=== PATIENT | male | born 1950 | race Caucasian/White ===

== ENCOUNTER → 2016-06-09 | Outpatient (CLI) | payer OTHER ==
--- NOTE | 2016-06-09 12:59 | XR ---
EXAMINATION TYPE: XR knee limited RT DATE OF EXAM: 06/09/2016 12:55 PM CLINICAL HISTORY: pain TECHNIQUE: Two views of the right knee are obtained. COMPARISON: None. FINDINGS: There is no acute fracture/dislocation. The tri-compartment joint spaces appear moderatel y narrowed. The overlying soft tissue appears unremarkable. IMPRESSION: There is no acute fracture or dislocation.ICD 10 NO FRACTURE, INITIAL EVALUATION
== END | disposition home or self-care (01) ==
LOC: RADXRMAIN 12:39
PROVIDERS: ATTEND Family Medicine
DX: M25.561 Pain in right knee (principal)

== ENCOUNTER → 2016-09-15 | Outpatient (CLI) | payer OTHER ==
--- NOTE | 2016-09-15 11:34 | XR ---
EXAMINATION TYPE: XR lumbosacral spine min 4V DATE OF EXAM: 09/15/2016 11:27 AM CLINICAL HISTORY: pain COMPARISON: NONE TECHNIQUE: Frontal, lateral, and oblique images of the lumbar spine are obtained. FINDINGS: There are 5 lumbar type vertebral bodies identified. The lumbar spine shows satisfactory alignment without evidence of acute fracture or dislocation. Vertebral body heights are within normal limits. Moderate degenerative disc space narrowing and mild spondylosis. Moderate facet joint arthro emery seen. The overlying soft tissue appears unremarkable. IMPRESSION: No acute fracture or dislocation is seen in the lumbar spine.ICD 10 NO FRACTURE, INITIAL EVALUATION
== END | disposition home or self-care (01) ==
LOC: RADXRMAIN 11:05
PROVIDERS: ATTEND Family Medicine
DX: M54.5 Low back pain (principal)
CPT/HCPCS: 72110

== ENCOUNTER 2016-10-21 14:27 | Inpatient (IN) | payer OTHER ==
[~2016-10-21 14:27] MED LIST: AMIODARONE 50 MG/ML 3 ML VIAL IV ONE; DEXTROSE 5% IN WATER 100 ML BAG IV ONE; EPINEPHrine 1 MG/ML (MDV) 30 ML VIAL ONE
[2016-10-21] MEDS ORDERED: SUCCINYLCHOLINE CHLORIDE VIAL 200 MG/10 ML VIAL IV STA (14:40)
[2016-10-21] MEDS ORDERED: ASPIRIN 300 MG SUPP RECTAL STA (14:45)
[2016-10-21] MEDS ORDERED: LORazepam 2 MG/ML SYRINGE IV STA ×2 (14:47→14:51)
[2016-10-21] MEDS ORDERED: MIDAZOLAM (PF) 1 MG/ML 5 ML VIAL IV STA (14:47)
[2016-10-21] MEDS ORDERED: LIDOCAINE 2% INJ 20 MG/ML (20 ML MDV) ONE (14:50)
[2016-10-21] MEDS ORDERED: HEPARIN SODIUM,PORCINE 5,000 UNIT/ML 1 ML VIAL IV ONE (14:50)
[2016-10-21] MEDS ORDERED: HEPARIN SODIUM,PORCINE 5,000 UNIT/ML 1 ML VIAL SQ STA (14:51)
[2016-10-21 14:56] LABS: Basophils # (A) 0.1 k/uL (0-0.2); Basophils % (A) 1 %; CH 31.5; CHCM 34.8; Eosinophils # (A) 0.2 k/uL (0-0.7); Eosinophils % (A) 3 %; HCT 39.4 % (39.0-53.0); HDW 3.52; HGB 13.4 gm/dL (13.0-17.5); Luc # (Auto) 0.21; Luc % (Auto) 4; Lymphocytes # (A) 1.3 k/uL (1.0-4.8); Lymphocytes % (A) 22 %; MCHC 34.1 g/dL (31.0-37.0); Mean Platelet Volume 7.7; Monocytes # (A) 0.3 k/uL (0-1.0); Monocytes % (A) 6 %; Neutrophils # (A) 3.9 k/uL (1.3-7.7); Neutrophils % (A) 65 %; Poikilocytosis Slight; RBC 4.33 m/uL (4.30-5.90); RDW 14.2 % (11.5-15.5); WBC (Perox) 5.55
[2016-10-21] MEDS ORDERED: DEXTROSE 5% IN WATER 100 ML with AMIODARONE 150 MG IV ONE (15:00)
--- NOTE | 2016-10-21 15:02 | ED ---
General Adult HPI - General Stated complaint: Chest Pain Time Seen by Provider: 10/21/16 14:27 Source: RN notes reviewed - History of Present Illness Initial comments: This is a 65-year-old male who presents to the emergency department unresponsive and without pulses. Patient was working on a deck with his daughter when he became diaphoretic and said he didn't feel well he also complete of chest pain and some mild shortness of breath. The daughter medially brought him to the emergency department at which point in time he became unresponsive in triage and we brought him back to room 20 immediately. Patient had no pulse patient had no spontaneous breathing at that time. We put the patient to monitor the patient was in a ventricular fibrillation. No other history is available this time. - Related Data Home Medications Medication Instructions Recorded Confirmed Cyanocobalamin [Vitamin B-12 1,000 mcg SQ QMONTH 10/21/16 10/21/16 Injection] Docusate [Colace] 100 mg PO Q7D 10/21/16 10/21/16 Ergocalciferol [Vitamin D2 50,000 unit PO Q7D 10/21/16 10/21/16 (DRISDOL)] Famotidine [Pepcid] 40 mg PO HS 10/21/16 10/21/16 HYDROcodone/APAP 5-325MG [Randolph 1 tab PO Q8H PRN 10/21/16 10/21/16 5-325] Tamsulosin [Flomax] 0.4 mg PO BID 10/21/16 10/21/16 Previous Rx's Medication Instructions Recorded Aspirin 81 mg PO DAILY #90 10/24/16 Atorvastatin [Lipitor] 80 mg PO HS #90 tab 10/24/16 Losartan [Cozaar] 12.5 mg PO DAILY #45 tab 10/24/16 Metoprolol Tartrate [Lopressor] 25 mg PO BID #180 tab 10/24/16 Nitroglycerin Sl Tabs [Nitrostat] 0.4 mg SUBLINGUAL Q5M PRN #25 tab 10/24/16 Prasugrel [Effient] 10 mg PO DAILY #90 tab 10/24/16 Allergies Allergy/AdvReac Type Severity Reaction Status Date / Time No Known Allergies Allergy Verified 10/21/16 15:11 Review of Systems ROS Statement: Those systems with pertinent positive or pertinent negative responses have been documented in the HPI. ROS Other: All systems not noted in ROS Statement are negative. Past Medical History - Past Family History Father Family Medical History: Dementia Additional Family Medical History / Comment(s): PARKINSONS Mother Additional Family Medical History / Comment(s): MOM WHEN PT WAS 4 YERAS OLD NO HX KNOWN General Exam - General Exam Comments Initial Comments: GENERAL: Patient is well-developed and well-nourished. PULMONARY: Patient has occasional agonal breathing. CARDIOVASCULAR: Patient is without pulses and no heart sounds are noted SKIN: Skin is clear with no lesions or rashes and otherwise unremarkable. NEUROLOGIC: Patient is unresponsive Course Vital Signs 10/21/16 10/21/16 14:36 14:55 Temperature 99.9 F H Pulse Rate 164 H 95 Respiratory 14 16 Rate Blood Pressure 144/110 112/55 O2 Sat by Pulse 98 98 Oximetry Procedures - Intubation Time Out Performed: Yes Sedative: Versed Paralytic: Succinylcholine Laryngoscope: San Size: 3 ET Tube Size: 8 ET Tube Uncuffed: No Tube Secured Location: teeth Tube Placement Confirmation: visualized tube passing through cords Patient Tolerated Procedure: well Intubation Complications: none Medical Decision Making - Medical Decision Making Initial rhythm was ventricular fibrillation and was shocked the patient times one and the patient had CPR continued for a couple more minutes and recheck pulses patient had good pulses his rhythm showed the atrial fibrillation with the ST segment elevation. Patient was somewhat combative at that time and trying to breathe on his own at this point time we intubated the patient. Amiodarone was given to the patient as well. EKG shows atrial fibrillation with rapid ventricular response at 159 bpm QRS is 84 QT interval 310 QTC is 504. Patient's EKG shows significant ST segment elevation and aVL as well as V2 V3 and V4. Patient also has ST segment depression in II, III, and F aVF. Chest x-ray shows no acute abnormality. ET tube was down a little too far so I had them pull her back a centimeter We gave the patient 4000 bolus of heparin rectal aspirin. Patient did have some neurosurgery a couple years ago but when I spoke with Dr. Carroll he agreed that the patient needed to heparin so we gave the patient [address] Carroll came down and see the patient after I spoke with him and he immediately took the patient to the cath. I spoke with Dr. Brown he agreed to accept the admission. - Lab Data Result diagrams: 10/25/16 05:52 10/25/16 05:52 Lab Results 10/21/16 10/21/16 10/21/16 Range/Units 14:39 14:39 14:39 WBC 6.0 (3.8-10.6) k/uL RBC 4.33 (4.30-5.90) m/uL Hgb 13.4 (13.0-17.5) gm/dL Hct 39.4 (39.0-53.0) % MCV 91.0 (80.0-100.0) fL MCH 31.0 (25.0-35.0) pg MCHC 34.1 (31.0-37.0) g/dL RDW 14.2 (11.5-15.5) % Plt Count 220 (150-450) k/uL Neutrophils % 65 % Lymphocytes % 22 % Monocytes % 6 % Eosinophils % 3 % Basophils % 1 % Neutrophils # 3.9 (1.3-7.7) k/uL Lymphocytes # 1.3 (1.0-4.8) k/uL Monocytes # 0.3 (0-1.0) k/uL Eosinophils # 0.2 (0-0.7) k/uL Basophils # 0.1 (0-0.2) k/uL Poikilocytosis Slight PT (9.0-12.0) sec INR (<1.1) APTT (22.0-30.0) sec Sodium 145 (137-145) mmol/L Potassium 3.5 (3.5-5.1) mmol/L Chloride 110 H (98-107) mmol/L Carbon Dioxide 23 (22-30) mmol/L Anion Gap 12 mmol/L BUN 20 (9-20) mg/dL Creatinine 1.30 H (0.66-1.25) mg/dL Est GFR (MDRD) Af Amer >60 (>60 ml/min/1.73 sqM) Est GFR (MDRD) Non-Af 56 (>60 ml/min/1.73 sqM) Glucose 131 H (74-99) mg/dL Calcium 9.8 (8.4-10.2) mg/dL Magnesium 2.2 (1.6-2.3) mg/dL Total Bilirubin 0.9 (0.2-1.3) mg/dL AST 26 (17-59) U/L ALT 25 (21-72) U/L Alkaline Phosphatase 64 (38-126) U/L Total Creatine Kinase 201 H (55-170) U/L CK-MB (CK-2) 3.0 H* (0.0-2.4) ng/mL CK-MB (CK-2) Rel Index 1.5 Troponin I 0.476 H* (0.000-0.034) ng/mL Total Protein 7.6 (6.3-8.2) g/dL Albumin 4.5 (3.5-5.0) g/dL 10/21/16 Range/Units 14:39 WBC (3.8-10.6) k/uL RBC (4.30-5.90) m/uL Hgb (13.0-17.5) gm/dL Hct (39.0-53.0) % MCV (80.0-100.0) fL MCH (25.0-35.0) pg MCHC (31.0-37.0) g/dL RDW (11.5-15.5) % Plt Count (150-450) k/uL Neutrophils % % Lymphocytes % % Monocytes % % Eosinophils % % Basophils % % Neutrophils # (1.3-7.7) k/uL Lymphocytes # (1.0-4.8) k/uL Monocytes # (0-1.0) k/uL Eosinophils # (0-0.7) k/uL Basophils # (0-0.2) k/uL Poikilocytosis PT 10.9 (9.0-12.0) sec INR 1.1 (<1.1) APTT 21.6 L (22.0-30.0) sec Sodium (137-145) mmol/L Potassium (3.5-5.1) mmol/L Chloride (98-107) mmol/L Carbon Dioxide (22-30) mmol/L Anion Gap mmol/L BUN (9-20) mg/dL Creatinine (0.66-1.25) mg/dL Est GFR (MDRD) Af Amer (>60 ml/min/1.73 sqM) Est GFR (MDRD) Non-Af (>60 ml/min/1.73 sqM) Glucose (74-99) mg/dL Calcium (8.4-10.2) mg/dL Magnesium (1.6-2.3) mg/dL Total Bilirubin (0.2-1.3) mg/dL AST (17-59) U/L ALT (21-72) U/L Alkaline Phosphatase (38-126) U/L Total Creatine Kinase (55-170) U/L CK-MB (CK-2) (0.0-2.4) ng/mL CK-MB (CK-2) Rel Index Troponin I (0.000-0.034) ng/mL Total Protein (6.3-8.2) g/dL Albumin (3.5-5.0) g/dL Critical Care Time Critical Care Time: Yes Total Critical Care Time: 35 Disposition Clinical Impression: Cardiac arrest, Ventricular fibrillation, STEMI (ST elevation myocardial infarction) Disposition: ADMITTED IP TO THIS HOSP Condition: Good Time of Disposition: 15:04
[2016-10-21] MEDS ORDERED: SODIUM CHLORIDE 0.9% 1,000 ML IV ONE ×2 (15:04→15:10)
--- NOTE | 2016-10-21 15:07 | XR ---
EXAMINATION TYPE: XR chest 1V portable DATE OF EXAM: 10/21/2016 COMPARISON: NONE HISTORY: Cardiac arrest TECHNIQUE: Single AP portable frontal supine view of the chest is obtained. FINDINGS: Endotracheal tube is low in position extending into right mainstem bronchus below sandra, recommend pulling back 4 to 5 cm. Orogastric tube is projecting below left hemidiaphragm. Somewhat low lung volumes are present. There is no focal air space opacity, pleural effusion, or pne umothorax seen. The cardiac silhouette size is within normal limits. The osseous structures are in tact. IMPRESSION: 1. Low-lying endotracheal tube should be pulled back 4 to 5 cm. 2. Low lung volumes without suspicious acute pulmonary process. Results of low lying endotracheal tube called to emergency care room at time of dictation.
[2016-10-21 15:12] LABS: INR 1.1 (<1.1); Partial Thromboplastin Time 21.6 sec (22.0-30.0); Prothrombin Time 10.9 sec (9.0-12.0)
[2016-10-21 15:14] LABS: ALT 25 U/L (21-72); AST 26 U/L (17-59); Alkaline Phosphatase 64 U/L (38-126); Anion Gap 12 mmol/L; Blood Urea Nitrogen 20 mg/dL (9-20); Calcium 9.8 mg/dL (8.4-10.2); Carbon Dioxide 23 mmol/L (22-30); Chloride 110 mmol/L (98-107); Glucose 131 mg/dL (74-99); Magnesium 2.2 mg/dL (1.6-2.3); Non-African American GFR(MDRD) 56 (>60 ml/min/1.73 sqM); Potassium 3.5 mmol/L (3.5-5.1); Sodium 145 mmol/L (137-145); Total Bilirubin 0.9 mg/dL (0.2-1.3); Total Protein 7.6 g/dL (6.3-8.2)
[2016-10-21] MEDS ORDERED: AMIODARONE 450 MG in DEXTROSE 5% IN WATER 250 ML IV ONE ×4 (15:15→15:26)
--- NOTE | 2016-10-21 15:15 | CONS ---
DATE OF CONSULTATION: CHIEF COMPLAINT: Acute myocardial infarction. This is a 65-year-old gentleman with history of brain surgery about 2 years ago and hypertension, who was brought to the emergency room with chest pain. While he was in the waiting area, he had a cardiac arrest, was brought in. An EKG shows acute ST-segment elevation CT in the anterior wall. Patient had to be shocked, currently intubated on vent, remains in sinus rhythm, hemodynamically unstable. He is just in the process of being started on heparin, IV amiodarone. We do not really have any information on the brain surgery that he had. There is a risk of intracranial bleed, but this is a risk we have to take with the information we have in our hands at the moment. Past medical history is significant for hypertension. I do not have his med list with him. ALLERGIES: We do not know. FAMILY HISTORY, SOCIAL HISTORY, REVIEW OF SYSTEMS: I am unable to obtain from the patient who is intubated on vent and critically ill. On exam, patient is intubated on vent, sedated. Heart rate is in the 80s. Blood pressure is 110/70, respiratory rate is 24. Chest exam reveals diminished air entry bilaterally. Heart exam reveals first and second heart sounds. No gallop. Exam of the extremities did not reveal trace edema. Peripheral pulses are diminished. Labs are pending. ASSESSMENT: 1. Acute anterior wall myocardial infarction. 2. Status post cardiac arrest secondary to ventricular fibrillation. 3. Atrial fibrillation. PLAN: Will start the patient on amiodarone, start him on heparin, resuscitate him as necessary with pressors and fluids. Will undergo emergent cardiac catheterization with ( ) performing angioplasty.
[2016-10-21] MEDS ORDERED: PROPOFOL 500 MG in EMPTY BAG 1 BAG IV ONE (15:17)
[2016-10-21] MEDS ORDERED: LIDOCAINE 2% INJ 20 MG/ML SQ ONE (15:18)
[2016-10-21] MEDS ORDERED: BIVALIRUDIN 250 MG in SODIUM CHLORIDE 0.9% 50 ML IV ONE (15:34)
[2016-10-21] MEDS ORDERED: BIVALIRUDIN BOLUS 250 MG/50 ML IV ONE (15:35)
[2016-10-21] MEDS ORDERED: LIDOCAINE 2% SYG (PF) 100 MG/5 ML IV ONE (15:40)
[2016-10-21] MEDS ORDERED: niCARdipine Syringe (1,000 mcg/10 mL) INTRACORON ONE (15:45)
[2016-10-21] MEDS ORDERED: PRASUGREL 10 MG TAB ONE (15:51)
[2016-10-21] MEDS ORDERED: PRASUGREL 10 MG TAB NG-TUBE ONE (16:00)
[2016-10-21] MEDS ORDERED: NITROGLYCERIN SL TABS 0.4 MG TAB SUBLINGUAL PRN (16:03)
[2016-10-21] MEDS ORDERED: MAG HYDROX/AL HYDROX/SIMETH 30 ML CUP PO PRN (16:03)
[2016-10-21] MEDS ORDERED: ATROPINE SULFATE 0.1 MG/ML 10ML SYRINGE IV PRN (16:03)
[2016-10-21] MEDS ORDERED: ZOLPIDEM 5 MG TAB PO PRN (16:03)
[2016-10-21] MEDS ORDERED: IOHEXOL 350 MG/ML 125ML BOTTLE INJ ONE (16:03)
[2016-10-21] MEDS ORDERED: RX INFO: IV CONTRAST WAS GIVEN 1 EACH MISC MISCELLANE PRN (16:03)
[2016-10-21 16:11] LABS: Troponin I 0.476 ng/mL (0.000-0.034)
[2016-10-21] MEDS ORDERED: PROPOFOL 50 ML IV ONE (16:22)
[2016-10-21 16:29] LABS: Glucose,Whole Blood 174 mg/dL (75-99)
[2016-10-21 16:56] LABS: ABG PCO2 35 mmHg (35-45)
[2016-10-21 16:57] LABS: ABG Base Excess -2.8 mmol/L; ABG HCO3 21 mmol/L (21-25); ABG Oxygen Saturation 98.8 % (94-97); ABG PO2 123 mmHg (83-108); ABG TCO2 22 mmol/L (19-24)
[2016-10-21] MEDS ORDERED: NALOXONE 0.4 MG/ML 1 ML VIAL IV PRN (17:01)
[2016-10-21] MEDS: POTASSIUM CHLORIDE ORAL LIQUID 40 MEQ/30 ML CUP PO SCH ×2 (17:34→18:25)
[2016-10-21] MEDS: SODIUM CHLORIDE 0.9% 1,000 ML IV SCH (17:34)
[2016-10-21] MEDS: PROPOFOL 500 MG in EMPTY BAG 1 BAG IV SCH ×2 (18:26→20:39)
[2016-10-21] MEDS: IPRATROPIUM-ALBUTEROL 3 ML NEB INHALATION SCH ×2 (19:36→23:16)
[2016-10-21 21:22] LABS: Anion Gap 8 mmol/L; Blood Urea Nitrogen 19 mg/dL (9-20); Carbon Dioxide 22 mmol/L (22-30); Chloride 112 mmol/L (98-107); Glucose 110 mg/dL (74-99); Magnesium 2.2 mg/dL (1.6-2.3); Non-African American GFR(MDRD) >60 (>60 ml/min/1.73 sqM); Potassium 4.3 mmol/L (3.5-5.1); Sodium 142 mmol/L (137-145)
[2016-10-21] MEDS: ATORVASTATIN 80 MG TAB PO SCH (22:08)
[2016-10-21] MEDS: CHLORHEXIDINE GLUCONATE 15 ML CUP MUCOUS MEM SCH (22:08)
[2016-10-21] MEDS: METOPROLOL TARTRATE 12.5 MG TAB PO SCH (22:08)
--- NOTE | 2016-10-21 23:17 | P.HPIM ---
History of Present Illness H&P Date: 10/21/16 Chief Complaint: STEMI/Afib with RVR/V-Fib This is a 65 year-old male one of my patient with previous medical history significant for hypertension and hypertensive cardiovascular disease, hyperlipidemia, vascular dementia, left ear Cholesteatoma S/P surgical excision 06/[address]Bojrab Mccall, colonic polyps and prostate cancer post seeds and radiation currently in remission, patient was helping his daughter doing some work on the deck when he suddenly developed increased left sided chest pain and patient felt diaphoretic , she ended up driving him to the ER at [facility] and while he was in the waiting room he collapsed and became unresponsive and patient was foung in V.Fib , he was shocked and then he went into AFib with RVR and was found to Have anterior ST segment elevation with reciprocal changes in the inferior leads and was seen in consultation by and he was given a bolus of Amiodarone and ws taken to the cath labs where he was found to have totally occluded LAD, he underwent stenting and was admitted to the ICU after patient was intubated in the ER, and subsequently was admitted to the ICU. Review of Systems ROS unobtainable: due to endotracheal tube, due to mental status Past Medical History Past Medical History: Atrial Fibrillation, Cancer, Hearing Disorder / Deafness, Hypertension, Musculoskeletal Disorder, Osteoarthritis (OA), Prostate Disorder Additional Past Medical History / Comment(s): 10-21-16 CARDIAC [id number]. ENLARGED PROSTATE AND PROSTATE CANCER(RADIATION AND CHEMO) HAS SEED IMPLANTS, "BEGINNINGS OF DEMENTIA, SPINAL STENOSIS, B12 DEFICIENCY, ANEMIA, Left Cholesteatoma of the left ear S/P excision 06/2014. History of Any Multi-Drug Resistant Organisms: Unobtainable Additional Past Surgical History / Comment(s): 10-21-16 -HEART CATH W/STENT TO LAD PROSTATE BX, LT ACOUSTIC NEUROMA REMOVED JULY 2016 Past Anesthesia/Blood Transfusion Reactions: No Reported Reaction Past Psychological History: No Psychological Hx Reported Additional Psychological History / Comment(s): PT IS NORMALLY INDEPENDANT,NO OUTSIDE SERVICES, NO MEDICAL EQUIPMENT. LIVES WITH DAUGHTER, 1 PET DOG IN A SINGLE STORY HOME THAT HAS 2 STEPS. 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 Smoking Status: Former smoker Past Alcohol Use History: Occasional Additional Past Alcohol Use History / Comment(s): DAUGHTER UNSURE HOW OLD PT WAS WHEN HE STARTED SMOKING BUT STATED HE QUIT 1996 AND SMOKED 1PPD. Past Drug Use History: Unable to Obtain - Past Family History Father Family Medical History: Dementia Additional Family Medical History / Comment(s): PARKINSONS Mother Additional Family Medical History / Comment(s): MOM WHEN PT WAS 4 YERAS OLD NO HX KNOWN Medications and Allergies Home Medications Medication Instructions Recorded Confirmed Type Cyanocobalamin [Vitamin B-12 1,000 mcg SQ QMONTH 10/21/16 10/21/16 History Injection] Docusate [Colace] 100 mg PO Q7D 10/21/16 10/21/16 History Ergocalciferol [Vitamin D2] 50,000 unit PO Q7D 10/21/16 10/21/16 History Famotidine [Pepcid] 40 mg PO HS 10/21/16 10/21/16 History HYDROcodone/APAP 5-325MG [Caruthers 1 tab PO Q8H PRN 10/21/16 10/21/16 History 5-325] Meloxicam [Meloxicam] 15 mg PO DAILY 10/21/16 10/21/16 History Metoprolol Tartrate [Lopressor] 50 mg PO BID 10/21/16 10/21/16 History Tamsulosin [Flomax] 0.4 mg PO BID 10/21/16 10/21/16 History Allergies Allergy/AdvReac Type Severity Reaction Status Date / Time No Known Allergies Allergy Verified 10/21/16 15:11 Physical Exam Vitals: Vital Signs Temp Pulse Resp BP Pulse Ox 10/21/16 18:00 62 14 108/59 100 10/21/16 17:45 61 14 111/64 100 10/21/16 17:30 65 14 111/64 100 10/21/16 17:15 72 14 107/60 100 10/21/16 17:00 69 15 107/60 100 10/21/16 16:45 72 11 L 118/67 100 10/21/16 16:40 71 14 118/67 100 10/21/16 16:30 96.4 F L 82 26 H 118/67 98 10/21/16 16:22 78 100 10/21/16 15:24 100 10/21/16 14:55 95 16 112/55 98 10/21/16 14:36 99.9 F H 164 H 14 144/110 98 Intake and Output 10/21/16 10/21/16 10/21/16 06:59 14:59 22:59 Intake Total 429 Output Total 175 Balance 254 Intake: IV 429 Sodium Chloride 0.9% 1, 150 000 ml @ 75 mls/hr IV . [id number] BENJAMIN Rx#:[id number] Output: Urine 175 Other: Weight 95.254 kg 95.254 kg Patient Weight 10/22/16 06:59 Weight 95.254 kg - Constitutional General appearance: average body habitus, no acute distress - EENT Eyes: PERRLA ENT: hard of hearing Ears: bilateral: normal - Neck Neck: no lymphadenopathy, normal ROM, no rigidity, no stridor, no thyromegaly Carotids: bilateral: upstroke normal Thyroid: bilateral: normal size - Respiratory Respiratory: bilateral: diminished, negative: dullness, rales, rhonchi, wheezing , prolonged expiration, prolonged inspiration - Cardiovascular Rhythm: regular Heart sounds: normal: S1, S2 Abnormal Heart Sounds: systolic murmur, no rub, S3 Gallop, no click - Gastrointestinal General gastrointestinal: normal bowel sounds, soft, no splenomegaly, no tenderness, no umbilical hernia - Integumentary Integumentary: normal, normal turgor - Neurologic Neurologic: CNII-XII intact - Musculoskeletal Musculoskeletal: generalized weakness - Psychiatric Psychiatric: A&O x's 3, appropriate affect Results CBC & Chem 7: 10/21/16 14:39 10/21/16 20:51 Labs: Abnormal Lab Results - Last 24 Hours (Table) 10/21/16 10/21/16 10/21/16 Range/Units 14:39 14:39 14:39 APTT 21.6 L (22.0-30.0) sec ABG pO2 (83-108) mmHg ABG O2 Saturation (94-97) % Chloride 110 H (98-107) mmol/L Creatinine 1.30 H (0.66-1.25) mg/dL Glucose 131 H (74-99) mg/dL POC Glucose (mg/dL) (75-99) mg/dL Total Creatine Kinase 201 H (55-170) U/L CK-MB (CK-2) 3.0 H* (0.0-2.4) ng/mL Troponin I 0.476 H* (0.000-0.034) ng/mL 10/21/16 10/21/16 Range/Units 16:27 16:45 APTT (22.0-30.0) sec ABG pO2 123 H (83-108) mmHg ABG O2 Saturation 98.8 H (94-97) % Chloride (98-107) mmol/L Creatinine (0.66-1.25) mg/dL Glucose (74-99) mg/dL POC Glucose (mg/dL) 174 H (75-99) mg/dL Total Creatine Kinase (55-170) U/L CK-MB (CK-2) (0.0-2.4) ng/mL Troponin I (0.000-0.034) ng/mL Thrombosis Risk Factor Assmnt - DVT/VTE Prophylaxis DVT/VTE Prophylaxis: Pharmacologic Prophylaxis ordered, Mechanical Prophylaxis ordered Assessment and Plan Plan: Assessment and plan: 1. Anterior wall STEMI post LHC with PCI of the LAD.continue with ASA 325 mg OGT daily,Effient 10 mg OGT daily,Lipitor 80 mg OGT daily,Metoprolol 12.5 mg OGT daily. Echocardiogram will be done in AM. 2. Atrial fibrillatio with RVR S/P Amiodarone bolus was aborted in the wharf labourer after deployment of the stent. 3. V.Fib S/P DC cardioversion. currently in sinus rythm. 4. Vent-Dependent respiratory failure due STEMI with cardiac arrest. currently on CMV with Fio2 40% ,VT 500, PEEP +5. will try to extubate in am. 5. Left sided Cholesteatoma. post surgical resection by . 6. B12 deficiency. will continue with vit B12 supplement. 7. Vit D deficiency. will hold off Drisdol. 8. H/O Prostate cancer post Seeds and radiation. currently in remission. 9. Spondylosis of the lumbar spine. will continue with current pain management. 10. Vascular dementia. stable. 11. DVT prophylaxis. on Heparin 5000 units sc q 12 h .SCDs. 12. GI prophylaxis . will continue with protonix 40 mg IVP daily. 13. Full code.
[2016-10-22] MEDS: IPRATROPIUM-ALBUTEROL 3 ML NEB INHALATION SCH ×2 (03:30→07:14)
[2016-10-22 05:34] LABS: ABG HCO3 22 mmol/L (21-25); ABG PCO2 34 mmHg (35-45); ABG PH 7.42 (7.35-7.45); ABG PO2 125 mmHg (83-108); ABG TCO2 23 mmol/L (19-24)
[2016-10-22 05:59] LABS: Basophils % (A) 0 %; CH 31.2; CHCM 34.3; Eosinophils % (A) 0 %; HCT 36.3 % (39.0-53.0); HDW 3.53; HGB 12.4 gm/dL (13.0-17.5); Luc # (Auto) 0.07; Luc % (Auto) 1; Lymphocytes # (A) 0.5 k/uL (1.0-4.8); Lymphocytes % (A) 7 %; MCH 31.3 pg (25.0-35.0); MCHC 34.1 g/dL (31.0-37.0); MCV 91.7 fL (80.0-100.0); Mean Platelet Volume 7.5; Monocytes # (A) 0.3 k/uL (0-1.0); Monocytes % (A) 5 %; Neutrophils # (A) 5.7 k/uL (1.3-7.7); Neutrophils % (A) 86 %; Poikilocytosis Slight; RBC 3.96 m/uL (4.30-5.90); RDW 14.5 % (11.5-15.5); WBC 6.7 k/uL (3.8-10.6); WBC (Perox) 7.08
[2016-10-22 06:16] LABS: ALT 64 U/L (21-72); AST 138 U/L (17-59); Alkaline Phosphatase 49 U/L (38-126); Anion Gap 9 mmol/L; Blood Urea Nitrogen 18 mg/dL (9-20); Calcium 8.8 mg/dL (8.4-10.2); Carbon Dioxide 21 mmol/L (22-30); Chloride 114 mmol/L (98-107); Glucose 102 mg/dL (74-99); Magnesium 2.2 mg/dL (1.6-2.3); Non-African American GFR(MDRD) >60 (>60 ml/min/1.73 sqM); Phosphorous 3.5 mg/dL (2.5-4.5); Potassium 4.1 mmol/L (3.5-5.1); Sodium 144 mmol/L (137-145); Total Bilirubin 0.7 mg/dL (0.2-1.3); Total Protein 6.6 g/dL (6.3-8.2)
[2016-10-22] MEDS: SODIUM CHLORIDE 0.9% 1,000 ML IV SCH (06:59)
[2016-10-22] MEDS: PROPOFOL 500 MG in EMPTY BAG 1 BAG IV SCH ×2 (06:59→07:01)
--- NOTE | 2016-10-22 07:15 | XR ---
EXAMINATION TYPE: XR chest 1V portable DATE OF EXAM: 10/22/2016 COMPARISON: 10/21/2016 HISTORY: SOB, Follow Up FINDINGS: Endotracheal tube is 2 cm from the sandra. NG tube is seen coursing into the stomach. Diminished lung volumes without focal infiltrate. Stable appearance of the cardio-mediastinal structures at this time. IMPRESSION: 1. Stable portable chest. Clinical correlation and follow up until resolution is recommended.
--- NOTE | 2016-10-22 08:08 | PTCA ---
DATE OF SERVICE: 10/21/2016 PROCEDURE: PTCA and stenting of a totally occluded proximal left anterior descending coronary artery performed in the setting of an acute myocardial infarction as a primary intervention. PERFORMED BY: Dr. Leydi Godoy. CLINICAL INFORMATION: Mr. Cal Simmons is a 65-year-old gentleman who presented to the emergency room with chest pain and went on to have ventricular fibrillation requiring CPR and intubation. Dr. Carroll evaluated the patient and performed coronary angiography, which revealed total occlusion of the LAD in the proximal portion before the origin of any major branches and then there was mild disease involving the circumflex and also RCA. RCA was dominant. He was advised intervention that was performed expeditiously. The patient was on an amiodarone drip and a propofol drip on a ventilator with a decent oxygenation. He had anterior ST elevation. PROCEDURE NOTE: The existing 6 American introducer in the right femoral artery was used to perform the procedure. I used a standard left Yosef-type guide catheter to cannulate the left coronary artery. This was a 6 American guide catheter. A BMW wire was used to cross the lesion and wire was kept distally. I noted that there was an ectatic segment involving the proximal LAD and the total occlusion occurred right after the ectatic segment and there was a small diagonal branch also at the site of total occlusion. I advanced and positioned a 2.75 caliber, 12 mm long Xience stent and deployed this at 12 atmospheres. Patient had more prominent ST elevation. Excellent angiographic result was achieved with remarkably good angiographic appearance and flow with near normalization of ST segments. The patient received Angiomax bolus and infusion and also received 60 mg of Effient through the NG tube. The sheath was then taken out and Angio-Seal device used to secure hemostasis and he was sent to the room in stable condition. Excellent angiographic result was achieved without complication. This patient received moderate conscious sedation for 45 minutes with a combination of propofol, and also Benadryl and 0.5 mg of Versed. Oxygenation was monitored very closely, was about 95% to 98%.
--- NOTE | 2016-10-22 08:15 | ECHOF ---
Referral Reason:Ant STEMI MEASUREMENTS -------- HEIGHT: 172.7 cm WEIGHT: 86.2 kg BP: 109/65 RVIDd: 2.4 cm (< 3.3) IVSd: 1.3 cm (0.6 - 1.1) LVIDd: 4.0 cm (3.9 - 5.3) LVPWd: 1.1 cm (0.6 - 1.1) IVSs: 1.4 cm LVIDs: 3.0 cm LVPWs: 1.7 cm LA Diam: 2.7 cm (2.7 - 3.8) LAESV Index (A-L): 19.09 ml/m Ao Diam: 3.5 cm (2.0 - 3.7) AV Cusp: 2.1 cm (1.5 - 2.6) MV EXCURSION: 14.664 mm (> 18.000) MV EF SLOPE: 71 mm/s (70 - 150) EPSS: 0.4 cm MV E Mariano: 0.59 m/s MV DecT: 229 ms MV A Mariano: 0.75 m/s MV E/A Ratio: 0.79 RAP: 5.00 mmHg RVSP: 27.16 mmHg FINDINGS -------- Sinus rhythm. This was a technically adequate study. The left ventricular size is normal. There is mild concentric left ventricular hypertrophy. Overall left ventricular systolic function is moderately impaired with, an EF between 35 - 40 %. Mid anterior LV wall motion is hypokinetic. Mid inferoseptal LV wall motion is hypokinetic. Apical anterior LV wall motion is hypokinetic. Apical lateral LV wall motion is hypokinetic. Apical inferior LV wall motion is hypokinetic. Apical septum LV wall motion is hypokinetic. The right ventricle is normal in size and function. Normal LA size by volume 22+/-6 ml/m2. The right atrium is normal in size. 1.5mg of Definity was utilized for enhancement of images Aortic valve is trileaflet and is mildly thickened. Mild mitral annular calcification present. Mild tricuspid regurgitation present. Right ventricular systolic pressure is normal at < 35 mmHg. Trace/mild (physiologic) pulmonic regurgitation. The aortic root size is normal. The pericardium is normal. CONCLUSIONS -------- 1. Sinus rhythm. 2. Apical septum LV wall motion is hypokinetic. 3. The right ventricle is normal in size and function. 4. Normal LA size by volume 22+/-6 ml/m2. 5. The right atrium is normal in size. 6. 1.5mg of Definity was utilized for enhancement of images 7. Aortic valve is trileaflet and is mildly thickened. 8. Mild mitral annular calcification present. 9. Mild tricuspid regurgitation present. 10. Right ventricular systolic pressure is normal at < 35 mmHg. 11. Trace/mild (physiologic) pulmonic regurgitation. 12. This was a technically adequate study. 13. The aortic root size is normal. 14. The pericardium is normal. 15. The left ventricular size is normal. 16. There is mild concentric left ventricular hypertrophy. 17. Mid anterior LV wall motion is hypokinetic. 18. Mid inferoseptal LV wall motion is hypokinetic. 19. Apical anterior LV wall motion is hypokinetic. 20. Apical lateral LV wall motion is hypokinetic. 21. Apical inferior LV wall motion is hypokinetic. ACCESS DEVELOPER: Melisa Hartmann RDCS
--- NOTE | 2016-10-22 13:06 | CONS ---
DATE OF CONSULTATION: This is a patient who is 65. He apparently presented to the emergency department unresponsive and without pulses. He apparently was working on his deck at home with his daughter. He became diaphoretic and said he did not feel well and his daughter drove him into the emergency room. When he got to the emergency department, he became unresponsive. He was intubated. He was resuscitated. The patient went to the catheterization laboratory and he had a percutaneous coronary intervention with a stent to his LAD. The patient also developed flash pulmonary edema. He came to the ICU intubated. Currently we just extubated him. His weaning parameters were excellent. His tidal volumes were excellent. His RSBI was only less than 30. Had a good cuff leak. Sol, the respiratory therapist, just pulled the tube. He is doing very well, very stable. He is on IV 0.9 at 75. He getting Diprivan, which has obviously been turned off. His vent setting for the assist control mode rate of 14, tidal volume 500, FiO2 of 40%, PEEP of 5. Blood gases prior to extubation showed a pO2 of 125 and pCO2 of 34, pH 7.42. This is consistent with a mixed acid-base disturbance, including a respiratory alkalosis and metabolic acidosis with a normal pH. His current home medications included meloxicam, Flomax, metoprolol, Pepcid, [place], vitamin D2, Colace and vitamin B12 injections. ALLERGIES: Denied. His medical history included arthritis, BPH, hypertension, GERD and chronic pain. Surgical history is not known. Family and occupational history is not known. Review of systems cannot be obtained as the patient is currently on the ventilator. Current vital signs are reviewed. Temperature 98, heart rate 58, respiratory rate 15, blood pressure 109/65, mean 79, saturations are 100%. Appears in no acute distress, looks well. HEENT examination is grossly unremarkable. There is an orally placed endotracheal tube and NG tube. NECK: Supple. Cardiovascular examination reveals regular rhythm and rate. S1, S2 normal. No S3, S4 or murmur. Lungs are clear. Breath sounds equal. ABDOMEN: Soft. Bowel sounds are heard. Extremities are intact. No cyanosis, clubbing, or edema. Skin without rash. Neurologic examination cannot be performed as the patient is intubated. Chest x-ray from October 22 shows small lung volumes without infiltrates. Microbiology is negative. Laboratory data is reviewed. White count 6.7, hemoglobin 12.4, hematocrit 36.3, platelet count 138,000. Sodium, potassium normal. Chloride is 114, CO2 of 21, BUN and creatinine were 18 and 0.95. Troponins were 14.2 and 13.6 respectively. The rest of the labs look okay. Medications are reviewed. ASSESSMENT: 1. Status post acute hypoxemic respiratory failure secondary to flash pulmonary edema with cardiopulmonary arrest. 2. Status post percutaneous coronary intervention with stent placement in the left anterior descending artery. 3. History of hypertension. 4. History of benign prostatic hypertrophy. 5. History of degenerative joint disease. 6. History of chronic pain. 7. History of gastroesophageal reflux disease. PLAN: The patient is doing well. Will DC unnecessary medications. Does not need the updrafts. Will DC the chlorhexidine and the propofol. The patient will be n.p.o. for 6 hours. Will DC the Ativan. Additional recommendations and suggestions are forthcoming. Could probably go out later today if he is stable. Additional recommendations and suggestions are forthcoming. Prognosis is guarded. Will continue to watch very closely. He is yet to be seen by the primary service. No additional recommendations are made.
--- NOTE | 2016-10-22 13:57 | PN ---
Cal is a 65-year-old gentleman who is admitted to hospital with acute anterior wall myocardial infarction and cardiac arrest in the ER. This morning he is doing well and currently we are trying to extubate him. The peak troponin with him was 14.2. Subsequent troponin was 13.6. He is intubated on vent. On exam, heart rate is 80 beats per minute, blood pressure is 144/75, respiratory rate is 18. Chest exam reveals diminished air entry at the bases. Heart exam reveals first and second heart sounds. No gallop. Abdomen is soft. Exam of the extremities did not reveal edema. Peripheral pulses are felt. Labs show that hemoglobin is 12.4. Creatinine is 0.9. Troponin is 14.2. ASSESSMENT: 1. Acute anterior wall myocardial infarction. 2. Cardiac arrest. PLAN: Patient is doing well. Will continue with the current medical therapy.
--- NOTE | 2016-10-22 14:23 | P.PN ---
Subjective This is a 65 year-old male one of my patient with previous medical history significant for hypertension and hypertensive cardiovascular disease, hyperlipidemia, vascular dementia, left ear Cholesteatoma S/P surgical excision 06/[address]Bojrab Mccall, colonic polyps and prostate cancer post seeds and radiation currently in remission, patient was helping his daughter doing some work on the deck when he suddenly developed increased left sided chest pain and patient felt diaphoretic , she ended up driving him to the ER at [facility] and while he was in the waiting room he collapsed and became unresponsive and patient was foung in V.Fib , he was shocked and then he went into AFib with RVR and was found to Have anterior ST segment elevation with reciprocal changes in the inferior leads and was seen in consultation by and he was given a bolus of Amiodarone and ws taken to the cath labs where he was found to have totally occluded LAD, he underwent stenting and was admitted to the ICU after patient was intubated in the ER, and subsequently was admitted to the ICU. 10/22: Echocardiogram reveals mild tricuspid regurgitation, mild concentric left ventricular hypertrophy,hypokinetic left ventricula. Patient was successfully extubated this morning. He is followed by Dr. Paris. He is noted to have occasional PVCs. Groin is without problems. Patient may be transferred out of the intensive care unit later today. Patient's daughter is here and updated. Objective - Vital Signs Vital signs: Vital Signs Temp 98.2 F 10/22/16 08:00 Pulse 80 10/22/16 11:00 Resp 23 10/22/16 11:00 BP 144/75 10/22/16 11:00 Pulse Ox 100 10/22/16 11:00 Intake & Output 10/21/16 10/22/16 10/22/16 18:59 06:59 18:59 Intake Total 429 1060 337.309 Output Total 175 1130 165 Balance 254 -70 172.309 Weight 95.254 kg 86.5 kg Intake: IV 429 900 300 Sodium Chloride 0.9% 1, 150 900 300 000 ml @ 75 mls/hr IV . [id number] [facility] Rx#:[id number] Intake, IV Titration 100 37.309 Amount Propofol 500 mg In Empty 100 37.309 Bag 1 bag @ Titrate IV . Q0M [facility] Rx#:[id number] Oral 60 Output: Gastric Drainage 500 Urine 175 630 165 Other: Voiding Method Indwelling Catheter Indwelling Catheter - Exam General appearance: average body habitus, no acute distress - EENT Eyes: PERRLA ENT: hard of hearing Ears: bilateral: normal - Neck Neck: no lymphadenopathy, normal ROM, no rigidity, no stridor, no thyromegaly Carotids: bilateral: upstroke normal Thyroid: bilateral: normal size - Respiratory Respiratory: bilateral: diminished, negative: dullness, rales, rhonchi, wheezing , prolonged expiration, prolonged inspiration - Cardiovascular Rhythm: regular Heart sounds: normal: S1, S2 Abnormal Heart Sounds: systolic murmur, no rub, S3 Gallop, no click - Gastrointestinal General gastrointestinal: normal bowel sounds, soft, no splenomegaly, no tenderness, no umbilical hernia - Integumentary Integumentary: normal, normal turgor - Neurologic Neurologic: CNII-XII intact - Musculoskeletal Musculoskeletal: generalized weakness - Psychiatric Psychiatric: A&O x's 3, appropriate affect - Labs CBC & Chem 7: 10/22/16 05:36 10/22/16 05:36 Labs: Abnormal Lab Results - Last 24 Hours (Table) 10/21/16 10/21/16 10/21/16 Range/Units 14:39 14:39 14:39 RBC (4.30-5.90) m/uL Hgb (13.0-17.5) gm/dL Hct (39.0-53.0) % Plt Count (150-450) k/uL Lymphocytes # (1.0-4.8) k/uL APTT 21.6 L (22.0-30.0) sec ABG pCO2 (35-45) mmHg ABG pO2 (83-108) mmHg ABG O2 Saturation (94-97) % Chloride 110 H (98-107) mmol/L Carbon Dioxide (22-30) mmol/L Creatinine 1.30 H (0.66-1.25) mg/dL Glucose 131 H (74-99) mg/dL POC Glucose (mg/dL) (75-99) mg/dL AST (17-59) U/L Total Creatine Kinase 201 H (55-170) U/L CK-MB (CK-2) 3.0 H* (0.0-2.4) ng/mL Troponin I 0.476 H* (0.000-0.034) ng/mL 10/21/16 10/21/16 10/21/16 Range/Units 16:27 16:45 20:51 RBC (4.30-5.90) m/uL Hgb (13.0-17.5) gm/dL Hct (39.0-53.0) % Plt Count (150-450) k/uL Lymphocytes # (1.0-4.8) k/uL APTT (22.0-30.0) sec ABG pCO2 (35-45) mmHg ABG pO2 123 H (83-108) mmHg ABG O2 Saturation 98.8 H (94-97) % Chloride 112 H (98-107) mmol/L Carbon Dioxide (22-30) mmol/L Creatinine (0.66-1.25) mg/dL Glucose 110 H (74-99) mg/dL POC Glucose (mg/dL) 174 H (75-99) mg/dL AST (17-59) U/L Total Creatine Kinase (55-170) U/L CK-MB (CK-2) (0.0-2.4) ng/mL Troponin I (0.000-0.034) ng/mL 10/21/16 10/22/16 10/22/16 Range/Units 20:51 05:18 05:36 RBC 3.96 L (4.30-5.90) m/uL Hgb 12.4 L (13.0-17.5) gm/dL Hct 36.3 L (39.0-53.0) % Plt Count 138 L (150-450) k/uL Lymphocytes # 0.5 L (1.0-4.8) k/uL APTT (22.0-30.0) sec ABG pCO2 34 L (35-45) mmHg ABG pO2 125 H (83-108) mmHg ABG O2 Saturation 99.0 H (94-97) % Chloride (98-107) mmol/L Carbon Dioxide (22-30) mmol/L Creatinine (0.66-1.25) mg/dL Glucose (74-99) mg/dL POC Glucose (mg/dL) (75-99) mg/dL AST (17-59) U/L Total Creatine Kinase (55-170) U/L CK-MB (CK-2) (0.0-2.4) ng/mL Troponin I 14.200 H* (0.000-0.034) ng/mL 10/22/16 10/22/16 Range/Units 05:36 05:36 RBC (4.30-5.90) m/uL Hgb (13.0-17.5) gm/dL Hct (39.0-53.0) % Plt Count (150-450) k/uL Lymphocytes # (1.0-4.8) k/uL APTT (22.0-30.0) sec ABG pCO2 (35-45) mmHg ABG pO2 (83-108) mmHg ABG O2 Saturation (94-97) % Chloride 114 H (98-107) mmol/L Carbon Dioxide 21 L (22-30) mmol/L Creatinine (0.66-1.25) mg/dL Glucose 102 H (74-99) mg/dL POC Glucose (mg/dL) (75-99) mg/dL AST 138 H (17-59) U/L Total Creatine Kinase (55-170) U/L CK-MB (CK-2) (0.0-2.4) ng/mL Troponin I 13.600 H* (0.000-0.034) ng/mL Assessment and Plan Plan: 1. Anterior wall STEMI post LHC with PCI of the LAD.continue with ASA 325 mg OGT daily,Effient 10 mg OGT daily,Lipitor 80 mg OGT daily,Metoprolol 12.5 mg OGT daily. Echocardiogram as above. 2. Atrial fibrillatio with RVR S/P Amiodarone bolus was aborted in the laboratory apparatus glass blower after deployment of the stent. 3. V.Fib S/P DC cardioversion. currently in sinus rythm. 4. Vent-Dependent respiratory failure due STEMI with cardiac arrest. Successfully extubated. Patient is followed by Dr. Paris.. 5. Left sided Cholesteatoma. post surgical resection by . 6. B12 deficiency. will continue with vit B12 supplement. 7. Vit D deficiency. will hold off Drisdol. 8. H/O Prostate cancer post Seeds and radiation. currently in remission. 9. Spondylosis of the lumbar spine. will continue with current pain management. 10. Vascular dementia. stable. 11. DVT prophylaxis. on Heparin 5000 units sc q 12 h .SCDs. 12. GI prophylaxis . will continue with protonix 40 mg IVP daily. 13. Full code. Discharge plan: Most likely return home Impression and plan of care have been directed as dictated by the signing physician. Ioana Tam nurse practitioner acting as scribe for signing physician.
[2016-10-22] MEDS: PANTOPRAZOLE 40 MG/10 ML VIAL IV SCH (15:52)
[2016-10-22] MEDS: PRASUGREL 10 MG TAB PO SCH (15:52)
[2016-10-22] MEDS: ASPIRIN 81 MG CHEW PO SCH (15:52)
[2016-10-22] MEDS: METOPROLOL TARTRATE 12.5 MG TAB PO SCH ×2 (15:52→20:12)
[2016-10-22] MEDS: ATORVASTATIN 80 MG TAB PO SCH (20:12)
[2016-10-22] MEDS: TAMSULOSIN 0.4 MG CAP.ER.24H PO SCH (20:12)
[2016-10-22] MEDS: CHLORHEXIDINE GLUCONATE 15 ML CUP MUCOUS MEM SCH (20:16)
[2016-10-23 06:43] LABS: Phosphorous 2.4 mg/dL (2.5-4.5)
[2016-10-23] MEDS: METOPROLOL TARTRATE 12.5 MG TAB PO SCH (08:51)
[2016-10-23] MEDS: TAMSULOSIN 0.4 MG CAP.ER.24H PO SCH ×2 (08:51→21:04)
[2016-10-23] MEDS: PRASUGREL 10 MG TAB PO SCH (08:51)
[2016-10-23] MEDS: ASPIRIN 81 MG CHEW PO SCH (08:51)
[2016-10-23] MEDS: PANTOPRAZOLE 40 MG/10 ML VIAL IV SCH (08:51)
[2016-10-23 09:11] VITALS: RESP 18
--- NOTE | 2016-10-23 13:17 | P.PN ---
Subjective Principal diagnosis: This is a very pleasant 65-year-old gentleman who presented here on 10/21/2016 after becoming diaphoretic and not feeling well. In the emergency room he became unresponsive was intubated and resuscitated. From there he went to the cardiac catheterization lab and had a stent to the LAD. Unfortunately he had developed flash pulmonary edema and was seen yesterday by Dr. Paris in the intensive care unit still on the mechanical ventilator. He has since been successfully extubated yesterday. He is seen today in follow-up in the selective care unit. He is awake and alert in no acute distress. He denies any shortness of breath, cough or congestion. No chest pain, palpitations lightheadedness or dizziness. Objective - Vital Signs Vital signs: Vital Signs Temp 97.1 F L 10/23/16 11:14 Pulse 88 10/23/16 11:14 Resp 18 10/23/16 11:14 BP 116/66 10/23/16 11:14 Pulse Ox 95 10/23/16 11:14 Intake & Output 10/22/16 10/23/16 10/23/16 18:59 06:59 18:59 Intake Total 937.309 360 210 Output Total 280 Balance 657.309 360 210 Weight 86.3 kg Intake: IV 900 150 Sodium Chloride 0.9% 1, 900 150 000 ml @ 75 mls/hr IV . [id number] [facility] Rx#:[id number] Intake, IV Titration 37.309 Amount Propofol 500 mg In Empty 37.309 Bag 1 bag @ Titrate IV . Q0M [facility] Rx#:[id number] Oral 360 60 Output: Urine 280 Other: Voiding Method Toilet Toilet Urinal Urinal # Voids 1 2 # Bowel Movements 1 - Exam GENERAL EXAM: Alert, active, comfortable in no apparent distress. HEAD: Normocephalic. EYES: Normal reaction of pupils, equal size. NOSE: Clear with pink turbinates. THROAT: No erythema or exudates. NECK: No masses, no JVD. CHEST: No chest wall deformity. LUNGS: Equal air entry with no crackles, wheeze, rhonchi or dullness. CVS: S1 and S2 normal with no audible mumurs, regular rhythm. ABDOMEN: No hepatosplenomegaly, normal bowel sounds, no guarding or rigidity. SPINE: No scoliosis or deformity SKIN: No rashes CENTRAL NERVOUS SYSTEM: No focal deficits, tone is normal in all 4 extremities. Extremities: There is no peripheral edema. No clubbing, no cyanosis. Peripheral pulses are intact. - Labs CBC & Chem 7: 10/22/16 05:36 10/22/16 05:36 Labs: Abnormal Lab Results - Last 24 Hours (Table) 10/23/16 Range/Units 05:59 Phosphorus 2.4 L (2.5-4.5) mg/dL Assessment and Plan Plan: Impression: #1 Acute anterior wall myocardial infarction with cardiac arrest, status post stenting to the LAD. #2 Flash pulmonary edema with acute hypoxic respiratory failure requiring continued intubation mechanical ventilatory support. Successfully extubated yesterday. #3 Atrial fibrillation with rapid ventricular response, currently in normal sinus rhythm. #4 Vascular dementia. Plan: The patient was seen and evaluated by Dr. Paris. He is currently stable from the pulmonary and critical care standpoint. He has not had any further chest discomfort or arrhythmias. He's been up ambulating. The plan is for possible discharge in the a.m. We'll continue to follow.
[2016-10-23] MEDS ORDERED: METOPROLOL TARTRATE 12.5 MG TAB PO STA (14:20)
[2016-10-23] MEDS ORDERED: LISINOPRIL 5 MG TAB PO SCH (14:30)
--- NOTE | 2016-10-23 14:54 | P.PN ---
Subjective This is a 65 year-old male one of my patient with previous medical history significant for hypertension and hypertensive cardiovascular disease, hyperlipidemia, vascular dementia, left ear Cholesteatoma S/P surgical excision 06/[address]Bojrab Mccall, colonic polyps and prostate cancer post seeds and radiation currently in remission, patient was helping his daughter doing some work on the deck when he suddenly developed increased left sided chest pain and patient felt diaphoretic , she ended up driving him to the ER at [facility] and while he was in the waiting room he collapsed and became unresponsive and patient was foung in V.Fib , he was shocked and then he went into AFib with RVR and was found to Have anterior ST segment elevation with reciprocal changes in the inferior leads and was seen in consultation by and he was given a bolus of Amiodarone and ws taken to the cath labs where he was found to have totally occluded LAD, he underwent stenting and was admitted to the ICU after patient was intubated in the ER, and subsequently was admitted to the ICU. 10/22: Echocardiogram reveals mild tricuspid regurgitation, mild concentric left ventricular hypertrophy,hypokinetic left ventricula. Patient was successfully extubated this morning. He is followed by Dr. Paris. He is noted to have occasional PVCs. Groin is without problems. Patient may be transferred out of the intensive care unit later today. Patient's daughter is here and updated. 10/23: Patient states that he has been ambulating in the hallway. He denies any chest pain or shortness of breath. He states he is feeling better today. He states his appetite is improved. He is complaining of back discomfort from the bed. Plan for discharge tomorrow. Case management is providing coupon for Effient coverage for one month at no cost. Objective - Vital Signs Vital signs: Vital Signs Temp 97.1 F L 10/23/16 11:14 Pulse 88 10/23/16 11:14 Resp 18 10/23/16 11:14 BP 116/66 10/23/16 11:14 Pulse Ox 95 10/23/16 11:14 Intake & Output 10/22/16 10/23/16 10/23/16 18:59 06:59 18:59 Intake Total 937.309 360 450 Output Total 280 Balance 657.309 360 450 Weight 86.3 kg Intake: IV 900 150 Sodium Chloride 0.9% 1, 900 150 000 ml @ 75 mls/hr IV . [id number] [facility] Rx#:[id number] Intake, IV Titration 37.309 Amount Propofol 500 mg In Empty 37.309 Bag 1 bag @ Titrate IV . Q0M [facility] Rx#:[id number] Oral 360 300 Output: Urine 280 Other: Voiding Method Toilet Toilet Urinal Urinal # Voids 1 2 # Bowel Movements 1 - Exam General appearance: average body habitus, no acute distress - EENT Eyes: PERRLA ENT: hard of hearing Ears: bilateral: normal - Neck Neck: no lymphadenopathy, normal ROM, no rigidity, no stridor, no thyromegaly Carotids: bilateral: upstroke normal Thyroid: bilateral: normal size - Respiratory Respiratory: bilateral: diminished, negative: dullness, rales, rhonchi, wheezing , prolonged expiration, prolonged inspiration - Cardiovascular Rhythm: regular Heart sounds: normal: S1, S2 Abnormal Heart Sounds: systolic murmur, no rub, S3 Gallop, no click - Gastrointestinal General gastrointestinal: normal bowel sounds, soft, no splenomegaly, no tenderness, no umbilical hernia - Integumentary Integumentary: normal, normal turgor - Neurologic Neurologic: CNII-XII intact - Musculoskeletal Musculoskeletal: generalized weakness - Psychiatric Psychiatric: A&O x's 3, appropriate affect - Labs CBC & Chem 7: 10/22/16 05:36 10/22/16 05:36 Labs: Abnormal Lab Results - Last 24 Hours (Table) 10/23/16 Range/Units 05:59 Phosphorus 2.4 L (2.5-4.5) mg/dL Assessment and Plan Plan: 1. Anterior wall STEMI post LHC with PCI of the LAD.continue with ASA 325 mg OGT daily,Effient 10 mg OGT daily,Lipitor 80 mg daily,Metoprolol 12.5 mg OGT daily. Echocardiogram as above. 2. Atrial fibrillatio with RVR S/P Amiodarone bolus was aborted in the laborer car barn after deployment of the stent. 3. V.Fib S/P DC cardioversion. currently in sinus rythm. 4. Vent-Dependent respiratory failure due STEMI with cardiac arrest. Successfully extubated. Patient is followed by Dr. Paris.. 5. Left sided Cholesteatoma. post surgical resection by . 6. B12 deficiency. will continue with vit B12 supplement. 7. Vit D deficiency. will hold off Drisdol. 8. H/O Prostate cancer post Seeds and radiation. currently in remission. 9. Spondylosis of the lumbar spine. will continue with current pain management. 10. Vascular dementia. stable. 11. DVT prophylaxis. on Heparin 5000 units sc q 12 h .SCDs. 12. GI prophylaxis . will continue with protonix 40 mg IVP daily. 13. Full code. Discharge plan: home tomorrow Impression and plan of care have been directed as dictated by the signing physician. Ioana Tam nurse practitioner acting as scribe for signing physician.
--- NOTE | 2016-10-23 15:26 | P.PN ---
Subjective Principal diagnosis: STEMI, cardiac arrest Social pleasant 65-year-old gentleman who was admitted to the hospital with acute anterior wall [place] and cardiac arrest in the ER. Underwent stenting of the LAD and found to have mild nonobstructive disease in the RCA and circumflex. Echocardiogram showed an ejection fraction of 35-40%. He has been initiated on beta blockers. On examination, patient is feeling fairly well. He denies any complaints of chest discomfort, shortness of breath, palpitations or dizziness. Objective - Vital Signs Vital signs: Vital Signs Temp 97.1 F L 10/23/16 15:03 Pulse 93 10/23/16 15:03 Resp 18 10/23/16 15:03 BP 126/74 10/23/16 15:03 Pulse Ox 95 10/23/16 11:14 Intake & Output 10/22/16 10/23/16 10/23/16 18:59 06:59 18:59 Intake Total 937.309 360 450 Output Total 280 Balance 657.309 360 450 Weight 86.3 kg Intake: IV 900 150 Sodium Chloride 0.9% 1, 900 150 000 ml @ 75 mls/hr IV . [id number] [facility] Rx#:[id number] Intake, IV Titration 37.309 Amount Propofol 500 mg In Empty 37.309 Bag 1 bag @ Titrate IV . Q0M [facility] Rx#:[id number] Oral 360 300 Output: Urine 280 Other: Voiding Method Toilet Toilet Urinal Urinal # Voids 1 2 # Bowel Movements 1 - Exam PHYSICAL EXAMINATION: HEENT: Head is atraumatic, normocephalic. Pupils equal, round. Neck is supple. There is no elevated jugular venous pressure. HEART EXAMINATION: Heart sounds regular, S1 and S2 normal. No murmur or gallop heard. CHEST EXAMINATION: Lungs reveal diminished air entry bilateral bases. No chest wall tenderness is noted on palpation or with deep breathing. ABDOMEN: Soft, nontender. Bowel sounds are heard. No organomegaly noted. EXTREMITIES: 2+ peripheral pulses with no evidence of peripheral edema and no calf tenderness noted. Right groin puncture site is soft with minimal ecchymosis, no hematoma or bruit. NEUROLOGIC patient is awake, alert and oriented x3. . - Labs CBC & Chem 7: 10/22/16 05:36 10/23/16 14:55 Labs: Abnormal Lab Results - Last 24 Hours (Table) 10/23/16 Range/Units 05:59 Phosphorus 2.4 L (2.5-4.5) mg/dL Assessment and Plan Plan: Assessment and plan #[address] elevated myocardial infarction #2 cardiac arrest #3 status post stent placement to the LAD From cardiology's perspective, we will add lisinopril 5 mg by mouth daily. We' ll continue to follow the patient and provide further recommendations accordingly. We anticipate the patient will be discharged home in the next 24- 48 hours. The above dictated assessment and findings were discussed with signing physician. The impression and plan of care have been directed as dictated. Stfeany Lovelace, Nurse Practitioner, acting as scribe for signing physician.
[2016-10-23] MEDS: ATORVASTATIN 80 MG TAB PO SCH (21:03)
[2016-10-23] MEDS: METOPROLOL TARTRATE 25 MG TAB PO SCH (21:04)
[2016-10-24] MEDS: PANTOPRAZOLE 40 MG TABLET PO SCH (06:29)
[2016-10-24 07:18] LABS: Phosphorous 2.4 mg/dL (2.5-4.5)
[2016-10-24 07:57] LABS: Basophils % (A) 0 %; CH 31.4; CHCM 34.8; Eosinophils # (A) 0.3 k/uL (0-0.7); Eosinophils % (A) 4 %; HCT 35.4 % (39.0-53.0); HDW 3.49; HGB 12.3 gm/dL (13.0-17.5); Luc # (Auto) 0.09; Luc % (Auto) 2; Lymphocytes # (A) 0.6 k/uL (1.0-4.8); Lymphocytes % (A) 10 %; MCH 31.4 pg (25.0-35.0); MCHC 34.7 g/dL (31.0-37.0); MCV 90.6 fL (80.0-100.0); Mean Platelet Volume 7.7; Monocytes # (A) 0.3 k/uL (0-1.0); Monocytes % (A) 6 %; Neutrophils # (A) 4.4 k/uL (1.3-7.7); Neutrophils % (A) 78 %; Poikilocytosis Slight; RDW 14.2 % (11.5-15.5); WBC 5.7 k/uL (3.8-10.6); WBC (Perox) 5.66
[2016-10-24 08:05] LABS: Anion Gap 7 mmol/L; Blood Urea Nitrogen 15 mg/dL (9-20); Calcium 8.7 mg/dL (8.4-10.2); Carbon Dioxide 24 mmol/L (22-30); Chloride 109 mmol/L (98-107); Glucose 88 mg/dL (74-99); Non-African American GFR(MDRD) >60 (>60 ml/min/1.73 sqM); Potassium 3.5 mmol/L (3.5-5.1); Sodium 140 mmol/L (137-145)
[2016-10-24] MEDS: ASPIRIN 81 MG CHEW PO SCH (09:03)
[2016-10-24] MEDS: TAMSULOSIN 0.4 MG CAP.ER.24H PO SCH ×2 (09:03→21:17)
[2016-10-24] MEDS: PRASUGREL 10 MG TAB PO SCH (09:03)
[2016-10-24] MEDS: LOSARTAN 25 MG TAB PO SCH (09:03)
[2016-10-24] MEDS: METOPROLOL TARTRATE 25 MG TAB PO SCH ×2 (09:03→20:06)
--- NOTE | 2016-10-24 09:48 | P.PN ---
Subjective This is a 65 year-old male one of my patient with previous medical history significant for hypertension and hypertensive cardiovascular disease, hyperlipidemia, vascular dementia, left ear Cholesteatoma S/P surgical excision 06/[address]Bojrab Mccall, colonic polyps and prostate cancer post seeds and radiation currently in remission, patient was helping his daughter doing some work on the deck when he suddenly developed increased left sided chest pain and patient felt diaphoretic , she ended up driving him to the ER at [facility] and while he was in the waiting room he collapsed and became unresponsive and patient was foung in V.Fib , he was shocked and then he went into AFib with RVR and was found to Have anterior ST segment elevation with reciprocal changes in the inferior leads and was seen in consultation by and he was given a bolus of Amiodarone and ws taken to the cath labs where he was found to have totally occluded LAD, he underwent stenting and was admitted to the ICU after patient was intubated in the ER, and subsequently was admitted to the ICU. 10/22: Echocardiogram reveals mild tricuspid regurgitation, mild concentric left ventricular hypertrophy,hypokinetic left ventricula. Patient was successfully extubated this morning. He is followed by Dr. Paris. He is noted to have occasional PVCs. Groin is without problems. Patient may be transferred out of the intensive care unit later today. Patient's daughter is here and updated. 2: Patient states that he has been ambulating in the hallway. He denies any chest pain or shortness of breath. He states he is feeling better today. He states his appetite is improved. He is complaining of back discomfort from the bed. Plan for discharge tomorrow. Case management is providing coupon for Effient coverage for one month at no cost. 3: Patient has been having brief runs of V. tach for which he is asymptomatic.. Plan to hold discharge today. Patient states he has been ambulating without chest pain or shortness of breath. He denies any lightheadedness or dizziness. No nausea or edema. He does complain of a dry cough for which lisinopril has been changed to losartan. Objective - Vital Signs Vital signs: Vital Signs Temp 97.3 F L 10/24/16 04:00 Pulse 96 10/24/16 04:00 Resp 18 10/24/16 04:00 BP 105/63 10/24/16 04:00 Pulse Ox 95 10/24/16 04:00 Intake & Output 10/23/16 10/24/16 10/24/16 18:59 06:59 18:59 Intake Total 790 300 Balance 790 300 Weight 82 kg Intake: IV 150 Sodium Chloride 0.9% 1, 150 000 ml @ 75 mls/hr IV . [id number] BENJAMIN Rx#:[id number] Oral 640 300 Other: Voiding Method Toilet Toilet Urinal Urinal # Voids 1 - Exam General appearance: average body habitus, no acute distress - EENT Eyes: PERRLA ENT: hard of hearing Ears: bilateral: normal - Neck Neck: no lymphadenopathy, normal ROM, no rigidity, no stridor, no thyromegaly Carotids: bilateral: upstroke normal Thyroid: bilateral: normal size - Respiratory Respiratory: bilateral: diminished, negative: dullness, rales, rhonchi, wheezing , prolonged expiration, prolonged inspiration - Cardiovascular Rhythm: regular Heart sounds: normal: S1, S2 Abnormal Heart Sounds: systolic murmur, no rub, S3 Gallop, no click - Gastrointestinal General gastrointestinal: normal bowel sounds, soft, no splenomegaly, no tenderness, no umbilical hernia - Integumentary Integumentary: normal, normal turgor - Neurologic Neurologic: CNII-XII intact - Musculoskeletal Musculoskeletal: generalized weakness - Psychiatric Psychiatric: A&O x's 3, appropriate affect - Labs CBC & Chem 7: 10/24/16 06:03 10/24/16 06:03 Labs: Abnormal Lab Results - Last 24 Hours (Table) 10/24/16 Range/Units 06:09 Phosphorus 2.4 L (2.5-4.5) mg/dL Assessment and Plan Plan: 1. Anterior wall STEMI post LHC with PCI of the LAD.continue with ASA 81mg, Effient 10 mg daily,Lipitor 80 mg daily,Metoprolol 25 mg twice daily, losartan 12.5 mg daily. Echocardiogram as above. 2. Atrial fibrillatio with RVR S/P Amiodarone bolus was aborted in the director of labor relations after deployment of the stent. 3. V.Fib S/P DC cardioversion. 4. Vent-Dependent respiratory failure due STEMI with cardiac arrest. Successfully extubated. Patient is followed by Dr. Paris.. 5. Left sided Cholesteatoma. post surgical resection by . 6. B12 deficiency. will continue with vit B12 supplement. 7. Vit D deficiency. will hold off Drisdol. 8. H/O Prostate cancer post Seeds and radiation. currently in remission. 9. Spondylosis of the lumbar spine. will continue with current pain management. 10. Vascular dementia. stable. 11. DVT prophylaxis. Ambulating. 12. GI prophylaxis . will continue with protonix 40 mg daily. 13. Full code. Discharge plan: home tomorrow Impression and plan of care have been directed as dictated by the signing physician. Ioana Tam nurse practitioner acting as scribe for signing physician.
[2016-10-24] MEDS ORDERED: POTASSIUM CHLORIDE ER 20 MEQ TAB.ER PO STA (10:35)
--- NOTE | 2016-10-24 12:51 | P.PN ---
Subjective Principal diagnosis: STEMI, cardiac arrest Social pleasant 65-year-old gentleman who was admitted to the hospital with acute anterior wall ND and cardiac arrest in the ER. Underwent stenting of the LAD and found to have mild nonobstructive disease in the RCA and circumflex. Echocardiogram showed an ejection fraction of 35-40%. He has been initiated on beta blockers. On examination, patient is feeling fairly well. He denies any complaints of chest discomfort, shortness of breath, palpitations or dizziness. This was noted to have short runs of nonsustained ventricular tachycardia yesterday and 2 the night last night, potassium yesterday was 3.8 it is 3.5 this morning. Beta saad was increased yesterday. Objective - Vital Signs Vital signs: Vital Signs Temp 97.8 F 10/24/16 11:47 Pulse 92 10/24/16 11:47 Resp 18 10/24/16 11:47 BP 104/76 10/24/16 11:47 Pulse Ox 95 10/24/16 09:03 Intake & Output 10/23/16 10/24/16 10/24/16 18:59 06:59 18:59 Intake Total 790 300 340 Balance 790 300 340 Weight 82 kg Intake: IV 150 Sodium Chloride 0.9% 1, 150 000 ml @ 75 mls/hr IV . [id number] BENJAMIN Rx#:[id number] Oral 640 300 340 Other: Voiding Method Toilet Toilet Toilet Urinal Urinal Urinal # Voids 1 - Exam PHYSICAL EXAMINATION: HEENT: Head is atraumatic, normocephalic. Pupils equal, round. Neck is supple. There is no elevated jugular venous pressure. HEART EXAMINATION: Heart sounds regular, S1 and S2 normal. No murmur or gallop heard. CHEST EXAMINATION: Lungs reveal diminished air entry bilateral bases. No chest wall tenderness is noted on palpation or with deep breathing. ABDOMEN: Soft, nontender. Bowel sounds are heard. No organomegaly noted. EXTREMITIES: 2+ peripheral pulses with no evidence of peripheral edema and no calf tenderness noted. Right groin puncture site is soft with minimal ecchymosis, no hematoma or bruit. NEUROLOGIC patient is awake, alert and oriented x3. . - Labs CBC & Chem 7: 10/24/16 06:03 10/24/16 06:03 Labs: Abnormal Lab Results - Last 24 Hours (Table) 10/24/16 10/24/16 10/24/16 Range/Units 06:03 06:03 06:09 RBC 3.90 L (4.30-5.90) m/uL Hgb 12.3 L (13.0-17.5) gm/dL Hct 35.4 L (39.0-53.0) % Plt Count 143 L (150-450) k/uL Lymphocytes # 0.6 L (1.0-4.8) k/uL Chloride 109 H (98-107) mmol/L Phosphorus 2.4 L (2.5-4.5) mg/dL Assessment and Plan Plan: Assessment and plan #[address] elevated myocardial infarction #2 cardiac arrest #3 status post stent placement to the LAD #4 nonsustained ventricular tachycardia From cardiology's perspective, continue metoprolol 25 mg by mouth twice a day. Supplement potassium. Patient to have repeat electrolytes in the morning.. We' ll continue to follow the patient and provide further recommendations accordingly. We anticipate the patient will be discharged home in the next 24 hours. The above dictated assessment and findings were discussed with signing physician. The impression and plan of care have been directed as dictated. Stefany Lovelace, Nurse Practitioner, acting as scribe for signing physician.
--- NOTE | 2016-10-24 16:47 | PN ---
This is a 65-year-old gentleman with a history of acute anterior wall myocardial infarction with cardiopulmonary arrest. He is status post stenting of the LAD. He developed flash pulmonary edema requiring intubation and mechanical ventilation. He was successfully extubated 2 days ago. He also has a history of chronic atrial fibrillation with rapid ventricular response as well as vascular dementia. The patient is resting comfortably. No new complaints. No cough. No wheezing. No chest pain. No shortness of breath. No fever, no chills. No major issues today. He is hoping to be discharged soon. Currently, his vital signs are stable. Temperature 97.8, heart rate 92, respiratory rate 18, blood pressure 104/76, mean 85 and a room air saturation 95%. Appears in no acute distress. HEENT examination reveals it to be normal. Mucous membranes are moist. No oral lesions. Neck is supple. Full range of motion. No adenopathy or thyromegaly. Cardiovascular examination reveals regular rhythm and rate. S1, S2 normal. Lungs reveal relatively clear breath sounds. No wheezes or rhonchi. No crackles. ABDOMEN: Soft. Bowel sounds are heard. EXTREMITIES: Intact. No cyanosis, clubbing, or edema. Skin is without rash. Labs are reviewed. White count 5.7, hemoglobin 12.3, hematocrit 35.4, platelet count 143,000. Sodium, potassium normal. Chloride is 109, CO2 of 24, BUN and creatinine were normal. Microbiology is all negative. No recent chest x-rays to report. Medications are reviewed. ASSESSMENT: 1. Acute anterior wall myocardial infarction with cardiopulmonary arrest and subsequent cardiopulmonary resuscitation, status post stenting of the LAD. 2. Flash pulmonary edema with acute hypoxemic respiratory failure requiring intubation and mechanical ventilation. 3. Atrial fibrillation with rapid ventricular response. 4. Vascular dementia. PLAN: The patient is doing relatively well. His medications are reviewed. He is on appropriate medications. We will continue to follow. Hopeful discharge soon. The patient's respiratory status is stable. No additional recommendations are made. Will continue to follow.
[2016-10-24] MEDS: ATORVASTATIN 80 MG TAB PO SCH (20:06)
[2016-10-24] MEDS ORDERED: guaiFENesin SYRUP 100MG/5ML 200 MG/10 ML CUP PO PRN (20:19)
[2016-10-25 06:06] VITALS: BP 106/56; PULSE 67; TEMP 97.7
[2016-10-25 06:14] LABS: Basophils % (A) 1 %; CH 31.7; Eosinophils # (A) 0.2 k/uL (0-0.7); Eosinophils % (A) 4 %; HCT 35.4 % (39.0-53.0); HDW 3.48; HGB 11.9 gm/dL (13.0-17.5); Luc # (Auto) 0.09; Luc % (Auto) 2; Lymphocytes # (A) 0.6 k/uL (1.0-4.8); Lymphocytes % (A) 12 %; MCH 30.6 pg (25.0-35.0); MCHC 33.5 g/dL (31.0-37.0); MCV 91.2 fL (80.0-100.0); Mean Platelet Volume 8.7; Monocytes # (A) 0.3 k/uL (0-1.0); Monocytes % (A) 7 %; Neutrophils # (A) 3.8 k/uL (1.3-7.7); Neutrophils % (A) 75 %; Poikilocytosis Slight; RBC 3.88 m/uL (4.30-5.90); RDW 14.2 % (11.5-15.5); WBC 5.1 k/uL (3.8-10.6); WBC (Perox) 5.32
[2016-10-25 06:27] LABS: Anion Gap 7 mmol/L; Blood Urea Nitrogen 16 mg/dL (9-20); Calcium 8.7 mg/dL (8.4-10.2); Carbon Dioxide 24 mmol/L (22-30); Chloride 109 mmol/L (98-107); Glucose 93 mg/dL (74-99); Magnesium 1.9 mg/dL (1.6-2.3); Non-African American GFR(MDRD) >60 (>60 ml/min/1.73 sqM); Phosphorous 3.1 mg/dL (2.5-4.5); Potassium 3.8 mmol/L (3.5-5.1); Sodium 140 mmol/L (137-145)
[2016-10-25] MEDS: PANTOPRAZOLE 40 MG TABLET PO SCH (06:30)
--- NOTE | 2016-10-25 09:07 | P.DS ---
Providers Date of admission: 10/21/16 15:05 Expected date of discharge: 10/25/16 Attending physician: Chuy Brown Consults: 10/21/16 16:00 Consult Physician Stat Consulting Provider: Darrel Carroll Consult Reason/Comments: STEMI Do you want consulting provider notified?: Already Contacted 10/21/16 16:03 Consult Physician Routine Consulting Provider: [facility] Consult Reason/Comments: Post Interventional patient Do you want consulting provider notified?: Already Contacted 10/21/16 16:10 Consult Physician Stat Consulting Provider: Talon Paris Consult Reason/Comments: Vent Mgmt Do you want consulting provider notified?: Yes [facility]: This is a 65 year-old male one of my patient with previous medical history significant for hypertension and hypertensive cardiovascular disease, hyperlipidemia, vascular dementia, left ear Cholesteatoma S/P surgical excision 06/[address]Bojrab Mccall, colonic polyps and prostate cancer post seeds and radiation currently in remission, patient was helping his daughter doing some work on the deck when he suddenly developed increased left sided chest pain and patient felt diaphoretic , she ended up driving him to the ER at [facility] and while he was in the waiting room he collapsed and became unresponsive and patient was foung in V.Fib , he was shocked and then he went into AFib with RVR and was found to Have anterior ST segment elevation with reciprocal changes in the inferior leads and was seen in consultation by and he was given a bolus of Amiodarone and ws taken to the cath labs where he was found to have totally occluded LAD, he underwent stenting and was admitted to the ICU after patient was intubated in the ER, and subsequently was admitted to the ICU. 10/22: Echocardiogram reveals mild tricuspid regurgitation, mild concentric left ventricular hypertrophy,hypokinetic left ventricula. Patient was successfully extubated this morning. He is followed by Dr. Paris. He is noted to have occasional PVCs. Groin is without problems. Patient may be transferred out of the intensive care unit later today. Patient's daughter is here and updated. 10/23: Patient states that he has been ambulating in the hallway. He denies any chest pain or shortness of breath. He states he is feeling better today. He states his appetite is improved. He is complaining of back discomfort from the bed. Plan for discharge tomorrow. Case management is providing coupon for Effient coverage for one month at no cost. 10/24: Patient has been having brief runs of V. tach for which he is asymptomatic.. Plan to hold discharge today. Patient states he has been ambulating without chest pain or shortness of breath. He denies any lightheadedness or dizziness. No nausea or edema. He does complain of a dry cough for which lisinopril has been changed to losartan. 10/25: Patient has been cleared by cardiology for discharge home. Patient denies any chest pain, shortness of breath, lightheadedness or dizziness. He has been ambulating in the hallway. Patient will be discharged home today in stable condition. Discharge diagnoses: 1. Anterior wall STEMI post LHC with PCI of the LAD. 2. Atrial fibrillatio with RVR S/P Amiodarone bolus was aborted in the catheterization laboratory technician after deployment of the stent. 3. V.Fib S/P DC cardioversion. 4. Vent-Dependent respiratory failure due STEMI with cardiac arrest. 5. Left sided Cholesteatoma. post surgical resection by . 6. B12 deficiency. 7. Vit D deficiency. 8. H/O Prostate cancer post Seeds and radiation. 9. Spondylosis of the lumbar spine. 10. Vascular dementia. stable. Discharge plan: home Impression and plan of care have been directed as dictated by the signing physician. Ioana Tam nurse practitioner acting as scribe for signing physician. Patient Condition at Discharge: Good Plan - Discharge Summary New Discharge Prescriptions: New Aspirin 81 mg PO DAILY #90 Atorvastatin [Lipitor] 80 mg PO HS #90 tab Losartan [Cozaar] 12.5 mg PO DAILY #45 tab Metoprolol Tartrate [Lopressor] 25 mg PO BID #180 tab Nitroglycerin Sl Tabs [Nitrostat] 0.4 mg SUBLINGUAL Q5M PRN #25 tab PRN Reason: Chest Pain Prasugrel [Effient] 10 mg PO DAILY #90 tab Continue Tamsulosin [Flomax] 0.4 mg PO BID Famotidine [Pepcid] 40 mg PO HS HYDROcodone/APAP 5-325MG [[place]ka 5-325] 1 tab PO Q8H PRN PRN Reason: Pain Ergocalciferol [Vitamin D2 (LUPILLOOL)] 50,000 unit PO Q7D Docusate [Colace] 100 mg PO Q7D Cyanocobalamin [Vitamin B-12 Injection] 1,000 mcg SQ QMONTH Discontinued Metoprolol Tartrate [Lopressor] 50 mg PO BID Meloxicam [Meloxicam] 15 mg PO DAILY Discharge Medication List Cyanocobalamin [Vitamin B-12 Injection] 1,000 mcg SQ QMONTH 10/21/16 [History] Docusate [Colace] 100 mg PO Q7D 10/21/16 [History] Ergocalciferol [Vitamin D2 (DRISDOL)] 50,000 unit PO Q7D 10/21/16 [History] Famotidine [Pepcid] 40 mg PO HS 10/21/16 [History] HYDROcodone/APAP 5-325MG [[place]ka 5-325] 1 tab PO Q8H PRN 10/21/16 [History] Tamsulosin [Flomax] 0.4 mg PO BID 10/21/16 [History] Aspirin 81 mg PO DAILY #90 10/24/16 [Rx] Atorvastatin [Lipitor] 80 mg PO HS #90 tab 10/24/16 [Rx] Losartan [Cozaar] 12.5 mg PO DAILY #45 tab 10/24/16 [Rx] Metoprolol Tartrate [Lopressor] 25 mg PO BID #180 tab 10/24/16 [Rx] Nitroglycerin Sl Tabs [Nitrostat] 0.4 mg SUBLINGUAL Q5M PRN #25 tab 10/24/16 [Rx ] Prasugrel [Effient] 10 mg PO DAILY #90 tab 10/24/16 [Rx] Follow up Appointment(s)/Referral(s): Kassandra Gillette MD [Primary Care Provider] - 1 Week Darrel Carroll MD [STAFF PHYSICIAN] - 11/02/16 Activity/Diet/Wound Care/Special Instructions: Free 30 day supply of Effient filled in OP pharmacy Discharge Disposition: HOME SELF-CARE
[2016-10-25] MEDS: ASPIRIN 81 MG CHEW PO SCH (09:52)
[2016-10-25] MEDS: METOPROLOL TARTRATE 25 MG TAB PO SCH (09:53)
[2016-10-25] MEDS: LOSARTAN 25 MG TAB PO SCH (09:53)
[2016-10-25] MEDS: PRASUGREL 10 MG TAB PO SCH (09:54)
[2016-10-25] MEDS: TAMSULOSIN 0.4 MG CAP.ER.24H PO SCH (09:54)
--- NOTE | 2016-10-25 10:38 | PN ---
65-year-old gentleman who was admitted to hospital with extensive anterior wall myocardial infarction. Cardiac arrest. Underwent cardiac catheterization and angioplasty of LAD. He is doing well and is free of symptoms, ambulating and has had some episodes of nonsustained VT, but that have resolved now. He has moderate LV dysfunction with an ejection fraction of 35 to 40%. On exam today, comfortable at rest. Vital signs are stable. There is no jugular venous distention. Carotid upstroke is normal. There is no bruit. Chest exam reveals good air entry bilaterally. Heart exam reveals first and second heart sounds. No gallop. ABDOMEN: Soft. Exam of the extremities did not reveal any edema. Peripheral pulses are felt. Labs show a hemoglobin of 11.9, platelet count is 144, potassium is 3.8. Creatinine is 1.1. ASSESSMENT: Acute anterior wall myocardial infarction. PLAN: The patient is doing well. We will continue ( ). Stable to be discharged home. Will go home on: 1. Lopressor 25 b.i.d. 2. Cozaar 12.5 daily. 3. Lipitor. 4. Aspirin. 5. Sublingual nitroglycerin p.r.n. basis. 6. Effient 10 mg daily. Follow up as outpatient.
--- NOTE | 2016-11-11 08:06 | CC ---
DATE OF SERVICE: INDICATION: Acute anterior wall myocardial infarction. PROCEDURE NOTE: After obtaining informed consent, left heart catheterization and coronary angiogram are performed via the right femoral artery using standard Yosef catheters. Patient tolerated the procedure well without any obvious immediate complications. Total conscious sedation time was 15 minutes. FINDINGS: 1. HEMODYNAMICS: Left ventricular end-diastolic pressure is 20 mm. There is no significant gradient across the aortic valve. 2. LEFT VENTRICULOGRAM: Left ventriculogram is not performed. 3. ANGIOGRAPHIC DATA: Left main coronary artery: Left main coronary artery is a normal size vessel and is free of stenosis. Divides into left anterior descending coronary artery and circumflex coronary artery. LAD is totally occluded in its proximal part. Right coronary artery has mild obstructive disease. Circumflex coronary artery has mild disease. CONCLUSIONS: 1. A 100% occlusion of the proximal left anterior descending artery. 2. Elevated left ventricular end-diastolic pressure. PLAN: Patient will undergo angioplasty of the LAD in this critically ill patient.
== END 2016-10-25 10:13 | disposition home or self-care (01) | DRG 246 ==
LOC: EC 14:27 → 6ICU 15:05 → 6SEL 10-22 17:31
PROVIDERS: ADMIT Internal Medicine Geriatric Medicine; ATTEND Internal Medicine Geriatric Medicine
PROC: 4A023N7 Measurement of Cardiac Sampling and Pressure, Left Heart, Percutaneous Approach (ICD-10-PCS; 2016-10-21)
PROC: B2111ZZ Fluoroscopy of Multiple Coronary Arteries using Low Osmolar Contrast (ICD-10-PCS; 2016-10-21)
PROC: 0BH18EZ Insertion of Endotracheal Airway into Trachea, Via Natural or Artificial Opening Endoscopic (ICD-10-PCS; principal; 2016-10-21 15:05)
PROC: 5A1945Z Respiratory Ventilation, 24-96 Consecutive Hours (ICD-10-PCS; principal; 2016-10-21 15:05)
PROC: 027034Z Dilation of Coronary Artery, One Artery with Drug-eluting Intraluminal Device, Percutaneous Approach (ICD-10-PCS; 2016-10-21 15:05)
DX: I21.02 ST elevation (STEMI) myocardial infarction involving left anterior descending coronary artery (principal); J96.01 Acute respiratory failure with hypoxia; I49.01 Ventricular fibrillation; J81.0 Acute pulmonary edema; I47.2 Ventricular tachycardia; E87.4 Mixed disorder of acid-base balance; I11.9 Hypertensive heart disease without heart failure; I07.1 Rheumatic tricuspid insufficiency; I25.82 Chronic total occlusion of coronary artery; F01.50 Vascular dementia, unspecified severity, without behavioral disturbance, psychotic disturbance, mood disturbance, and anxiety; E53.8 Deficiency of other specified B group vitamins; E55.9 Vitamin D deficiency, unspecified; E78.5 Hyperlipidemia, unspecified; H91.90 Unspecified hearing loss, unspecified ear; I25.10 Atherosclerotic heart disease of native coronary artery without angina pectoris; I48.2 Chronic atrial fibrillation; I49.3 Ventricular premature depolarization; K21.9 Gastro-esophageal reflux disease without esophagitis; M47.816 Spondylosis without myelopathy or radiculopathy, lumbar region; N40.0 Benign prostatic hyperplasia without lower urinary tract symptoms; Z79.82 Long term (current) use of aspirin; Z79.899 Other long term (current) drug therapy; Z85.46 Personal history of malignant neoplasm of prostate; Z87.891 Personal history of nicotine dependence
CPT/HCPCS: 31500; 36415; 36600; 43753; 71010; 80048; 80053; 82550; 82553; 82805; 83735; 84100; 84132; 84484; 85025; 85610; 85730; 93005; 93306; 93458; 94002; 94003; 94640; 96374; 96375; 99291

== ENCOUNTER → 2018-05-13 | Day surgery (SDC) | payer MEDICARE, OTHER ==
[2018-05-11 10:42] VITALS: BMI 31.6
[~2018-05-13] MED LIST changes: -AMIODARONE 50 MG/ML 3 ML VIAL IV ONE; -DEXTROSE 5% IN WATER 100 ML BAG IV ONE; -EPINEPHrine 1 MG/ML (MDV) 30 ML VIAL ONE; +LACTATED RINGERS 1,000 ML IV SCH; +PROPOFOL 10 MG/ML 20 ML VIAL IV ONE
[2018-05-13 10:17] VITALS: RESP 18
--- NOTE | 2018-05-13 11:06 | P.PCN ---
Date of Procedure: 05/13/18 Procedure(s) Performed: BRIEF HISTORY: Patient is a 67-year-old pleasant white male, scheduled for an elective colonoscopy as a part of evaluation of prior history of colon polyps. PROCEDURE PERFORMED: Colonoscopy. PREOPERATIVE DIAGNOSIS: History of colon polyps. IV sedation per Anesthesia. PROCEDURE: After informed consent was obtained, the patient, was brought into the endoscopy unit. IV sedation was administered by Anesthesia under continuous monitoring. Digital rectal examination was normal. Initially the Olympus CF- 160 flexible video colonoscope was then inserted in the rectum, gradually advanced into the cecum without any difficulty. Careful examination was performed as the scope was gradually being withdrawn. Ileocecal valve and the appendiceal orifice were visualized and appeared normal. Prep was excellent. Mucosa of the cecum, ascending colon, transverse colon, descending colon, sigmoid colon, and rectum appeared normal. Scattered left-sided diverticulosis seen. Retroflexion was performed in the rectum and no lesions were seen. The patient tolerated the procedure well. IMPRESSION: Normal-appearing colon from rectum to cecum with no evidence of colorectal neoplasia Scattered left sided diverticulosis . RECOMMENDATIONS: Findings of this examination were discussed with the patient as well as his family. He was advised to have a repeat surveillance colonoscopy in 5 years from now because of prior history of colon polyps.
[2018-05-13 11:49] VITALS: BP 121/71; PULSE 91
== END ==
LOC: ORWHC2ENDO 09:59
PROVIDERS: ATTEND Internal Medicine Gastroenterology
DX: Z12.11 Encounter for screening for malignant neoplasm of colon (principal); K57.30 Diverticulosis of large intestine without perforation or abscess without bleeding; Z86.010 Personal history of colon polyps; I48.91 Unspecified atrial fibrillation; I10 Essential (primary) hypertension; N40.0 Benign prostatic hyperplasia without lower urinary tract symptoms; F03.90 Unspecified dementia, unspecified severity, without behavioral disturbance, psychotic disturbance, mood disturbance, and anxiety; I25.2 Old myocardial infarction; Z95.5 Presence of coronary angioplasty implant and graft; Z79.82 Long term (current) use of aspirin; Z79.899 Other long term (current) drug therapy; Z79.891 Long term (current) use of opiate analgesic; Z87.891 Personal history of nicotine dependence
CPT/HCPCS: J2704; G0105; 45378

== ENCOUNTER → 2018-11-10 | Outpatient (CLI) | payer MEDICARE, OTHER ==
--- NOTE | 2018-11-10 15:26 | US ---
EXAMINATION TYPE: US carotid duplex BILAT DATE OF EXAM: 11/10/2018 COMPARISON: NONE CLINICAL HISTORY: I65.23 Occlusion and stenosis of bilateral carotid. EXAM MEASUREMENTS: RIGHT: Peak Systolic Velocity (PSV) cm/sec ----- Right CCA: 62.2 ----- Right ICA: 96.8 ----- Right ECA: 102.6 ICA/CCA ratio: 1.6 RIGHT: End Diastole cm/sec ----- Right CCA: 14.9 ----- Right ICA: 34.3 ----- Right ECA: 14.0 LEFT: Peak Systolic Velocity (PSV) cm/sec ----- Left CCA: 79.8 ----- Left ICA: 133.8 ----- Left ECA: 92.3 ICA/CCA ratio: 1.7 LEFT: End Diastole cm/sec ----- Left CCA: 18.2 ----- Left ICA: 131.6 ----- Left ECA: 13.1 VERTEBRALS (direction of flow): Right Vertebral: Antegrade Left Vertebral: Antegrade Rhythm: Normal moderate atherosclerotic changes. no stenosis Grayscale, color Doppler, spectral Doppler imaging performed of the carotid arteries. Waveform analys is does not show significant stenosis of the internal carotid arteries. IMPRESSION: No hemodynamic significant stenosis of the proximal internal carotid arteries bilaterall y by Doppler criteria, an indirect measurement of carotid stenosis
== END | disposition home or self-care (01) ==
LOC: RADUSWWP 12:16
PROVIDERS: ATTEND Internal Medicine
DX: I65.23 Occlusion and stenosis of bilateral carotid arteries (principal)
CPT/HCPCS: 93880

== ENCOUNTER → 2018-12-02 | Outpatient (CLI) | payer MEDICARE, OTHER ==
--- NOTE | 2018-12-05 09:53 | ECHOF ---
Referral Reason:I25.10 Atherosclerotic heart disease of kashia cor MEASUREMENTS -------- HEIGHT: 167.6 cm WEIGHT: 74.8 kg BP: RVIDd: 2.6 cm (< 3.3) IVSd: 1.1 cm (0.6 - 1.1) LVIDd: 4.4 cm (3.9 - 5.3) LVPWd: 1.2 cm (0.6 - 1.1) IVSs: 1.7 cm LVIDs: 2.0 cm LVPWs: 2.1 cm LAESV Index (A-L): 29.34 ml/m Ao Diam: 2.8 cm (2.0 - 3.7) AV Cusp: 1.9 cm (1.5 - 2.6) LA Diam: 4.4 cm (2.7 - 3.8) MV EXCURSION: 20.824 mm (> 18.000) MV EF SLOPE: 82 mm/s (70 - 150) EPSS: 0.5 cm MV E Mariano: 0.84 m/s MV DecT: 222 ms MV A Mariano: 0.75 m/s MV E/A Ratio: 1.13 RAP: 5.00 mmHg RVSP: 25.74 mmHg FINDINGS -------- Sinus rhythm. This was a technically adequate study. The left ventricular size is normal. There is borderline concentric left ventricular hypertrophy. Overall left ventricular systolic function is normal with, an EF between 55 - 60 %. The diastolic filling pattern is normal for the age of the patient 8.86. The right ventricle is normal in size. Normal LA size by volume 22+/-6 ml/m2. The right atrial size is normal. Interatrial and interventricular septum intact. Aortic valve is trileaflet and is mildly thickened. There is no evidence of aortic regurgitation. There is no evidence of aortic stenosis. No mitral regurgitation. Mild tricuspid regurgitation present. There is no evidence of pulmonary hypertension. The right v entricular systolic pressure, as measured by Doppler, is 25.74mmHg. Trace/mild (physiologic) pulmonic regurgitation. The aortic root size is normal. IVC Not well visulized. There is no pericardial effusion. CONCLUSIONS -------- 1. Sinus rhythm. 2. This was a technically adequate study. 3. The left ventricular size is normal. 4. There is borderline concentric left ventricular hypertrophy. 5. Overall left ventricular systolic function is normal with, an EF between 55 - 60 %. 6. The diastolic filling pattern is normal for the age of the patient 8.86 7. The right ventricle is normal in size. 8. Normal LA size by volume 22+/-6 ml/m2. 9. The right atrial size is normal. 10. Interatrial and interventricular septum intact. 11. Aortic valve is trileaflet and is mildly thickened. 12. There is no evidence of aortic regurgitation. 13. There is no evidence of aortic stenosis. 14. No mitral regurgitation. 15. Mild tricuspid regurgitation present. 16. There is no evidence of pulmonary hypertension. 17. The right ventricular systolic pressure, as measured by Doppler, is 25.74mmHg. 18. Trace/mild (physiologic) pulmonic regurgitation. 19. The aortic root size is normal. 20. IVC Not well visulized. 21. There is no pericardial effusion. REHAB SERVICES AIDE: Ashtyn Delatorre RDCS
== END | disposition home or self-care (01) ==
LOC: RADECHMAIN 14:55
PROVIDERS: ATTEND Internal Medicine
DX: I07.1 Rheumatic tricuspid insufficiency (principal); I37.1 Nonrheumatic pulmonary valve insufficiency; I25.10 Atherosclerotic heart disease of native coronary artery without angina pectoris
CPT/HCPCS: 93306

== ENCOUNTER → 2019-04-25 | Outpatient (CLI) | payer MEDICARE, OTHER ==
[2019-04-25 10:42] LABS: Basophils % (A) 0 %; Eosinophils # (A) 0.3 k/uL (0-0.7); Eosinophils % (A) 5 %; HCT 38.4 % (39.0-53.0); HGB 13.4 gm/dL (13.0-17.5); Lymphocytes # (A) 0.7 k/uL (1.0-4.8); Lymphocytes % (A) 12 %; MCH 31.4 pg (25.0-35.0); MCHC 34.9 g/dL (31.0-37.0); Mean Platelet Volume 6.5; Monocytes # (A) 0.4 k/uL (0-1.0); Monocytes % (A) 7 %; Neutrophils # (A) 4.3 k/uL (1.3-7.7); Neutrophils % (A) 75 %; Platelet Count 155 k/uL (150-450); RBC 4.26 m/uL (4.30-5.90); RDW 13.2 % (11.5-15.5); WBC 5.8 k/uL (3.8-10.6)
[2019-04-25 21:19] LABS: African American GFR (CKD) 65.4 (60.0-200.0); Albumin 4.2 g/dL (3.80-4.90); Anion Gap 8.8 mmol/L (4.00-12.00); BUN/Creat Ratio 16.92 Ratio (12.00-20.00); Calcium 9.1 mg/dL (8.7-10.3); Carbon Dioxide 27.2 mmol/L (21.6-31.8); Chol/HDL Ratio 2.73; Globulin 2.1 g/dL (1.6-3.3); LDL Cholesterol,Calculated 49.4 mg/dL (0.0-131.0); Magnesium 1.8 mg/dL (1.5-2.4); Non-African American GFR(CKD) 56.5 (60.0-200.0); Potassium 3.8 mmol/L (3.5-5.5); Total Bilirubin 0.8 mg/dL (0.3-1.2); Total Protein 6.3 g/dL (6.2-8.2); Uric Acid 4.3 mg/dL (3.7-8.7); VLDL Calculation 14.6 mg/dL (5.00-40.00)
[2019-04-25 21:28] LABS: T4, Free (Free Thyroxine) 1.1 ng/dL (0.80-1.80)
== END | disposition home or self-care (01) ==
LOC: LABWHC1 09:16
PROVIDERS: ATTEND Internal Medicine
DX: I10 Essential (primary) hypertension (principal); E78.2 Mixed hyperlipidemia; C61 Malignant neoplasm of prostate; R79.9 Abnormal finding of blood chemistry, unspecified
CPT/HCPCS: 36415; 80053; 80061; 82550; 83735; 84153; 84439; 84443; 84550; 85025

== ENCOUNTER 2019-09-11 14:08 | Emergency (ER) | payer MEDICARE, OTHER ==
[2019-09-11 14:15] VITALS: TEMP 98.1
--- NOTE | 2019-09-11 15:39 | ED ---
Upper Extremity HPI - General Source: patient Mode of arrival: ambulatory Limitations: no limitations <Hattie Jiang - Last Filed: 09/11/19 19:18> <Talon Amezcua - Last Filed: 09/12/19 00:01> - General Chief Complaint: Extremity Injury, Upper Stated Complaint: right shoulder pain Time Seen by Provider: 09/11/19 14:38 - History of Present Illness Initial Comments: Patient is a 68-year-old male presenting to the emergency Department with complaints of right shoulder pain. Patient states he thinks he fell over this past weekend. He denies hitting his head or any other injuries from the fall. He states he slipped on some ice landing on the side of his right shoulder. He states he has been unable to lift his shoulder since the fall. He denies any previous surgeries or injuries to his right shoulder. Patient denies being on blood thinners. He has no other complaints from his fall. Patient is already prescribed Mobic and [place] at home. Upon arrival to the ER, his vitals are stable. (Hattie Jiang) - Related Data Home Medications Medication Instructions Recorded Confirmed Cyanocobalamin [Vitamin B-12 1,000 mcg SQ QMONTH 10/21/16 05/11/18 Injection] Famotidine [Pepcid] 40 mg PO HS 10/21/16 05/11/18 HYDROcodone/APAP 5-325MG [[place] 1 tab PO Q8H PRN 10/21/16 05/11/18 5-325] Tamsulosin [Flomax] 0.4 mg PO BID 10/21/16 05/11/18 traZODone HCL 100 mg PO HS 05/11/18 05/11/18 Previous Rx's Medication Instructions Recorded Aspirin 81 mg PO DAILY #90 10/24/16 Atorvastatin [Lipitor] 80 mg PO HS #90 tab 10/24/16 Losartan [Cozaar] 12.5 mg PO DAILY #45 tab 10/24/16 Metoprolol Tartrate [Lopressor] 25 mg PO BID #180 tab 10/24/16 Nitroglycerin Sl Tabs [Nitrostat] 0.4 mg SUBLINGUAL Q5M PRN #25 tab 10/24/16 Allergies Allergy/AdvReac Type Severity Reaction Status Date / Time No Known Allergies Allergy Verified 09/11/19 14:15 Review of Systems ROS Other: All systems not noted in ROS Statement are negative. <Hattie Jiang - Last Filed: 09/11/19 19:18> ROS Other: All systems not noted in ROS Statement are negative. <Talon Amezcua - Last Filed: 09/12/19 00:01> ROS Statement: Those systems with pertinent positive or pertinent negative responses have been documented in the HPI. Past Medical History Past Medical History: Atrial Fibrillation, Cancer, Hearing Disorder / Deafness, Hypertension, Memory Impairment, Myocardial Infarction (AR), Musculoskeletal Disorder, Osteoarthritis (OA), Prostate Disorder Additional Past Medical History / Comment(s): 10-21-16 CARDIAC [id number]. 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 Last Myocardial Infarction Date:: OCTOBER 2016 History of Any Multi-Drug Resistant Organisms: None Reported Past Surgical History: Unable to Obtain Additional Past Surgical History / Comment(s): 10-21-16 -HEART CATH W/STENT TO LAD ., PROSTATE BX, LT ACOUSTIC NEUROMA REMOVED JULY 2016 Past Anesthesia/Blood Transfusion Reactions: No Reported Reaction Past Psychological History: No Psychological Hx Reported Smoking Status: Former smoker Past Alcohol Use History: None Reported Past Drug Use History: None Reported - Past Family History Father Family Medical History: Dementia Additional Family Medical History / Comment(s): PARKINSONS Mother Additional Family Medical History / Comment(s): MOM WHEN PT WAS 4 YERAS OLD NO HX KNOWN Sister(s) Family Medical History: Cancer Additional Family Medical History / Comment(s): SISTER #1 BREAST CANCER. SISTER #2 LUNG CANCER <Hattie Jiang - Last Filed: 09/11/19 19:18> General Exam Limitations: no limitations <Hattie Jiang - Last Filed: 09/11/19 19:18> - General Exam Comments Initial Comments: GENERAL: Well-appearing, well-nourished and in no acute distress. HEAD: Atraumatic, normocephalic. EYES: Pupils equal round and reactive to light, extraocular movements intact, sclera anicteric, conjunctiva are normal. ENT: TMs normal, nares patent, oropharynx clear without exudates. Moist mucous membranes. NECK: Normal range of motion, supple without lymphadenopathy or JVD. LUNGS: Breath sounds clear to auscultation bilaterally and equal. No wheezes rales or rhonchi. HEART: Regular rate and rhythm without murmurs, rubs or gallops. ABDOMEN: Soft, nontender, normoactive bowel sounds. No guarding, no rebound. No masses appreciated. : Deferred EXTREMITIES: Pain with palpation of the anterior right shoulder. Patient has very limited range of motion secondary to pain. Neurovascular intact. No pain with palpation of the right elbow or forearm. No masses are intact. No pitting or edema. No clubbing or cyanosis. NEUROLOGICAL: Normal speech, normal gait. PSYCH: Normal mood, normal affect. SKIN: Warm, Dry, normal turgor, no rashes or lesions noted. (Hattie Jiang) Course <Talon Amezcua - Last Filed: 09/12/19 00:01> Vital Signs 09/11/19 09/11/19 14:10 16:19 Temperature 98.1 F Pulse Rate 68 71 Respiratory 18 16 Rate Blood Pressure 146/71 130/79 O2 Sat by Pulse 98 99 Oximetry - Reevaluation(s) Reevaluation #1: 09/12/19 00:01 PA supervision: I did personally evaluate this case patient did present with complaints of shoulder pain after a fall imaging was performed no evidence of acute fracture subluxation the patient will be discharged home with appropriate conservative care and do agree with the assessment and plan (Talon Amezcua) Medical Decision Making <Hattie Jiang - Last Filed: 09/11/19 19:18> - Medical Decision Making Patient is a 68-year-old male presenting with right shoulder pain after a fall. X-rays reveal no acute fractures/dislocations. Patient has minimal range of motion secondary to pain. Patient will be placed in a sling and will follow up with orthopedics. He will continue with his already prescribed medications for pain relief. He may try ice. He is in agreement with this plan of care. Return parameters were discussed with the patient and he verbalized understanding. Case discussed with Dr. Amezcua. (Hattie Jiang) Disposition Is patient prescribed a controlled substance at d/c from ED?: No <Hattie Jiang - Last Filed: 09/11/19 19:18> <Talon Amezcua - Last Filed: 09/12/19 00:01> Clinical Impression: Right shoulder pain, Right shoulder strain Disposition: HOME SELF-CARE Condition: Stable Instructions (If sedation given, give patient instructions): Shoulder Sprain (ED) Additional Instructions: Please return to the Emergency Department if symptoms worsen or any other concerns. Keep arm in sling for comfort. May apply ice to the area. Follow up with orthopedics as discussed. Referrals: Kassandra Gillette MD [Primary Care Provider] - 1-2 days Murray Mooney DO [Doctor of Osteopathic Medicine] - 1-2 days
--- NOTE | 2019-09-11 15:59 | XR ---
EXAMINATION TYPE: XR shoulder complete RT DATE OF EXAM: 09/11/2019 COMPARISON: NONE HISTORY: Pain, fall TECHNIQUE: Right Shoulder examined in 3 projections FINDINGS: The humeral head articulates with the glenoid. The acromio-clavicular junction is normal. No acute fractures or dislocations are evident. A follow up study can be performed 7-10 days from acute trauma for continued pain. IMPRESSION: 1. Normal three-view right Shoulder
[2019-09-11 16:21] VITALS: BP 130/79; PULSE 71; RESP 16
== END 2019-09-11 16:38 | disposition home or self-care (01) ==
LOC: EC 14:08
DX: S46.911A Strain of unspecified muscle, fascia and tendon at shoulder and upper arm level, right arm, initial encounter (principal); M19.90 Unspecified osteoarthritis, unspecified site; I48.91 Unspecified atrial fibrillation; I10 Essential (primary) hypertension; I25.2 Old myocardial infarction; N40.0 Benign prostatic hyperplasia without lower urinary tract symptoms; F03.90 Unspecified dementia, unspecified severity, without behavioral disturbance, psychotic disturbance, mood disturbance, and anxiety; Z79.899 Other long term (current) drug therapy; Z85.46 Personal history of malignant neoplasm of prostate; Z86.74 Personal history of sudden cardiac arrest; Z92.21 Personal history of antineoplastic chemotherapy; Z92.3 Personal history of irradiation; Z96.0 Presence of urogenital implants; Z87.891 Personal history of nicotine dependence; Z95.5 Presence of coronary angioplasty implant and graft; W00.0XXA Fall on same level due to ice and snow, initial encounter
CPT/HCPCS: 99283

== ENCOUNTER → 2019-11-06 | Outpatient (CLI) | payer MEDICARE, OTHER ==
[2019-11-06 14:16] LABS: Basophils % (A) 1 %; Eosinophils # (A) 0.3 k/uL (0-0.7); Eosinophils % (A) 5 %; HGB 14.1 gm/dL (13.0-17.5); Lymphocytes # (A) 0.7 k/uL (1.0-4.8); Lymphocytes % (A) 15 %; MCH 31.4 pg (25.0-35.0); MCHC 34.4 g/dL (31.0-37.0); MCV 91.4 fL (80.0-100.0); Monocytes # (A) 0.3 k/uL (0-1.0); Monocytes % (A) 5 %; Neutrophils # (A) 3.6 k/uL (1.3-7.7); Neutrophils % (A) 73 %; Platelet Count 154 k/uL (150-450); RBC 4.49 m/uL (4.30-5.90); RDW 13.3 % (11.5-15.5); WBC 4.9 k/uL (3.8-10.6)
[2019-11-06 20:24] LABS: African American GFR (CKD) 59.8 (60.0-200.0); Albumin 4.4 g/dL (3.80-4.90); Albumin/Globulin Ratio 1.91 (1.60-3.17); Calcium 9.8 mg/dL (8.7-10.3); Chol/HDL Ratio 3.02; Globulin 2.3 g/dL (1.6-3.3); LDL Cholesterol,Calculated 70.6 mg/dL (0.0-131.0); Non-African American GFR(CKD) 51.6 (60.0-200.0); Potassium 4.3 mmol/L (3.5-5.5); Total Protein 6.7 g/dL (6.2-8.2); VLDL Calculation 12.4 mg/dL (5.00-40.00)
== END | disposition home or self-care (01) ==
LOC: LABWHC1 12:00
PROVIDERS: ATTEND Internal Medicine
DX: I10 Essential (primary) hypertension (principal); E78.2 Mixed hyperlipidemia
CPT/HCPCS: 36415; 80053; 80061; 84443; 85025

== ENCOUNTER 2019-11-10 06:01 | Day surgery (SDC) | payer MEDICARE, OTHER ==
[2019-11-08 15:06] VITALS: BMI 29.5
--- NOTE | 2019-11-09 19:45 | HP ---
HISTORY AND PHYSICAL CHIEF COMPLAINT: Right shoulder pain. HISTORY OF PRESENT ILLNESS: The patient is a 68-year-old retired [id number] gentleman who presents after falling on 09/04/2019, injuring his right shoulder. He notes progressive weakness and pain ever since. He is having pain at night and with attempted overhead motion. He has been wearing a sling. He denies significant previous problems. PAST MEDICAL HISTORY: Past medical history is significant for coronary artery disease, hypercholesterolemia, hypertension, prostate cancer and dementia. PAST SURGICAL HISTORY: Past surgical history is significant for prostate surgery and cardiac stent placement. CURRENT MEDICATIONS: Aspirin, Cozaar, Flomax, Lipitor, Lopressor, Mobic and nitroglycerin along with [place] and trazodone. ALLERGIES: HE DENIES DRUG ALLERGIES. FAMILY HISTORY: Significant for cancer. SOCIAL HISTORY: Negative for current tobacco or alcohol use. REVIEW OF SYSTEMS: Sixteen-point review of systems otherwise reviewed and is noncontributory. PHYSICAL EXAMINATION: On examination, the patient is approximately 5 feet 7 inches, 190 pounds of endomorphic habitus. HEENT exam is nonfocal. Neck is supple. On examination of his right shoulder, he is tender about the anterior subacromial space. Active range of motion, right shoulder: forward elevation 50 degrees, external rotation with arm at side 100 degrees, internal rotation to L4. Passively, I am able to forward-elevate him to 100 degrees. Impingement test, Neer test, and Speed test are positive. His distal neurovascular appears otherwise intact in the right upper extremity. RADIOGRAPHS: MRI report of the right shoulder 10/13/2019 shows evidence of a large retracted rotator cuff tear with some muscular atrophy. IMPRESSION: Acute on chronic right rotator cuff tear. RECOMMENDATIONS: I talked to the patient at length regarding his condition along with treatment options. At this point he is quite symptomatic and opts to proceed with surgery. We will plan to proceed with arthroscopic evaluation with possible subacromial decompression, rotator cuff debridement versus repair, possible biceps tenotomy, possible distal clavicular resection. We will likely perform that as an outpatient procedure. Risks and benefits were discussed at length in layman's terms. MMODL / IJN: [id number] /
[~2019-11-10 06:01] MED LIST changes: +DEXAMETHASONE SOD PHOSPHATE 10 MG/ML 1 ML VIAL IV ONE; +HYDROmorphone 0.5 MG/0.5 ML SYRINGE IVP PRN; +MIDAZOLAM 2 MG/2 ML VIAL IV PRN; +ONDANSETRON 4 MG/2 ML VIAL IVP ONE; -PROPOFOL 10 MG/ML 20 ML VIAL IV ONE; +SCOPOLAMINE 1.5MG/72HR PATCH TRANSDERM ONE
[2019-11-10] MEDS ORDERED: LIDOCAINE 1% (10MG/ML) FOR IV START INTRADERMA ONE (07:13)
[2019-11-10] MEDS ORDERED: MIDAZOLAM 2 MG/2 ML VIAL IV ONE (07:15)
[2019-11-10] MEDS ORDERED: fentaNYL (PF) 50 MCG/ML 2 ML AMP ONE (07:47)
[2019-11-10] MEDS ORDERED: PROPOFOL 10 MG/ML 20 ML VIAL IV ONE (07:47)
[2019-11-10] MEDS ORDERED: LIDOCAINE 1% INJ 10MG/ML (20 ML MDV) ONE (07:47)
[2019-11-10] MEDS ORDERED: SUCCINYLCHOLINE CHLORIDE 100 MG/5 ML SYR IV ONE (07:47)
[2019-11-10] MEDS ORDERED: PHENYLEPHRINE-0.9% NACL SYG 1 MG/10 ML SYRINGE ONE (07:47)
[2019-11-10] MEDS ORDERED: ROPIVACAINE 5 MG/ML 30 ML VIAL ONE (07:47)
[2019-11-10] MEDS ORDERED: DEXAMETHASONE SOD PHOSPHATE 4 MG/ML 1 ML VIAL ONE (07:47)
--- NOTE | 2019-11-10 08:53 | P.ANPRN ---
Procedure Note - Anesthesia - Nerve Block Performed Right Interscalene Date of Procedure: 11/10/19 Procedure Start Time: 07:15 Procedure Stop Time: 07:28 Location of Patient: PreOp Indication: Acute Post-Operative Pain, Requested by Surgeon (Dr Guidry) Sedation Type: Sedate with meaningful contact maintained Preparation: Sterile Prep Position: Supine Catheter: None Needle Types: Pajunk Needle Gauge: 21 Ultrasound used to visualize needle placement: Yes Ultrasound used to observe medication spread: Yes Injectate: 0.5% Ropivacaine (see comment for volume) (20cc Ropivacaine + Decadron 4mg) Blood Aspirated: No Pain Paresthesia on Injection Noted: No Resistance on Injection: Normal Image Stored and Saved: Yes Events: Uneventful and Well Tolerated
[2019-11-10] MEDS ORDERED: LACTATED RINGERS 1,000 ML IV ONE (09:20)
--- NOTE | 2019-11-10 09:51 | P.OP ---
Date of Procedure: 11/10/19 Preoperative Diagnosis: Acute on chronic right rotator cuff tear Postoperative Diagnosis: Large retracted right rotator cuff tear, high-grade partial-thickness tear intra-articular portion of the long head of biceps, acromioclavicular joint arthritis Procedure(s) Performed: Right shoulder arthroscopic subacromial decompression/distal clavicular resection/biceps tenotomy/rotator cuff repair Implants: Arthrex 4.75 mm swivel lock anchor 2, 5.5 mm swivel lock anchor times one, 6.5 mm swivel lock anchor 1 Anesthesia: JELANI, amari Surgeon: Wilian Guidry Editor House Organ #1: Armando Morin Estimated Blood Loss (ml): 10 Pathology: none sent Condition: stable Disposition: PACU Indications for Procedure: The patient's a 68-year-old gentleman who presents after a recent fall with significant pain and weakness in his right shoulder. Evaluation he was noted have an acute on chronic rotator cuff tear. A discussion of the risks and benefits of attempted conservative measures versus operative intervention was made with patient. He opted to proceed with surgery. Operative risks to include infection, neurovascular injury, possible tendon rerupture, possible need for subsequent procedures was discussed. Informed consent was obtained. Operative Findings: As below Description of Procedure: The patient was brought to the operating room, and after induction of general anesthesia was placed in a beachchair position. A preoperative interscalene block was placed for postoperative analgesia. I examined the right shoulder. There was no gross block to passive motion or gross glenohumeral instability. The right upper extremity was prepped and draped in normal fashion. The bony outlines the acromion, distal clavicle, and coracoid process were outlined with a skin marker. The glenohumeral joint was inflated with 50 mL of saline utilizing a spinal needle from posterior approach. A posterior portal was made through a 5 mm skin incision 1 cm medial and inferior to the posterior lateral border time. A blunt trocar was used to easily into the joint. Diagnostic arthroscopy was performed. An anterior portal was made just lateral to the coracoid process entering the joint above the subscapularis tendon. The subscapularis tendon appeared to be intact. Anterior labrum was intact. The inferior recess was inspected. The posterior labrum was intact. There was a high-grade partial-thickness tear of the long head of the biceps involving interarticular portion. It was elected to proceed with release at this point. This was released from the superior labrum with electrocautery and was allowed to retract to the bicipital groove. On inspection the rotator cuff, a large retracted tear involving the supraspinatus/infraspinatus/and part of the teres minor was noted. A lateral portal was made 2 centimeters inferior to the anterior lateral border of the acromion. The rotator cuff was then mobilized with a traction suture. This was then brought back to the greater tuberosity. The soft tissue on the undersurface of the acromion was debrided with a motorized shaver and electrocautery clearly defining the anterior medial and lateral borders as well as the distal clavicle. An anterior inferior acromioplasty was performed with a motorized romana starting anterolateral, then extending this posteriorly, then extending this medially. I converted to a flat acromion and this was verified in the posterior and lateral viewing portals. The distal 4 mm the clavicle was resected with a motorized bur. The greater tuberosity was lightly decorticating with a shaver down to a bleeding bony surface. An accessory superior lateral portals made just off the lateral edge of the acromion for anchor placement. 2 anchors were then placed just off the articular surface with the appropriate starting awl. 4.75 mm anchors preloaded with #2 fiber tape were placed. Good purchase was obtained. These fiber tapes were then passed the rotator cuff with a scorpion suture passer. A lateral row was created crisscrossing these tapes. I attempted to place a 5.5 mm swivel lock anchor laterally, however this did not obtain good purchase and was replaced with a 6.5 mm swivel lock anchor. A second 5.5 mm swivel lock anchor was inserted with good purchase. Final arthroscopic view showed repair of the infraspinatus and a portion of the supraspinatus with good compression at the footprint. The anterior aspect of the supraspinatus tissue was not substantial enough to hold suture. The arthroscope was then removed. The portals were closed with simple 3-0 nylon sutures. A sterile dressing was applied in addition to an abductor brace. The patient was then awoken from general anesthesia and transferred to recovery room in good condition. Blood loss was estimated at 10 mL. No complications were incurred. Sponge and needle counts were correct in the case. Dl LIVINGSTON assisted and the major components of the case to include arm positioning, anchor placement, and rotator cuff repair.
[2019-11-10 09:53] VITALS: TEMP 97
[2019-11-10 11:23] VITALS: BP 152/88; PULSE 77; RESP 20
== END 2019-11-10 11:23 | disposition home or self-care (01) ==
LOC: OR 06:01
PROVIDERS: ATTEND Orthopaedic Surgery
DX: S46.011A Strain of muscle(s) and tendon(s) of the rotator cuff of right shoulder, initial encounter (principal); S46.111A Strain of muscle, fascia and tendon of long head of biceps, right arm, initial encounter; M19.011 Primary osteoarthritis, right shoulder; I10 Essential (primary) hypertension; I25.2 Old myocardial infarction; I25.5 Ischemic cardiomyopathy; I25.10 Atherosclerotic heart disease of native coronary artery without angina pectoris; E78.2 Mixed hyperlipidemia; I48.91 Unspecified atrial fibrillation; N40.0 Benign prostatic hyperplasia without lower urinary tract symptoms; F03.90 Unspecified dementia, unspecified severity, without behavioral disturbance, psychotic disturbance, mood disturbance, and anxiety; H91.8X2 Other specified hearing loss, left ear; Z79.899 Other long term (current) drug therapy; Z95.5 Presence of coronary angioplasty implant and graft; Z87.891 Personal history of nicotine dependence; E78.00 Pure hypercholesterolemia, unspecified; Z85.46 Personal history of malignant neoplasm of prostate; Z79.82 Long term (current) use of aspirin; Z80.9 Family history of malignant neoplasm, unspecified; W19.XXXA Unspecified fall, initial encounter
CPT/HCPCS: 64415; 76942; 29824; 29826; 29827; C1713 ×5; C1894; J2250; J1100 ×2; J0690; J2405; J2001; J3010; J2795; J2370; J0330; J2704

== ENCOUNTER 2020-05-07 08:57 | Inpatient (IN) | payer MEDICARE, OTHER ==
[2020-05-02 14:18] VITALS: BMI 30.9
--- NOTE | 2020-05-06 11:05 | HP ---
HISTORY AND PHYSICAL CHIEF COMPLAINT: Right shoulder pain. HISTORY OF PRESENT ILLNESS: Patient is a 69-year-old, right-hand dominant, retired gentleman who presents with persistent/progressive right shoulder pain and weakness. He had previously undergone rotator cuff repair in October of 2019. He notes persistent weakness and limitation. He has a difficult time with any attempted use. He did home exercises, in addition has tried medications with only partial temporary relief. He notes night symptoms. PAST MEDICAL HISTORY: Significant for coronary artery disease, hypercholesterolemia, hypertension, prostate cancer and dementia. PAST SURGICAL HISTORY: Significant for prostate surgery, cardiac stent placement, right shoulder arthroscopy. CURRENT MEDICATIONS: Aspirin, Flomax, Lipitor, Lopressor, Mobic, Nitrostat, [place], Prilosec, and trazodone. He denies drug allergies. FAMILY HISTORY: Significant for cancer. SOCIAL HISTORY: Negative for current tobacco or alcohol use. 16 POINT REVIEW OF SYSTEMS: Otherwise reviewed and is noncontributory. PHYSICAL EXAMINATION: On examination, the patient is approximately 5 foot 7, 168 pounds of mesomorphic habitus. HEENT: Exam is nonfocal. NECK: Supple. Examination of his right shoulder is tender about the anterior glenohumeral and glenohumeral joint and subacromial space. Active range of motion, forward elevation 60 degrees, external rotation with arm at side he is 15 degrees, internal rotation to L4. Passively, I am able to forward elevate him 100 degrees. Motor strength 4-/5 for abduction and external rotation. Impingement test is positive. His distal neurovascular appears intact in the right upper extremity. X-rays of the right shoulder obtained in the office show diminished humeral head to acromial distance with degenerative changes of the glenohumeral joint. IMPRESSION: 1. Right rotator cuff arthropathy. 2. History of right shoulder arthroscopic rotator cuff repair with re-rupture. 3. Coronary artery disease. RECOMMENDATIONS: I talked to the patient and his family at length regarding his condition and treatment options. At this point, he remains quite symptomatic and limited because of pain and weakness. After a thorough discussion, he opts to proceed with surgery. We will plan to proceed with right reverse total shoulder arthroplasty. MMODL / IJN: [id number] /
[~2020-05-07 08:57] MED LIST changes: +ACETAMINOPHEN TAB 500 MG TAB PO PRN; -DEXAMETHASONE SOD PHOSPHATE 10 MG/ML 1 ML VIAL IV ONE; +DEXAMETHASONE SOD PHOSPHATE 4 MG/ML 1 ML VIAL IV ONE; -HYDROmorphone 0.5 MG/0.5 ML SYRINGE IVP PRN; -LACTATED RINGERS 1,000 ML IV SCH; +LIDOCAINE 1% (10MG/ML) FOR IV START INTRADERMA PRN; +MELOXICAM 7.5 MG TAB PO PRN; -SCOPOLAMINE 1.5MG/72HR PATCH TRANSDERM ONE; +TRANEXAMIC ACID 1,000 MG in SODIUM CHLORIDE 0.9% 100 ML IVPB PRN
[2020-05-07] MEDS: LACTATED RINGERS 1,000 ML IV SCH (09:25)
[2020-05-07] MEDS ORDERED: ACETAMINOPHEN TAB 500 MG TAB ONE (09:31)
[2020-05-07] MEDS ORDERED: SUCCINYLCHOLINE CHLORIDE 100 MG/5 ML SYR IV ONE (11:20)
[2020-05-07] MEDS ORDERED: ROCURONIUM 10 MG/ML (10 ML VIAL) IV ONE (11:20)
[2020-05-07] MEDS ORDERED: ePHEDrine SULFATE/0.9% NACL/PF 50 MG/5 ML SYRINGE IV ONE (11:20)
[2020-05-07] MEDS ORDERED: LIDOCAINE 1% INJ 10MG/ML (20 ML MDV) ONE (11:20)
[2020-05-07] MEDS ORDERED: PROPOFOL 10 MG/ML 20 ML VIAL IV ONE (11:20)
[2020-05-07] MEDS ORDERED: MIDAZOLAM 2 MG/2 ML VIAL ONE (11:20)
[2020-05-07] MEDS ORDERED: SODIUM CHLORIDE 0.9% 250 ML BAG ONE (11:20)
[2020-05-07] MEDS ORDERED: WATER FOR INJECTION, STERILE 10 ML VIAL IV ONE (11:20)
[2020-05-07] MEDS ORDERED: fentaNYL (PF) 50 MCG/ML 2 ML AMP ONE (11:20)
[2020-05-07] MEDS ORDERED: TRANEXAMIC ACID 1,000 MG/10 ML VIAL ONE (11:20)
[2020-05-07] MEDS ORDERED: HYDROmorphone 0.5 MG/0.5 ML SYRINGE IVP PRN (13:22)
[2020-05-07] MEDS ORDERED: ONDANSETRON 4 MG/2 ML VIAL IVP PRN (13:22)
[2020-05-07] MEDS ORDERED: HYDROcodone/APAP 5-325MG 1 EACH TAB PO PRN ×2 (13:22)
--- NOTE | 2020-05-07 13:41 | P.OP ---
Date of Procedure: 05/07/20 Preoperative Diagnosis: Right rotator cuff arthropathy/large retracted rotator cuff tear Postoperative Diagnosis: Same Procedure(s) Performed: Right reverse total shoulder arthroplasty Implants: [employer] Xtend size 12 humeral stem with size 2 epiphysis, 38+9 metaglene, 38 mm standard glenosphere with standard baseplate Anesthesia: JELANI Surgeon: Wilian Guidry Drafting Supervisor #1: Armando Morin Estimated Blood Loss (ml): 200 Pathology: other (Humeral head) Condition: stable Disposition: PACU Indications for Procedure: The patient's a 69-year-old male who underwent attempted right shoulder rotator cuff repair 6 months ago with persistent pain, weakness, and limited motion. A discussion of the risks and benefits of reverse total shoulder arthroplasty was made with patient and his family. He opted to proceed. Operative risks to include infection, neurovascular injury, development of blood clots, possible fracture, possible instability and need for subsequent procedures was discussed. Informed consent was obtained. Operative Findings: As below Description of Procedure: The patient was brought to the operating room, and after induction of general anesthesia was placed in a beachchair position. The bony prominences were appropriately padded. I examined the right shoulder. There was moderate lack of passive forward elevation and external rotation. The right upper extremity was prepped and draped in normal fashion. The bony outlines the coracoid process, distal clavicle, and acromion were outlined with a skin marker. A pulse centimeter deltopectoral incision was made lateral to the coracoid process. Skin was incised sharply. Subcutaneous tissues were divided bluntly. Electrocautery was used for hemostasis. The cephalic vein was identified and gently retracted laterally with the deltoid. The deltopectoral was bluntly developed. Subdeltoid adhesions were then released. The self-retaining retractor was placed. The conjoined tendon was retracted medially and the deltoid laterally. The biceps was identified. Its sheath was opened. A biceps tenotomy was performed along the remaining tendon did retract distally. Pseudocapsule was excised. The head was then exposed. The shoulder was dislocated. A starting hole was made in line with the humeral shaft. The canal was reamed by hand up to size 12. There was good distal chatter. The cutting guide was then placed. I planned on of retroversion. The humeral head cut was then made. The bone was removed in one fragment. Residual inferomedial osteophytes were removed flush with the [place] cortical bone. Attention was then paid towards preparing the glenoid. An anterior and posterior retractors placed. The labrum was released from the 12-6 o'clock position. Remaining biceps was removed as well. A guidepin was placed in the inferior aspect of the glenoid with the guide slightly tilting inferior. The reamer was used down to a bleeding bony surface. The central peg hole was drilled. The standard baseplate was inserted with good purchase. Inferior, superior, and posterior locking screws the appropriate length were placed. Good purchase was obtained. The 38 mm glenosphere was inserted over a guidewire. This was fully seated. Care was taken to avoid any soft tissue interposition. Attention was then paid towards preparing the proximal humerus. The appropriate broach was placed and 20 of retroversion and was fully seated. An eccentric size 2 epiphyseal reamer was utilized. A size 12 stem with a size 2 epiphysis was placed and 20 of retroversion. Trial reduction was obtained with a 38 mm +9 articular surface. The shoulder was taken through range of motion. He was felt to be stable in flexion and extension with internal and external rotation. I felt there was adequate adventism of soft tissue tension judging off the conjoined tendon. The shoulder was gently dislocated. The trial components were then removed. The final size 12 press-fit stem along with a size 2 epiphysis was fully seated. There was good rotational stability. The 38 mm + 9 articular surface was impacted. The shoulder again was gently reduced and taken through range of motion. Again it was felt to be stable in all planes. Pulsatile lavage was utilized. The subscapularis was a attached to the lesser tuberosity with #2 Ethibond suture. The deltopectoral interval was closed with interrupted 2-0 Vicryl sutures. The skin was reapproximated with 3-0 subcuticular Prolene suture. Steri-Strips were applied. A sterile dressing was applied. A sling was placed. The patient was awoken from general anesthesia and transferred to recovery room in good condition. Blood loss was estimated at 200 mL. No complications were incurred. Sponge and needle counts were correct at the end the case. Dl LIVINGSTON assisted during the major components of the case to include exposure, glenoid and humeral preparation, implantation, and closure.
[2020-05-07] MEDS: HYDROmorphone 0.5 MG/0.5 ML SYRINGE IVP PRN ×3 (14:15→15:02)
--- NOTE | 2020-05-07 14:24 | XR ---
EXAMINATION TYPE: XR shoulder limited RT DATE OF EXAM: 05/07/2020 COMPARISON: 09/11/2019 HISTORY: Right shoulder replacement TECHNIQUE: AP right shoulder FINDINGS: Humeral prosthesis is been placed. A glenoid component has been placed. No acute fractures are evident. Postsurgical soft tissue changes are evident. IMPRESSION: 1. No acute fractures post Right shoulder replacement
[2020-05-07] MEDS ORDERED: LACTATED RINGERS 1,000 ML IV ONE ×2 (14:27)
--- NOTE | 2020-05-07 16:05 | P.ANPRN ---
Procedure Note - Anesthesia - Nerve Block Performed Right Interscalene Time Out Performed: Yes (14:36) Date of Procedure: 05/07/20 Procedure Start Time: 14:36 Procedure Stop Time: 14:54 Location of Patient: Phase I Indication: Acute Post-Operative Pain, Requested by Surgeon (DR Guidry) Sedation Type: Sedate with meaningful contact maintained Preparation: Sterile Prep Position: Supine Catheter: None Needle Types: Pajunk Needle Gauge: Other (see comment) (22g) Ultrasound used to visualize needle placement: Yes Ultrasound used to observe medication spread: Yes Injectate: 0.5% Ropivacaine (see comment for volume) (20cc) Blood Aspirated: No Pain Paresthesia on Injection Noted: No Resistance on Injection: Normal Image Stored and Saved: Yes Events: Uneventful and Well Tolerated
[2020-05-07] MEDS ORDERED: hydrALAZINE HCL 20 MG/ML 1 ML VIAL IVP PRN (16:30)
[2020-05-07] MEDS ORDERED: LOSARTAN 25 MG TAB PO STA (16:31)
[2020-05-07] MEDS ORDERED: NITROGLYCERIN SL TABS 0.4 MG TAB SUBLINGUAL PRN (16:32)
[2020-05-07] MEDS ORDERED: traZODone HCL 100 MG TAB PO PRN (16:32)
[2020-05-07] MEDS: METOPROLOL TARTRATE 25 MG TAB PO SCH (20:19)
[2020-05-07] MEDS ORDERED: ATORVASTATIN 80 MG TAB PO SCH (21:00)
[2020-05-07] MEDS ORDERED: FAMOTIDINE 20 MG TAB PO SCH (21:00)
--- NOTE | 2020-05-08 03:39 | P.CONS ---
History of Present Illness - Reason for Consult Consult date: 05/07/20 Medical management Requesting physician: Wilian Guidry - Chief Complaint Right reveerse total shoulder arthroplasty. - History of Present Illness This is a 69 year-old male one of my patient with previous medical history significant for hypertension and hypertensive cardiovascular disease, hyperlipidemia, vascular dementia, left ear Cholesteatoma S/P surgical excision 06/[address]Bojrab Mccall, colonic polyps and prostate cancer post seeds and radiation currently in remission, CAD post anterior wall STEMI post LHC with PCI of the LAD in 2016 with Ventricular fibrillation and one episode of atrial fibrillation with RVR, patient underwent right shoulder arthroscopic acromion decompression with distal clavicular head resection on 10/2019 however he ended up with severe limited range of motion due to retracted rotator cuff tear and full thickness ter, so he underwent right reverse total shoulder arthroplasty that was done today by and we were asked to see him for medical management. Patient is lying down in bed complaining of increased pain in the right shoulder, and his BP was elevated in the recovery area, I spoke with nursing staff about giving him Hydralazine 20 mg IVP Q 4 h as needed for SBP greater than 160, and we will increase Losartan to 25 mg orally daily and to give him one dose now. Pateint denies any chest pain or shortness of breath, he denies any headaches, blurred vision or double vision, he denies any dizziness or light headedness, he denies any abdominal pain , nausea, vomiting or diarrhea. Review of Systems Constitutional: Reports chronic pain, Denies anorexia, Denies lethargy, Denies weakness Eyes: denies blurred vision, denies bulging eye, denies decreased vision Ears: left: decreased hearing Ears, nose, mouth and throat: Denies dysphagia, Denies neck lump, Denies sore throat Cardiovascular: Denies chest pain, Denies decreased exercise tolerance, Denies dyspnea on exertion, Denies lightheadedness, Denies rapid heart beat, Denies shortness of breath, Denies syncope Respiratory: Denies congestion, Denies cough with sputum, Denies home oxygen, Denies sleep apnea, Denies snoring, Denies wheezing Gastrointestinal: Denies abdominal pain, Denies bloating, Denies BRBPR, Denies excessive gas, Denies heartburn, Denies melena, Denies nausea, Denies vomiting Genitourinary: Denies discharge, Denies dysuria, Denies kidney stones Musculoskeletal: Denies myalgias Musculoskeletal: right: shoulder pain, shoulder stiffness, shoulder swelling, ab sent: ankle pain, ankle stiffness, ankle swelling, elbow pain, elbow stiffness, elbow swelling, foot pain, foot stiffness, foot swelling, hand pain, hand stiffness, hand swelling, hip pain, hip stiffness, hip swelling, knee pain, knee stiffness, knee swelling, wrist pain, wrist stiffness, wrist swelling Integumentary: Denies pruritus, Denies rash Neurological: Denies numbness, Denies weakness Psychiatric: Reports anxiety, Reports memory loss, Denies sadness/tearfulness, Denies sleep disturbances, Denies suicidal ideation Endocrine: Reports fatigue Past Medical History Past Medical History: Atrial Fibrillation, Cancer, Hearing Disorder / Deafness, Hypertension, Memory Impairment, Myocardial Infarction (CA), Musculoskeletal Disorder, Osteoarthritis (OA), Prostate Disorder Additional Past Medical History / Comment(s): 10-21-16 CARDIAC [id number]. 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 Last Myocardial Infarction Date:: OCTOBER 2016 History of Any Multi-Drug Resistant Organisms: None Reported Past Surgical History: Heart Catheterization With Stent, Orthopedic Surgery, Prostate Surgery Additional Past Surgical History / Comment(s): 10-21-16 -HEART CATH W/STENT TO LAD ., PROSTATE BX, LT ACOUSTIC NEUROMA REMOVED JULY 2016, rt rotator cuff 11/10 Past Anesthesia/Blood Transfusion Reactions: No Reported Reaction, Postoperative Nausea & Vomiting (PONV) Additional Past Anesthesia/Blood Transfusion Reaction / Comm: has used scopolamine patch in past Date of Last Stent Placement:: 10/21/16 Past Psychological History: No Psychological Hx Reported Additional Psychological History / Comment(s): . Smoking Status: Former smoker Past Alcohol Use History: None Reported Additional Past Alcohol Use History / Comment(s): QUIT 1996 AND SMOKED 1PPD., SMOKED 25 YEARS. Past Drug Use History: None Reported - Past Family History Father Family Medical History: Dementia Additional Family Medical History / Comment(s): PARKINSONS Mother Additional Family Medical History / Comment(s): MOM ,NO HX KNOWN Sister(s) Family Medical History: Cancer Additional Family Medical History / Comment(s): SISTER #1 BREAST CANCER. SISTER #2 LUNG CANCER Daughter(s) Family Medical History: Blood Disorder Additional Family Medical History / Comment(s): ITP Medications and Allergies Home Medications Medication Instructions Recorded Confirmed Type Cyanocobalamin [Vitamin B-12 1,000 mcg SQ QMONTH 10/21/16 05/02/20 History Injection] Famotidine [Pepcid] 40 mg PO HS 10/21/16 05/02/20 History HYDROcodone/APAP 5-325MG [[place] 1 tab PO Q8H PRN 10/21/16 05/02/20 History 5-325] Tamsulosin [Flomax] 0.4 mg PO QAM 10/21/16 05/02/20 History Aspirin 81 mg PO DAILY #90 10/24/16 05/02/20 Rx Atorvastatin [Lipitor] 80 mg PO HS #90 tab 10/24/16 05/07/20 Rx Metoprolol Tartrate [Lopressor] 25 mg PO BID #180 tab 10/24/16 05/07/20 Rx Nitroglycerin Sl Tabs [Nitrostat] 0.4 mg SUBLINGUAL Q5M PRN #25 tab 10/24/16 05/02/20 Rx traZODone HCL 100 mg PO HS PRN 05/11/18 05/02/20 History Losartan [Cozaar] 12.5 mg PO QAM 11/08/19 05/02/20 History Meloxicam [Mobic] 15 mg PO DAILY 05/02/20 05/02/20 History Allergies Allergy/AdvReac Type Severity Reaction Status Date / Time No Known Allergies Allergy Verified 05/07/20 09:07 Physical Exam Vitals: Vital Signs Temp Pulse Pulse Resp BP BP Pulse Ox 05/07/20 16:26 97.2 F L 68 18 188/91 96 05/07/20 15:56 59 L 16 168/90 98 05/07/20 15:23 56 L 16 175/91 99 05/07/20 15:08 56 L 16 174/86 98 05/07/20 14:53 58 L 16 175/85 100 05/07/20 14:38 57 L 16 178/85 100 05/07/20 14:23 54 L 16 162/65 100 05/07/20 14:08 54 L 16 167/74 100 05/07/20 13:53 58 L 16 178/79 100 05/07/20 13:38 97.1 F L 57 L 14 153/74 100 05/07/20 09:38 65 17 161/76 98 05/07/20 09:10 97.3 F L 70 17 177/98 91 L Intake and Output 05/07/20 05/07/20 05/07/20 06:59 14:59 22:59 Intake Total 1050 100 Output Total 200 Balance 850 100 Intake: IV 1050 100 Output: Estimated Blood Loss 200 Other: Weight 75.3 kg 75.3 kg Physical examination: HEENT: head is atraumatic normocephalic pupils were equal round reactive to light and accommodations extra ocular muscle movements were intact, mucous membranes of the mouth are somewhat dry. Neck: supple no JVP. Chest: decreased breath sounds at the bases with few ronchi, no expiratory wheezes, no chest wall tenderness or intercostal retractions. Heart: firs heart sound is depressed, second heart sound is normal there is AMY 2/6 located at the left sternal border. Abdomen: soft non tender non distended positive bowel sounds. Extremities: there is no edema no calf tenderness DP + 1 bilaterally.right arm in a sling. Neurologic examinations: patient is awke alert and oriented X 3 CN II-XII are grossly intact, muscle power 4/5 in left upper extremity and bilateral lower extremities. deep tendon reflexes were depressed. Assessment and Plan Assessment: Assessment and Plan: 1. POD # 0 S/P Right reverse total shoulder arthroplasty. we will continue with current pain management as outlined by orthopedics we will continue with the use of Incentive spirometer to reduce the incidence of atelectasis and hospital acquired pneumonia, we will continue with monitoring and increased acitivity. 2. CAD post PCI of the LAD. we will continue with Metoprolol 25 mg orally bid, ASA 81 mg orally daily and [id number] mg orally daily. 3. Hypertension and hypertensive cardiovascular disease. we will increase Losartan to 25 mg orally daily and continue with Metoprolol 25 mg orally bid, and we will add Hydralazine 20 mg IVP Q4 H as needed for SBP greater than or equal to 160 mmhg. 4. Hyperlipidemia. we will continue with Lipitor 80 mg orally daily. 5. H/O Left ear Cholesteatoma S/P surgery . currently in remission with left ear deaf. 6. Vascular dementia. stable. 7. Chronic pain syndrome. we will continue with current pain management. 8. Enlarged prostate. we will continue with Flomax 0.4 mg orally daily and monitor for urinary retention. 9. Insomnia. we will continue with Trazodone 100 mg orally at bedtime. 10. Thank you for the consult we will follow the patient with you.
[2020-05-08] MEDS: LACTATED RINGERS 1,000 ML IV SCH (06:00)
[2020-05-08 06:57] LABS: Basophils % (A) 0 %; Eosinophils % (A) 0 %; HCT 35.4 % (39.0-53.0); HGB 12.1 gm/dL (13.0-17.5); Lymphocytes # (A) 0.6 k/uL (1.0-4.8); Lymphocytes % (A) 6 %; MCH 31.2 pg (25.0-35.0); MCHC 34.1 g/dL (31.0-37.0); MCV 91.4 fL (80.0-100.0); Mean Platelet Volume 8.5; Monocytes # (A) 0.6 k/uL (0-1.0); Monocytes % (A) 5 %; Neutrophils # (A) 9.3 k/uL (1.3-7.7); Neutrophils % (A) 88 %; Platelet Count 175 k/uL (150-450); RBC 3.87 m/uL (4.30-5.90); RDW 13.8 % (11.5-15.5); WBC 10.5 k/uL (3.8-10.6)
[2020-05-08 07:35] VITALS: BP 153/78; PULSE 69; RESP 17; TEMP 98
[2020-05-08] MEDS: ASPIRIN 325 MG TAB PO SCH ×2 (07:59→08:00)
[2020-05-08] MEDS: METOPROLOL TARTRATE 25 MG TAB PO SCH (08:00)
[2020-05-08] MEDS ORDERED: TAMSULOSIN 0.4 MG CAP.ER.24H PO SCH (09:00)
[2020-05-08] MEDS ORDERED: LOSARTAN 25 MG TAB PO SCH (09:00)
[2020-05-08 09:46] LABS: African American GFR (CKD) 59.4 (60.0-200.0); Albumin 3.9 g/dL (3.80-4.90); Albumin/Globulin Ratio 2.05 (1.60-3.17); Anion Gap 8.3 mmol/L (4.00-12.00); BUN/Creat Ratio 14.29 Ratio (12.00-20.00); Calcium 9.3 mg/dL (8.7-10.3); Carbon Dioxide 27.7 mmol/L (21.6-31.8); Globulin 1.9 g/dL (1.6-3.3); Non-African American GFR(CKD) 51.3 (60.0-200.0); Potassium 4.2 mmol/L (3.5-5.5); Total Bilirubin 0.6 mg/dL (0.2-1.2); Total Protein 5.8 g/dL (6.2-8.2)
--- NOTE | 2020-05-08 11:28 | P.PN ---
Subjective Progress Note Date: 05/08/20 Principal diagnosis: Status post reverse right total shoulder arthroplasty Patient was admitted at bedside, resting comfortably. His pain is well- controlled at this time. He has no acute complaints at this time. He denies any headaches, lightheadedness, chest pain, shortness of breath, fever chills. Objective - Vital Signs Vital signs: Vital Signs Temp 98.0 F 05/08/20 07:34 Pulse 69 05/08/20 07:34 Resp 17 05/08/20 07:34 BP 153/78 05/08/20 07:34 Pulse Ox 95 05/08/20 07:34 Intake & Output 05/07/20 05/08/20 05/08/20 18:59 06:59 18:59 Intake Total 1150 Output Total 200 Balance 950 Weight 75.3 kg Intake: IV 1150 Output: Estimated Blood Loss 200 Other: Voiding Method Toilet # Voids 3 - Exam Right upper extremity: Postoperative bandage was removed, incision is clean, dry and intact. There is some ecchymosis and soft tissue swelling of the upper arm. Sensation to light touch throughout the extremity is intact. Radial and ulnar pulses are 2+. - Labs CBC & Chem 7: 05/08/20 06:03 05/08/20 06:03 Labs: Abnormal Lab Results - Last 24 Hours (Table) 05/08/20 05/08/20 Range/Units 06:03 06:03 RBC 3.87 L (4.30-5.90) m/uL Hgb 12.1 L (13.0-17.5) gm/dL Hct 35.4 L (39.0-53.0) % Neutrophils # 9.3 H (1.3-7.7) k/uL Lymphocytes # 0.6 L (1.0-4.8) k/uL Est GFR (CKD-EPI)AfAm 59.4 L (60.0-200.0) Est GFR (CKD-EPI)NonAf 51.3 L (60.0-200.0) Glucose 128 H (70-110) mg/dL Total Protein 5.8 L (6.2-8.2) g/dL Assessment and Plan Assessment: Status post reverse right total shoulder arthroplasty Plan: Pain control, plan for discharge home on [place] 7.5 mg/325 mg. Will utilize this over the next week or so, then he may resume his normal 5 mg/325 mg dose DVT prophylaxis, increase aspirin 325 mg daily for 2 weeks Wound care instructions were discussed Activity level and restrictions were discussed Home nursing to check in on patient Medical recommendations Plan for discharge home today Time with Patient: Less than 30
--- NOTE | 2020-05-08 11:31 | P.DS ---
Providers Date of admission: 05/07/20 08:57 Expected date of discharge: 05/08/20 Attending physician: Wilian Guidry Consults: 05/07/20 13:25 Consult Physician Routine Consulting Provider: Kassandra Gillette Consult Reason/Comments: Medical Management Do you want consulting provider notified?: Yes Primary care physician: Kassandra Gillette Hospital Course: Date of admission: 05/07/2020 Date of discharge: 05/08/2020 Admission diagnosis: Status post reverse right total shoulder arthroplasty Discharge diagnosis: Same Attending physician: Dr. Guidry Surgical procedures: Reverse right total shoulder arthroplasty Brief history: Patient is a 69-year-old male with a history of right shoulder chronic rotator cuff arthropathy. At this point patient has failed conservative treatment measures and has opted to proceed with a elective reverse right total shoulder arthroplasty. Hospital course: Details of patient's surgery can be found in operative report. Patient tolerated the procedure well and was subsequently transported to orthopedic floor. Patient's orthopeidc and medical care was provided daily. Patient had daily laboratory tests performed for evaluation of overall blood counts. Patient had daily physical therapy to include strengthening range of motion as well as education with walker ambulation. Patient was treated with aspirin for their postoperative DVT prophylaxis during their inpatient stay. Patient was noted to have a relatively uneventful postoperative course. Patient reported satisfactory pain control with oral pain medications by postoperative day 0. Patient showed satisfactory progress with physical therapy. Patient moved steadily through the program and had no difficulty meeting the goals by postoperative day 1. Given patient's otherwise satisfactory course and having met physical therapy goals, plan is to discharge patient home on postoperative day 1. Discharge condition/disposition: Patient will be discharged home in stable condition. Discharge medications: Instructions are given on resumption of patient's normal daily medications per primary care recommendation, in addition patient will be prescribed [place] 7.5 mg/325 mg, aspirin 325 mg. Discharge instructions: 1. Wound care and infection precautions, keep incision dry and covered while showering, no lotions, creams, moisturizers. No soaking, tubs, pools, hottubs. Do not scrub over the incision. 2. Utilize arm sling, avoid excessive use of the upper arm 3. Ice and elevate when necessary. Do not exceed 20 minutes per hour with ice pack. 4. Utilize compression sleeve until seen at first follow up appointment. 5. Visiting nursing care. 7. Pain meds and anticoagulants per prescription. 8. Pain medication has potential to cause constipation. Increase oral fluid and fiber intake. Contact primary care provider if you have not had a bowel movement within 48 hours after discharge 9. No anti-inflammatory medication until discussed at first post operative visit, this including Motrin, Aleve, Mobic, Diclofenac 10. Follow up in office at 2 weeks postop with Dl Morin PA-C 11. Follow up with your primary care doctor 7-10 days after discharge. 12. Contact [facility] with any questions, . Procedures: Reverse right total shoulder arthroplasty Patient Condition at Discharge: Good Plan - Discharge Summary Discharge Rx Participant: Yes New Discharge Prescriptions: New Aspirin 325 mg PO DAILY #20 tab HYDROcodone/APAP 7.5-325MG [[place] 7.5] 1 each PO Q6HR PRN #28 tab PRN Reason: Pain No Action Tamsulosin [Flomax] 0.4 mg PO QAM Famotidine [Pepcid] 40 mg PO HS Cyanocobalamin [Vitamin B-12 Injection] 1,000 mcg SQ QMONTH Atorvastatin [Lipitor] 80 mg PO HS #90 tab Metoprolol Tartrate [Lopressor] 25 mg PO BID #180 tab Nitroglycerin Sl Tabs [Nitrostat] 0.4 mg SUBLINGUAL Q5M PRN #25 tab PRN Reason: Chest Pain traZODone HCL 100 mg PO HS PRN PRN Reason: sleep Losartan [Cozaar] 12.5 mg PO QAM Meloxicam [Mobic] 15 mg PO DAILY Discharge Medication List Cyanocobalamin [Vitamin B-12 Injection] 1,000 mcg SQ QMONTH 10/21/16 [History] Famotidine [Pepcid] 40 mg PO HS 10/21/16 [History] Tamsulosin [Flomax] 0.4 mg PO QAM 10/21/16 [History] Atorvastatin [Lipitor] 80 mg PO HS #90 tab 10/24/16 [Rx] Metoprolol Tartrate [Lopressor] 25 mg PO BID #180 tab 10/24/16 [Rx] Nitroglycerin Sl Tabs [Nitrostat] 0.4 mg SUBLINGUAL Q5M PRN #25 tab 10/24/16 [Rx] traZODone HCL 100 mg PO HS PRN 05/11/18 [History] Losartan [Cozaar] 12.5 mg PO QAM 11/08/19 [History] Meloxicam [Mobic] 15 mg PO DAILY 05/02/20 [History] Aspirin 325 mg PO DAILY #20 tab 05/08/20 [Rx] HYDROcodone/APAP 7.5-325MG [[place] 7.5] 1 each PO Q6HR PRN #28 tab 05/08/20 [Rx] Follow up Appointment(s)/Referral(s): [facility], [NON-STAFF] - Armando Morin PAC [PHYSICIAN [employer] TE[employer]ER] - 05/29/20 2:30 pm Patient Instructions/Handouts: *Surgery [facility] - ([facility]) Shoulder Discharge Instructions Activity/Diet/Wound Care/Special Instructions: Orthopedic discharge instructions: 1. Resume home medications of discharge 2. Pain medication as needed 3. Aspirin 325 mg daily for 2 weeks, discontinue 81 mg aspirin during this time 4. Keep incision covered and dry while showering 5. Utilize arm sling, avoid excess use of the upper extremity 6. Plan for follow-up at [facility] in 2 weeks Discharge Disposition: HOME WITH HOME HEALTH SERVICES
--- NOTE | 2020-05-08 15:26 | P.PN ---
Subjective Progress Note Date: 05/08/20 This is a 69 year-old male one of my patient with previous medical history significant for hypertension and hypertensive cardiovascular disease, hyperlipidemia, vascular dementia, left ear Cholesteatoma S/P surgical excision 06/[address]Bojrab Mccall, colonic polyps and prostate cancer post seeds and radiation currently in remission, CAD post anterior wall STEMI post LHC with PCI of the LAD in 2017 with Ventricular fibrillation and one episode of atrial fibrillation with RVR, patient underwent right shoulder arthroscopic acromion decompression with distal clavicular head resection on 10/2019 however he ended up with severe limited range of motion due to retracted rotator cuff tear and fu ll thickness ter, so he underwent right reverse total shoulder arthroplasty that was done today by and we were asked to see him for medical management. Patient is lying down in bed complaining of increased pain in the right shoulder, and his BP was elevated in the recovery area, I spoke with nursing staff about giving him Hydralazine 20 mg IVP Q 4 h as needed for SBP greater than 160, and we will increase Losartan to 25 mg orally daily and to give him one dose now. Pateint denies any chest pain or shortness of breath, he denies any headaches, blurred vision or double vision, he denies any dizziness or light headedness, he denies any abdominal pain , nausea, vomiting or diarrhea. 05/08: Objective - Vital Signs Vital signs: Vital Signs Temp 98.0 F 05/08/20 07:34 Pulse 69 05/08/20 07:34 Resp 17 05/08/20 07:34 BP 153/78 05/08/20 07:34 Pulse Ox 95 05/08/20 07:34 Intake & Output 05/07/20 05/08/20 05/08/20 18:59 06:59 18:59 Intake Total 1150 Output Total 200 Balance 950 Weight 75.3 kg Intake: IV 1150 Output: Estimated Blood Loss 200 Other: Voiding Method Toilet # Voids 3 - Exam Review of Systems Constitutional: Reports chronic pain, Denies anorexia, Denies lethargy, Denies weakness Eyes: denies blurred vision, denies bulging eye, denies decreased vision Ears: left: decreased hearing Ears, nose, mouth and throat: Denies dysphagia, Denies neck lump, Denies sore throat Cardiovascular: Denies chest pain, Denies decreased exercise tolerance, Denies dyspnea on exertion, Denies lightheadedness, Denies rapid heart beat, Denies shortness of breath, Denies syncope Respiratory: Denies congestion, Denies cough with sputum, Denies home oxygen, Denies sleep apnea, Denies snoring, Denies wheezing Gastrointestinal: Denies abdominal pain, Denies bloating, Denies BRBPR, Denies excessive gas, Denies heartburn, Denies melena, Denies nausea, Denies vomiting Genitourinary: Denies discharge, Denies dysuria, Denies kidney stones Musculoskeletal: Denies myalgias Musculoskeletal: right: shoulder pain, shoulder stiffness, shoulder swelling, absent: ankle pain, ankle stiffness, ankle swelling, elbow pain, elbow stiffness, elbow swelling, foot pain, foot stiffness, foot swelling, hand pain, hand stiffness, hand swelling, hip pain, hip stiffness, hip swelling, knee pain, knee stiffness, knee swelling, wrist pain, wrist stiffness, wrist swelling Integumentary: Denies pruritus, Denies rash Neurological: Denies numbness, Denies weakness Psychiatric: Reports anxiety, Reports memory loss, Denies sadness/tearfulness, Denies sleep disturbances, Denies suicidal ideation Endocrine: Reports fatigue Physical examination: HEENT: head is atraumatic normocephalic pupils were equal round reactive to light and accommodations extra ocular muscle movements were intact, mucous membranes of the mouth are somewhat dry. Neck: supple no JVP. Chest: decreased breath sounds at the bases with few ronchi, no expiratory wheezes, no chest wall tenderness or intercostal retractions. Heart: firs heart sound is depressed, second heart sound is normal there is AMY 2/6 located at the left sternal border. Abdomen: soft non tender non distended positive bowel sounds. Extremities: there is no edema no calf tenderness DP + 1 bilaterally.right arm in a sling. Neurologic examinations: patient is awke alert and oriented X 3 CN II-XII are grossly intact, muscle power 4/5 in left upper extremity and bilateral lower extremities. deep tendon reflexes were depressed. - Labs CBC & Chem 7: 05/08/20 06:03 05/08/20 06:03 Labs: Abnormal Lab Results - Last 24 Hours (Table) 05/08/20 05/08/20 Range/Units 06:03 06:03 RBC 3.87 L (4.30-5.90) m/uL Hgb 12.1 L (13.0-17.5) gm/dL Hct 35.4 L (39.0-53.0) % Neutrophils # 9.3 H (1.3-7.7) k/uL Lymphocytes # 0.6 L (1.0-4.8) k/uL Est GFR (CKD-EPI)AfAm 59.4 L (60.0-200.0) Est GFR (CKD-EPI)NonAf 51.3 L (60.0-200.0) Glucose 128 H (70-110) mg/dL Total Protein 5.8 L (6.2-8.2) g/dL Assessment and Plan Assessment: Assessment and Plan: 1. POD # 0 S/P Right reverse total shoulder arthroplasty. we will continue with current pain management as outlined by orthopedics we will continue with the use of Incentive spirometer to reduce the incidence of atelectasis and hospital acquired pneumonia, we will continue with monitoring and increased acitivity. 2. CAD post PCI of the LAD. we will continue with Metoprolol 25 mg orally bid, ASA 81 mg orally daily and [id number] mg orally daily. 3. Hypertension and hypertensive cardiovascular disease. we will increase Losartan to 25 mg orally daily and continue with Metoprolol 25 mg orally bid, and we will add Hydralazine 20 mg IVP Q4 H as needed for SBP greater than or equal to 160 mmhg. 4. Hyperlipidemia. we will continue with Lipitor 80 mg orally daily. 5. H/O Left ear Cholesteatoma S/P surgery . currently in remission with left ear deaf. 6. Vascular dementia. stable. 7. Chronic pain syndrome. we will continue with current pain management. 8. Enlarged prostate. we will continue with Flomax 0.4 mg orally daily and monitor for urinary retention. 9. Insomnia. we will continue with Trazodone 100 mg orally at bedtime. 10. Thank you for the consult we will follow the patient with you.
== END 2020-05-08 13:20 | disposition home health service (06) | DRG 483 ==
LOC: 2ORMAIN 08:57 → 4SSUR 15:48
PROVIDERS: ADMIT Orthopaedic Surgery; ATTEND Orthopaedic Surgery
PROC: 0RRJ00Z Replacement of Right Shoulder Joint with Reverse Ball and Socket Synthetic Substitute, Open Approach (ICD-10-PCS; principal; 2020-05-07 10:40)
DX: M19.011 Primary osteoarthritis, right shoulder (principal); M75.101 Unspecified rotator cuff tear or rupture of right shoulder, not specified as traumatic; F01.50 Vascular dementia, unspecified severity, without behavioral disturbance, psychotic disturbance, mood disturbance, and anxiety; I11.9 Hypertensive heart disease without heart failure; Z86.74 Personal history of sudden cardiac arrest; I48.91 Unspecified atrial fibrillation; E78.00 Pure hypercholesterolemia, unspecified; E78.5 Hyperlipidemia, unspecified; G47.00 Insomnia, unspecified; G89.4 Chronic pain syndrome; H91.92 Unspecified hearing loss, left ear; I25.10 Atherosclerotic heart disease of native coronary artery without angina pectoris; I25.2 Old myocardial infarction; N40.0 Benign prostatic hyperplasia without lower urinary tract symptoms; E53.8 Deficiency of other specified B group vitamins; M48.00 Spinal stenosis, site unspecified; K21.00 Gastro-esophageal reflux disease with esophagitis, without bleeding; R01.1 Cardiac murmur, unspecified; Z79.1 Long term (current) use of non-steroidal anti-inflammatories (NSAID); Z79.82 Long term (current) use of aspirin; Z79.899 Other long term (current) drug therapy; Z87.891 Personal history of nicotine dependence; Z95.5 Presence of coronary angioplasty implant and graft; Z85.46 Personal history of malignant neoplasm of prostate; Z92.21 Personal history of antineoplastic chemotherapy; Z92.3 Personal history of irradiation; Z86.010 Personal history of colon polyps; Z86.69 Personal history of other diseases of the nervous system and sense organs; Z98.890 Other specified postprocedural states; Z80.1 Family history of malignant neoplasm of trachea, bronchus and lung; Z80.3 Family history of malignant neoplasm of breast; Z82.0 Family history of epilepsy and other diseases of the nervous system; Z83.2 Family history of diseases of the blood and blood-forming organs and certain disorders involving the immune mechanism
CPT/HCPCS: 64415; 76942; 80053; 85025; 88305; 88311

== ENCOUNTER → 2020-06-21 | Outpatient (CLI) | payer MEDICARE, OTHER ==
--- NOTE | 2020-06-21 14:30 | US ---
EXAMINATION TYPE: US venous doppler duplex LE DATE OF EXAM: 06/21/2020 2:06 PM COMPARISON: NONE CLINICAL HISTORY: R60.0 Bilateral lower extremity edema. Bilateral lower leg edema x 1 week. SIDE PERFORMED: Bilateral TECHNIQUE: The lower extremity deep venous system is examined utilizing real time linear array sonog luna with graded compression, doppler sonography and color-flow sonography. VESSELS IMAGED: Common Femoral Vein Deep Femoral Vein Greater Saphenous Vein * Femoral Vein Popliteal Vein Small Saphenous Vein * Proximal Calf Veins (* superficial vessels) Right Leg: Negative for DVT Left Leg: Echogenic wall changes (chronic changes) are seen in left Femoral Vein at mid and distal l evel with incomplete color filling to wall on Sagittal and TR view too, otherwise, remaining left leg vein vessels are negative for DVT. Tech findings called to Dr Gillette at exam's end. Patient is free to return home per Dr Gillette. JJ IMPRESSION: Chronic changes left lower extremity venous system.
== END | disposition home or self-care (01) ==
LOC: RADUSWWP 13:29
PROVIDERS: ATTEND Internal Medicine
DX: R60.0 Localized edema (principal); R93.89 Abnormal findings on diagnostic imaging of other specified body structures
CPT/HCPCS: 93970

== ENCOUNTER → 2020-07-30 | Outpatient (CLI) | payer MEDICARE, OTHER ==
--- NOTE | 2020-07-30 13:00 | ECHOF ---
Referral Reason:R60.0 localized edema MEASUREMENTS -------- HEIGHT: 170.2 cm WEIGHT: 68.0 kg BP: RVIDd: 3.6 cm (< 3.3) IVSd: 0.9 cm (0.6 - 1.1) LVIDd: 3.9 cm (3.9 - 5.3) LVPWd: 1.3 cm (0.6 - 1.1) IVSs: 1.4 cm LVIDs: 2.5 cm LVPWs: 1.4 cm LAESV Index (A-L): 26.40 ml/m Ao Diam: 3.1 cm (2.0 - 3.7) AV Cusp: 1.7 cm (1.5 - 2.6) LA Diam: 4.2 cm (2.7 - 3.8) MV EXCURSION: 18.742 mm (> 18.000) MV EF SLOPE: 104 mm/s (70 - 150) EPSS: 0.3 cm MV E Mariano: 0.56 m/s MV DecT: 271 ms MV A Mariano: 0.68 m/s MV E/A Ratio: 0.83 RAP: 5.00 mmHg RVSP: 15.28 mmHg FINDINGS -------- Sinus rhythm. This was a technically adequate study. LV size, wall thickness and systolic function are normal, with an EF greater than 55%. The left beth tricular size is normal. The right ventricle is normal in size. Normal LA size by volume 22+/-6 ml/m2. The right atrial size is normal. The aortic valve is trileaflet, and appears structurally normal. No aortic stenosis or regurgitation. The mitral valve is normal. Mild mitral regurgitation is present. The tricuspid valve appears structurally normal. Mild tricuspid regurgitation present. Right vent ricular systolic pressure is normal at < 35 mmHg. Trace/mild (physiologic) pulmonic regurgitation. The aortic root size is normal. There is no pericardial effusion. CONCLUSIONS -------- 1. LV size, wall thickness and systolic function are normal, with an EF greater than 55%. 2. Normal LA size by volume 22+/-6 ml/m2. 3. The aortic valve is trileaflet, and appears structurally normal. No aortic stenosis or regurgitati on. 4. Mild mitral regurgitation is present. 5. Mild tricuspid regurgitation present. 6. Trace/mild (physiologic) pulmonic regurgitation. 7. There is no pericardial effusion. YOUTH LEADER: Crista Bustillo RDCS
== END ==
LOC: RADECHMAIN 10:42
PROVIDERS: ATTEND Internal Medicine
DX: I08.1 Rheumatic disorders of both mitral and tricuspid valves (principal)
CPT/HCPCS: 93306

== ENCOUNTER → 2020-08-21 | Outpatient (CLI) | payer MEDICARE, OTHER ==
--- NOTE | 2020-08-21 13:18 | CT ---
CTA LEG RUNOFF History: Technique: After obtaining unenhanced data, during dynamic IV injection of iodinated contrast materia l, thin section helical scans were acquired from the above the celiac axis through the feet. 3D imag ing, including multiplanar reformations, volume renderings, thin slab MIPs, have been performed by cory hunter interpreting radiologist. Total of 80 cc of Isovue-370 IV contrast was utilized during the examinat ion. Comparison: None. Findings: Aorta: The distal abdominal aorta demonstrates some mild atheromatous plaque without significant hemo dynamically significant stenosis. Iliac arteries: Mild plaque is seen of the common iliac arteries extending into the internal iliac ar teries without significant stenosis. Lower extremities: There is mild plaque noted within the bilateral common femoral arteries without he modynamically significant stenosis. The superficial femoral artery demonstrates some mild focal plaqu e at its middle one third. There is no evidence for hemodynamically significant stenosis. The right s uperficial femoral artery demonstrates minimal scattered plaque. Profunda femoris is patent bilateral ly. The popliteal arteries are patent and free of atheromatous change or aneurysm. Trifurcations are patent bilaterally without significant plaque formation or stenosis. Focal plaque is noted at the cory gin of the right peroneal and posterior tibial artery without hemodynamically significant stenosis. N ormal runoff into the ankles and feet. Nonvascular structures: Osseous structures are intact. No fracture or osseous lesion. Degenerative changes of the hips right greater than left. No soft tissue masses seen. Impression: 1. Mild calcific plaque disease without hemodynamically significant stenosis. Normal-appearing runoff to the lower extremities.
== END | disposition home or self-care (01) ==
LOC: RADCTMAIN 10:59
PROVIDERS: ATTEND Internal Medicine
DX: I73.9 Peripheral vascular disease, unspecified (principal); I25.84 Coronary atherosclerosis due to calcified coronary lesion
CPT/HCPCS: 82565; 84520; 36415; 73706; Q9967

== ENCOUNTER → 2021-03-08 | Outpatient (CLI) | payer MEDICARE, OTHER ==
--- NOTE | 2021-03-08 09:31 | MR ---
EXAMINATION TYPE: MR brain wo/w con DATE OF EXAM: 03/08/2021 COMPARISON: None HISTORY: Vascular Dementia, Left Acoustic Neuroma TECHNIQUE: Multiplanar, multisequence images of the brain and brainstem is performed without and with IV contras t, utilizing 7.5 mL intravenous Gadavist . FINDINGS: On the T1-weighted sagittal images midline structures including the craniovertebral junction relation ships appear normal. The ventricles, basal cisterns and sulci over the convexities are moderately enlarged consistent with generalized degenerative change. There are a few scattered nonspecific focal white matter abnormalities in the subcortical white matte r both cerebral hemispheres consistent with chronic ischemic white matter change. Based on diffusion- weighted imaging there is no diffusion restriction or acute ischemic event. There is a 13 mm enhancing mass in the left cerebellopontine angle and internal auditory canal consis tent with a acoustic neuroma. The remainder the posterior fossa is unremarkable. Intraorbital contents appear normal and symmetric. Visualized paranasal sinuses and mastoid air cells are well aerated. IMPRESSION: 1. Moderate generalized atrophy. 2. Mild chronic ischemic white matter changes. 3. Left-sided mass at the cerebellopontine angle and internal auditory canal consistent with the prov ided history of acoustic neuroma. 4. No acute ischemic event
== END | disposition home or self-care (01) ==
LOC: RADMRIMAIN 08:23
PROVIDERS: ATTEND Internal Medicine
DX: I67.82 Cerebral ischemia (principal); D33.3 Benign neoplasm of cranial nerves; F01.50 Vascular dementia, unspecified severity, without behavioral disturbance, psychotic disturbance, mood disturbance, and anxiety; Z86.018 Personal history of other benign neoplasm
CPT/HCPCS: 70553; A9585

== ENCOUNTER 2021-05-10 14:07 | Emergency (ER) | payer MEDICARE, OTHER ==
[2021-05-10 14:54] VITALS: RESP 16
[2021-05-10] MEDS ORDERED: SODIUM CHLORIDE 0.9% 50 ML IVPB ONE (16:15)
[2021-05-10] MEDS ORDERED: BAMLANIVIMAB (EUA) 700 MG, ETESEVIMAB (EUA) 1,400 MG in SODIUM CHLORIDE 0.9% 50 ML IVPB ONE (16:15)
--- NOTE | 2021-05-10 16:15 | ED ---
General Adult HPI - General Chief complaint: Shortness of Breath Stated complaint: Covid+/SOB Time Seen by Provider: 05/10/21 15:37 Source: family, RN notes reviewed Mode of arrival: wheelchair Limitations: no limitations - History of Present Illness Initial comments: 70-year-old male presents emergency Department with chief complaint of COVID-19. Patient is a positive at home. Patient had increasing cough congestion as . Patient states that he did taken at home test which was positive. Patient denies any significant chest pain or exertional shortness of breath no leg swelling or leg pain patient has no GI symptoms mild bodyaches cough headache. - Related Data Home Medications Medication Instructions Recorded Confirmed Cyanocobalamin [Vitamin B-12 1,000 mcg SQ QMONTH 10/21/16 05/02/20 Injection] Famotidine [Pepcid] 40 mg PO HS 10/21/16 05/02/20 Tamsulosin [Flomax] 0.4 mg PO QAM 10/21/16 05/02/20 traZODone HCL 100 mg PO HS PRN 05/11/18 05/02/20 Losartan [Cozaar] 12.5 mg PO QAM 11/08/19 05/02/20 Meloxicam [Mobic] 15 mg PO DAILY 05/02/20 05/02/20 Previous Rx's Medication Instructions Recorded Atorvastatin [Lipitor] 80 mg PO HS #90 tab 10/24/16 Metoprolol Tartrate [Lopressor] 25 mg PO BID #180 tab 10/24/16 Nitroglycerin Sl Tabs [Nitrostat] 0.4 mg SUBLINGUAL Q5M PRN #25 tab 10/24/16 Aspirin 325 mg PO DAILY #20 tab 05/08/20 HYDROcodone/APAP 7.5-325MG [[place] 1 each PO Q6HR PRN #28 tab 05/08/20 7.5] Allergies Allergy/AdvReac Type Severity Reaction Status Date / Time No Known Allergies Allergy Verified 05/10/21 14:54 Review of Systems ROS Statement: Those systems with pertinent positive or pertinent negative responses have been documented in the HPI. ROS Other: All systems not noted in ROS Statement are negative. Past Medical History Past Medical History: Atrial Fibrillation, Cancer, Dementia, Hearing Disorder / Deafness, Hypertension, Memory Impairment, Myocardial Infarction ([place]), Musculoskeletal Disorder, Osteoarthritis (OA), Prostate Disorder Additional Past Medical History / Comment(s): 10-21-16 CARDIAC [id number]. 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 Last Myocardial Infarction Date:: OCTOBER 2016 History of Any Multi-Drug Resistant Organisms: None Reported Past Surgical History: Heart Catheterization With Stent, Orthopedic Surgery, Pr ostate Surgery Additional Past Surgical History / Comment(s): 10-21-16 -HEART CATH W/STENT TO LAD ., PROSTATE BX, LT ACOUSTIC NEUROMA REMOVED JULY 2016, rt rotator cuff 11/10 Past Anesthesia/Blood Transfusion Reactions: No Reported Reaction, Postoperative Nausea & Vomiting (PONV) Additional Past Anesthesia/Blood Transfusion Reaction / Comment(s): has used scopolamine patch in past Date of Last Stent Placement:: 10/21/16 Past Psychological History: No Psychological Hx Reported Smoking Status: Former smoker Past Alcohol Use History: None Reported Past Drug Use History: None Reported - Past Family History Father Family Medical History: Dementia Additional Family Medical History / Comment(s): PARKINSONS Mother Additional Family Medical History / Comment(s): MOM ,NO HX KNOWN Sister(s) Family Medical History: Cancer Additional Family Medical History / Comment(s): SISTER #1 BREAST CANCER. SISTER #2 LUNG CANCER Daughter(s) Family Medical History: Blood Disorder Additional Family Medical History / Comment(s): ITP General Exam General appearance: alert, in no apparent distress Head exam: Present: atraumatic, normocephalic, normal inspection Eye exam: Present: normal appearance, PERRL, EOMI. Absent: scleral icterus, conjunctival injection, periorbital swelling ENT exam: Present: normal exam, mucous membranes moist Neck exam: Present: normal inspection. Absent: tenderness, meningismus, lymphadenopathy Respiratory exam: Present: normal lung sounds bilaterally. Absent: respiratory distress, wheezes, rales, rhonchi, stridor Cardiovascular Exam: Present: regular rate, normal rhythm, normal heart sounds. Absent: systolic murmur, diastolic murmur, rubs, gallop, clicks GI/Abdominal exam: Present: soft, normal bowel sounds. Absent: distended, tenderness, guarding, rebound, rigid Course Vital Signs 05/10/21 14:50 Temperature 99.0 F Pulse Rate 59 L Respiratory 16 Rate Blood Pressure 110/77 O2 Sat by Pulse 96 Oximetry Medical Decision Making - Medical Decision Making Patient will receive monoclonal antibodies will be discharged in stable condition patient covid 19 positive return parameters were discussed. - Lab Data Lab Results 05/10/21 Range/Units 14:58 Coronavirus (PCR) Detected A (Not Detectd) Disposition Clinical Impression: COVID-19 Disposition: HOME SELF-CARE Condition: Stable Instructions (If sedation given, give patient instructions): Coronavirus Disease 2019 (COVID-19) Additional Instructions: Please return to the Emergency Department if symptoms worsen or any other concerns. Is patient prescribed a controlled substance at d/c from ED?: No Referrals: Kassandra Gillette MD [Primary Care Provider] - 1-2 days Time of Disposition: 16:14
[2021-05-10 17:58] VITALS: BP 125/80; PULSE 90; TEMP 98.4
== END 2021-05-10 18:02 | disposition home or self-care (01) ==
LOC: EC 14:07
DX: U07.1 COVID-19 (principal); I25.2 Old myocardial infarction; I10 Essential (primary) hypertension; M19.90 Unspecified osteoarthritis, unspecified site; Z79.899 Other long term (current) drug therapy; Z87.891 Personal history of nicotine dependence
CPT/HCPCS: 87635; 99284; J3490

== ENCOUNTER 2021-05-12 09:34 | Emergency (ER) | payer MEDICARE, OTHER ==
[2021-05-12 09:38] VITALS: BP 100/64; RESP 20; TEMP 97.9
[2021-05-12 09:44] VITALS: PULSE 88
[2021-05-12] MEDS ORDERED: DEXAMETHASONE SOD PHOSPHATE 10 MG/ML 1 ML VIAL IVP STA (09:57)
[2021-05-12 10:16] LABS: Basophils % (A) 0 %; Eosinophils % (A) 0 %; HCT 45.4 % (39.0-53.0); HGB 15.4 gm/dL (13.0-17.5); Lymphocytes # (A) 0.5 k/uL (1.0-4.8); Lymphocytes % (A) 10 %; MCH 30.5 pg (25.0-35.0); MCHC 33.8 g/dL (31.0-37.0); MCV 90.2 fL (80.0-100.0); Mean Platelet Volume 8.7; Monocytes # (A) 0.2 k/uL (0-1.0); Monocytes % (A) 4 %; Neutrophils # (A) 3.9 k/uL (1.3-7.7); Neutrophils % (A) 85 %; Platelet Count 125 k/uL (150-450); Poikilocytosis Slight; RBC 5.04 m/uL (4.30-5.90); RDW 13.6 % (11.5-15.5); WBC 4.6 k/uL (3.8-10.6)
[2021-05-12 10:33] LABS: INR 0.9 (<1.2); Partial Thromboplastin Time 23.6 sec (22.0-30.0); Prothrombin Time 10.1 sec (9.0-12.0)
--- NOTE | 2021-05-12 10:38 | XR ---
EXAMINATION TYPE: XR chest 2V DATE OF EXAM: 05/12/2021 COMPARISON: October 22, 2016. HISTORY: Cough. Suspected covid-19 infection. TECHNIQUE: Frontal and lateral views of the chest are obtained. FINDINGS: There are new bibasilar opacities. The cardiac silhouette size remains upper limits of no rmal. Surgical changes right shoulder level is partially imaged. Osseous structures are demineralized . IMPRESSION: New bibasilar acute infiltrate and/or atelectasis.
[2021-05-12 11:47] LABS: Albumin 3.6 g/dL (3.5-5.0); C Reactive Protein 6.2 mg/dL (<1.0); Calcium 8.8 mg/dL (8.4-10.2); Magnesium 2.4 mg/dL (1.6-2.3); Potassium 4.4 mmol/L (3.5-5.1); Total Bilirubin 0.8 mg/dL (0.2-1.3); Total Protein 6.8 g/dL (6.3-8.2)
--- NOTE | 2021-05-12 12:24 | CT ---
EXAMINATION TYPE: CT chest angio for PE DATE OF EXAM: 05/12/2021 COMPARISON: Radiograph same day HISTORY: 70-year-old male Cough, covid, shortness of breath. TECHNIQUE: Contiguous axial scanning of the chest performed with IV Contrast, patient injected with 6 2 mL of Isovue 370. Coronal/sagittal MIP reconstructions performed. CT DLP: 327.3 mGycm Automated exposure control for dose reduction was used. FINDINGS: Heart normal size without pericardial effusion. No reflux of contrast into the hepatic veins. 3 vesse l coronary artery calcifications are present. Mild atherosclerotic arch calcifications within the chart. Branching anatomy. Ectatic upper descendin g thoracic aorta 3.2 cm. Satisfactory opacification pulmonary arterial system. More distal arterial branches are limited due t o breathing motion. No definite pulmonary embolus is seen. Prominent but nonenlarged 8 mm low right paratracheal lymph node. No thoracic lymphadenopathy by CT s ize criteria. Peripheral and peribronchial vascular groundglass throughout, greatest in the mid and lower lungs wit h associated septal thickening at the lung bases. Mild emphysematous change. No pleural effusion. Approximately 4 nonspecific hepatic hypodensities inadequately characterized, measuring up to 8 mm, l ikely liver cysts. Tiny 4 mm gallstone. Bones: Reverse right shoulder arthroplasty. Mild superior endplate deformity T8 shows no surrounding soft tissue swelling, suspected old endplate deformity. IMPRESSION: 1. BREATHING MOTION ARTIFACT LIMITS ASSESSMENT OF THE MORE DISTAL ARTERIAL BRANCHES. NO DEFINITE PULM ONARY EMBOLUS. 2. COPD WITH MILD EMPHYSEMA. 3. THREE-VESSEL CORONARY ARTERY CALCIFICATIONS. 4. BILATERAL PERIPHERAL GROUNDGLASS COVID PNEUMONIA. 5. TINY 4 MM GALLSTONE.
--- NOTE | 2021-05-12 13:06 | ED ---
Recheck HPI - General Chief Complaint: Recheck/Abnormal Lab/Rx Stated Complaint: covid+, increased SOB Time Seen by Provider: 05/12/21 09:40 Source: patient, family, RN notes reviewed Mode of arrival: wheelchair Limitations: no limitations - History of Present Illness Initial Comments: Patient is a 70-year-old male that presents to the emergency department with daughter stating that he has had increased shortness of breath and worsening symptoms or Covid. He notes that he recently got monoclonal antibodies on the . Patient did not require at home oxygen prior to his visit today. Patient did appear to be worn down and not feeling well. Daughter did most of the talking. Patient denied any chest pain headache nausea vomiting diarrhea const ipation fever fatigue chills. - Related Data Home Medications Medication Instructions Recorded Confirmed Cyanocobalamin [Vitamin B-12 1,000 mcg SQ QMONTH 10/21/16 05/12/21 Injection] Tamsulosin [Flomax] 0.4 mg PO QAM 10/21/16 05/12/21 traZODone HCL 100 mg PO HS PRN 05/11/18 05/12/21 Losartan [Cozaar] 12.5 mg PO QAM 11/08/19 05/12/21 Donepezil [Aricept] 5 mg PO HS 05/12/21 05/12/21 Famotidine [Pepcid] 20 mg PO HS 05/12/21 05/12/21 Furosemide [Lasix] 20 mg PO DAILY 05/12/21 05/12/21 HYDROcodone/APAP 5-325MG [[place] 1 tab PO Q12H PRN 05/12/21 05/12/21 5-325] Memantine [Namenda] 10 mg PO BID 05/12/21 05/12/21 Metoprolol Tartrate [Lopressor] 25 mg PO BID 05/12/21 05/12/21 Potassium Chloride [Klor-Con 10 ER] 10 meq PO DAILY 05/12/21 05/12/21 Previous Rx's Medication Instructions Recorded Atorvastatin [Lipitor] 80 mg PO HS #90 tab 10/24/16 Nitroglycerin Sl Tabs [Nitrostat] 0.4 mg SUBLINGUAL Q5M PRN #25 tab 10/24/16 Aspirin 325 mg PO DAILY #20 tab 05/08/20 Dexamethasone [Decadron] 6 mg PO BID 7 Days #14 tablet 05/12/21 Allergies Allergy/AdvReac Type Severity Reaction Status Date / Time No Known Allergies Allergy Verified 05/12/21 11:44 Review of Systems ROS Statement: Those systems with pertinent positive or pertinent negative responses have been documented in the HPI. ROS Other: All systems not noted in ROS Statement are negative. Past Medical History Past Medical History: Atrial Fibrillation, Cancer, Dementia, Hearing Disorder / Deafness, Hypertension, Memory Impairment, Myocardial Infarction ([place]), Musculoskeletal Disorder, Osteoarthritis ([place]), Prostate Disorder Additional Past Medical History / Comment(s): 10-21-16 CARDIAC [id number]. 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 Last Myocardial Infarction Date:: OCTOBER 2016 History of Any Multi-Drug Resistant Organisms: None Reported Past Surgical History: Heart Catheterization With Stent, Orthopedic Surgery, Prostate Surgery Additional Past Surgical History / Comment(s): 10-21-16 -HEART CATH W/STENT TO LAD ., PROSTATE BX, LT ACOUSTIC NEUROMA REMOVED JULY 2016, rt rotator cuff 11/10 Past Anesthesia/Blood Transfusion Reactions: No Reported Reaction, Postoperative Nausea & Vomiting (PONV) Additional Past Anesthesia/Blood Transfusion Reaction / Comment(s): has used scopolamine patch in past Date of Last Stent Placement:: 10/21/16 Past Psychological History: No Psychological Hx Reported Smoking Status: Former smoker Past Alcohol Use History: None Reported Past Drug Use History: None Reported - Past Family History Father Family Medical History: Dementia Additional Family Medical History / Comment(s): PARKINSONS Mother Additional Family Medical History / Comment(s): MOM ,NO HX KNOWN Sister(s) Family Medical History: Cancer Additional Family Medical History / Comment(s): SISTER #1 BREAST CANCER. SISTER #2 LUNG CANCER Daughter(s) Family Medical History: Blood Disorder Additional Family Medical History / Comment(s): ITP General Exam Limitations: no limitations General appearance: alert, in no apparent distress Head exam: Present: atraumatic, normocephalic, normal inspection Eye exam: Present: normal appearance, PERRL, EOMI. Absent: scleral icterus, conjunctival injection, periorbital swelling ENT exam: Present: normal exam, mucous membranes moist Neck exam: Present: normal inspection Respiratory exam: Present: normal lung sounds bilaterally. Absent: respiratory distress, wheezes, rales, rhonchi, stridor Cardiovascular Exam: Present: regular rate, normal rhythm, normal heart sounds. Absent: systolic murmur, diastolic murmur, rubs, gallop, clicks Extremities exam: Present: normal inspection, full ROM, normal capillary refill. Absent: tenderness, pedal edema, joint swelling, calf tenderness Neurological exam: Present: alert, oriented X3 Psychiatric exam: Present: normal affect, normal mood Skin exam: Present: warm, dry, intact, normal color. Absent: rash Course Vital Signs 05/12/21 05/12/21 09:35 09:44 Temperature 97.9 F Pulse Rate 79 88 Respiratory 20 Rate Blood Pressure 100/64 O2 Sat by Pulse 95 95 Oximetry Medical Decision Making - Medical Decision Making 70-year-old male with worsening Covid symptoms. Labs, chest x-ray, EKG, oxygen via nasal cannula at 6 L/m, 10 mg of Decadron ordered. Labs: CBC unremarkable, d-dimer is 3.49, CT angiography of the chest ordered. CMP unremarkable. Chest angiography: Breathing motion artifact limits assessment of the more distal arterial branches. No definite pulmonary embolus. COPD with mild emphysema. 3 vessel coronary artery calcifications. Bilateral peripheral groundglass Covid pneumonia. Tiny 4 mm gallstone. Chest x-ray: basilar acute infiltrate and/or atelectasis. Daughter was informed of results and admission to the hospital was recommended due to hypoxia, need for supplementary oxygen, and documented Covid infection. Daughter stated that patient would refuse admission due to not wanting to in the hospital. Daughter was informed that in the hospital they can monitor his vital symptoms throughout the day manage his medications. Daughter was informed that if patient goes home his symptoms could worsen and he can decline rapidly. She verbalized her understanding of this and is agreeable with signing out AMA. Case discussed with Dr. Aponte. - Lab Data Result diagrams: 05/12/21 09:55 05/12/21 11:22 Lab Results 05/12/21 05/12/21 05/12/21 Range/Units 09:55 09:55 09:55 WBC 4.6 (3.8-10.6) k/uL RBC 5.04 (4.30-5.90) m/uL Hgb 15.4 (13.0-17.5) gm/dL Hct 45.4 (39.0-53.0) % MCV 90.2 (80.0-100.0) fL MCH 30.5 (25.0-35.0) pg MCHC 33.8 (31.0-37.0) g/dL RDW 13.6 (11.5-15.5) % Plt Count 125 L (150-450) k/uL MPV 8.7 Neutrophils % 85 % Lymphocytes % 10 % Monocytes % 4 % Eosinophils % 0 % Basophils % 0 % Neutrophils # 3.9 (1.3-7.7) k/uL Lymphocytes # 0.5 L (1.0-4.8) k/uL Monocytes # 0.2 (0-1.0) k/uL Eosinophils # 0.0 (0-0.7) k/uL Basophils # 0.0 (0-0.2) k/uL Poikilocytosis Slight PT 10.1 (9.0-12.0) sec INR 0.9 (<1.2) APTT 23.6 (22.0-30.0) sec D-Dimer 3.49 H (<0.60) mg/L FEU Sodium (137-145) mmol/L Potassium (3.5-5.1) mmol/L Chloride (98-107) mmol/L Carbon Dioxide (22-30) mmol/L Anion Gap mmol/L BUN (9-20) mg/dL Creatinine (0.66-1.25) mg/dL Est GFR (CKD-EPI)AfAm (>60 ml/min/1.73 sqM) Est GFR (CKD-EPI)NonAf (>60 ml/min/1.73 sqM) Glucose (74-99) mg/dL Plasma Lactic Acid Ayden 1.6 (0.7-2.0) mmol/L Calcium (8.4-10.2) mg/dL Magnesium (1.6-2.3) mg/dL Total Bilirubin (0.2-1.3) mg/dL AST (17-59) U/L ALT (4-49) U/L Alkaline Phosphatase (38-126) U/L Lactate Dehydrogenase (313-618) U/L C-Reactive Protein (<1.0) mg/dL Total Protein (6.3-8.2) g/dL Albumin (3.5-5.0) g/dL 05/12/21 Range/Units 11:22 WBC (3.8-10.6) k/uL RBC (4.30-5.90) m/uL Hgb (13.0-17.5) gm/dL Hct (39.0-53.0) % MCV (80.0-100.0) fL MCH (25.0-35.0) pg MCHC (31.0-37.0) g/dL RDW (11.5-15.5) % Plt Count (150-450) k/uL MPV Neutrophils % % Lymphocytes % % Monocytes % % Eosinophils % % Basophils % % Neutrophils # (1.3-7.7) k/uL Lymphocytes # (1.0-4.8) k/uL Monocytes # (0-1.0) k/uL Eosinophils # (0-0.7) k/uL Basophils # (0-0.2) k/uL Poikilocytosis PT (9.0-12.0) sec INR (<1.2) APTT (22.0-30.0) sec D-Dimer (<0.60) mg/L FEU Sodium 141 (137-145) mmol/L Potassium 4.4 (3.5-5.1) mmol/L Chloride 103 (98-107) mmol/L Carbon Dioxide 27 (22-30) mmol/L Anion Gap 11 mmol/L BUN 42 H (9-20) mg/dL Creatinine 1.82 H (0.66-1.25) mg/dL Est GFR (CKD-EPI)AfAm 43 (>60 ml/min/1.73 sqM) Est GFR (CKD-EPI)NonAf 37 (>60 ml/min/1.73 sqM) Glucose 104 H (74-99) mg/dL Plasma Lactic Acid Ayden (0.7-2.0) mmol/L Calcium 8.8 (8.4-10.2) mg/dL Magnesium 2.4 H (1.6-2.3) mg/dL Total Bilirubin 0.8 (0.2-1.3) mg/dL AST 37 (17-59) U/L ALT 14 (4-49) U/L Alkaline Phosphatase 65 (38-126) U/L Lactate Dehydrogenase 902 H (313-618) U/L C-Reactive Protein 6.2 H (<1.0) mg/dL Total Protein 6.8 (6.3-8.2) g/dL Albumin 3.6 (3.5-5.0) g/dL - EKG Data -: EKG Interpreted by Me EKG shows normal: sinus rhythm Rate: normal EKG Comments: Ventricular rate 81 bpm, WA interval 148 ms, QRS duration 78 ms, QTC 466 ms, PRT axes 58/-12/6, normal sinus rhythm, normal ECG. - Radiology Data Radiology results: report reviewed, image reviewed Chest angiography: Breathing motion artifact limits assessment of the more distal arterial branches. No definite pulmonary embolus. COPD with mild emphysema. 3 vessel coronary artery calcifications. Bilateral peripheral groundglass Covid pneumonia. Tiny 4 mm gallstone. Chest x-ray: basilar acute infiltrate and/or atelectasis. Disposition Clinical Impression: COVID-19, Hypoxia Disposition: Left Against Medical Advice Condition: Stable Instructions (If sedation given, give patient instructions): Coronavirus Disease 2019 (COVID-19) Additional Instructions: Please return to the Emergency Department if symptoms worsen or any other concerns. Follow-up with primary care in 1-2 days. Please return if any symptoms of worsening. Prescriptions: Dexamethasone [Decadron] 6 mg PO BID 7 Days #14 tablet Is patient prescribed a controlled substance at d/c from ED?: No Referrals: Kassandra Gillette MD [Primary Care Provider] - 1-2 days Time of Disposition: 13:06
== END 2021-05-12 14:20 | disposition left against medical advice (07) ==
LOC: EC 09:34
DX: U07.1 COVID-19 (principal); R09.02 Hypoxemia; I10 Essential (primary) hypertension; I48.91 Unspecified atrial fibrillation; I25.2 Old myocardial infarction; Z79.899 Other long term (current) drug therapy; Z87.891 Personal history of nicotine dependence
CPT/HCPCS: 36415; 93005; 85379; 80053; 82728; 83605; 83615; 83735; 85025; 85610; 85730; 86140; 84145; 71046; 71275; 99285; 96374; J1100; Q9967

== ENCOUNTER 2021-05-20 07:26 | Inpatient (IN) | payer MEDICARE, OTHER ==
[2021-05-20] MEDS ORDERED: SODIUM CHLORIDE 0.9% 500 ML 500 ML IV ONE (07:44)
[2021-05-20] MEDS ORDERED: SODIUM CHLORIDE 0.9% 1,000 ML IV ONE (07:44)
--- NOTE | 2021-05-20 08:19 | XR ---
EXAMINATION TYPE: XR chest 1V portable DATE OF EXAM: 05/20/2021 Comparison: 05/12/2021 Clinical History: 70 year-old male shortness of breath Findings: Reverse right shoulder arthroplasty. Heart upper limits of normal in size. Bilateral patchy opacities right greater than left. No sizable pleural effusion. Impression: Bilateral patchy opacities, right greater than left, increased in the interval. Correlate for worseni ng COVID pneumonia.
[2021-05-20] MEDS: DEXAMETHASONE SOD PHOSPHATE 10 MG/ML 1 ML VIAL IVP SCH (08:40)
--- NOTE | 2021-05-20 08:42 | ED ---
General Adult HPI - General Chief complaint: Shortness of Breath Stated complaint: weak/sob/revisit Time Seen by Provider: 05/20/21 07:36 Source: patient, family, RN notes reviewed Mode of arrival: wheelchair Limitations: no limitations - History of Present Illness Initial comments: This a 70-year-old male presents emergency Department with chief complaint of COVID-19. Patient states she's been sick for over 10 days. Patient states he received monoclonal antibodies on 05/10/2021. Patient did have revisit few days ago in which patient was offered admission declined at that time. Patient home on steroids, oxygen. Patient is here with family states that he is getting worse, decrease urine output, decreased oral intake. They noticed him to eat dehydrated, x-ray shows getting worse at home. Patient does have underlying dementia. Patient denies any recent fever patient's had some nausea without vomiting - Related Data Home Medications Medication Instructions Recorded Confirmed Cyanocobalamin [Vitamin B-12 1,000 mcg SQ QMONTH 10/21/16 05/20/21 Injection] Tamsulosin [Flomax] 0.4 mg PO QAM 10/21/16 05/20/21 traZODone HCL 100 mg PO HS PRN 05/11/18 05/20/21 Losartan [Cozaar] 12.5 mg PO QAM 11/08/19 05/20/21 Donepezil [Aricept] 5 mg PO HS 05/12/21 05/20/21 Famotidine [Pepcid] 20 mg PO HS 05/12/21 05/20/21 Furosemide [Lasix] 20 mg PO DAILY 05/12/21 05/20/21 HYDROcodone/APAP 5-325MG [[place] 1 tab PO Q12H PRN 05/12/21 05/20/21 5-325] Memantine [Namenda] 10 mg PO BID 05/12/21 05/20/21 Metoprolol Tartrate [Lopressor] 25 mg PO BID 05/12/21 05/20/21 Potassium Chloride [Klor-Con 10 ER] 10 meq PO DAILY 05/12/21 05/20/21 Previous Rx's Medication Instructions Recorded Atorvastatin [Lipitor] 80 mg PO HS #90 tab 10/24/16 Nitroglycerin Sl Tabs [Nitrostat] 0.4 mg SUBLINGUAL Q5M PRN #25 tab 10/24/16 Aspirin 325 mg PO DAILY #20 tab 05/08/20 Dexamethasone [Decadron] 6 mg PO BID 7 Days #14 tablet 05/12/21 Allergies Allergy/AdvReac Type Severity Reaction Status Date / Time No Known Allergies Allergy Verified 05/20/21 08:00 Review of Systems ROS Statement: Those systems with pertinent positive or pertinent negative responses have been documented in the HPI. ROS Other: All systems not noted in ROS Statement are negative. Past Medical History Past Medical History: Atrial Fibrillation, Cancer, Dementia, Hearing Disorder / Deafness, Hypertension, Memory Impairment, Myocardial Infarction ([place]), Musculoskeletal Disorder, Osteoarthritis ([place]), Prostate Disorder Additional Past Medical History / Comment(s): 10-21-16 CARDIAC [id number]. 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 Last Myocardial Infarction Date:: OCTOBER 2016 History of Any Multi-Drug Resistant Organisms: None Reported Past Surgical History: Heart Catheterization With Stent, Orthopedic Surgery, Prostate Surgery Additional Past Surgical History / Comment(s): 10-21-16 -HEART CATH W/STENT TO LAD ., PROSTATE BX, LT ACOUSTIC NEUROMA REMOVED JULY 2016, rt rotator cuff 11/10 Past Anesthesia/Blood Transfusion Reactions: No Reported Reaction, Postoperative Nausea & Vomiting (PONV) Additional Past Anesthesia/Blood Transfusion Reaction / Comment(s): has used scopolamine patch in past Date of Last Stent Placement:: 10/21/16 Past Psychological History: No Psychological Hx Reported Smoking Status: Former smoker Past Alcohol Use History: None Reported Past Drug Use History: None Reported - Past Family History Father Family Medical History: Dementia Additional Family Medical History / Comment(s): PARKINSONS Mother Additional Family Medical History / Comment(s): MOM ,NO HX KNOWN Sister(s) Family Medical History: Cancer Additional Family Medical History / Comment(s): SISTER #1 BREAST CANCER. SISTER #2 LUNG CANCER Daughter(s) Family Medical History: Blood Disorder Additional Family Medical History / Comment(s): ITP General Exam General appearance: alert, in no apparent distress Head exam: Present: atraumatic, normocephalic, normal inspection Eye exam: Present: normal appearance, PERRL, EOMI. Absent: scleral icterus, conjunctival injection, periorbital swelling ENT exam: Present: normal exam, normal oropharynx, mucous membranes moist Neck exam: Present: normal inspection, full ROM. Absent: tenderness, meningismus, lymphadenopathy Respiratory exam: Present: normal lung sounds bilaterally. Absent: respiratory distress, wheezes, rales, rhonchi, stridor Cardiovascular Exam: Present: regular rate, normal rhythm, normal heart sounds. Absent: systolic murmur, diastolic murmur, rubs, gallop, clicks GI/Abdominal exam: Present: soft, normal bowel sounds. Absent: distended, tenderness, guarding, rebound, rigid Neurological exam: Present: alert, oriented X3 Skin exam: Present: warm, dry, intact, normal color. Absent: rash Course Vital Signs 05/20/21 05/20/21 05/20/21 07:28 07:52 08:03 Temperature 97.7 F Pulse Rate 98 Respiratory 20 20 Rate Blood Pressure 118/81 O2 Sat by Pulse 85 L 95 Oximetry 05/20/21 08:41 Temperature 97.8 F Pulse Rate 81 Respiratory 18 Rate Blood Pressure 121/59 O2 Sat by Pulse 97 Oximetry Medical Decision Making - Medical Decision Making 70-year-old presented for increasing covid 19 symptoms. Patient's found to be hypoxic room air 85%. Patient's x-rays worsening. Did discuss case with Dr. Lyn recommend limited consult, steroids, antibiotics. - Lab Data Result diagrams: 05/20/21 07:53 05/20/21 07:53 Lab Results 05/20/21 05/20/21 Range/Units 07:53 07:53 WBC 9.8 (3.8-10.6) k/uL RBC 4.75 (4.30-5.90) m/uL Hgb 14.8 (13.0-17.5) gm/dL Hct 43.6 (39.0-53.0) % MCV 91.7 (80.0-100.0) fL MCH 31.1 (25.0-35.0) pg MCHC 34.0 (31.0-37.0) g/dL RDW 13.9 (11.5-15.5) % Plt Count 214 (150-450) k/uL MPV 8.6 Neutrophils % 90 % Lymphocytes % 3 % Monocytes % 5 % Eosinophils % 2 % Basophils % 0 % Neutrophils # 8.8 H (1.3-7.7) k/uL Lymphocytes # 0.3 L (1.0-4.8) k/uL Monocytes # 0.5 (0-1.0) k/uL Eosinophils # 0.2 (0-0.7) k/uL Basophils # 0.0 (0-0.2) k/uL Sodium 142 (137-145) mmol/L Potassium 4.2 (3.5-5.1) mmol/L Chloride 105 (98-107) mmol/L Carbon Dioxide 25 (22-30) mmol/L Anion Gap 12 mmol/L BUN 37 H (9-20) mg/dL Creatinine 1.55 H (0.66-1.25) mg/dL Est GFR (CKD-EPI)AfAm 52 (>60 ml/min/1.73 sqM) Est GFR (CKD-EPI)NonAf 45 (>60 ml/min/1.73 sqM) Glucose 99 (74-99) mg/dL Calcium 9.0 (8.4-10.2) mg/dL Magnesium 2.5 H (1.6-2.3) mg/dL Total Bilirubin 1.3 (0.2-1.3) mg/dL AST 47 (17-59) U/L ALT 28 (4-49) U/L Alkaline Phosphatase 90 (38-126) U/L Lactate Dehydrogenase 1064 H (313-618) U/L C-Reactive Protein 17.1 H (<1.0) mg/dL Total Protein 7.2 (6.3-8.2) g/dL Albumin 3.5 (3.5-5.0) g/dL Disposition Clinical Impression: COVID-19, Hypoxia, Pneumonia due to COVID-19 virus, Dehydration Disposition: ADMITTED IP TO THIS [facility] Condition: Poor Referrals: Kassandra Gillette MD [Primary Care Provider] - 1-2 days
[2021-05-20 08:43] LABS: Albumin 3.5 g/dL (3.5-5.0); Magnesium 2.5 mg/dL (1.6-2.3); Potassium 4.2 mmol/L (3.5-5.1); Total Bilirubin 1.3 mg/dL (0.2-1.3); Total Protein 7.2 g/dL (6.3-8.2)
[2021-05-20 08:50] LABS: Basophils % (A) 0 %; Eosinophils # (A) 0.2 k/uL (0-0.7); Eosinophils % (A) 2 %; HCT 43.6 % (39.0-53.0); HGB 14.8 gm/dL (13.0-17.5); Lymphocytes # (A) 0.3 k/uL (1.0-4.8); Lymphocytes % (A) 3 %; MCH 31.1 pg (25.0-35.0); MCV 91.7 fL (80.0-100.0); Mean Platelet Volume 8.6; Monocytes # (A) 0.5 k/uL (0-1.0); Monocytes % (A) 5 %; Neutrophils # (A) 8.8 k/uL (1.3-7.7); Neutrophils % (A) 90 %; Platelet Count 214 k/uL (150-450); RBC 4.75 m/uL (4.30-5.90); RDW 13.9 % (11.5-15.5); WBC 9.8 k/uL (3.8-10.6)
[2021-05-20 08:54] LABS: C Reactive Protein 17.1 mg/dL (<1.0)
[2021-05-20] MEDS ORDERED: AZITHROMYCIN 500 MG in SODIUM CHLORIDE 0.9% 250 ML IVPB STA (09:55)
[2021-05-20] MEDS ORDERED: NALOXONE 0.4 MG/ML 1 ML VIAL IV PRN (10:01)
[2021-05-20] MEDS ORDERED: ONDANSETRON 4 MG/2 ML VIAL IVP PRN (10:01)
[2021-05-20] MEDS ORDERED: ACETAMINOPHEN TAB 325 MG TAB PO PRN (10:01)
[2021-05-20] MEDS: SODIUM CHLORIDE 0.9% 1,000 ML IV SCH (16:33)
[2021-05-20] MEDS ORDERED: NITROGLYCERIN SL TABS 0.4 MG TAB SUBLINGUAL PRN (18:23)
[2021-05-20] MEDS ORDERED: traZODone HCL 100 MG TAB PO PRN (18:23)
[2021-05-20] MEDS ORDERED: HYDROcodone/APAP 5-325MG 1 EACH TAB PO PRN (18:23)
[2021-05-20] MEDS: ASCORBIC ACID 500 MG TAB PO SCH (21:39)
[2021-05-20] MEDS: DONEPEZIL 5 MG TAB PO SCH (21:39)
[2021-05-20] MEDS: ATORVASTATIN 80 MG TAB PO SCH (21:39)
[2021-05-20] MEDS: MEMANTINE 10 MG TAB PO SCH (21:39)
[2021-05-20] MEDS: FAMOTIDINE 20 MG TAB PO SCH (21:40)
[2021-05-20] MEDS: METOPROLOL TARTRATE 25 MG TAB PO SCH (21:40)
[2021-05-21] MEDS: SODIUM CHLORIDE 0.9% 1,000 ML IV SCH ×2 (02:17→18:00)
[2021-05-21] MEDS: ASPIRIN 325 MG TAB PO SCH (06:58)
[2021-05-21] MEDS: ZINC SULFATE 220 MG CAP PO SCH (06:58)
[2021-05-21] MEDS: TAMSULOSIN 0.4 MG CAP.ER.24H PO SCH (06:58)
[2021-05-21] MEDS: METOPROLOL TARTRATE 25 MG TAB PO SCH ×2 (06:58→22:05)
[2021-05-21] MEDS: CHOLECALCIFEROL 125 MCG (5000 IU) TABLET PO SCH (06:58)
[2021-05-21] MEDS: ASCORBIC ACID 500 MG TAB PO SCH ×2 (06:59→22:05)
[2021-05-21] MEDS: ENOXAPARIN 40 MG/0.4 ML SYRINGE SQ SCH (06:59)
[2021-05-21] MEDS: MEMANTINE 10 MG TAB PO SCH ×2 (06:59→22:05)
[2021-05-21] MEDS: DEXAMETHASONE SOD PHOSPHATE 10 MG/ML 1 ML VIAL IVP SCH (06:59)
[2021-05-21] MEDS ORDERED: DEXAMETHASONE SOD PHOSPHATE 10 MG/ML 1 ML VIAL IVP SCH (09:00)
[2021-05-21] MEDS: ALBUTEROL HFA INHALER INHALATION PRN ×2 (11:28→19:41)
[2021-05-21 13:59] VITALS: BMI 27.4
--- NOTE | 2021-05-21 16:00 | P.CNPUL ---
History of Present Illness Consult date: 05/21/21 Requesting physician: Kassandra Gillette Reason for consult: dyspnea, hypoxemia, abnormal CXR/CT Chief complaint: Generalized weakness, shortness of breath History of present illness: This is a 70-year-old male patient who presented to the emergency room yesterday with complaints of generalized weakness, decreased urine output, poor appetite. The patient does have underlying dementia. He also has a history of hyperlipidemia, hypertension, BPH. He had been seen here in the emergency room 2 for COVID-19 and symptoms had started over 10 days ago. He received monoclonal antibodies on 05/10/2021. He had previously been offered admission but the patient declined. He is seen today in consultation on the regular medical floor. He is currently awake and alert. He is on 5 L high flow nasal cannula with O2 saturation at 89%. His 0.9 normal saline at 75 mL per hour. His x-ray continues to show bilateral patchy opacities right greater than left which have increased compared to his previous x-ray on 05/12/2021. White count 9.8. Hemoglobin 14.8. Lymphocytes 0.3. Sodium 142. Potassium 4.2. BUN 37. Creatinine 1.55. Ferritin 3258. AST 47. ALT 28. LDH 1064. C-reactive protein 17.1. He's been initiated on Decadron, Lovenox, vitamin supplements. Review of Systems ROS unobtainable: due to mental status Past Medical History Past Medical History: Atrial Fibrillation, Cancer, Dementia, Hearing Disorder / Deafness, Hyperlipidemia, Hypertension, Memory Impairment, Myocardial Infarction ([place]), Musculoskeletal Disorder, Osteoarthritis (OA), Prostate Disorder Additional Past Medical History / Comment(s): Pt tested covid + by home test and here at [facility] on 05/10/21, 10/21/16 [place]/cardiac arrest/vfib, prostate cancer tx with radiation/seed implants/chemo, chronic back pain, spinal stenosis, anemia, benign colon polyp/diverticular disease Last Myocardial Infarction Date:: OCTOBER 2016 History of Any Multi-Drug Resistant Organisms: None Reported Past Surgical History: Heart Catheterization With Stent, Orthopedic Surgery, Prostate Surgery Additional Past Surgical History / Comment(s): 09/2016 PCI with stent to LAD, prostate biopsy/seed implants, R rotator cuff repair, reverse R total shoulder, L acoustic neuroma removed, colonoscopy. Past Anesthesia/Blood Transfusion Reactions: No Reported Reaction, Postoperative Nausea & Vomiting (PONV) Additional Past Anesthesia/Blood Transfusion Reaction / Comment(s): has used scopolamine patch in past Date of Last Stent Placement:: 10/21/16 Smoking Status: Former smoker - Past Family History Father Family Medical History: Dementia Additional Family Medical History / Comment(s): PARKINSONS Mother Additional Family Medical History / Comment(s): MOM ,NO HX KNOWN Sister(s) Family Medical History: Cancer Additional Family Medical History / Comment(s): SISTER #1 BREAST CANCER. SISTER #2 LUNG CANCER Daughter(s) Family Medical History: Blood Disorder Additional Family Medical History / Comment(s): ITP Medications and Allergies Home Medications Medication Instructions Recorded Confirmed Type Cyanocobalamin [Vitamin B-12 1,000 mcg SQ QMONTH 10/21/16 05/20/21 History Injection] Tamsulosin [Flomax] 0.4 mg PO QAM 10/21/16 05/20/21 History Atorvastatin [Lipitor] 80 mg PO HS #90 tab 10/24/16 05/20/21 Rx Nitroglycerin Sl Tabs [Nitrostat] 0.4 mg SUBLINGUAL Q5M PRN #25 tab 10/24/16 05/20/21 Rx traZODone HCL 100 mg PO HS PRN 05/11/18 05/20/21 History Losartan [Cozaar] 12.5 mg PO QAM 11/08/19 05/20/21 History Aspirin 325 mg PO DAILY #20 tab 05/08/20 05/20/21 Rx Dexamethasone [Decadron] 6 mg PO BID 7 Days #14 tablet 05/12/21 05/20/21 Rx Donepezil [Aricept] 5 mg PO HS 05/12/21 05/20/21 History Famotidine [Pepcid] 20 mg PO HS 05/12/21 05/20/21 History Furosemide [Lasix] 20 mg PO DAILY 05/12/21 05/20/21 History HYDROcodone/APAP 5-325MG [[place] 1 tab PO Q12H PRN 05/12/21 05/20/21 History 5-325] Memantine [Namenda] 10 mg PO BID 05/12/21 05/20/21 History Metoprolol Tartrate [Lopressor] 25 mg PO BID 05/12/21 05/20/21 History Potassium Chloride [Klor-Con 10 ER] 10 meq PO DAILY 05/12/21 05/20/21 History Allergies Allergy/AdvReac Type Severity Reaction Status Date / Time No Known Allergies Allergy Verified 05/20/21 08:00 Physical Exam Vitals: Vital Signs Temp Pulse Resp BP Pulse Ox 05/21/21 14:00 97.8 F 84 17 107/64 96 05/21/21 10:46 97.6 F 67 17 129/75 97 05/21/21 05:09 97.8 F 69 115/62 89 L 05/21/21 01:53 97.6 F 77 17 104/68 89 L 05/20/21 21:25 98.6 F 76 127/75 96 05/20/21 18:06 97.7 F 61 16 110/67 96 Intake and Output 05/21/21 05/21/21 05/21/21 06:59 14:59 22:59 Output Total 500 Balance -500 Output: Urine 500 Other: # Voids 2 # Bowel Movements 0 Weight 68.039 kg GENERAL EXAM: Alert, poor historian, 70-year-old male patient, on 5 L nasal cannula, fairly comfortable in no apparent distress. HEAD: Normocephalic. EYES: Normal reaction of pupils, equal size. NOSE: Clear with pink turbinates. THROAT: No erythema or exudates. NECK: No masses, no JVD. CHEST: No chest wall deformity. LUNGS: Equal air entry with crackles in the bilateral bases. CVS: S1 and S2 normal with no audible murmur, regular rhythm. ABDOMEN: No hepatosplenomegaly, normal bowel sounds, no guarding or rigidity. SPINE: No scoliosis or deformity SKIN: No rashes CENTRAL NERVOUS SYSTEM: No focal deficits, tone is normal in all 4 extremities. EXTREMITIES: There is no peripheral edema. No clubbing, no cyanosis. Periphera l pulses are intact. Results - Laboratory Findings CBC and BMP: 05/20/21 07:53 05/20/21 07:53 Abnormal lab findings: Abnormal Labs 05/20/21 05/20/21 07:53 07:53 Neutrophils # 8.8 H Lymphocytes # 0.3 L BUN 37 H Creatinine 1.55 H Magnesium 2.5 H Ferritin 3258.0 H Lactate Dehydrogenase 1064 H C-Reactive Protein 17.1 H - Diagnostic Findings Chest x-ray: image reviewed Assessment and Plan Assessment: 1 Acute hypoxemic respiratory failure secondary to acute COVID-19 pneumonia devora eddy seen in the emergency room 05/10/2021 and received monoclonal antibodies. Seen again in 05/12/2021 however the patient declined admission. Presented here 05/20/2021 with worsening symptoms. Onset of symptoms began 05/08/2021. Outside the window for Remdesivir. Not qualifying for Baricitinib at this time. 2 Elevated inflammatory markers secondary to above 3 Acute renal failure secondary to dehydration from poor oral intake 4 History of hypertension 5 Hyperlipidemia 6 History of dementia 7 History of atrial fibrillation 8 History of prostate cancer 9 History of coronary disease with previous V. fib arrest, status post stent placement 9 Former smoker Plan: The patient was seen and evaluated Chest x-ray and labs reviewed Outside the window for Remdesivir Not qualifying for Baricitinib Continue Decadron, Lovenox, vitamin supplements Titrate the FiO2 as tolerated We will continue to follow and make further recommendations based on his clinical status I, the cosigning physician, performed a history & physical examination of the patient. Lungs sounds with crackles in the bilateral bases. Maintaining good O2 saturations in the 90s on 5 L high flow nasal cannula. I discussed the assessment and plan of care with my nurse practitioner, Natividad Mays. I attest to the above consultation as dictated by her. Time with Patient: Greater than 30
--- NOTE | 2021-05-21 17:27 | P.HPIM ---
History of Present Illness H&P Date: 05/20/21 HISTORY OF PRESENT ILLNESS: This is a 70 year-old male one of my patient with previous medical history significant for hypertension and hypertensive cardiovascular disease, hyperlipidemia, vascular dementia, left ear Cholesteatoma S/P surgical excision 06/[address]Bojrab Mccall, colonic polyps and prostate cancer post seeds and radiation currently in remission, CAD post anterior wall STEMI post LHC with PCI of the LAD in 2017 with Ventricular fibrillation and one episode of atrial fi brillation with RVR, patient developed to have acute respiratory tract infection with sinus symptoms suggestive of Covid 19 pneumonia back on 05/08/2021 at that time I spoke with his daughter and recommended for her to take him to the emergency department for evaluation he went to the ER on 05/10/2021 and he did receive the monoclonal antibodies and the patient was reevaluated in the ER on 05/12/2021 because he is not feeling well generalized weakness and increased cough he was recommended for the patient to be admitted to the hospital however he declined admission and went back home to present back to the emergency department at [facility] on 05/20/2021 where he was found to be sev erely hypoxemic with oxygen saturation between 84 and 85% on room air, not eating and not drinking well generalized fatigue and weakness not able to do his activities of daily living, his chest x-ray showed bilateral Covid 19 pneumonia, patient was started on oxygen support, but because of the window he lost the window for Remdesivir and Baricitinib and the patient was started on Decadron 6 bleed gram IV push every 24 hours, oxygen support, vitamin C 500 mg orally twice every day, vitamin D 5000 units once every day, and zinc sulfate 220 mg orally once every day, he was admitted to the hospital for evaluation by pulmonary medicine as well REVIEW OF SYSTEMS: Constitutional: positive for fever, chills, no night sweats. positive for weight change. positive for weakness, fatigue or lethargy, daytime sleepiness. HEENT: positive for headache. No blurred vision or double vision, no loss of vision. positive for loss of Hearing, no ringing in the ears, no dizziness. No nasal drainage or congestion. No epistaxis. No sore throat. Lungs: positive for shortness of breath, weak cough, minimal sputum production. No wheezing. Reports dyspnea with activity. Cardiovascular: No chest pain, no lower extremity edema. No palpitations. No paroxysmal nocturnal dyspnea. No orthopnea. No lightheadedness or dizziness. No syncopal episodes. Abdominal: Reports no abdominal pain. No nausea, vomiting. No diarrhea. No constipation. No bloody or tarry stools reports loss of appetite. Genitourinary: No dysuria, increased frequency, urgency. No urinary retention. Musculoskeletal: No myalgias. positive for muscle weakness, no gait dysfunction, no frequent falls. No back pain. No neck pain. Integumentary: No wounds, no lesions. No rash or pruritus. No unusual bruising. No change in hair or nails. Neurologic: No aphasia. No facial droop. No change in mentation. No head injury. No headache. No paralysis. No paresthesia. Psychiatric: No depression. No anxiety. No mood swings. Endocrine: No abnormal blood sugars. No weight change. PAST MEDICAL HISTORY: CAD post PCI of the LAD 2016 Hypertension and hypertensive vascular disease Hyperlipidemia. Vascular dementia. 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 Prostate cancer. Osteoarthritis. Spinal stenosis Cardiac arrest due to ventricular fibrillation per PAST SURGICAL HISTORY: Left heart catheterization with PCI of the LAD 2069 Right rotator cuff tear repair Prostate biopsy. Prostate seeds implants. Right shoulder reverse arthroplasty Colonoscopy SOCIAL HISTORY: Patient used to smoke about pack every day he smoked for years and quit many years ago. He denies any alcohol ingestion, he denies any drug use or abuse, he lives with his daughter. FAMILY HISTORY: Father at the age of 95 and extended care facility with dementia and Parkinson mother at age 44 from bleeding disorder after childbirth patient had 3 sisters one from lung cancer 1 with Lewie body dementia and one with breast cancer, patient has 2 daughters one with ITP. PHYSICAL EXAMINATION: General: This is a 70-year-old male laying on the bed in mild respiratory distress HEENT: Head is atraumatic, normocephalic, pupils were equal round reactive to light and recommendation, extraocular muscle movement were intact, sclera nonicteric, conjunctivae were pale, mucous membranes of the mouth are somewhat dry. Neck: Supple, no JVP, normal carotid upstroke bilaterally, no lymphadenopathy. Chest: Decreased breath sounds at the bases, few rhonchi, minimal expir atoryheezes, no chest wall tenderness, no intercostal retractions. Heart: First heart sound is normal, second heart sounds normal, there is systolic ejection murmur 2/6 located in the left sternal border. Abdomen: Soft, nontender, nondistended, positive bowel sounds. Extremities: There is no edema no calf tenderness DP +2 bilaterally. Neurologic examination: Patient is awake alert and oriented X3, cranial nerves II-12 appear grossly intact, muscle power were 5 out of 5 in upper extremities and 5 out of 5 in bilateral lower extremities, deep tendon reflexes normal bilaterally. ASSESSMENT AND PLAN: 1. Covid 19 pneumonia. Patient is out of the window for Remdesivir and Baricitinib, continue patient on Decadron 6 mg IV push daily, continue vitamin C 500 mg orally twice every day, continue vitamin D 5000 units once every day, continue zinc sulfate 220 mg orally once every day, continue oxygen support, pulmonary consultation. 2. CAD post PCI of the LAD in 2017. Continue patient on aspirin 325 mg orally once every day, metoprolol 25 mg orally twice every day, atorvastatin 80 mg o rally once every day. 3. Hypertension and hypertensive cardiovascular disease . Continue patient on metoprolol 25 mg orally twice every day. 4. Hyperlipidemia. Continue patient on atorvastatin 80 mg orally once every day. 5. Vascular dementia. Continue Namenda 10 mg orally twice every day and omeprazole 5 mg orally once at bedtime. 6. Spinal stenosis with chronic low back pain. Continue [place] 7. Insomnia. Continue trazodone 100 mg at bedtime. 8. DVT prophylaxis. Continue Lovenox 40 mg subcutaneously every 24 hours. 9. GI prophylaxis. Continue Pepcid 20 mg at bedtime. 10. Admit to inpatient. Estimate a length of stay 2 midnights. 11. Full code. Past Medical History Past Medical History: Atrial Fibrillation, Cancer, Dementia, Hearing Disorder / Deafness, Hyperlipidemia, Hypertension, Memory Impairment, Myocardial Infarction (HI), Musculoskeletal Disorder, Osteoarthritis (OA), Prostate Disorder Additional Past Medical History / Comment(s): Pt tested covid + by home test and here at [facility] on 05/10/21, 10/21/16 HI/cardiac arrest/vfib, prostate cancer tx with radiation/seed implants/chemo, chronic back pain, spinal stenosis, anemia, benign colon polyp/diverticular disease Last Myocardial Infarction Date:: OCTOBER 2016 History of Any Multi-Drug Resistant Organisms: None Reported Past Surgical History: Heart Catheterization With Stent, Orthopedic Surgery, Prostate Surgery Additional Past Surgical History / Comment(s): 09/2016 PCI with stent to LAD, prostate biopsy/seed implants, R rotator cuff repair, reverse R total shoulder, L acoustic neuroma removed, colonoscopy. Past Anesthesia/Blood Transfusion Reactions: No Reported Reaction, Postoperative Nausea & Vomiting (PONV) Additional Past Anesthesia/Blood Transfusion Reaction / Comment(s): has used scopolamine patch in past Date of Last Stent Placement:: 10/21/16 Smoking Status: Former smoker - Past Family History Father Family Medical History: Dementia Additional Family Medical History / Comment(s): PARKINSONS Mother Additional Family Medical History / Comment(s): MOM ,NO HX KNOWN Sister(s) Family Medical History: Cancer Additional Family Medical History / Comment(s): SISTER #1 BREAST CANCER. SISTER #2 LUNG CANCER Daughter(s) Family Medical History: Blood Disorder Additional Family Medical History / Comment(s): ITP Medications and Allergies Home Medications Medication Instructions Recorded Confirmed Type Cyanocobalamin [Vitamin B-12 1,000 mcg SQ QMONTH 10/21/16 05/20/21 History Injection] Tamsulosin [Flomax] 0.4 mg PO QAM 10/21/16 05/20/21 History Atorvastatin [Lipitor] 80 mg PO HS #90 tab 10/24/16 05/20/21 Rx Nitroglycerin Sl Tabs [Nitrostat] 0.4 mg SUBLINGUAL Q5M PRN #25 tab 10/24/16 05/20/21 Rx traZODone HCL 100 mg PO HS PRN 05/11/18 05/20/21 History Losartan [Cozaar] 12.5 mg PO QAM 11/08/19 05/20/21 History Aspirin 325 mg PO DAILY #20 tab 05/08/20 05/20/21 Rx Dexamethasone [Decadron] 6 mg PO BID 7 Days #14 tablet 05/12/21 05/20/21 Rx Donepezil [Aricept] 5 mg PO HS 05/12/21 05/20/21 History Famotidine [Pepcid] 20 mg PO HS 05/12/21 05/20/21 History Furosemide [Lasix] 20 mg PO DAILY 05/12/21 05/20/21 History HYDROcodone/APAP 5-325MG [[place] 1 tab PO Q12H PRN 05/12/21 05/20/21 History 5-325] Memantine [Namenda] 10 mg PO BID 05/12/21 05/20/21 History Metoprolol Tartrate [Lopressor] 25 mg PO BID 05/12/21 05/20/21 History Potassium Chloride [Klor-Con 10 ER] 10 meq PO DAILY 05/12/21 05/20/21 History Allergies Allergy/AdvReac Type Severity Reaction Status Date / Time No Known Allergies Allergy Verified 05/20/21 08:00 Physical Exam Vitals: Vital Signs Temp Pulse Pulse Resp BP BP Pulse Ox 05/20/21 18:06 97.7 F 61 16 110/67 96 05/20/21 08:41 97.8 F 81 18 121/59 97 05/20/21 08:03 20 05/20/21 07:52 95 05/20/21 07:28 97.7 F 98 20 118/81 85 L Intake and Output 05/20/21 05/20/21 05/20/21 06:59 14:59 22:59 Other: # Voids 0 Weight 68.039 kg Results CBC & Chem 7: 05/20/21 07:53 05/20/21 07:53 Labs: Abnormal Lab Results - Last 24 Hours (Table) 05/20/21 05/20/21 Range/Units 07:53 07:53 Neutrophils # 8.8 H (1.3-7.7) k/uL Lymphocytes # 0.3 L (1.0-4.8) k/uL BUN 37 H (9-20) mg/dL Creatinine 1.55 H (0.66-1.25) mg/dL Magnesium 2.5 H (1.6-2.3) mg/dL Lactate Dehydrogenase 1064 H (313-618) U/L C-Reactive Protein 17.1 H (<1.0) mg/dL Thrombosis Risk Factor Assmnt - Choose All That Apply Any of the Below Risk Factors Present?: Yes Each Factor Represents 1 point: Abnormal pulmonary function (COPD), Obesity (BMI >25), Serious lung disease incl. pneumonia (< 1month) Other Risk Factors: Yes Each Risk Factor Represents 2 Points: Age 61-74 years, Malignancy Other congenital or acquired thrombophilia - If yes, enter type in comment: No Thrombosis Risk Factor Assessment Total Risk Factor Score: 7 Thrombosis Risk Factor Assessment Level: High Risk
[2021-05-21] MEDS: DONEPEZIL 5 MG TAB PO SCH (22:05)
[2021-05-21] MEDS: ATORVASTATIN 80 MG TAB PO SCH (22:05)
[2021-05-21] MEDS: FAMOTIDINE 20 MG TAB PO SCH (22:05)
[2021-05-22] MEDS: ASCORBIC ACID 500 MG TAB PO SCH ×2 (09:10→22:00)
[2021-05-22] MEDS: METOPROLOL TARTRATE 25 MG TAB PO SCH ×2 (09:11→22:00)
[2021-05-22] MEDS: ASPIRIN 325 MG TAB PO SCH (09:11)
[2021-05-22] MEDS: ENOXAPARIN 40 MG/0.4 ML SYRINGE SQ SCH (09:11)
[2021-05-22] MEDS: MEMANTINE 10 MG TAB PO SCH ×2 (09:11→22:01)
[2021-05-22] MEDS: CHOLECALCIFEROL 125 MCG (5000 IU) TABLET PO SCH (09:11)
[2021-05-22] MEDS: ZINC SULFATE 220 MG CAP PO SCH (09:11)
[2021-05-22] MEDS: TAMSULOSIN 0.4 MG CAP.ER.24H PO SCH (09:11)
[2021-05-22] MEDS: ALBUTEROL HFA INHALER INHALATION PRN ×3 (12:04→19:43)
--- NOTE | 2021-05-22 13:03 | P.PN ---
Subjective Progress Note Date: 05/21/21 HISTORY OF PRESENT ILLNESS: This is a 70 year-old male one of my patient with previous medical history significant for hypertension and hypertensive cardiovascular disease, hyperlipidemia, vascular dementia, left ear Cholesteatoma S/P surgical excision 06/[address]Bojrab Mccall, colonic polyps and prostate cancer post seeds and radiation currently in remission, CAD post anterior wall STEMI post LHC with PCI of the LAD in 2017 with Ventricular fibrillation and one episode of atrial fibrillation with RVR, patient developed to have acute respiratory tract infection with sinus symptoms suggestive of Covid 19 pneumonia back on 05/08/2021 at that time I spoke with his daughter and recommended for her to take him to the emergency department for evaluation he went to the ER on 05/10/2021 and he did receive the monoclonal antibodies and the patient was reevaluated in the ER on 05/12/2021 because he is not feeling well generalized weakness and increased cough he was recommended for the patient to be admitted to the hospital however he declined admission and went back home to present back to the emergency department at [facility] on 05/20/2021 where he was found to be severely hypoxemic with oxygen saturation between 84 and 85% on room air, not eating and not drinking well generalized fatigue and weakness not able to do his activities of daily living, his chest x-ray showed bilateral Covid 19 pneumonia, patient was started on oxygen support, but because of the window he l ost the window for Remdesivir and Baricitinib and the patient was started on Decadron 6 bleed gram IV push every 24 hours, oxygen support, vitamin C 500 mg orally twice every day, vitamin D 5000 units once every day, and zinc sulfate 220 mg orally once every day, he was admitted to the hospital for evaluation by pulmonary medicine as well 05/21: Patient is laying down in bed his feeling a bit better today he continues to be on oxygen, he continues to be on Decadron, continue to be on albuterol 2 puffs inhalation every 4 hours as needed, continue supportive care, continue vitamin C vitamin D and zinc sulfate, pulmonary evaluation appreciated. REVIEW OF SYSTEMS: Constitutional: positive for fever, chills, no night sweats. positive for weight change. positive for weakness, fatigue or lethargy, daytime sleepiness. HEENT: positive for headache. No blurred vision or double vision, no loss of vision. positive for loss of Hearing, no ringing in the ears, no dizziness. No nasal drainage or congestion. No epistaxis. No sore throat. Lungs: positive for shortness of breath, weak cough, minimal sputum production. No wheezing. Reports dyspnea with activity. Cardiovascular: No chest pain, no lower extremity edema. No palpitations. No paroxysmal nocturnal dyspnea. No orthopnea. No lightheadedness or dizziness. No syncopal episodes. Abdominal: Reports no abdominal pain. No nausea, vomiting. No diarrhea. No constipation. No bloody or tarry stools reports loss of appetite. Genitourinary: No dysuria, increased frequency, urgency. No urinary retention. Musculoskeletal: No myalgias. positive for muscle weakness, no gait dysfunction, no frequent falls. No back pain. No neck pain. Integumentary: No wounds, no lesions. No rash or pruritus. No unusual bruising. No change in hair or nails. Neurologic: No aphasia. No facial droop. No change in mentation. No head injury. No headache. No paralysis. No paresthesia. Psychiatric: No depression. No anxiety. No mood swings. Endocrine: No abnormal blood sugars. No weight change. PHYSICAL EXAMINATION: General: This is a 70-year-old male laying on the bed in mild respiratory distress HEENT: Head is atraumatic, normocephalic, pupils were equal round reactive to light and recommendation, extraocular muscle movement were intact, sclera nonicteric, conjunctivae were pale, mucous membranes of the mouth are somewhat dry. Neck: Supple, no JVP, normal carotid upstroke bilaterally, no lymphadenopathy. Chest: Decreased breath sounds at the bases, few rhonchi, minimal expiratoryheezes, no chest wall tenderness, no intercostal retractions. Heart: First heart sound is normal, second heart sounds normal, there is systolic ejection murmur 2/6 located in the left sternal border. Abdomen: Soft, nontender, nondistended, positive bowel sounds. Extremities: There is no edema no calf tenderness DP +2 bilaterally. Neurologic examination: Patient is awake alert and oriented X3, cranial nerves II-12 appear grossly intact, muscle power were 5 out of 5 in upper extremities and 5 out of 5 in bilateral lower extremities, deep tendon reflexes normal bilaterally. ASSESSMENT AND PLAN: 1. Covid 19 pneumonia. Patient is out of the window for Remdesivir and Baricitinib, continue patient on Decadron 6 mg IV push daily, continue vitamin C 500 mg orally twice every day, continue vitamin D 5000 units once every day, continue zinc sulfate 220 mg orally once every day, continue oxygen support, pulmonary consultation. 2. CAD post PCI of the LAD in 2017. Continue patient on aspirin 325 mg orally once every day, metoprolol 25 mg orally twice every day, atorvastatin 80 mg orally once every day. 3. Hypertension and hypertensive cardiovascular disease . Continue patient on metoprolol 25 mg orally twice every day. 4. Hyperlipidemia. Continue patient on atorvastatin 80 mg orally once every day. 5. Vascular dementia. Continue Namenda 10 mg orally twice every day and omeprazole 5 mg orally once at bedtime. 6. Spinal stenosis with chronic low back pain. Continue [place] 7. Insomnia. Continue trazodone 100 mg at bedtime. 8. Acute kidney injury due to poor oral intake of fluid. Continue IV fluid resuscitation the form of normal saline repeat CMP tomorrow morning. 9. DVT prophylaxis. Continue Lovenox 40 mg subcutaneously every 24 hours. 10. GI prophylaxis. Continue Pepcid 20 mg at bedtime. 11. Family updated Objective - Vital Signs Vital signs: Vital Signs Temp 97.8 F 05/21/21 14:00 Pulse 84 05/21/21 14:00 Resp 17 05/21/21 14:00 BP 107/64 05/21/21 14:00 Pulse Ox 96 05/21/21 14:00 Intake & Output 05/20/21 05/21/21 05/21/21 18:59 06:59 18:59 Output Total 500 Balance -500 Weight 68.039 kg 68.039 kg Output: Urine 500 Other: # Voids 0 2 # Bowel Movements 0 - Labs CBC & Chem 7: 05/20/21 07:53 05/20/21 07:53 Labs: Abnormal Lab Results - Last 24 Hours (Table) 05/20/21 Range/Units 07:53 Ferritin 3258.0 H (22.0-322.0) ng/mL
--- NOTE | 2021-05-22 13:07 | P.PN ---
Subjective Progress Note Date: 05/22/21 HISTORY OF PRESENT ILLNESS: This is a 70 year-old male one of my patient with previous medical history significant for hypertension and hypertensive cardiovascular disease, hyperlipidemia, vascular dementia, left ear Cholesteatoma S/P surgical excision 06/[address]Bojrab Mccall, colonic polyps and prostate cancer post seeds and radiation currently in remission, CAD post anterior wall STEMI post LHC with PCI of the LAD in 2017 with Ventricular fibrillation and one episode of atrial fibrillation with RVR, patient developed to have acute respiratory tract infection with sinus symptoms suggestive of Covid 19 pneumonia back on 05/08/2021 at that time I spoke with his daughter and recommended for her to take him to the emergency department for evaluation he went to the ER on 05/10/2021 and he did receive the monoclonal antibodies and the patient was reevaluated in the ER on 05/12/2021 because he is not feeling well generalized weakness and increased cough he was recommended for the patient to be admitted to the hospital however he declined admission and went back home to present back to the emergency department at [facility] on 05/20/2021 where he was found to be severely hypoxemic with oxygen saturation between 84 and 85% on room air, not eating and not drinking well generalized fatigue and weakness not able to do his activities of daily living, his chest x-ray showed bilateral Covid 19 pneumonia, patient was started on oxygen support, but because of the window he l ost the window for Remdesivir and Baricitinib and the patient was started on Decadron 6 bleed gram IV push every 24 hours, oxygen support, vitamin C 500 mg orally twice every day, vitamin D 5000 units once every day, and zinc sulfate 220 mg orally once every day, he was admitted to the hospital for evaluation by pulmonary medicine as well 05/21: Patient is laying down in bed his feeling a bit better today he continues to be on oxygen, he continues to be on Decadron, continue to be on albuterol 2 puffs inhalation every 4 hours as needed, continue supportive care, continue vitamin C vitamin D and zinc sulfate, pulmonary evaluation appreciated. 05/22: Patient is laying down in bed he continues to be somewhat short of breath, he continues to be very frustrated, he is eating a bit of his food, he is currently on 5 L nasal cannula, his oxygen saturations about 91%, patient lost his IV, we will start him on oral Decadron 6 mg orally once every day, continue vitamin supplement, pulmonary is following, chest x-ray will be done, continue contact precautions. REVIEW OF SYSTEMS: Constitutional: positive for fever, chills, no night sweats. positive for weight change. positive for weakness, fatigue or lethargy, daytime sleepiness. HEENT: positive for headache. No blurred vision or double vision, no loss of vision. positive for loss of Hearing, no ringing in the ears, no dizziness. No nasal drainage or congestion. No epistaxis. No sore throat. Lungs: positive for shortness of breath, weak cough, minimal sputum production. No wheezing. Reports dyspnea with activity. Cardiovascular: No chest pain, no lower extremity edema. No palpitations. No paroxysmal nocturnal dyspnea. No orthopnea. No lightheadedness or dizziness. No syncopal episodes. Abdominal: Reports no abdominal pain. No nausea, vomiting. No diarrhea. No constipation. No bloody or tarry stools reports loss of appetite. Genitourinary: No dysuria, increased frequency, urgency. No urinary retention. Musculoskeletal: No myalgias. positive for muscle weakness, no gait dysfunction, no frequent falls. No back pain. No neck pain. Integumentary: No wounds, no lesions. No rash or pruritus. No unusual bruising. No change in hair or nails. Neurologic: No aphasia. No facial droop. No change in mentation. No head injury. No headache. No paralysis. No paresthesia. Psychiatric: No depression. No anxiety. No mood swings. Endocrine: No abnormal blood sugars. No weight change. PHYSICAL EXAMINATION: General: This is a 70-year-old male laying on the bed in mild respiratory distress HEENT: Head is atraumatic, normocephalic, pupils were equal round reactive to light and recommendation, extraocular muscle movement were intact, sclera nonicteric, conjunctivae were pale, mucous membranes of the mouth are somewhat dry. Neck: Supple, no JVP, normal carotid upstroke bilaterally, no lymphadenopathy. Chest: Decreased breath sounds at the bases, few rhonchi, minimal expiratoryheezes, no chest wall tenderness, no intercostal retractions. Heart: First heart sound is normal, second heart sounds normal, there is systolic ejection murmur 2/6 located in the left sternal border. Abdomen: Soft, nontender, nondistended, positive bowel sounds. Extremities: There is no edema no calf tenderness DP +2 bilaterally. Neurologic examination: Patient is awake alert and oriented X3, cranial nerves II-12 appear grossly intact, muscle power were 5 out of 5 in upper extremities and 5 out of 5 in bilateral lower extremities, deep tendon reflexes normal bilaterally. ASSESSMENT AND PLAN: 1. Covid 19 pneumonia. Patient is out of the window for Remdesivir and Baricitinib, continue patient on Decadron 6 mg orally daily, continue vitamin C 500 mg orally twice every day, continue vitamin D 5000 units once every day, continue zinc sulfate 220 mg orally once every day, continue oxygen support, repeat chest x-ray. 2. CAD post PCI of the LAD in 2017. Continue patient on aspirin 325 mg orally once every day, metoprolol 25 mg orally twice every day, atorvastatin 80 mg orally once every day. 3. Hypertension and hypertensive cardiovascular disease . Continue patient on metoprolol 25 mg orally twice every day. 4. Hyperlipidemia. Continue patient on atorvastatin 80 mg orally once every day. 5. Vascular dementia. Continue Namenda 10 mg orally twice every day and omeprazole 5 mg orally once at bedtime. 6. Spinal stenosis with chronic low back pain. Continue [place] 7. Insomnia. Continue trazodone 100 mg at bedtime. 8. Acute kidney injury due to poor oral intake of fluid. Continue IV fluid resuscitation the form of normal saline repeat CMP tomorrow morning. 9. DVT prophylaxis. Continue Lovenox 40 mg subcutaneously every 24 hours. 10. GI prophylaxis. Continue Pepcid 20 mg at bedtime. 11. Family updated 12. Guarded prognosis Objective - Vital Signs Vital signs: Vital Signs Temp 98.7 F 05/22/21 09:16 Pulse 91 05/22/21 09:16 Resp 17 05/22/21 09:16 BP 111/65 05/22/21 09:16 Pulse Ox 90 L 05/22/21 09:16 Intake & Output 05/21/21 05/22/21 05/22/21 18:59 06:59 18:59 Intake Total 400 Balance 400 Weight 68.039 kg Intake: Oral 400 Other: # Voids 1 1 - Labs CBC & Chem 7: 05/20/21 07:53 05/20/21 07:53
--- NOTE | 2021-05-22 14:11 | XR ---
EXAMINATION TYPE: XR chest 1V DATE OF EXAM: 05/22/2021 COMPARISON: 05/20/2021 HISTORY: 70 years Male. STUDY INDICATION GIVEN: COVID-19 pneumonia . TECHNIQUE: AP upright chest radiograph IMPRESSION: There are bilateral right greater than left airspace and interstitial opacities. There is mild improv ement to lung a aeration with interval mild decrease in opacities. No significant effusion. No pneumothorax appreciated. The cardiomediastinal silhouette is within norm al limits. The osseous structures are not significantly changed compared to prior.
[2021-05-22] MEDS: DEXAMETHASONE SOD PHOSPHATE 10 MG/ML 1 ML VIAL IVP SCH (15:16)
[2021-05-22] MEDS: dexAMETHasone 2 MG TAB PO SCH (15:17)
[2021-05-22] MEDS: SODIUM CHLORIDE 0.9% 1,000 ML IV SCH (15:18)
--- NOTE | 2021-05-22 15:52 | P.PN ---
Subjective Progress Note Date: 05/22/21 Principal diagnosis: COVID-19 pneumonia This is a 70-year-old male patient who presented to the emergency room yesterday with complaints of generalized weakness, decreased urine output, poor appetite. The patient does have underlying dementia. He also has a history of hyperlip idemia, hypertension, BPH. He had been seen here in the emergency room 2 for COVID-19 and symptoms had started over 10 days ago. He received monoclonal antibodies on 05/10/2021. He had previously been offered admission but the patient declined. He is seen today in consultation on the regular medical floor. He is currently awake and alert. He is on 5 L high flow nasal cannula with O2 saturation at 89%. His 0.9 normal saline at 75 mL per hour. His x-ray continues to show bilateral patchy opacities right greater than left which have increased compared to his previous x-ray on 05/12/2021. White count 9.8. Hemoglobin 14.8. Lymphocytes 0.3. Sodium 142. Potassium 4.2. BUN 37. Creatinine 1.55. Ferritin 3258. AST 47. ALT 28. LDH 1064. C-reactive protein 17.1. He's been initiated on Decadron, Lovenox, vitamin supplements. The patient is seen today 05/22/2021 in follow-up on the regular medical floor. He is currently sitting up at the bedside. Awake and alert in no acute d istress. Somewhat disoriented to place and time. He is maintaining O2 saturations in the mid 90s on 4 L/m per nasal cannula. He's been afebrile. Hemodynamically stable. He remains on Decadron, Lovenox, vitamin supplements. Today's x-ray continues to show bilateral right greater than left airspace and interstitial opacities. Mild improvement. Objective - Vital Signs Vital signs: Vital Signs Temp 97.9 F 05/22/21 14:36 Pulse 77 05/22/21 14:36 Resp 18 05/22/21 14:36 BP 113/74 05/22/21 14:36 Pulse Ox 94 L 05/22/21 14:36 Intake & Output 05/21/21 05/22/21 05/22/21 18:59 06:59 18:59 Intake Total 400 Balance 400 Weight 68.039 kg Intake: Oral 400 Other: # Voids 1 1 - Exam GENERAL EXAM: Alert, poor historian, 70-year-old male patient, on 4 L nasal cannula, fairly comfortable in no apparent distress. HEAD: Normocephalic. EYES: Normal reaction of pupils, equal size. NOSE: Clear with pink turbinates. THROAT: No erythema or exudates. NECK: No masses, no JVD. CHEST: No chest wall deformity. LUNGS: Equal air entry with crackles in the bilateral bases. CVS: S1 and S2 normal with no audible murmur, regular rhythm. ABDOMEN: No hepatosplenomegaly, normal bowel sounds, no guarding or rigidity. SPINE: No scoliosis or deformity SKIN: No rashes CENTRAL NERVOUS SYSTEM: No focal deficits, tone is normal in all 4 extremities. EXTREMITIES: There is no peripheral edema. No clubbing, no cyanosis. Peripheral pulses are intact. - Labs CBC & Chem 7: 05/20/21 07:53 05/20/21 07:53 Assessment and Plan Assessment: 1 Acute hypoxemic respiratory failure secondary to acute COVID-19 pneumonia initially seen in the emergency room 05/10/2021 and received monoclonal antibodies. Seen again in 05/12/2021 however the patient declined admission. Presented here 05/20/2021 with worsening symptoms. Onset of symptoms began 05/08/2021. Outside the window for Remdesivir. On 4 L nasal cannula. Not qualifying for Baricitinib at this time. 2 Elevated inflammatory markers secondary to above 3 Acute renal failure secondary to dehydration from poor oral intake 4 History of hypertension 5 Hyperlipidemia 6 History of dementia 7 History of atrial fibrillation 8 History of prostate cancer 9 History of coronary disease with previous V. fib arrest, status post stent placement 9 Former smoker Plan: The patient was seen and evaluated Chest x-ray reviewed Continue Decadron, Lovenox, vitamin supplements Titrate the FiO2 as tolerated Follow-up labs in the a.m. We will continue to follow I, the cosigning physician, performed a history & physical examination of the patient. Lungs sounds with crackles in the bilateral bases. Maintaining good O2 saturations in the 90s on 4 L high flow nasal cannula. I discussed the assessment and plan of care with my nurse practitioner, Natividad Mays. I attest to the above note as dictated by her.
[2021-05-22] MEDS: ATORVASTATIN 80 MG TAB PO SCH (22:00)
[2021-05-22] MEDS: FAMOTIDINE 20 MG TAB PO SCH (22:00)
[2021-05-22] MEDS: DONEPEZIL 5 MG TAB PO SCH (22:01)
[2021-05-23 07:35] VITALS: RESP 18
[2021-05-23] MEDS: SODIUM CHLORIDE 0.9% 1,000 ML IV SCH (08:05)
[2021-05-23] MEDS: TAMSULOSIN 0.4 MG CAP.ER.24H PO SCH (08:09)
[2021-05-23] MEDS: ASPIRIN 325 MG TAB PO SCH (08:09)
[2021-05-23] MEDS: MEMANTINE 10 MG TAB PO SCH (08:09)
[2021-05-23] MEDS: CHOLECALCIFEROL 125 MCG (5000 IU) TABLET PO SCH (08:09)
[2021-05-23] MEDS: METOPROLOL TARTRATE 25 MG TAB PO SCH (08:09)
[2021-05-23] MEDS: dexAMETHasone 2 MG TAB PO SCH (08:09)
[2021-05-23] MEDS: ASCORBIC ACID 500 MG TAB PO SCH (08:09)
[2021-05-23] MEDS: ZINC SULFATE 220 MG CAP PO SCH (08:09)
[2021-05-23] MEDS: ENOXAPARIN 40 MG/0.4 ML SYRINGE SQ SCH (08:10)
[2021-05-23] MEDS ORDERED: dexAMETHasone 2 MG TAB PO SCH (09:00)
[2021-05-23] MEDS: ALBUTEROL HFA INHALER INHALATION PRN (09:01)
[2021-05-23 09:14] LABS: Basophils % (A) 0 %; Eosinophils % (A) 0 %; HCT 36.3 % (39.0-53.0); Lymphocytes # (A) 0.2 k/uL (1.0-4.8); Lymphocytes % (A) 3 %; MCH 30.3 pg (25.0-35.0); MCHC 32.9 g/dL (31.0-37.0); MCV 92.1 fL (80.0-100.0); Mean Platelet Volume 8.4; Monocytes # (A) 0.3 k/uL (0-1.0); Monocytes % (A) 4 %; Neutrophils # (A) 6.8 k/uL (1.3-7.7); Neutrophils % (A) 92 %; Platelet Count 160 k/uL (150-450); RBC 3.95 m/uL (4.30-5.90); RDW 13.9 % (11.5-15.5); WBC 7.4 k/uL (3.8-10.6)
[2021-05-23 09:44] LABS: ALT 24 U/L (4-49); AST 31 U/L (17-59); African American GFR (CKD) 76 (>60 ml/min/1.73 sqM); Albumin 2.6 g/dL (3.5-5.0); Albumin/Globulin Ratio 0.8; Alkaline Phosphatase 78 U/L (38-126); Anion Gap 9 mmol/L; Blood Urea Nitrogen 21 mg/dL (9-20); Calcium 8.5 mg/dL (8.4-10.2); Carbon Dioxide 21 mmol/L (22-30); Chloride 111 mmol/L (98-107); Globulin 3.1 g/dL; Glucose 84 mg/dL (74-99); LDH 950 U/L (313-618); Non-African American GFR(CKD) 66 (>60 ml/min/1.73 sqM); Potassium 4.5 mmol/L (3.5-5.1); Sodium 141 mmol/L (137-145); Total Bilirubin 0.6 mg/dL (0.2-1.3); Total Protein 5.7 g/dL (6.3-8.2)
[2021-05-23 10:39] LABS: C Reactive Protein 15.7 mg/dL (<1.0)
--- NOTE | 2021-05-23 14:29 | P.PN ---
Subjective Progress Note Date: 05/23/21 Principal diagnosis: COVID-19 pneumonia This is a 70-year-old male patient who presented to the emergency room yesterday with complaints of generalized weakness, decreased urine output, poor appetite. The patient does have underlying dementia. He also has a history of hyperlip idemia, hypertension, BPH. He had been seen here in the emergency room 2 for COVID-19 and symptoms had started over 10 days ago. He received monoclonal antibodies on 05/10/2021. He had previously been offered admission but the patient declined. He is seen today in consultation on the regular medical floor. He is currently awake and alert. He is on 5 L high flow nasal cannula with O2 saturation at 89%. His 0.9 normal saline at 75 mL per hour. His x-ray continues to show bilateral patchy opacities right greater than left which have increased compared to his previous x-ray on 05/12/2021. White count 9.8. Hemoglobin 14.8. Lymphocytes 0.3. Sodium 142. Potassium 4.2. BUN 37. Creatinine 1.55. Ferritin 3258. AST 47. ALT 28. LDH 1064. C-reactive protein 17.1. He's been initiated on Decadron, Lovenox, vitamin supplements. The patient is seen today 05/22/2021 in follow-up on the regular medical floor. He is currently sitting up at the bedside. Awake and alert in no acute d istress. Somewhat disoriented to place and time. He is maintaining O2 saturations in the mid 90s on 4 L/m per nasal cannula. He's been afebrile. Hemodynamically stable. He remains on Decadron, Lovenox, vitamin supplements. Today's x-ray continues to show bilateral right greater than left airspace and interstitial opacities. Mild improvement. The patient is seen today 05/23/2021 regular medical floor. He is currently sitting up in bed. Awake and alert in no acute distress. He is maintaining O2 saturations in the low 90s on 6 L high flow nasal cannula. He's been afebrile. Hemodynamically stable. White count 7.4. Hemoglobin 12.0. Platelets 160. Lymphocytes 0.2. D-dimer 23.7. Sodium 141 potassium 4.5. Creatinine 1.14. LDH 950. C-reactive protein 15.7. He is continued on Decadron, Lovenox, vitamin supplements. Objective - Vital Signs Vital signs: Vital Signs Temp 97.5 F L 05/23/21 08:58 Pulse 66 05/23/21 08:58 Resp 18 05/23/21 08:58 BP 141/77 05/23/21 08:58 Pulse Ox 91 L 05/23/21 08:58 Intake & Output 05/22/21 05/23/21 05/23/21 18:59 06:59 18:59 Weight 68.039 kg Other: Voiding Method Toilet # Voids 2 3 - Exam GENERAL EXAM: Alert, poor historian, 70-year-old male patient, on 6 L nasal cannula, fairly comfortable in no apparent distress. HEAD: Normocephalic. EYES: Normal reaction of pupils, equal size. NOSE: Clear with pink turbinates. THROAT: No erythema or exudates. NECK: No masses, no JVD. CHEST: No chest wall deformity. LUNGS: Equal air entry with crackles in the bilateral bases. CVS: S1 and S2 normal with no audible murmur, regular rhythm. ABDOMEN: No hepatosplenomegaly, normal bowel sounds, no guarding or rigidity. SPINE: No scoliosis or deformity SKIN: No rashes CENTRAL NERVOUS SYSTEM: No focal deficits, tone is normal in all 4 extremities. EXTREMITIES: There is no peripheral edema. No clubbing, no cyanosis. Peripheral pulses are intact. - Labs CBC & Chem 7: 05/23/21 08:10 05/23/21 08:10 Labs: Abnormal Lab Results - Last 24 Hours (Table) 05/23/21 05/23/21 05/23/21 Range/Units 08:10 08:10 08:10 RBC 3.95 L (4.30-5.90) m/uL Hgb 12.0 L (13.0-17.5) gm/dL Hct 36.3 L (39.0-53.0) % Lymphocytes # 0.2 L (1.0-4.8) k/uL D-Dimer 23.77 H (<0.60) mg/L FEU Chloride 111 H (98-107) mmol/L Carbon Dioxide 21 L (22-30) mmol/L BUN 21 H (9-20) mg/dL Lactate Dehydrogenase 950 H (313-618) U/L C-Reactive Protein 15.7 H (<1.0) mg/dL Total Protein 5.7 L (6.3-8.2) g/dL Albumin 2.6 L (3.5-5.0) g/dL Assessment and Plan Assessment: 1 Acute hypoxemic respiratory failure secondary to acute COVID-19 pneumonia initially seen in the emergency room 05/10/2021 and received monoclonal antibodies. Seen again in 05/12/2021 however the patient declined admission. Presented here 05/20/2021 with worsening symptoms. Onset of symptoms began 05/08/2021. Outside the window for Remdesivir. On 6 L nasal cannula. Not qualifying for Baricitinib at this time. 2 Elevated inflammatory markers secondary to above 3 Acute renal failure secondary to dehydration from poor oral intake improved creatinine 1.14 4 History of hypertension 5 Hyperlipidemia 6 History of dementia 7 History of atrial fibrillation 8 History of prostate cancer 9 History of coronary disease with previous V. fib arrest, status post stent placement 9 Former smoker Plan: The patient was seen and evaluated Labs reviewed Ordered a venous Doppler of the bilateral lower extremities Continue Decadron, Lovenox, vitamin supplements Titrate the FiO2 as tolerated We will continue to follow I, the cosigning physician, performed a history & physical examination of the patient. Lungs sounds with crackles in the bilateral bases. Maintaining good O2 saturations in the 90s on 6 L high flow nasal cannula. I discussed the assessment and plan of care with my nurse practitioner, Natividad Mays. I attest to the above note as dictated by her.
[2021-05-23 14:54] VITALS: BP 137/83; PULSE 71; TEMP 98
--- NOTE | 2021-05-23 16:04 | US ---
EXAMINATION TYPE: US venous doppler duplex LE BI DATE OF EXAM: 05/23/2021 3:30 PM COMPARISON: NONE CLINICAL HISTORY: Elevated d dimer, CoVID. SIDE PERFORMED: TECHNIQUE: The lower extremity deep venous system is examined utilizing real time linear array sonog luna with graded compression, doppler sonography and color-flow sonography. VESSELS IMAGED: Common Femoral Vein Deep Femoral Vein Greater Saphenous Vein * Femoral Vein Popliteal Vein Small Saphenous Vein * Proximal Calf Veins (* superficial vessels) There is normal flow and compressibility from the common femoral vein to the popliteal vein. IMPRESSION: Normal bilateral leg duplex venous sonogram.
--- NOTE | 2021-05-23 19:03 | DS ---
DISCHARGE SUMMARY FINAL DIAGNOSES: 1. Acute COVID-19 pneumonia with acute bilateral interstitial pneumonia with acute hypoxic respiratory failure. 2. Coronary artery disease, status post PCI. 3. Hypertension. 4. Hyperlipidemia. 5. Vascular dementia. 6. Spinal stenosis. 7. Insomnia. 8. Acute kidney injury. 9. Deep vein thrombosis prophylaxis. 10.Gastrointestinal prophylaxis. DISCHARGE DISPOSITION: The patient will be discharged in stable condition with guarded prognosis. Discharge cleared by Pulmonary. The patient is extremely keen on going home at this time; stable, but overall prognosis guarded. Total time taken 5 minutes. HISTORY OF PRESENT ILLNESS: This 70-year-old gentleman with a past medical history of multiple medical problems, being followed by Dr. Gillette in the outpatient setting, was admitted with COVID- 19 and multiple other complications, as mentioned earlier. The patient was treated symptomatically. Patient improved significantly. The patient is still on 5 L nasal cannula, but at this point the patient would like to go home. Patient is extremely keen on going home at this time. We discussed with Pulmonary, who cleared the patient for discharge, and we also discussed with the family at length. D-dimer is elevated. D- dimer was 28.7. So a period of Lovenox was recommended, to which the daughter is agreeable. On exam, vitals are stable. CARDIOVASCULAR: S1, S2 muffled. RESPIRATION: A few scattered rhonchi. DISCHARGE ADVICE AND MEDICATIONS: 1. Diet is cardiac. 2. Activity limited until followup. 3. Follow up with Dr. Gillette in 2-3 days. 4. Follow up with Dr. Valerio as recommended. 5. Follow-up labs with Dr. Gillette. 6. Aricept 5 mg at bedtime. 7. Flomax 0.4 every morning. 8. Klor-Con 10 mEq p.o. daily. 9. Lasix 20 mg daily. 10.Lopressor 25 mg p.o. b.i.d. 11.Namenda 10 mg p.o. b.i.d. 12.Hydrocodone b.i.d. as before. 13.Pepcid 20 mg at bedtime. 14.Trazodone 100 mg at bedtime. 15.Vitamin B12, 1000 mcg subcutaneously as before. 16.Aspirin 320 mg p.o. daily. 17.Decadron 6 mg p.o. b.i.d. for 7 days. 18.Lipitor 80 mg p.o. at bedtime. 19.Lovenox 40 mg subcutaneously daily for 2 weeks and repeat D-dimer and continued anticoagulation determination. 20.Nitrostat 0.4 sublingually p.r.n. 21.Orazinc 220 mg p.o. daily. 22.Tylenol p.r.n. 23.Albuterol 2 puffs q.i.d. 24.Vitamin C 500 mg p.o. b.i.d. 25.Vitamin D3 125 mg p.o. daily. Once again, the patient will be discharged in stable condition with guarded prognosis. MMODL / IJN: [id number] / MTDFidencio
[2021-05-24] MEDS ORDERED: CYANOCOBALAMIN 1,000 MCG/ML 1 ML VIAL SQ SCH (09:00)
== END 2021-05-23 16:48 | disposition home or self-care (01) | DRG 177 ==
LOC: EC 07:26 → 4SSUR 09:58
PROVIDERS: ADMIT Internal Medicine; ATTEND Internal Medicine
DX: U07.1 COVID-19 (principal); J12.82 Pneumonia due to coronavirus disease 2019; J96.01 Acute respiratory failure with hypoxia; N17.9 Acute kidney failure, unspecified; M48.00 Spinal stenosis, site unspecified; C61 Malignant neoplasm of prostate; E78.5 Hyperlipidemia, unspecified; E86.0 Dehydration; F01.50 Vascular dementia, unspecified severity, without behavioral disturbance, psychotic disturbance, mood disturbance, and anxiety; G47.00 Insomnia, unspecified; G89.29 Other chronic pain; H91.90 Unspecified hearing loss, unspecified ear; I11.9 Hypertensive heart disease without heart failure; I25.10 Atherosclerotic heart disease of native coronary artery without angina pectoris; I25.2 Old myocardial infarction; I48.91 Unspecified atrial fibrillation; N40.0 Benign prostatic hyperplasia without lower urinary tract symptoms; K57.30 Diverticulosis of large intestine without perforation or abscess without bleeding; Z86.74 Personal history of sudden cardiac arrest; Z86.010 Personal history of colon polyps; Z79.82 Long term (current) use of aspirin; Z79.899 Other long term (current) drug therapy; Z80.1 Family history of malignant neoplasm of trachea, bronchus and lung; Z80.3 Family history of malignant neoplasm of breast; Z82.0 Family history of epilepsy and other diseases of the nervous system; Z83.2 Family history of diseases of the blood and blood-forming organs and certain disorders involving the immune mechanism; Z87.891 Personal history of nicotine dependence; Z95.5 Presence of coronary angioplasty implant and graft; Z92.3 Personal history of irradiation; Z98.890 Other specified postprocedural states; Z92.21 Personal history of antineoplastic chemotherapy; Z96.611 Presence of right artificial shoulder joint
CPT/HCPCS: 36415; 71045; 80053; 82728; 83615; 83735; 85025; 85379; 86140; 93970; 94640; 96361; 96365; 96366; 96368; 96375; 99285

== ENCOUNTER 2021-06-03 10:41 | Inpatient (IN) | payer MEDICARE, OTHER ==
[2021-06-03] MEDS ORDERED: SODIUM CHLORIDE 0.9% 1,000 ML IV STA ×2 (11:05)
[2021-06-03 11:34] LABS: Basophils % (A) 0 %; Eosinophils # (A) 0.4 k/uL (0-0.7); Eosinophils % (A) 5 %; HCT 36.8 % (39.0-53.0); HGB 12.3 gm/dL (13.0-17.5); Lymphocytes # (A) 0.4 k/uL (1.0-4.8); Lymphocytes % (A) 5 %; MCH 30.8 pg (25.0-35.0); MCHC 33.4 g/dL (31.0-37.0); MCV 92.4 fL (80.0-100.0); Mean Platelet Volume 7.5; Monocytes # (A) 0.4 k/uL (0-1.0); Monocytes % (A) 6 %; Neutrophils # (A) 5.7 k/uL (1.3-7.7); Neutrophils % (A) 82 %; Platelet Count 198 k/uL (150-450); RBC 3.98 m/uL (4.30-5.90); RDW 15.2 % (11.5-15.5)
[2021-06-03 11:44] LABS: Partial Thromboplastin Time 22.5 sec (22.0-30.0); Prothrombin Time 10.6 sec (9.0-12.0)
--- NOTE | 2021-06-03 11:44 | XR ---
EXAMINATION TYPE: XR chest 2V DATE OF EXAM: 06/03/2021 COMPARISON: 05/22/2021 HISTORY: 70-year-old male with weakness and difficulty in breathing, shortness of breath TECHNIQUE: PA and lateral views FINDINGS: Partially visualized liver and right shoulder arthroplasty. Diffuse interstitial changes and patchy o pacities especially in the mid and lower lungs are similar to slightly progressed from prior. No pleu ral effusion. IMPRESSION: Interstitial infiltrates and patchy mid and lower lung opacities similar to slightly increased from p rior. Possible COVID pneumonia. Clinically correlate.
[2021-06-03 11:53] LABS: Albumin 2.8 g/dL (3.5-5.0); Calcium 8.5 mg/dL (8.4-10.2); Magnesium 1.9 mg/dL (1.6-2.3); Phosphorus 2.6 mg/dL (2.5-4.5); Potassium 3.9 mmol/L (3.5-5.1); Total Bilirubin 0.6 mg/dL (0.2-1.3); Total Protein 5.8 g/dL (6.3-8.2)
--- NOTE | 2021-06-03 11:57 | ED ---
Altered Mental Status HPI - General Chief Complaint: Altered Mental Status Stated Complaint: dehydration Time Seen by Provider: 06/03/21 10:58 Source: patient, family, RN notes reviewed Mode of arrival: ambulatory Limitations: no limitations - History of Present Illness Initial Comments: 70-year-old male presents emergency Department from Dr. Gillette's office chief complaint of weakness. Patient was discharged 11 days ago after covid 19. Patient was discharged on 5 L of oxygen and which daughter states she's been doing well with but noticed increasing weakness, blood pressure has been lower. Patient found be hypertensive in office. Patient states that no change in bowel habits bleeding diarrhea constipation no dysuria he's had no recent fever no coughing daughter noticed a lump behind the right side of his ear but she does not complain of pain from. Patient has had some mild confusion related to his weakness. - Related Data Home Medications Medication Instructions Recorded Confirmed Cyanocobalamin [Vitamin B-12 1,000 mcg SQ QMONTH 10/21/16 06/03/21 Injection] Tamsulosin [Flomax] 0.4 mg PO DAILY 10/21/16 06/03/21 traZODone HCL 100 mg PO HS PRN 05/11/18 06/03/21 Donepezil [Aricept] 5 mg PO HS 05/12/21 06/03/21 Famotidine [Pepcid] 20 mg PO HS 05/12/21 06/03/21 HYDROcodone/APAP 5-325MG [[place] 1 tab PO Q12H PRN 05/12/21 06/03/21 5-325] Memantine [Namenda] 10 mg PO BID 05/12/21 06/03/21 Metoprolol Tartrate [Lopressor] 25 mg PO BID 05/12/21 06/03/21 Omeprazole 20 mg PO DAILY 06/03/21 06/03/21 Previous Rx's Medication Instructions Recorded Atorvastatin [Lipitor] 80 mg PO HS #90 tab 10/24/16 Nitroglycerin Sl Tabs [Nitrostat] 0.4 mg SUBLINGUAL Q5M PRN #25 tab 10/24/16 Aspirin 325 mg PO DAILY #20 tab 05/08/20 Acetaminophen Tab [Tylenol] 650 mg PO Q6HR PRN tab 05/23/21 Albuterol Inhaler [Ventolin Hfa 2 puff INHALATION RT-QID PRN 30 12/31/21 Inhaler] Days #1 gm Enoxaparin [Lovenox] 40 mg SQ DAILY 14 Days #14 each 05/23/21 Allergies Allergy/AdvReac Type Severity Reaction Status Date / Time No Known Allergies Allergy Verified 06/03/21 12:15 Review of Systems ROS Statement: Those systems with pertinent positive or pertinent negative responses have been documented in the HPI. ROS Other: All systems not noted in ROS Statement are negative. Past Medical History Past Medical History: Atrial Fibrillation, Cancer, Dementia, Hearing Disorder / Deafness, Hyperlipidemia, Hypertension, Memory Impairment, Myocardial Infarction ([place]), Musculoskeletal Disorder, Osteoarthritis (OA), Prostate Disorder Additional Past Medical History / Comment(s): Pt tested covid + by home test and here at [facility] on 05/10/21, 10/21/16 [place]/cardiac arrest/vfib, prostate cancer tx with radiation/seed implants/chemo, chronic back pain, spinal stenosis, anemia, benign colon polyp/diverticular disease Last Myocardial Infarction Date:: OCTOBER 2016 History of Any Multi-Drug Resistant Organisms: None Reported Past Surgical History: Heart Catheterization With Stent, Orthopedic Surgery, Prostate Surgery Additional Past Surgical History / Comment(s): 09/2016 PCI with stent to LAD, pr ostate biopsy/seed implants, R rotator cuff repair, reverse R total shoulder, L acoustic neuroma removed, colonoscopy. Past Anesthesia/Blood Transfusion Reactions: No Reported Reaction, Postoperative Nausea & Vomiting (PONV) Additional Past Anesthesia/Blood Transfusion Reaction / Comment(s): has used scopolamine patch in past Date of Last Stent Placement:: 10/21/16 Past Psychological History: No Psychological Hx Reported Smoking Status: Former smoker Past Alcohol Use History: None Reported Past Drug Use History: None Reported - Past Family History Father Family Medical History: Dementia Additional Family Medical History / Comment(s): PARKINSONS Mother Additional Family Medical History / Comment(s): MOM ,NO HX KNOWN Sister(s) Family Medical History: Cancer Additional Family Medical History / Comment(s): SISTER #1 BREAST CANCER. SISTER #2 LUNG CANCER Daughter(s) Family Medical History: Blood Disorder Additional Family Medical History / Comment(s): ITP General Exam Limitations: no limitations General appearance: alert, in no apparent distress Head exam: Present: atraumatic, normocephalic, normal inspection Eye exam: Present: normal appearance, PERRL, EOMI. Absent: scleral icterus, conjunctival injection, periorbital swelling ENT exam: Present: mucous membranes dry, TM's normal bilaterally. Absent: normal exam, normal oropharynx, mucous membranes moist Neck exam: Present: normal inspection, full ROM. Absent: tenderness, meningismus, lymphadenopathy Respiratory exam: Present: decreased breath sounds. Absent: normal lung sounds bilaterally, respiratory distress, wheezes, rales, rhonchi, stridor Cardiovascular Exam: Present: regular rate, normal rhythm, normal heart sounds. Absent: systolic murmur, diastolic murmur, rubs, gallop, clicks GI/Abdominal exam: Present: soft, normal bowel sounds. Absent: distended, tenderness, guarding, rebound, rigid Neurological exam: Present: alert Skin exam: Present: warm, dry, intact, normal color. Absent: rash Course Vital Signs 06/03/21 06/03/21 06/03/21 10:46 10:56 12:17 Temperature 95.8 F L Pulse Rate 69 60 64 Respiratory 22 18 16 Rate Blood Pressure 120/63 87/65 105/62 O2 Sat by Pulse 99 100 100 Oximetry Medical Decision Making - Medical Decision Making 70-year-old present for hypertension, dehydration. Patient did have mildly low blood pressure, BNP is mildly elevated, chest x-ray shows worsening: Pneumonia. - Lab Data Result diagrams: 06/03/21 11:13 06/03/21 11:13 Lab Results 06/03/21 06/03/21 06/03/21 Range/Units 11:13 11:13 11:13 WBC 7.0 (3.8-10.6) k/uL RBC 3.98 L (4.30-5.90) m/uL Hgb 12.3 L (13.0-17.5) gm/dL Hct 36.8 L (39.0-53.0) % MCV 92.4 (80.0-100.0) fL MCH 30.8 (25.0-35.0) pg MCHC 33.4 (31.0-37.0) g/dL RDW 15.2 (11.5-15.5) % Plt Count 198 (150-450) k/uL MPV 7.5 Neutrophils % 82 % Lymphocytes % 5 % Monocytes % 6 % Eosinophils % 5 % Basophils % 0 % Neutrophils # 5.7 (1.3-7.7) k/uL Lymphocytes # 0.4 L (1.0-4.8) k/uL Monocytes # 0.4 (0-1.0) k/uL Eosinophils # 0.4 (0-0.7) k/uL Basophils # 0.0 (0-0.2) k/uL PT 10.6 (9.0-12.0) sec INR 1.0 (<1.2) APTT 22.5 (22.0-30.0) sec Sodium (137-145) mmol/L Potassium (3.5-5.1) mmol/L Chloride (98-107) mmol/L Carbon Dioxide (22-30) mmol/L Anion Gap mmol/L BUN (9-20) mg/dL Creatinine (0.66-1.25) mg/dL Est GFR (CKD-EPI)AfAm (>60 ml/min/1.73 sqM) Est GFR (CKD-EPI)NonAf (>60 ml/min/1.73 sqM) Glucose (74-99) mg/dL Plasma Lactic Acid [place] (0.7-2.0) mmol/L Calcium (8.4-10.2) mg/dL Phosphorus (2.5-4.5) mg/dL Magnesium (1.6-2.3) mg/dL Total Bilirubin (0.2-1.3) mg/dL AST (17-59) U/L ALT (4-49) U/L Alkaline Phosphatase (38-126) U/L Troponin I (0.000-0.034) ng/mL NT-Pro-B Natriuret Pep pg/mL Total Protein (6.3-8.2) g/dL Albumin (3.5-5.0) g/dL Urine Color Yellow Urine Appearance Clear (Clear) Urine pH 5.5 (5.0-8.0) Ur Specific [place] 1.015 (1.001-1.035) Urine Protein Trace H (Negative) Urine Glucose (UA) Negative (Negative) Urine Ketones Negative (Negative) Urine Blood Negative (Negative) Urine Nitrite Negative (Negative) Urine Bilirubin Negative (Negative) Urine Urobilinogen <2.0 (<2.0) mg/dL Ur Leukocyte Esterase Negative (Negative) Coronavirus (PCR) (Not Detectd) 06/03/21 06/03/21 06/03/21 Range/Units 11:13 11:13 11:13 WBC (3.8-10.6) k/uL RBC (4.30-5.90) m/uL Hgb (13.0-17.5) gm/dL Hct (39.0-53.0) % MCV (80.0-100.0) fL MCH (25.0-35.0) pg MCHC (31.0-37.0) g/dL RDW (11.5-15.5) % Plt Count (150-450) k/uL MPV Neutrophils % % Lymphocytes % % Monocytes % % Eosinophils % % Basophils % % Neutrophils # (1.3-7.7) k/uL Lymphocytes # (1.0-4.8) k/uL Monocytes # (0-1.0) k/uL Eosinophils # (0-0.7) k/uL Basophils # (0-0.2) k/uL PT (9.0-12.0) sec INR (<1.2) APTT (22.0-30.0) sec Sodium 136 L (137-145) mmol/L Potassium 3.9 (3.5-5.1) mmol/L Chloride 107 (98-107) mmol/L Carbon Dioxide 24 (22-30) mmol/L Anion Gap 5 mmol/L BUN 18 (9-20) mg/dL Creatinine 1.10 (0.66-1.25) mg/dL Est GFR (CKD-EPI)AfAm 79 (>60 ml/min/1.73 sqM) Est GFR (CKD-EPI)NonAf 68 (>60 ml/min/1.73 sqM) Glucose 110 H (74-99) mg/dL Plasma Lactic Acid [place] 1.2 (0.7-2.0) mmol/L Calcium 8.5 (8.4-10.2) mg/dL Phosphorus 2.6 (2.5-4.5) mg/dL Magnesium 1.9 (1.6-2.3) mg/dL Total Bilirubin 0.6 (0.2-1.3) mg/dL AST 27 (17-59) U/L ALT 22 (4-49) U/L Alkaline Phosphatase 64 (38-126) U/L Troponin I 0.025 (0.000-0.034) ng/mL NT-Pro-B Natriuret Pep pg/mL Total Protein 5.8 L (6.3-8.2) g/dL Albumin 2.8 L (3.5-5.0) g/dL Urine Color Urine Appearance (Clear) Urine pH (5.0-8.0) Ur Specific [place] (1.001-1.035) Urine Protein (Negative) Urine Glucose (UA) (Negative) Urine Ketones (Negative) Urine Blood (Negative) Urine Nitrite (Negative) Urine Bilirubin (Negative) Urine Urobilinogen (<2.0) mg/dL Ur Leukocyte Esterase (Negative) Coronavirus (PCR) (Not Detectd) 06/03/21 06/03/21 Range/Units 11:13 12:01 WBC (3.8-10.6) k/uL RBC (4.30-5.90) m/uL Hgb (13.0-17.5) gm/dL Hct (39.0-53.0) % MCV (80.0-100.0) fL MCH (25.0-35.0) pg MCHC (31.0-37.0) g/dL RDW (11.5-15.5) % Plt Count (150-450) k/uL MPV Neutrophils % % Lymphocytes % % Monocytes % % Eosinophils % % Basophils % % Neutrophils # (1.3-7.7) k/uL Lymphocytes # (1.0-4.8) k/uL Monocytes # (0-1.0) k/uL Eosinophils # (0-0.7) k/uL Basophils # (0-0.2) k/uL PT (9.0-12.0) sec INR (<1.2) APTT (22.0-30.0) sec Sodium (137-145) mmol/L Potassium (3.5-5.1) mmol/L Chloride (98-107) mmol/L Carbon Dioxide (22-30) mmol/L Anion Gap mmol/L BUN (9-20) mg/dL Creatinine (0.66-1.25) mg/dL Est GFR (CKD-EPI)AfAm (>60 ml/min/1.73 sqM) Est GFR (CKD-EPI)NonAf (>60 ml/min/1.73 sqM) Glucose (74-99) mg/dL Plasma Lactic Acid [place] (0.7-2.0) mmol/L Calcium (8.4-10.2) mg/dL Phosphorus (2.5-4.5) mg/dL Magnesium (1.6-2.3) mg/dL Total Bilirubin (0.2-1.3) mg/dL AST (17-59) U/L ALT (4-49) U/L Alkaline Phosphatase (38-126) U/L Troponin I (0.000-0.034) ng/mL NT-Pro-B Natriuret Pep 1290 pg/mL Total Protein (6.3-8.2) g/dL Albumin (3.5-5.0) g/dL Urine Color Urine Appearance (Clear) Urine pH (5.0-8.0) Ur Specific [place] (1.001-1.035) Urine Protein (Negative) Urine Glucose (UA) (Negative) Urine Ketones (Negative) Urine Blood (Negative) Urine Nitrite (Negative) Urine Bilirubin (Negative) Urine Urobilinogen (<2.0) mg/dL Ur Leukocyte Esterase (Negative) Coronavirus (PCR) Not Detected (Not Detectd) - EKG Data -: EKG Interpreted by Me EKG Comments: EKG plan at 10:58 normal sinus rhythm rate of 64 MS 152 QRS 70 QT/QTC 372/323 Disposition Clinical Impression: Pneumonia due to COVID-19 virus, Hypoxia, Dehydration, Hypotension Disposition: ADMITTED IP TO THIS HOSP Condition: Fair Referrals: Kassandra Gillette MD [Primary Care Provider] - 1-2 days
--- NOTE | 2021-06-03 12:16 | CT ---
EXAMINATION TYPE: CT brain wo con DATE OF EXAM: 06/03/2021 COMPARISON: MRI brain 03/08/2021 HISTORY: altered mental status CT DLP: 1217.4 mGycm Automated exposure control for dose reduction was used. FINDINGS: Postsurgical change involving the left mastoid air cells. There is a mild to moderate degenerative ch parmjit of the greater frontal lobe component. No midline shift or mass effect. No acute hemorrhage. Orbits are symmetric. Changes of chronic sinusitis are noted with nasal septal deviation. Craniocervi nazario junction is maintained. IMPRESSION: POSTOPERATIVE CHANGE WITH THE NO EVIDENCE OF ACUTE HEMORRHAGE OR MASS EFFECT. DEGENERATIVE CHANGE WIT H GREATER FRONTAL LOBE COMPONENT CORRELATE CLINICALLY.
[2021-06-03 13:55] LABS: Appearance,Urine Clear (Clear); Bilirubin,Urine Negative (Negative); Blood,Urine Negative (Negative); Color,Urine Yellow; Glucose,Urine (UA) Negative (Negative); Ketones,Urine Negative (Negative); Leukocyte Esterase,Urine Negative (Negative); Nitrite,Urine Negative (Negative); PH, Urine 5.5 (5.0-8.0); Protein,Urine Trace (Negative); Specific Gravity,Urine 1.015 (1.001-1.035); Urobilinogen,Urine <2.0 mg/dL (<2.0)
[2021-06-03] MEDS ORDERED: NALOXONE 0.4 MG/ML 1 ML VIAL IV PRN (14:08)
[2021-06-03] MEDS ORDERED: ACETAMINOPHEN TAB 325 MG TAB PO PRN (14:08)
[2021-06-03] MEDS: SODIUM CHLORIDE 0.9% 1,000 ML IV SCH (15:40)
[2021-06-03] MEDS ORDERED: traZODone HCL 100 MG TAB PO SCH (23:15)
[2021-06-04] MEDS: SODIUM CHLORIDE 0.9% 1,000 ML IV SCH ×2 (04:24→19:33)
[2021-06-04] MEDS ORDERED: NITROGLYCERIN SL TABS 0.4 MG TAB SUBLINGUAL PRN (08:27)
[2021-06-04] MEDS ORDERED: HYDROcodone/APAP 5-325MG 1 EACH TAB PO PRN (08:27)
[2021-06-04] MEDS ORDERED: ALBUTEROL HFA INHALER INHALATION PRN (08:27)
[2021-06-04] MEDS ORDERED: ACETAMINOPHEN TAB 325 MG TAB PO PRN (08:27)
[2021-06-04] MEDS: ASPIRIN 325 MG TAB PO SCH (08:42)
[2021-06-04] MEDS: METOPROLOL TARTRATE 25 MG TAB PO SCH ×2 (08:42→20:34)
[2021-06-04] MEDS: TAMSULOSIN 0.4 MG CAP.ER.24H PO SCH (08:42)
[2021-06-04] MEDS: LEVOFLOXACIN 500MG-D5W PMX 500 MG in DEXTROSE/WATER 1 100ML.BAG IVPB SCH (08:42)
[2021-06-04] MEDS: ENOXAPARIN 40 MG/0.4 ML SYRINGE SQ SCH (08:42)
[2021-06-04] MEDS: MEMANTINE 10 MG TAB PO SCH ×2 (08:43→20:34)
--- NOTE | 2021-06-04 09:16 | P.HPIM ---
History of Present Illness H&P Date: 06/04/21 HISTORY OF PRESENT ILLNESS: This is a 70-year-old male one of my patient with previous medical history significant for hypertension and hypertensive cardiovascular disease, hyperlipidemia, vascular dementia, left ear Cholesteatoma S/P surgical excision 06/[address]Bojrab Mccall, colonic polyps and prostate cancer post seeds and radiation currently in remission, CAD post anterior wall STEMI post LHC with PCI of the LAD in 2017 with Ventricular fibrillation and one episode of atrial fib rillation with RVR, chronic hypoxic respiratory failure on home O2 at 3-4 L. He was recently hospitalized for acute hypoxic respiratory failure secondary to acute Covid 19 pneumonia and discharged home. Patient's daughter states that she or her sister had been staying with him 24 hours a day since he was discharged on 05/23. Patient presented to the emergency center due to increasing weakness, low blood pressure, not eating or drinking and increased confusion from his baseline dementia. Patient presented to [facility] emergency center. Initial temperature 95.8, heart rate 69, blood pressure 120/63 and pulse ox 99% on room air. Subsequently, blood pressure low as 87/65, status post 2 L of IV fluid with improvement of his blood pressure this morning of 141/67. He is currently on 5 L nasal cannula and pulse ox is 98%. EKG sinus rhythm with no acute changes. Chest x-ray showed interstitial infiltrate and patchy mid to low lung opacities similar to or slightly increased from prior, possible Covid pneumonia. WBC 7.0, hemoglobin 12.3, platelet count 198. Lymphocytes 0.4. INR 1.0. Sodium 136 otherwise electrolytes and renal function are within normal limits. Blood sugar 110. Troponin syrup 0.025. ProBNP 1290. Albumin 2.8. Urinalysis negative for infection. Coronavirus PCR not detected. CAT scan of the brain revealed postop changes with no evidence of acute hemorrhage or mass effect. Degenerative change with greater frontal lobe component. Patient has been admitted to the hospital and consults added for pulmonary medicine for pneumonia and neurology for dementia as requested by daughter. REVIEW OF SYSTEMS: Constitutional: positive for fever, chills, no night sweats. positive for weight change. positive for weakness, positive fatigue no lethargy, daytime sleepiness. HEENT: positive for headache. No blurred vision or double vision, no loss of vision. positive for loss of Hearing, no ringing in the ears, no dizziness. No nasal drainage or congestion. No epistaxis. No sore throat. Lungs: positive for shortness of breath, weak cough, minimal sputum production. No wheezing. Reports dyspnea with activity. Cardiovascular: No chest pain, no lower extremity edema. No palpitations. No paroxysmal nocturnal dyspnea. No orthopnea. No lightheadedness or dizziness. No syncopal episodes. Abdominal: Reports no abdominal pain. No nausea, vomiting. No diarrhea. No constipation. No bloody or tarry stools. reports loss of appetite. Genitourinary: No dysuria, increased frequency, urgency. No urinary retention. Musculoskeletal: No myalgias. positive for muscle weakness, no gait dysfunction, no frequent falls. No back pain. No neck pain. Integumentary: No wounds, no lesions. No rash or pruritus. No unusual bruising. No change in hair or nails. Neurologic: No aphasia. No facial droop. Reports change in mentation from his baseline dementia. No head injury. No headache. No paralysis. No paresthesia. Psychiatric: No depression. No anxiety. No mood swings. Endocrine: No abnormal blood sugars. No weight change. PAST MEDICAL HISTORY: CAD post PCI of the LAD 2016 Hypertension and hypertensive vascular disease Hyperlipidemia. Vascular dementia. 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 Prostate cancer. Osteoarthritis. Spinal stenosis Cardiac arrest due to ventricular fibrillation per Covid 19 pneumonia 04/2021 PAST SURGICAL HISTORY: Left heart catheterization with PCI of the LAD 2069 Right rotator cuff tear repair Prostate biopsy. Prostate seeds implants. Right shoulder reverse arthroplasty Colonoscopy SOCIAL HISTORY: Patient used to smoke about pack every day he smoked for years and quit many years ago. He denies any alcohol ingestion, he denies any drug use or abuse, patient was independent prior to Covid 19 in April 2021. He now has daughter staying with him . FAMILY HISTORY: Father at the age of 95 and extended care facility with dementia and Parkinson mother at age 44 from bleeding disorder after childbirth patient had 3 sisters one from lung cancer 1 with Lewie body dementia and one with breast cancer, patient has 2 daughters one with ITP. PHYSICAL EXAMINATION: General: This is a 70-year-old male laying on the bed in no respiratory distress HEENT: Head is atraumatic, normocephalic, pupils were equal round reactive to light and recommendation, extraocular muscle movement were intact, sclera no nicteric, conjunctivae were pale, mucous membranes of the mouth are somewhat dry. Neck: Supple, no JVP, normal carotid upstroke bilaterally, no lymphadenopathy. Chest: Decreased breath sounds at the bases, few rhonchi, minimal expiratory wheezes, no chest wall tenderness, no intercostal retractions. Heart: First heart sound is normal, second heart sounds normal, there is systolic ejection murmur 2/6 located in the left sternal border. Abdomen: Soft, nontender, nondistended, positive bowel sounds. Extremities: There is no edema no calf tenderness DP +2 bilaterally. Neurologic examination: Patient is awake alert and oriented to person, cranial nerves II-12 appear grossly intact, muscle power were 5 out of 5 in upper extremities and 5 out of 5 in bilateral lower extremities, deep tendon reflexes normal bilaterally. ASSESSMENT AND PLAN: 1. Bilateral pneumonia, possible gram-negative pneumonia, possible residual Covid 19 pneumonia. Consult with pulmonary medicine, patient started on Levaquin 500 mg IV piggyback every 24 hours, albuterol inhaler 2 puffs 4 times daily as needed. Echocardiogram ordered. 2. Hypotension possibly related to dehydration from poor oral intake, status post 2 L IV fluid. Continue IV fluids 0.9 normal saline at 75 mL per hour. 3. CAD post PCI of the LAD in 2017. Continue patient on aspirin 325 mg orally once every day, metoprolol 25 mg orally twice every day will be resumed with parameters, continue atorvastatin 80 mg orally once every day. 4. Hypertension and hypertensive cardiovascular disease . Continue patient on metoprolol 25 mg orally twice every day with parameters due to hypotension. 5. Hyperlipidemia. Continue patient on atorvastatin 80 mg orally once every day. 6. Vascular dementia. Continue Namenda 10 mg orally twice every day and Aricept 5 mg orally once at bedtime. Consult with neurology. 7. Spinal stenosis with chronic low back pain. Continue Man 8. Insomnia. Hold trazodone 100 mg at bedtime. 9. DVT prophylaxis. Continue Lovenox 40 mg subcutaneously every 24 hours. 10. GI prophylaxis. Continue Pepcid 20 mg at bedtime. 11. Moderate protein calorie malnutrition. Patient started on in short 3 times daily. Admit to inpatient. Estimate a length of stay 2 midnights. Full code. DISCHARGE DIAGNOSES Probably subacute rehab. Consults with PT and OT. Impression and plan of care have been directed as dictated by the signing physician. Ioana Tam nurse practitioner acting as scribe for signing physician. Past Medical History Past Medical History: Atrial Fibrillation, Cancer, Dementia, Hearing Disorder / Deafness, Hyperlipidemia, Hypertension, Memory Impairment, Myocardial Infarction ([place]), Osteoarthritis ([place]), Prostate Disorder Additional Past Medical History / Comment(s): Pt tested covid + by home test and here at [facility] on 05/10/21, 10/21/16 [place]/cardiac arrest/vfib, prostate cancer tx with radiation/seed implants/chemo, chronic back pain, spinal stenosis, benign colon polyp/diverticular disease, Left ear hearing loss Last Myocardial Infarction Date:: SEPTEMBER 2016 History of Any Multi-Drug Resistant Organisms: None Reported Past Surgical History: Heart Catheterization With Stent, Orthopedic Surgery, Prostate Surgery Additional Past Surgical History / Comment(s): 09/2016 PCI with stent to LAD, prostate biopsy/seed implants, R rotator cuff repair, reverse R total shoulder, L acoustic neuroma removed, colonoscopy. Past Anesthesia/Blood Transfusion Reactions: No Reported Reaction, Postoperative Nausea & Vomiting (PONV) Additional Past Anesthesia/Blood Transfusion Reaction / Comment(s): has used scopolamine patch in past Date of Last Stent Placement:: 10/21/16 Past Psychological History: No Psychological Hx Reported Additional Psychological History / Comment(s): Daughter living with pt since 05/03/22 she has beeen staying with him 24/. His daughter, Ragini, is also his DPOA. Patient independent before 05/03/21 Smoking Status: Former smoker Past Alcohol Use History: None Reported Additional Past Alcohol Use History / Comment(s): Pt started smoking in 1971 and quit in 1996. Past Drug Use History: None Reported - Past Family History Father Family Medical History: Dementia Additional Family Medical History / Comment(s): PARKINSONS Mother Additional Family Medical History / Comment(s): MOM ,NO HX KNOWN Sister(s) Family Medical History: Cancer Additional Family Medical History / Comment(s): SISTER #1 BREAST CANCER. SISTER #2 LUNG CANCER Daughter(s) Family Medical History: Blood Disorder Additional Family Medical History / Comment(s): ITP Medications and Allergies Home Medications Medication Instructions Recorded Confirmed Type Cyanocobalamin [Vitamin B-12 1,000 mcg SQ QMONTH 10/21/16 06/03/21 History Injection] Tamsulosin [Flomax] 0.4 mg PO DAILY 10/21/16 06/03/21 History Atorvastatin [Lipitor] 80 mg PO HS #90 tab 10/24/16 06/03/21 Rx Nitroglycerin Sl Tabs [Nitrostat] 0.4 mg SUBLINGUAL Q5M PRN #25 tab 10/24/16 06/03/21 Rx traZODone HCL 100 mg PO HS PRN 05/11/18 06/03/21 History Aspirin 325 mg PO DAILY #20 tab 05/08/20 06/03/21 Rx Donepezil [Aricept] 5 mg PO HS 05/12/21 06/03/21 History Famotidine [Pepcid] 20 mg PO HS 05/12/21 06/03/21 History HYDROcodone/APAP 5-325MG [Man 1 tab PO Q12H PRN 05/12/21 06/03/21 History 5-325] Memantine [Namenda] 10 mg PO BID 05/12/21 06/03/21 History Metoprolol Tartrate [Lopressor] 25 mg PO BID 05/12/21 06/03/21 History Acetaminophen Tab [Tylenol] 650 mg PO Q6HR PRN tab 05/23/21 06/03/21 Rx Albuterol Inhaler [Ventolin Hfa 2 puff INHALATION RT-QID PRN 30 05/23/21 06/03/21 Rx Inhaler] Days #1 gm Enoxaparin [Lovenox] 40 mg SQ DAILY 14 Days #14 each 05/23/21 06/03/21 Rx Omeprazole 20 mg PO DAILY 06/03/21 06/03/21 History Allergies Allergy/AdvReac Type Severity Reaction Status Date / Time No Known Allergies Allergy Verified 06/03/21 12:15 Physical Exam Vitals: Vital Signs Temp Pulse Pulse Resp BP BP Pulse Ox 06/04/21 04:36 16 06/04/21 03:46 96.6 F L 99 20 141/67 98 06/04/21 00:21 98.9 F 86 16 122/74 96 06/03/21 23:26 76 18 123/59 96 06/03/21 18:24 66 18 105/55 100 06/03/21 16:45 73 16 105/64 100 06/03/21 15:25 70 16 98/52 99 06/03/21 14:22 64 18 96/58 99 06/03/21 12:17 64 16 105/62 100 06/03/21 10:56 60 18 87/65 100 06/03/21 10:46 95.8 F L 69 22 120/63 99 Intake and Output 06/03/21 06/04/21 06/04/21 22:59 06:59 14:59 Intake Total 75 Output Total 325 Balance -250 Intake: Intake, IV Titration 75 Amount Sodium Chloride 0.9% 1, 75 000 ml @ 75 mls/hr IV . [id number] [facility] Rx#:[id number] Output: Urine 325 Other: Weight 70.76 kg Results CBC & Chem 7: 06/03/21 11:13 06/03/21 11:13 Labs: Abnormal Lab Results - Last 24 Hours (Table) 06/03/21 06/03/21 06/03/21 Range/Units 11:13 11:13 11:13 RBC 3.98 L (4.30-5.90) m/uL Hgb 12.3 L (13.0-17.5) gm/dL Hct 36.8 L (39.0-53.0) % Lymphocytes # 0.4 L (1.0-4.8) k/uL Sodium 136 L (137-145) mmol/L Glucose 110 H (74-99) mg/dL Total Protein 5.8 L (6.3-8.2) g/dL Albumin 2.8 L (3.5-5.0) g/dL Urine Protein Trace H (Negative) Thrombosis Risk Factor Assmnt - Choose All That Apply Each Factor Represents 1 point: Obesity (BMI >25) Each Risk Factor Represents 2 Points: Age 61-74 years Other congenital or acquired thrombophilia - If yes, enter type in comment: No Thrombosis Risk Factor Assessment Total Risk Factor Score: 3 Thrombosis Risk Factor Assessment Level: Moderate Risk
[2021-06-04] MEDS: FOLIC ACID 1 MG TAB PO SCH (11:06)
--- NOTE | 2021-06-04 11:18 | P.CNPUL ---
History of Present Illness Consult date: 06/04/21 Reason for consult: dyspnea, hypoxemia History of present illness: 70-year-old male patient who is coming in again for some increased and ongoing issues with hypoxic respiratory failure. The patient is known to us from previous admission. The patient was in the hospital in April 2021 for COVID 19 pneumonia. Note that the patient symptoms started in early mid April and at that time the patient received monoclonal antibodies on 05/10/2021. Subsequently, his condition progressed and because of worsening shortness of breath and hypoxemia, the patient was admitted and he was placed on oxygen and he was ultimately released from the hospital after his condition was stabilized. He has significant number of medical problems and comorbidities. He came back to the emergency department yesterday with some increased shortness of breath. I reviewed the chest x-ray and there is still interstitial infiltrates bilaterally, probably squamous slightly increased compared to the previous evaluation. Due to concern of pneumonia, the patient was hospitalized. No reported aspiration.. The patient was afebrile. The patient was hemodyna mically stable. Initial pulse ox was 90% on room air oxygen. Subsequently completed emergency, the patient became hypotensive. He was given a total of 2 L of fluids. EKG showed normal sinus rhythm without any acute abnormalities. White cell count is at 7 with a hemoglobin of 12.3 and the patient had normal coagulation profile. Blood sugar was normal, troponin was 0.025, proBNP level was 1290, UA was negative, PCR done for COVID 19 testing came back also negative. Patient is currently on a medical floor. He was started on empiric antibiotic coverage with Levaquin. Cultures were sent and the results are still pending for now. He was on 6 L of oxygen by nasal cannula and this was weaned down to 3 L and his Pulse ox is around 99%. Noted the patient is a poor historian. The patient has vascular dementia. Review of Systems Constitutional: positive for fever, chills, no night sweats. positive for weight change. positive for weakness, positive fatigue no lethargy, daytime sleepiness. HEENT: positive for headache. No blurred vision or double vision, no loss of vision. positive for loss of Hearing, no ringing in the ears, no dizziness. No nasal drainage or congestion. No epistaxis. No sore throat. Lungs: positive for shortness of breath, weak cough, minimal sputum production. No wheezing. Reports dyspnea with activity. Cardiovascular: No chest pain, no lower extremity edema. No palpitations. No paroxysmal nocturnal dyspnea. No orthopnea. No lightheadedness or dizziness. No syncopal episodes. Abdominal: Reports no abdominal pain. No nausea, vomiting. No diarrhea. No constipation. No bloody or tarry stools. reports loss of appetite. Genitourinary: No dysuria, increased frequency, urgency. No urinary retention. Musculoskeletal: No myalgias. positive for muscle weakness, no gait dysfunction, no frequent falls. No back pain. No neck pain. Integumentary: No wounds, no lesions. No rash or pruritus. No unusual bruis ing. No change in hair or nails. Neurologic: No aphasia. No facial droop. Reports change in mentation from his baseline dementia. No head injury. No headache. No paralysis. No paresthesia. Psychiatric: No depression. No anxiety. No mood swings. Endocrine: No abnormal blood sugars. No weight change. Past Medical History Past Medical History: Atrial Fibrillation, Cancer, Dementia, Hearing Disorder / Deafness, Hyperlipidemia, Hypertension, Memory Impairment, Myocardial Infarction (PR), Osteoarthritis (OA), Prostate Disorder Additional Past Medical History / Comment(s): Pt tested covid + by home test and here at [facility] on 05/10/21, 10/21/16 PR/cardiac arrest/vfib, prostate cancer tx with radiation/seed implants/chemo, chronic back pain, spinal stenosis, benign colon polyp/diverticular disease, Left ear hearing loss Last Myocardial Infarction Date:: SEPTEMBER 2016 History of Any Multi-Drug Resistant Organisms: None Reported Past Surgical History: Heart Catheterization With Stent, Orthopedic Surgery, Prostate Surgery Additional Past Surgical History / Comment(s): 09/2016 PCI with stent to LAD, prostate biopsy/seed implants, R rotator cuff repair, reverse R total shoulder, L acoustic neuroma removed, colonoscopy. Past Anesthesia/Blood Transfusion Reactions: No Reported Reaction, Postoperative Nausea & Vomiting (PONV) Additional Past Anesthesia/Blood Transfusion Reaction / Comment(s): has used scopolamine patch in past Date of Last Stent Placement:: 10/21/16 Past Psychological History: No Psychological Hx Reported Additional Psychological History / Comment(s): Daughter living with pt since she has beeen staying with him 14/12. His daughter, Ragini, is also his DPOA. Patient independent before 05/03/21 Smoking Status: Former smoker Past Alcohol Use History: None Reported Additional Past Alcohol Use History / Comment(s): Pt started smoking in 1971 and quit in 1996. Past Drug Use History: None Reported - Past Family History Father Family Medical History: Dementia Additional Family Medical History / Comment(s): PARKINSONS Mother Additional Family Medical History / Comment(s): MOM ,NO HX KNOWN Sister(s) Family Medical History: Cancer Additional Family Medical History / Comment(s): SISTER #1 BREAST CANCER. SISTER #2 LUNG CANCER Daughter(s) Family Medical History: Blood Disorder Additional Family Medical History / Comment(s): ITP Medications and Allergies Home Medications Medication Instructions Recorded Confirmed Type Cyanocobalamin [Vitamin B-12 1,000 mcg SQ QMONTH 10/21/16 06/03/21 History Injection] Tamsulosin [Flomax] 0.4 mg PO DAILY 10/21/16 06/03/21 History Atorvastatin [Lipitor] 80 mg PO HS #90 tab 10/24/16 06/03/21 Rx Nitroglycerin Sl Tabs [Nitrostat] 0.4 mg SUBLINGUAL Q5M PRN #25 tab 10/24/16 06/03/21 Rx traZODone HCL 100 mg PO HS PRN 05/11/18 06/03/21 History Aspirin 325 mg PO DAILY #20 tab 05/08/20 06/03/21 Rx Donepezil [Aricept] 5 mg PO HS 05/12/21 06/03/21 History Famotidine [Pepcid] 20 mg PO HS 05/12/21 06/03/21 History HYDROcodone/APAP 5-325MG [[place] 1 tab PO Q12H PRN 05/12/21 06/03/21 History 5-325] Memantine [Namenda] 10 mg PO BID 05/12/21 06/03/21 History Metoprolol Tartrate [Lopressor] 25 mg PO BID 05/12/21 06/03/21 History Acetaminophen Tab [Tylenol] 650 mg PO Q6HR PRN tab 05/23/21 06/03/21 Rx Albuterol Inhaler [Ventolin Hfa 2 puff INHALATION RT-QID PRN 30 05/23/21 06/03/21 Rx Inhaler] Days #1 gm Enoxaparin [Lovenox] 40 mg SQ DAILY 14 Days #14 each 05/23/21 06/03/21 Rx Omeprazole 20 mg PO DAILY 06/03/21 06/03/21 History Allergies Allergy/AdvReac Type Severity Reaction Status Date / Time No Known Allergies Allergy Verified 06/03/21 12:15 Physical Exam Vitals: Vital Signs Temp Pulse Pulse Resp BP BP Pulse Ox 06/04/21 08:33 100 06/04/21 04:36 16 06/04/21 03:46 96.6 F L 99 20 141/67 98 06/04/21 00:21 98.9 F 86 16 122/74 96 06/03/21 23:26 76 18 123/59 96 06/03/21 18:24 66 18 105/55 100 06/03/21 16:45 73 16 105/64 100 06/03/21 15:25 70 16 98/52 99 06/03/21 14:22 64 18 96/58 99 06/03/21 12:17 64 16 105/62 100 Intake and Output 06/03/21 06/04/21 06/04/21 22:59 06:59 14:59 Intake Total 75 Output Total 325 650 Balance -250 -650 Intake: Intake, IV Titration 75 Amount Sodium Chloride 0.9% 1, 75 000 ml @ 75 mls/hr IV . [id number] [facility] Rx#:[id number] Output: Urine 325 650 Other: Voiding Method Urinal Weight 70.76 kg General: This is a 70-year-old male laying on the bed in no respiratory distress , 3 L nasal cannula, breathing is nonlabored at this point in time. HEENT: Head is atraumatic, normocephalic, pupils were equal round reactive to light and recommendation, extraocular muscle movement were intact, sclera nonicteric, conjunctivae were pale, mucous membranes of the mouth are somewhat dry. Neck: Supple, no JVP, normal carotid upstroke bilaterally, no lymphadenopathy. Chest: Decreased breath sounds at the bases, few rhonchi, minimal expiratory wheezes, no chest wall tenderness, no intercostal retractions.the patient continues to have coarse crackles in lung bases bilaterally. Heart: First heart sound is normal, second heart sounds normal, there is systolic ejection murmur 2/6 located in the left sternal border. Abdomen: Soft, nontender, nondistended, positive bowel sounds. Extremities: There is no edema no calf tenderness DP +2 bilaterally. Neurologic examination: Patient is awake alert and oriented to person, cranial nerves II-12 appear grossly intact, muscle power were 5 out of 5 in upper extremities and 5 out of 5 in bilateral lower extremities, deep tendon reflexes normal bilaterally. Results - Laboratory Findings CBC and BMP: 06/03/21 11:13 06/03/21 11:13 PT/INR, D-dimer PT 10.6 sec (9.0-12.0) 06/03/21 11:13 INR 1.0 (<1.2) 06/03/21 11:13 Abnormal lab findings: Abnormal Labs 06/03/21 06/03/21 06/03/21 11:13 11:13 11:13 RBC 3.98 L Hgb 12.3 L Hct 36.8 L Lymphocytes # 0.4 L Sodium 136 L Glucose 110 H Total Protein 5.8 L Albumin 2.8 L Urine Protein Trace H - Diagnostic Findings Chest x-ray: image reviewed Assessment and Plan Plan: 1 Acute hypoxemic respiratory failure secondary to acute COVID-19 pneumonia initially seen in the emergency room 05/10/2021 and received monoclonal antibodies. Seen again in 05/12/2021 however the patient declined admission. Presented here 05/20/2021 with worsening symptoms. She was discharged from the hospital on 05/23/2021. The patient currently is on oxygen at 3 L per minute nasal cannula. I reviewed the current chest x-ray and compared it to the earlier chest exit was done back in April. There is bilateral interstitial infiltrates consistent with residual COVID 19 related infiltrates/pneumonia. Nevertheless, no major interval change. No significant consolidation. Impression requirements are essentially stable at 3 L. The exact cause for decompensation is not clear. Superinfection with bacterial pneumonia is felt to be doubtful at this stage. The patient is not having any fever or leukocytosis. Blood work essentially within normal limits. He is calm and comfortable at this point in time. No reported aspiration. ProBNP level is not elevated and troponins are also negative. 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 Plan Check a pro-calcitonin level Check sputum Gram stain and culture if possible Patient has been covered with empiric antibiotic coverage with Levaquin Chest x-ray was reviewed without any interval major change in his chest x-ray findings. No need for steroids. Continue the supportive care. We'll monitor the patient for another 24 hours along with the medical team. He is currently on appropriate treatment.
--- NOTE | 2021-06-04 11:26 | P.CNNES ---
History of Present Illness Consult date: 06/04/21 Requesting physician: Ioana Tam Reason for Consult: dementia eval, family request History of Present Illness: Patient is a 70-year-old male came to the hospital yesterday at 10:41 AM Patient does not know why he came to the hospital. He does not remember that he had recent infection with campa virus, for which he was apparently hospitalized for a few days. He denies any problems with memory. He states that his he lives with his daughter Ragini. He does not use any assistive device. Denies any weakness, numbness tingling, nausea vomiting, dizziness, off shortness of breath or abdominal pain. Vital signs arrival blood pressure 120/63, pulse rate 69 temperature 95.8 blood test shows normal WBC, hemoglobin 12.3, platelets 198. PT/PTT normal. Sodium 136 potassium 3.9, normal renal and hepatic panel. Troponin negative. UA negative, campa virus PCR negative. Patient's last B12 was 871 on 12/12/2020, folate 5.0. Computed tomography scan of head showed postoperative change with no evidence of acute hemorrhage or mass effect. Degenerative change, greater frontal lobe component, correlate clinically. EKG shows normal sinus rhythm. Chest x-ray showed interstitial infiltrates and patchy mid and lower lung opacities similar to slightly increased from prior. Possible Covid pneumonia. Correlate clinically. Patient had a brain MRI with and without contrast performed on 03/08/2021, which revealed moderate generalized atrophy. Mild chronic ischemic white matter changes. Left-sided mass at the cerebellopontine angle and internal artery canal, consistent with provided history of acoustic neuroma. Patient had an another MRI of the brain on 09/04/2015 which revealed residual tumor present within the internal auditory canal on the left, extending to the left cerebellopontine angle. Patient had a carotid Doppler on 11/10/2018 which revealed no hemodynamically significant stenosis of the proximal ICA bilaterally. Antegrade flow in both vertebral arteries. 2-D echo from 07/30/2020 shows normal left ventricular size, normal wall thickness and EF greater than 55%. Normal left atrial size. Mild MR. Patient's home medications include Flomax, B12 1000 g every month, Lipitor 80 mg, trazodone, aspirin 325 mg, [place], metoprolol 25 mg twice a day, Aricept 5 mg, Namenda 10 mg twice a day, Pepcid Lovenox and omeprazole. I spoke to patient's daughter Ragini in detail. She states that patient was diagnosed with dementia 10 years ago. Patient was started on Namenda, currently on 10 mg twice a day for last 6 months. He is also on Aricept 5 mg at bedtime for last 3 months. She has not noticed any improvement in his short-term memory. His long-term memory is fine. After patient suffered from covid-19 on 05/10/2021, for which he was hospitalized for 4 days. Patient's daughter states that patient became severely sick from the pneumonia. This signed out AGAINST MEDICAL ADVICE on 05/12/2021, as patient had mentioned that "he did not want to in the hospital". After she took him home, his oxygen saturation were running about 60-70 continuously for 5 days despite being on oxygen. He was severely sick, but he turned around, and he started improving after 05/17/2021. Patient's daughter believes that his condition has gotten much worse after his recent bout of campa virus. Once he came back home on 05/23/2021, patient was not able to recognize his own house. Could not tell where the lights switches are. He has lived in this home for 40 years. The only thing he knew was his 2 daughters. He knew his grandchildren by the face but did not remember their name. Patient's daughter have numerous time tried to reorient him regarding the house, but he still gets lost within his house, where he has lived for 40 years. Patient has never seen a neurologist. Patient never had history of strokes or TIA. Patient's past medical history reports "atrial fibrillation". Patient's daughter mentions that when he had a MRI in 2017, he had transient atrial fibri llation, and he came out of it, did not require any cardioversion. He was placed on Eliquis for 1 month, followed by Plavix for 1 year, then was switched to aspirin 81 mg daily. While he suffered from this recent campa virus, the dose was increased to 325 mg. I informed patient's daughter that regarding history of A. fib, would defer any management to patient's primary physician or his cooker helper. Review of Systems As mentioned in HPI. All other 14 points of review of systems reviewed and completely unremarkable. Past Medical History Past Medical History: Atrial Fibrillation, Cancer, Dementia, Hearing Disorder / Deafness, Hyperlipidemia, Hypertension, Memory Impairment, Myocardial Infarction (OR), Osteoarthritis (OA), Prostate Disorder Additional Past Medical History / Comment(s): Pt tested covid + by home test and here at [facility] on 05/10/21, 10/21/16 OR/cardiac arrest/vfib, prostate cancer tx with radiation/seed implants/chemo, chronic back pain, spinal stenosis, benign colon polyp/diverticular disease, Left ear hearing loss Last Myocardial Infarction Date:: SEPTEMBER 2016 History of Any Multi-Drug Resistant Organisms: None Reported Past Surgical History: Heart Catheterization With Stent, Orthopedic Surgery, Prostate Surgery Additional Past Surgical History / Comment(s): 09/2016 PCI with stent to LAD, prostate biopsy/seed implants, R rotator cuff repair, reverse R total shoulder, L acoustic neuroma removed, colonoscopy. Past Anesthesia/Blood Transfusion Reactions: No Reported Reaction, Postoperative Nausea & Vomiting (PONV) Additional Past Anesthesia/Blood Transfusion Reaction / Comment(s): has used scopolamine patch in past Date of Last Stent Placement:: 10/21/16 Past Psychological History: No Psychological Hx Reported Additional Psychological History / Comment(s): Daughter living with pt since 05/03/22 she has beeen staying with him 14/12. His daughter, Ragini, is also his DPOA. Patient independent before 05/03/21 Smoking Status: Former smoker Past Alcohol Use History: None Reported Additional Past Alcohol Use History / Comment(s): Pt started smoking in 1971 and quit in 1996. Past Drug Use History: None Reported - Past Family History Father Family Medical History: Dementia Additional Family Medical History / Comment(s): PARKINSONS Mother Additional Family Medical History / Comment(s): MOM ,NO HX KNOWN Sister(s) Family Medical History: Cancer Additional Family Medical History / Comment(s): SISTER #1 BREAST CANCER. SISTER #2 LUNG CANCER Daughter(s) Family Medical History: Blood Disorder Additional Family Medical History / Comment(s): ITP Medications and Allergies Home Medications Medication Instructions Recorded Confirmed Type Cyanocobalamin [Vitamin B-12 1,000 mcg SQ QMONTH 10/21/16 06/03/21 History Injection] Tamsulosin [Flomax] 0.4 mg PO DAILY 10/21/16 06/03/21 History Atorvastatin [Lipitor] 80 mg PO HS #90 tab 10/24/16 06/03/21 Rx Nitroglycerin Sl Tabs [Nitrostat] 0.4 mg SUBLINGUAL Q5M PRN #25 tab 10/24/16 06/03/21 Rx traZODone HCL 100 mg PO HS PRN 05/11/18 06/03/21 History Aspirin 325 mg PO DAILY #20 tab 05/08/20 06/03/21 Rx Donepezil [Aricept] 5 mg PO HS 05/12/21 06/03/21 History Famotidine [Pepcid] 20 mg PO HS 05/12/21 06/03/21 History HYDROcodone/APAP 5-325MG [[place] 1 tab PO Q12H PRN 05/12/21 06/03/21 History 5-325] Memantine [Namenda] 10 mg PO BID 05/12/21 06/03/21 History Metoprolol Tartrate [Lopressor] 25 mg PO BID 05/12/21 06/03/21 History Acetaminophen Tab [Tylenol] 650 mg PO Q6HR PRN tab 05/23/21 06/03/21 Rx Albuterol Inhaler [Ventolin Hfa 2 puff INHALATION RT-QID PRN 30 05/23/21 06/03/21 Rx Inhaler] Days #1 gm Enoxaparin [Lovenox] 40 mg SQ DAILY 14 Days #14 each 05/23/21 06/03/21 Rx Omeprazole 20 mg PO DAILY 06/03/21 06/03/21 History Allergies Allergy/AdvReac Type Severity Reaction Status Date / Time No Known Allergies Allergy Verified 06/03/21 12:15 Physical Examination - Vital Signs Vital Signs: Vital Signs Temp Pulse Pulse Resp BP BP Pulse Ox 06/04/21 08:33 100 06/04/21 04:36 16 06/04/21 03:46 96.6 F L 99 20 141/67 98 06/04/21 00:21 98.9 F 86 16 122/74 96 06/03/21 23:26 76 18 123/59 96 06/03/21 18:24 66 18 105/55 100 06/03/21 16:45 73 16 105/64 100 06/03/21 15:25 70 16 98/52 99 06/03/21 14:22 64 18 96/58 99 06/03/21 12:17 64 16 105/62 100 06/03/21 10:56 60 18 87/65 100 06/03/21 10:46 95.8 F L 69 22 120/63 99 Intake and Output 06/03/21 06/04/21 06/04/21 22:59 06:59 14:59 Intake Total 75 Output Total 325 350 Balance -250 -350 Intake: Intake, IV Titration 75 Amount Sodium Chloride 0.9% 1, 75 000 ml @ 75 mls/hr IV . [id number] [facility] Rx#:[id number] Output: Urine 325 350 Other: Voiding Method Urinal Weight 70.76 kg Patient is an elderly male, in no acute distress. Patient is alert awake, laying comfortably in the bed. He knows his name, date of , but could not tell me his age. He knows that he is in [place], but does not know the name of the state. He knows he is in the hospital but does not know the name of [facility]. Could not tell me the current month or the year or the name of the president. He thinks it is spring season. Patient has positive palmomental reflex bilaterally but negative visuospatial apraxia. Speech and language functions are normal. Attention, concentration intact whereas fund of knowledge is limited. On cranial nerve examination, pupils are equal, round and reacting to light, visual thurman are full on confrontation, with no neglect on double simultaneous stimulation. His extraocular muscles are intact with no nystagmus. Face is symmetric, tongue protrudes to the midline. Palatal elevation and sensation normal, hearing is at least moderately decreased for finger rubbing although appears normal for usual conversation and shoulder shrug normal, facial s ensation normal. On muscle strength testing, there is no pronator drift and the strength is aneudy l in arms and legs distally and proximally. Deep tendon reflexes are (right/left) biceps 1+/1+, brachioradialis 1/1, knee 1+/2, ankles 1+/1+ and plantars are downgoing bilaterally. Sensory to touch is equal with no neglect. Cerebellar function showed no ataxia for [id number] testing. Tone and bulk of muscles normal. Gait deferred. On general examination, there is no carotid bruit or murmur, S1-S2 audible. Abdomen is soft nontender, no organomegaly, positive bowel sounds in all quadra nts. Chest is clear. Peripheral pulses are present. No edema. Results - Laboratory Findings CBC and BMP: 06/03/21 11:13 06/03/21 11:13 Abnormal Lab Findings: Abnormal Labs 06/03/21 06/03/21 06/03/21 11:13 11:13 11:13 RBC 3.98 L Hgb 12.3 L Hct 36.8 L Lymphocytes # 0.4 L Sodium 136 L Glucose 110 H Total Protein 5.8 L Albumin 2.8 L Urine Protein Trace H Assessment and Plan Assessment: * Memory loss, probably due to dementia, moderate degree. The dementia has got worse after his recent bout of severe Covid-19 pneumonia on 05/10/2021. * Recent history of Covid-19 infection * History of left acoustic neuroma * Coronary artery disease * History of folate deficiency. Plan: * Patient is currently on Aricept 5 mg daily and Namenda 10 mg twice a day. I will further optimize dose of Aricept to 10 mg daily. It is not uncommon for patients with dementia to develop setback after any infectious condition, and in this case, patient suffered from severe Covid-19 pneumonia, during which his oxygen was persistently low around 60-70% for 5 days. * Patient has history of folate deficiency, will be started on folic acid 1 mg daily. Continue vitamin B12 replacement. * Continue aspirin and Lipitor for stroke prevention. * I discussed with patient's daughter in detail (as mentioned in HPI). * Suggested patient to follow up with neurologist in 2-4 weeks for further management of dementia. * Neurologically clear otherwise.
[2021-06-04] MEDS ORDERED: FAMOTIDINE 20 MG TAB PO SCH (21:00)
[2021-06-04] MEDS ORDERED: ATORVASTATIN 80 MG TAB PO SCH (21:00)
[2021-06-04] MEDS ORDERED: risperiDONE 0.25 MG TAB PO SCH (21:00)
[2021-06-04] MEDS ORDERED: DONEPEZIL 10 MG TAB PO SCH (21:00)
[2021-06-04] MEDS ORDERED: DONEPEZIL 5 MG TAB PO SCH (21:00)
[2021-06-05] MEDS: SODIUM CHLORIDE 0.9% 1,000 ML IV SCH (06:04)
[2021-06-05] MEDS ORDERED: PANTOPRAZOLE 40 MG TABLET PO SCH (07:30)
[2021-06-05] MEDS: ASPIRIN 325 MG TAB PO SCH (08:16)
[2021-06-05] MEDS: ENOXAPARIN 40 MG/0.4 ML SYRINGE SQ SCH (08:16)
[2021-06-05] MEDS: MEMANTINE 10 MG TAB PO SCH (08:16)
[2021-06-05] MEDS: TAMSULOSIN 0.4 MG CAP.ER.24H PO SCH (08:16)
[2021-06-05] MEDS: METOPROLOL TARTRATE 25 MG TAB PO SCH (08:16)
[2021-06-05] MEDS: FOLIC ACID 1 MG TAB PO SCH (08:16)
[2021-06-05] MEDS: LEVOFLOXACIN 500MG-D5W PMX 500 MG in DEXTROSE/WATER 1 100ML.BAG IVPB SCH (08:45)
--- NOTE | 2021-06-05 08:57 | P.DS ---
Providers Date of admission: 06/04/21 08:44 Expected date of discharge: 06/05/21 Attending physician: Kassandra Gillette Consults: 06/04/21 08:54 Consult Physician Routine Consulting Provider: Tamy Valerio Consult Reason/Comments: pneumonia Do you want consulting provider notified?: Yes Consult Physician Routine Consulting Provider: Anita Barrett Consult Reason/Comments: dementia eval, family request Do you want consulting provider notified?: Yes Primary care physician: Kassandra Gillette Hospital Course: HISTORY OF PRESENT ILLNESS: This is a 70-year-old male one of my patient with previous medical history significant for hypertension and hypertensive cardiovascular disease, hyperlipidemia, vascular dementia, left ear Cholesteatoma S/P surgical excision 06/[address]Bojrab Mccall, colonic polyps and prostate cancer post seeds and radiation currently in remission, CAD post anterior wall STEMI post LHC with PCI of the LAD in 2017 with Ventricular fibrillation and one episode of atrial fibrillation with RVR, chronic hypoxic respiratory failure on home O2 at 3-4 L. He was recently hospitalized for acute hypoxic respiratory failure secondary to acute Covid 19 pneumonia and discharged home. Patient's daughter states that she or her sister had been staying with him 24 hours a day since he was discharged on 05/23. Patient presented to the emergency center due to increasing weakness, low blood pressure, not eating or drinking and increased confusion from his baseline dementia. Patient presented to [facility] emergency center. Initial temperature 95.8, heart rate 69, blood pressure 120/63 and pulse ox 99% on room air. Subsequently, blood pressure low as 87/65, status post 2 L of IV fluid with improvement of his blood pressure this morning of 141/67. He is currently on 5 L nasal cannula and pulse ox is 98%. EKG sinus rhythm with no acute changes. Chest x-ray showed interstitial infiltrate and patchy mid to low lung opacities similar to or slightly increased from prior, possible Covid pneumonia. WBC 7.0, hemoglobin 12.3, platelet count 198. Lymphocytes 0.4. INR 1.0. Sodium 136 otherwise electrolytes and renal function are within normal limits. Blood sugar 110. Troponin syrup 0.025. ProBNP 1290. Albumin 2.8. Urinalysis negative for infection. Coronavirus PCR not detected. CAT scan of the brain revealed postop changes with no evidence of acute hemorrhage or mass effect. Degenerative change with greater frontal lobe component. Patient has been admitted to the hospital and consults added for pulmonary medicine for pneumonia and neurology for dementia as requested by daughter. 06/05: A has been seen by Dr. Valerio and pro-calcitonin level ordered, sputum culture and continue Levaquin. Patient has been afebrile, heart rate 74, blood pressure 122/74, pulse ox 95% on room air. Pro-calcitonin was normal at 0.07. Patient has been seen by neurology for memory loss probably due to dementia. Aricept increased to 10 mg daily and continue Namenda 10 mg twice daily, folic acid started and continue aspirin and Lipitor. And follow-up with neurologist in 2-4 weeks. Patient had an uneventful night. Respiratory status appears to be stable. He is working with physical therapy and discharge plan is for subacute rehab at [facility] or [facility]. Patient will be discharged once arrangements are completed. DISCHARGE DIAGNOSES: 1. Bilateral pneumonia, possible gram-negative pneumonia, possible residual Covid 19 pneumonia. 2. Hypotension possibly related to dehydration from poor oral intake, status post 2 L IV fluid. 3. CAD post PCI of the LAD in 2017. C 4. Hypertension and hypertensive cardiovascular disease . 5. Hyperlipidemia. 6. Vascular dementia worsening due to recent Covid 19 infection. 7. Spinal stenosis with chronic low back pain. 8. Insomnia. 9. Moderate protein calorie malnutrition. Full code. DISCHARGE DIAGNOSES Subacute rehab [facility] or [facility]. Impression and plan of care have been directed as dictated by the signing physician. Ioana Tam nurse practitioner acting as scribe for signing physician. Patient Condition at Discharge: Stable Plan - Discharge Summary Discharge Rx Participant: Yes New Discharge Prescriptions: New Folic Acid 1 mg PO DAILY tab risperiDONE [RisperDAL] 0.25 mg PO HS tab Levofloxacin [Levaquin] 500 mg PO DAILY 7 Days #7 tab Donepezil [Aricept] 10 mg PO HS tab Continue Tamsulosin [Flomax] 0.4 mg PO DAILY Cyanocobalamin [Vitamin B-12 Injection] 1,000 mcg SQ QMONTH Atorvastatin [Lipitor] 80 mg PO HS #90 tab Nitroglycerin Sl Tabs [Nitrostat] 0.4 mg SUBLINGUAL Q5M PRN #25 tab PRN Reason: Chest Pain Aspirin 325 mg PO DAILY #20 tab Metoprolol Tartrate [Lopressor] 25 mg PO BID Memantine [Namenda] 10 mg PO BID Albuterol Inhaler [Ventolin Hfa Inhaler] 2 puff INHALATION RT-QID PRN 30 Days #1 gm PRN Reason: Shortness Of Breath Or Wheezing Enoxaparin [Lovenox] 40 mg SQ DAILY 14 Days #14 each Omeprazole 20 mg PO DAILY Famotidine [Pepcid] 20 mg PO HS Acetaminophen Tab [Tylenol] 650 mg PO Q6HR PRN tab PRN Reason: Mild Pain Or Fever > 100.5 HYDROcodone/APAP 5-325MG [Wallback 5-325] 1 tab PO Q12H PRN #6 tab PRN Reason: Pain Discontinued traZODone HCL 100 mg PO HS PRN PRN Reason: sleep Donepezil [Aricept] 5 mg PO HS Discharge Medication List Cyanocobalamin [Vitamin B-12 Injection] 1,000 mcg SQ QMONTH 10/21/16 [History] Tamsulosin [Flomax] 0.4 mg PO DAILY 10/21/16 [History] Atorvastatin [Lipitor] 80 mg PO HS #90 tab 10/24/16 [Rx] Nitroglycerin Sl Tabs [Nitrostat] 0.4 mg SUBLINGUAL Q5M PRN #25 tab 10/24/16 [Rx] Aspirin 325 mg PO DAILY #20 tab 05/08/20 [Rx] Famotidine [Pepcid] 20 mg PO HS 05/12/21 [History] Memantine [Namenda] 10 mg PO BID 05/12/21 [History] Metoprolol Tartrate [Lopressor] 25 mg PO BID 05/12/21 [History] Acetaminophen Tab [Tylenol] 650 mg PO Q6HR PRN tab 05/23/21 [Rx] Albuterol Inhaler [Ventolin Hfa Inhaler] 2 puff INHALATION RT-QID PRN 30 Days #1 gm 05/23/21 [Rx] Enoxaparin [Lovenox] 40 mg SQ DAILY 14 Days #14 each 05/23/21 [Rx] Omeprazole 20 mg PO DAILY 06/03/21 [History] Donepezil [Aricept] 10 mg PO HS tab 06/05/21 [Rx] Folic Acid 1 mg PO DAILY tab 06/05/21 [Rx] HYDROcodone/APAP 5-325MG [Wallback 5-325] 1 tab PO Q12H PRN #6 tab 06/05/21 [Rx] Levofloxacin [Levaquin] 500 mg PO DAILY 7 Days #7 tab 06/05/21 [Rx] risperiDONE [RisperDAL] 0.25 mg PO HS tab 06/05/21 [Rx] Follow up Appointment(s)/Referral(s): Kassandra Gillette MD [Primary Care Provider] - 1 Week (AT REHAB) Discharge Disposition: TRANSFER TO SNF/ECF
[2021-06-05 12:16] VITALS: BP 115/68; PULSE 77; RESP 17; TEMP 97.8
--- NOTE | 2021-06-05 12:55 | CDI ---
Documentation Clarification Form Date: 06/05/2021 12:35:17 PM From: Jaleesa Marcos RN CCDS Admit Date: 06/04/2021 08:44:00 AM Patient Name: aCl Simmons Visit Number: [id number] Discharge Date: ATTENTION: The Clinical Documentation Specialists (CDI) and [facility] Coding Staff appreciate your assistance in clarifying documentation. Please respond to the clarification below the line at the bottom and electronically sign. The CDI & [facility] Coding staff will review the response and follow-up if needed. Please note: Queries are made part of the Legal Health Record. If you have any questions, please contact the author of this message via ITS. Dr. Kassandra Gillette Possible gram-negative pneumonia and Possible residual COVID 19 pneumonia is documented 06/05, Discharge summary. Clarification regarding the type of pneumonia is requested. History/Risk Factors: 70-year-old male presents to the ED due to increasing weakness, low blood pressure, not eating drinking and increased confusion. Medical History: Recent admission for COVID 19 with respiratory failure; HTN and Vascular dementia. Clinical Indicators: WBC 06/03: 7.0 X-ray 06/03: Interstitial infiltrates and patchy mid and lower lung opacities similar to slightly increased from prior. Possible COVID pneumonia. Chest assessment 06/04, H&P: Decreased breath sounds at the bases, few rhonchi, minimal expiratory wheezes, no chest wall tenderness, no intercostal retractions. Pulmonary Consult 06/04: There is bilateral interstitial infiltrates consistent with residual COVID 19 related infiltrates/pneumonia. Superinfection with bacterial pneumonia is felt to be doubtful at this stage. Treatment: Antibiotics: 06/04 to current Levofloxacin 500mg IVPB Q24H. O2: 06/03 06/04 SpO2 100% 5L nasal cannula 06/04 06/05 SpO2 100% 3L nasal cannula Breathing Tx: 06/04 current Ventolin Hfa Inhaler 2 puff Inhalation RT-QID PRN SOB. Please clarify the type of pneumonia, if known: [ ] Gram Negative Bacterial Pneumonia [ X ] Residual COVID 19 pneumonia [ ] Other bacteria (please specify) [ ] Other, please specify [ ] Unable to determine (Template Last Revised: July 2020) MTDD
[2021-06-05 13:06] VITALS: BMI 28.5
--- NOTE | 2021-06-05 14:04 | P.PN ---
Subjective Progress Note Date: 06/05/21 70-year-old male patient who is coming in again for some increased and ongoing issues with hypoxic respiratory failure. The patient is known to us from previous admission. The patient was in the hospital in April 2021 for COVID 19 pneumonia. Note that the patient symptoms started in early mid April and at that time the patient received monoclonal antibodies on 05/10/2021. Subsequently, his condition progressed and because of worsening shortness of breath and hypoxemia, the patient was admitted and he was placed on oxygen and he was ultimately released from the hospital after his condition was stabilized. He has significant number of medical problems and comorbidities. He came back to the emergency department yesterday with some increased shortness of breath. I reviewed the chest x-ray and there is still interstitial infiltrates bilaterally, probably squamous slightly increased compared to the previous evaluation. Due to concern of pneumonia, the patient was hospitalized. No re ported aspiration.. The patient was afebrile. The patient was hemodynamically stable. Initial pulse ox was 90% on room air oxygen. Subsequently completed emergency, the patient became hypotensive. He was given a total of 2 L of fluids. EKG showed normal sinus rhythm without any acute abnormalities. White cell count is at 7 with a hemoglobin of 12.3 and the patient had normal coagulation profile. Blood sugar was normal, troponin was 0.025, proBNP level was 1290, UA was negative, PCR done for COVID 19 testing came back also negative. Patient is currently on a medical floor. He was started on empiric antibiotic coverage with Levaquin. Cultures were sent and the results are still pending for now. He was on 6 L of oxygen by nasal cannula and this was weaned down to 3 L and his Pulse ox is around 99%. Noted the patient is a poor historian. The patient has vascular dementia. The patient is seen today 06/05/2021 in follow-up on the regular medical floor. He is currently sitting up in a chair at the bedside. Awake and alert in no acute distress. He is maintaining good O2 saturations in the mid 90s on room air. He is afebrile. Hemodynamically stable. Pro-calcitonin was 0.07. Curry virus by PCR not detected. He was continued on Levaquin and albuterol. He denies any shortness of breath, cough or congestion. Objective - Vital Signs Vital signs: Vital Signs Temp 97.8 F 01/13/22 12:15 Pulse 77 06/05/21 12:15 Resp 17 06/05/21 12:15 BP 115/68 06/05/21 12:15 Pulse Ox 96 06/05/21 12:15 Intake & Output 06/04/21 06/05/21 06/05/21 18:59 06:59 18:59 Intake Total 525 1200 Output Total 650 Balance -125 1200 Weight 70.76 kg Intake: Intake, IV Titration 525 900 Amount Sodium Chloride 0.9% 1, 525 900 000 ml @ 75 mls/hr IV . [id number] BENJAMIN Rx#:[id number] Oral 300 Output: Urine 650 Other: Voiding Method Urinal Urinal # Voids 2 - Exam General: This is a 70-year-old male patient currently sitting up in chair at the bedside. In no respiratory distress , on room air, breathing is nonlabored at this point in time. HEENT: Head is atraumatic, normocephalic, pupils were equal round reactive to light and recommendation, extraocular muscle movement were intact, sclera nonicteric, conjunctivae were pale, mucous membranes of the mouth are somewhat dry. Neck: Supple, no JVP, normal carotid upstroke bilaterally, no lymphadenopathy. Chest: Decreased breath sounds at the bases, few rhonchi, minimal expiratory wheezes, no chest wall tenderness, no intercostal retractions.the patient continues to have coarse crackles in lung bases bilaterally. Heart: First heart sound is normal, second heart sounds normal, there is systolic ejection murmur 2/6 located in the left sternal border. Abdomen: Soft, nontender, nondistended, positive bowel sounds. Extremities: There is no edema no calf tenderness DP +2 bilaterally. Neurologic examination: Patient is awake alert and oriented to person, cranial nerves II-12 appear grossly intact, muscle power were 5 out of 5 in upper extremities and 5 out of 5 in bilateral lower extremities, deep tendon reflexes normal bilaterally. - Labs CBC & Chem 7: 06/03/21 11:13 06/03/21 11:13 Assessment and Plan Assessment: 1 Acute hypoxemic respiratory failure secondary to acute COVID-19 pneumonia initially seen in the emergency room 05/10/2021 and received monoclonal antibodies. Seen again in 05/12/2021 however the patient declined admission. Presented here 05/20/2021 with worsening symptoms. She was discharged from the hospital on 05/23/2021. The patient currently is on oxygen at 3 L per minute nasal cannula. I reviewed the current chest x-ray and compared it to the earlier chest exit was done back in April. There is bilateral interstitial infiltrates consistent with residual COVID 19 related infiltrates/pneumonia. Nevertheless, no major interval change. No significant consolidation. Impression requirements are essentially stable at 3 L. The exact cause for decompensation is not clear. Superinfection with bacterial pneumonia is felt to be doubtful at this stage. The patient is not having any fever or leukocytosis. Blood work essentially within normal limits. He is calm and comfortable at this point in time. No reported aspiration. ProBNP level is not elevated and troponins are also negative. Also pro-calcitonin was negative at 0.07. Today 06/05/2021 the patient is sitting up in a chair at the bedside. On room air and doing well. 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 Plan The patient was seen and evaluated From the pulmonary standpoint Room air oxygen Albuterol HFA as needed Plan is for return to [facility] today I, the cosigning physician, performed a history & physical examination of the patient. Lungs sounds faint end expiratory wheeze, few scattered rhonchi. Maintaining good O2 saturations in the 90s on room air. I discussed the assessment and plan of care with my nurse practitioner, Natividad Mays. I attest to the above note as dictated by her.
== END 2021-06-05 13:50 | DRG 193 ==
LOC: EC 10:41 → 6NMEDSUR 14:31 → 3NCARDOBS 06-04 02:56 → OBSVTOIN 06-04 08:44
PROVIDERS: ADMIT Internal Medicine; ATTEND Internal Medicine
DX: J12.81 Pneumonia due to SARS-associated coronavirus (principal); J96.21 Acute and chronic respiratory failure with hypoxia; E44.0 Moderate protein-calorie malnutrition; I11.9 Hypertensive heart disease without heart failure; F01.50 Vascular dementia, unspecified severity, without behavioral disturbance, psychotic disturbance, mood disturbance, and anxiety; I95.9 Hypotension, unspecified; U09.9 Post COVID-19 condition, unspecified; Z20.822 Contact with and (suspected) exposure to COVID-19; E78.5 Hyperlipidemia, unspecified; E86.0 Dehydration; I25.10 Atherosclerotic heart disease of native coronary artery without angina pectoris; K57.30 Diverticulosis of large intestine without perforation or abscess without bleeding; D64.9 Anemia, unspecified; G89.29 Other chronic pain; M54.50 Low back pain, unspecified; H91.92 Unspecified hearing loss, left ear; G47.00 Insomnia, unspecified; I25.2 Old myocardial infarction; M48.00 Spinal stenosis, site unspecified; M19.90 Unspecified osteoarthritis, unspecified site; Z68.28 Body mass index [BMI] 28.0-28.9, adult; Z79.82 Long term (current) use of aspirin; Z79.899 Other long term (current) drug therapy; Z86.79 Personal history of other diseases of the circulatory system; Z95.5 Presence of coronary angioplasty implant and graft; Z86.74 Personal history of sudden cardiac arrest; Z87.891 Personal history of nicotine dependence; Z85.46 Personal history of malignant neoplasm of prostate; Z92.3 Personal history of irradiation; Z87.39 Personal history of other diseases of the musculoskeletal system and connective tissue; Z96.611 Presence of right artificial shoulder joint; Z86.018 Personal history of other benign neoplasm; Z86.010 Personal history of colon polyps; Z98.890 Other specified postprocedural states; Z71.3 Dietary counseling and surveillance; Z82.0 Family history of epilepsy and other diseases of the nervous system; Z80.3 Family history of malignant neoplasm of breast; Z80.1 Family history of malignant neoplasm of trachea, bronchus and lung; Z83.2 Family history of diseases of the blood and blood-forming organs and certain disorders involving the immune mechanism
CPT/HCPCS: 36415; 70450; 71046; 80053; 81003; 83605; 83735; 83880; 84100; 84145; 84484; 85025; 85610; 85730; 87635; 93005; 93306; 94760; 96360; 96361; 99285

== ENCOUNTER 2021-12-15 14:00 | Observation (INO) | payer MEDICARE, OTHER ==
--- NOTE | 2021-12-15 15:47 | ED ---
Dizziness HPI - General Chief Complaint: Dizziness Stated Complaint: Dizzy,Hypo, Sleepy Time Seen by Provider: 12/15/21 15:30 Source: patient, family, RN notes reviewed Mode of arrival: ambulatory Limitations: no limitations - History of Present Illness Initial Comments: Patient is a pleasantly confused 71-year-old male presents to the office with his daughter with concerns regarding episodes of dizziness ongoing for the last 48 hours. His daughter reports that she monitor his blood pressure at the time of his last dizzy spell in which he had some flushing and cold chills; at that time his blood pressure had a systolic reading in the 80s. Upon sitting down his dizziness and flushing improved. He has been taking his blood pressure medications as prescribed. He has a history of vascular dementia with early onset approximately 10 years ago which was worsened slightly after having a V. fib arrest in 2017. He also has a history significant for prostate cancer with radiation and chemotherapy. His daughter is also concerned regarding dec reased appetite and significant weight loss over the last 3 weeks; she reports that he has lost approximately 25 pounds. He denies any nausea or vomiting and just reports that overall he is not feeling hungry. He and his daughter cooperate no fevers, chills, changes in urinary frequency, dysuria, hematuria, or urinary odor. In addition to his as stated above history he also has a history of A. fib, hypertension, hyperlipidemia, osteoarthritis, chronic back pain and diverticulosis. - Related Data Home Medications Medication Instructions Recorded Confirmed Tamsulosin [Flomax] 0.4 mg PO DAILY 10/21/16 06/03/21 Memantine [Namenda] 10 mg PO BID 05/12/21 06/03/21 Omeprazole 20 mg PO DAILY 06/03/21 06/03/21 Metoprolol Tartrate [Lopressor] 12.5 mg PO BID 12/15/21 12/15/21 QUEtiapine [SEROquel] 12.5 mg PO TID 12/15/21 12/15/21 Previous Rx's Medication Instructions Recorded Atorvastatin [Lipitor] 80 mg PO HS #90 tab 10/24/16 Nitroglycerin Sl Tabs [Nitrostat] 0.4 mg SUBLINGUAL Q5M PRN #25 tab 10/24/16 Aspirin 325 mg PO DAILY #20 tab 05/08/20 Donepezil [Aricept] 10 mg PO HS tab 06/05/21 Folic Acid 1 mg PO DAILY tab 06/05/21 Allergies Allergy/AdvReac Type Severity Reaction Status Date / Time No Known Allergies Allergy Verified 12/15/21 18:23 Review of Systems ROS Statement: Those systems with pertinent positive or pertinent negative responses have been documented in the HPI. ROS Other: All systems not noted in ROS Statement are negative. Past Medical History Past Medical History: Atrial Fibrillation, Cancer, Dementia, Hearing Disorder / Deafness, Hyperlipidemia, Hypertension, Memory Impairment, Myocardial Infarction ([place]), Osteoarthritis (OA), Prostate Disorder Additional Past Medical History / Comment(s): Pt tested covid + by home test and here at [facility] on 05/10/21, 10/21/16 [place]/cardiac arrest/vfib, prostate cancer tx with radiation/seed implants/chemo, chronic back pain, spinal stenosis, benign colon polyp/diverticular disease, Left ear hearing loss Last Myocardial Infarction Date:: SEPTEMBER 2016 History of Any Multi-Drug Resistant Organisms: None Reported Past Surgical History: Heart Catheterization With Stent, Orthopedic Surgery, Prostate Surgery Additional Past Surgical History / Comment(s): 09/2016 PCI with stent to LAD, prostate biopsy/seed implants, R rotator cuff repair, reverse R total shoulder, L acoustic neuroma removed, colonoscopy. Past Anesthesia/Blood Transfusion Reactions: No Reported Reaction, Postoperative Nausea & Vomiting (PONV) Additional Past Anesthesia/Blood Transfusion Reaction / Comment(s): has used scopolamine patch in past Date of Last Stent Placement:: 10/21/16 Past Psychological History: No Psychological Hx Reported Smoking Status: Former smoker Past Alcohol Use History: None Reported Past Drug Use History: None Reported - Past Family History Father Family Medical History: Dementia Additional Family Medical History / Comment(s): PARKINSONS Mother Additional Family Medical History / Comment(s): MOM ,NO HX KNOWN Sister(s) Family Medical History: Cancer Additional Family Medical History / Comment(s): SISTER #1 BREAST CANCER. SISTER #2 LUNG CANCER Daughter(s) Family Medical History: Blood Disorder Additional Family Medical History / Comment(s): ITP General Exam Limitations: no limitations General appearance: alert, in no apparent distress Head exam: Present: atraumatic, normocephalic, other (Hard nodule postauricle approximately 2 cm in diameter) Eye exam: Present: normal appearance, PERRL, EOMI. Absent: scleral icterus, conjunctival injection, periorbital swelling ENT exam: Present: normal exam, mucous membranes moist Neck exam: Present: normal inspection. Absent: lymphadenopathy Respiratory exam: Present: normal lung sounds bilaterally. Absent: respiratory distress, wheezes, rales, rhonchi, stridor Cardiovascular Exam: Present: regular rate, normal rhythm, normal heart sounds. Absent: systolic murmur, diastolic murmur, rubs, gallop, clicks GI/Abdominal exam: Present: soft, normal bowel sounds. Absent: distended, tenderness, guarding, rebound, rigid Rectal exam: Present: deferred Extremities exam: Present: normal inspection, full ROM, normal capillary refill. Absent: tenderness, pedal edema, joint swelling, calf tenderness Back exam: Present: normal inspection Neurological exam: Present: alert, CN II-XII intact Expanded Patient oriented to: Present: person, place. Absent: time Psychiatric exam: Present: normal affect, normal mood Skin exam: Present: warm, dry, intact, normal color. Absent: rash Course Vital Signs 12/15/21 12/15/21 14:31 17:25 Temperature 97.5 F L Pulse Rate 89 62 Respiratory 18 18 Rate Blood Pressure 118/71 121/79 O2 Sat by Pulse 98 99 Oximetry Medical Decision Making - Medical Decision Making The setting of hypotension with dizziness and improvement upon laying down concern for hypertensive regimen dose needing adjusted versus dehydration. No overt syncope, no falls or head trauma. No indication for computed tomography scan at this time. Will check labs including CBC, CMP, lactic acid and troponin along with urinalysis and EKG. CMP shows evidence of dehydration we'll give IV fluid bolus and check orthostatics after IV fluid bolus. EKG shows normal sinus rhythm. Mild thrombocytopenia noted otherwise CBC stable. Troponin elevated at 0.039 continues to remain dizziness free while in a supine position. No chest pain or shortness of breath. Findings discussed with patient and his daughter. Will plan for observation admission to monitor troponins. Case discussed with Dr. Rayo. Daron Prasad covering for [facility] notified regarding observation admission; and [facility] covering for Dr. Juanis milton with the patient's primary care provider and currently out of town. - Lab Data Result diagrams: 12/15/21 15:50 12/15/21 15:40 Lab Results 12/15/21 12/15/21 12/15/21 Range/Units 15:40 15:50 15:50 WBC 4.2 (3.8-10.6) k/uL RBC 4.74 (4.30-5.90) m/uL Hgb 14.0 (13.0-17.5) gm/dL Hct 42.0 (39.0-53.0) % MCV 88.6 (80.0-100.0) fL MCH 29.6 (25.0-35.0) pg MCHC 33.4 (31.0-37.0) g/dL RDW 12.8 (11.5-15.5) % Plt Count 133 L (150-450) k/uL MPV 9.4 Neutrophils % 77 % Lymphocytes % 13 % Monocytes % 7 % Eosinophils % 2 % Basophils % 0 % Neutrophils # 3.2 (1.3-7.7) k/uL Lymphocytes # 0.6 L (1.0-4.8) k/uL Monocytes # 0.3 (0-1.0) k/uL Eosinophils # 0.1 (0-0.7) k/uL Basophils # 0.0 (0-0.2) k/uL Sodium 139 (137-145) mmol/L Potassium 4.5 (3.5-5.1) mmol/L Chloride 102 (98-107) mmol/L Carbon Dioxide 29 (22-30) mmol/L Anion Gap 8 mmol/L BUN 23 H (9-20) mg/dL Creatinine 1.03 (0.66-1.25) mg/dL Est GFR (CKD-EPI)AfAm 85 (>60 ml/min/1.73 sqM) Est GFR (CKD-EPI)NonAf 74 (>60 ml/min/1.73 sqM) Glucose 107 H (74-99) mg/dL Plasma Lactic Acid Ayden 1.1 (0.7-2.0) mmol/L Calcium 10.0 (8.4-10.2) mg/dL Total Bilirubin 0.8 (0.2-1.3) mg/dL AST 22 (17-59) U/L ALT 14 (4-49) U/L Alkaline Phosphatase 92 (38-126) U/L Troponin I (0.000-0.034) ng/mL Total Protein 6.7 (6.3-8.2) g/dL Albumin 3.8 (3.5-5.0) g/dL 12/15/21 Range/Units 15:50 WBC (3.8-10.6) k/uL RBC (4.30-5.90) m/uL Hgb (13.0-17.5) gm/dL Hct (39.0-53.0) % MCV (80.0-100.0) fL MCH (25.0-35.0) pg MCHC (31.0-37.0) g/dL RDW (11.5-15.5) % Plt Count (150-450) k/uL MPV Neutrophils % % Lymphocytes % % Monocytes % % Eosinophils % % Basophils % % Neutrophils # (1.3-7.7) k/uL Lymphocytes # (1.0-4.8) k/uL Monocytes # (0-1.0) k/uL Eosinophils # (0-0.7) k/uL Basophils # (0-0.2) k/uL Sodium (137-145) mmol/L Potassium (3.5-5.1) mmol/L Chloride (98-107) mmol/L Carbon Dioxide (22-30) mmol/L Anion Gap mmol/L BUN (9-20) mg/dL Creatinine (0.66-1.25) mg/dL Est GFR (CKD-EPI)AfAm (>60 ml/min/1.73 sqM) Est GFR (CKD-EPI)NonAf (>60 ml/min/1.73 sqM) Glucose (74-99) mg/dL Plasma Lactic Acid Ayden (0.7-2.0) mmol/L Calcium (8.4-10.2) mg/dL Total Bilirubin (0.2-1.3) mg/dL AST (17-59) U/L ALT (4-49) U/L Alkaline Phosphatase (38-126) U/L Troponin I 0.039 H* (0.000-0.034) ng/mL Total Protein (6.3-8.2) g/dL Albumin (3.5-5.0) g/dL - EKG Data EKG Comments: Sinus rhythm, ventricular rate 7 4 bpm, NC interval 156 ms, QRS duration 84 ms, QT/QTC 392/420 ms, PRT axes 33, 4, 17 Disposition Clinical Impression: Dizziness, Elevated troponin Disposition: ADMITTED IP TO THIS HOSP Condition: Stable Referrals: Kassandra Gillette MD [Primary Care Provider] - 1-2 days Time of Disposition: 17:10
[2021-12-15 16:19] LABS: Basophils % (A) 0 %; Eosinophils # (A) 0.1 k/uL (0-0.7); Eosinophils % (A) 2 %; Lymphocytes # (A) 0.6 k/uL (1.0-4.8); Lymphocytes % (A) 13 %; MCH 29.6 pg (25.0-35.0); MCHC 33.4 g/dL (31.0-37.0); MCV 88.6 fL (80.0-100.0); Mean Platelet Volume 9.4; Monocytes # (A) 0.3 k/uL (0-1.0); Monocytes % (A) 7 %; Neutrophils # (A) 3.2 k/uL (1.3-7.7); Neutrophils % (A) 77 %; Platelet Count 133 k/uL (150-450); RBC 4.74 m/uL (4.30-5.90); RDW 12.8 % (11.5-15.5); WBC 4.2 k/uL (3.8-10.6)
[2021-12-15 16:38] LABS: Albumin 3.8 g/dL (3.5-5.0); Potassium 4.5 mmol/L (3.5-5.1); Total Bilirubin 0.8 mg/dL (0.2-1.3); Total Protein 6.7 g/dL (6.3-8.2)
[2021-12-15] MEDS ORDERED: SODIUM CHLORIDE 0.9% 1,000 ML IV STA (16:45)
[2021-12-15] MEDS ORDERED: NALOXONE 0.4 MG/ML 1 ML VIAL IV PRN (18:11)
[2021-12-15 21:41] LABS: Appearance,Urine Clear (Clear); Bilirubin,Urine Negative (Negative); Blood,Urine Negative (Negative); Color,Urine Yellow; Glucose,Urine (UA) Negative (Negative); Hyaline Casts,Urine 8 /lpf (0-2); Ketones,Urine Negative (Negative); Leukocyte Esterase,Urine Negative (Negative); Mucus,Urine Many /hpf; Nitrite,Urine Negative (Negative); PH, Urine 5.5 (5.0-8.0); Protein,Urine 1+ (Negative); RBC,Urine 1 /hpf (0-5); Specific Gravity,Urine 1.021 (1.001-1.035); Squamous Epithelial Cell,Urine <1 /hpf (0-4); Urobilinogen,Urine <2.0 mg/dL (<2.0); WBC,Urine 3 /hpf (0-5)
[2021-12-15] MEDS: SODIUM CHLORIDE 0.9% 1,000 ML IV SCH (23:05)
[2021-12-16] MEDS ORDERED: TAMSULOSIN 0.4 MG CAP.ER.24H PO STA (05:27)
[2021-12-16 14:26] VITALS: BMI 24.9
[2021-12-16] MEDS: SODIUM CHLORIDE 0.9% 1,000 ML IV SCH ×2 (15:31→20:57)
--- NOTE | 2021-12-16 15:50 | P.HPIM ---
History of Present Illness H&P Date: 12/16/21 This is a 71-year-old male medical history significant for atrial fibrillation, vascular dementia, hypertension, hyperlipidemia, chronic back pain with spinal stenosis, coronary artery disease status post stenting to the LAD in 2016 with ventricular fibrillation and one episode of atrial ablation with RVR. Patient also has history chronic hypoxic respiratory failure and home O2 at 3-4 L which he required after COVID pneumonia in 2020. Patient is now on room air. Patient with history of prostate cancer status post chemoradiation back in [address] Orourke for this. His most recent PSA earlier this year was zero. Patient follows with Dr. Gillette in the primary care setting. Patient presents to the emergency room with complaints of dizziness ongoing for the last 48 hours. Patient also had some flushing and dizziness reports seeing black and blood pressure was found to be in the systolic 80s. Daughter who is patients many caregiver reports monitoring blood pressure at home and states orthostatics have been negative but he has been running in the 80s systolic. Patient has had poor oral intake, decreased appetite and significant weight loss over the past 3 weeks of around 25 pounds. No nausea no vomiting, no fever or chills noted. Labs on admission showing unremarkable blood count panel with the exception of platelet count of 133. Triglycerides are showing a sodium of 139, potassium 4.5, BUN 23, creatinine 1.03, glucose is 107, liver enzymes are within normal limits. Patient does have troponin elevation of 0.039, 0.037, 0.039. Urinalysis is showing proteinuria with urinary mucus and hyaline casts. Patient presented to the ER with a blood pressure 118/71, he is 98% on room air, heart rate is 89. He received a 1 L fluid bolus in the EC and has been started on hy dration with normal saline at 75 mL per hour. Patient is admitted for observation, we will consult physical therapy, monitor blood pressure and complete orthostatics. Oncology will also be consulted for evaluation regarding history of cancer and recent weight loss. Hold antihypertensives for now. REVIEW OF SYSTEMS: CONSTITUTIONAL: No fever, no malaise, no fatigue. HEENT: No recent visual problems or hearing problems. Denied any sore throat. CARDIOVASCULAR: No chest pain, orthopnea, PND, no palpitations, no syncope. PULMONARY: No shortness of breath, no cough, no hemoptysis. GASTROINTESTINAL: No diarrhea, no nausea, no vomiting, no abdominal pain. NEUROLOGICAL: No headaches, no weakness, no numbness. HEMATOLOGICAL: Denies any bleeding or petechiae. GENITOURINARY: Denies any burning micturition, frequency, or urgency. MUSCULOSKELETAL/RHEUMATOLOGICAL: Denies any joint pain, swelling, or any muscle pain. ENDOCRINE: Denies any polyuria or polydipsia. Recent weight loss 25 lbs over the last 3 months. The rest of the 14-point review of systems is negative. PHYSICAL EXAMINATION: GENERAL: The patient is alert and oriented x3, not in any acute distress. Well developed, well nourished. HEENT: Pupils are round and equally reacting to light. EOMI. No scleral icterus. No conjunctival pallor. Normocephalic, atraumatic. No pharyngeal erythema. No thyromegaly. CARDIOVASCULAR: S1 and S2 present. No murmurs, rubs, or gallops. PULMONARY: Chest is clear to auscultation, no wheezing or crackles. ABDOMEN: Soft, nontender, nondistended, normoactive bowel sounds. No palpable organomegaly. MUSCULOSKELETAL: No joint swelling or deformity. EXTREMITIES: No cyanosis, clubbing, or pedal edema. NEUROLOGICAL: Gross neurological examination did not reveal any focal deficits. SKIN: No rashes. Assessment and plan Assessment Dizziness and hypotension most likely secondary to vascular depletion from poor oral intake Presyncope secondary to hypotension Mild acute renal injury secondary to poor oral intake Troponin elevation, not suggestive of ACS, most likely from dehydration, hypotension History of prostate cancer with chemoradiation History of paroxysmal atrial fibrillation not on any anticoagulation History of hypertension next and history of hyperlipidemia History chronic back pain with spinal stenosis History of coronary artery disease status post stenting to the LAD Vascular dementia early onset History diverticulosis GI Prophylaxis DVT Prophylaxis Full Code Plan Continue IV fluids Repeat labs tomorrow Orthostatic blood pressure monitoring PT/OT evaluation Hold antihypertensives [facility] consultation Oncology consultation regarding recent weight loss Resume appropriate home medications Patient is admitted for observation anticipated hospital stay less than 2 nights. The impression and plan of care has been dictated by Shereen Morel Nurse Practitioner as directed. Dr. Mickey MD I have performed a history and physical examination and medical decision making of this patient, discussed the same with the dictator, and agree with the dictators assessment and plan as written, documented as a scribe. Based on total visit time, I have performed more than 50% of this visit. Past Medical History Past Medical History: Atrial Fibrillation, Cancer, Dementia, Hearing Disorder / Deafness, Hyperlipidemia, Hypertension, Memory Impairment, Myocardial Infarction ([place]), Osteoarthritis (OA), Prostate Disorder Additional Past Medical History / Comment(s): Pt tested covid + by home test and here at [facility] on 05/10/21, 10/21/16 [place]/cardiac arrest/vfib, prostate cancer tx with radiation/seed implants/chemo, chronic back pain, spinal stenosis, benign colon polyp/diverticular disease, Left ear hearing loss Last Myocardial Infarction Date:: SEPTEMBER 2016 History of Any Multi-Drug Resistant Organisms: None Reported Past Surgical History: Heart Catheterization With Stent, Orthopedic Surgery, Prostate Surgery Additional Past Surgical History / Comment(s): 09/2016 PCI with stent to LAD, prostate biopsy/seed implants, R rotator cuff repair, reverse R total shoulder, L acoustic neuroma removed, colonoscopy. Past Anesthesia/Blood Transfusion Reactions: No Reported Reaction, Postoperative Nausea & Vomiting (PONV) Additional Past Anesthesia/Blood Transfusion Reaction / Comment(s): has used scopolamine patch in past Date of Last Stent Placement:: 10/21/16 Past Psychological History: No Psychological Hx Reported Smoking Status: Former smoker Past Alcohol Use History: None Reported Past Drug Use History: None Reported - Past Family History Father Family Medical History: Dementia Additional Family Medical History / Comment(s): PARKINSONS Mother Additional Family Medical History / Comment(s): MOM ,NO HX KNOWN Sister(s) Family Medical History: Cancer Additional Family Medical History / Comment(s): SISTER #1 BREAST CANCER. SISTER #2 LUNG CANCER Daughter(s) Family Medical History: Blood Disorder Additional Family Medical History / Comment(s): ITP Medications and Allergies Home Medications Medication Instructions Recorded Confirmed Type Tamsulosin [Flomax] 0.4 mg PO DAILY 10/21/16 12/15/21 History Atorvastatin [Lipitor] 80 mg PO HS #90 tab 10/24/16 12/15/21 Rx Nitroglycerin Sl Tabs [Nitrostat] 0.4 mg SUBLINGUAL Q5M PRN #25 tab 10/24/16 12/15/21 Rx Aspirin 325 mg PO DAILY #20 tab 05/08/20 12/15/21 Rx Memantine [Namenda] 10 mg PO BID 05/12/21 12/15/21 History Omeprazole 20 mg PO DAILY 06/03/21 12/15/21 History Donepezil [Aricept] 10 mg PO HS tab 06/05/21 12/15/21 Rx Folic Acid 1 mg PO DAILY tab 06/05/21 12/15/21 Rx Metoprolol Tartrate [Lopressor] 12.5 mg PO BID 12/15/21 12/15/21 History QUEtiapine [SEROquel] 12.5 mg PO TID 12/15/21 12/15/21 History Allergies Allergy/AdvReac Type Severity Reaction Status Date / Time No Known Allergies Allergy Verified 12/15/21 18:23 Physical Exam Vitals: Vital Signs Temp Pulse Pulse Resp BP BP Pulse Ox 12/16/21 08:55 97.2 F L 70 18 126/93 96 12/16/21 07:20 97 12/16/21 04:00 77 113/65 12/15/21 23:00 83 16 119/59 99 12/15/21 22:00 73 17 131/61 97 12/15/21 21:00 78 20 102/47 97 12/15/21 20:50 72 18 102/47 99 12/15/21 20:00 77 18 95/69 98 12/15/21 19:00 73 20 92/58 97 12/15/21 18:00 61 17 121/79 98 12/15/21 17:25 62 18 121/79 99 12/15/21 17:00 66 18 118/56 98 12/15/21 16:00 70 21 99/67 96 12/15/21 14:31 97.5 F L 89 18 118/71 98 Results CBC & Chem 7: 12/15/21 15:50 12/15/21 15:40 Labs: Abnormal Lab Results - Last 24 Hours (Table) 12/15/21 12/15/21 12/15/21 Range/Units 15:40 15:50 15:50 Plt Count 133 L (150-450) k/uL Lymphocytes # 0.6 L (1.0-4.8) k/uL BUN 23 H (9-20) mg/dL Glucose 107 H (74-99) mg/dL Troponin I (0.000-0.034) ng/mL Urine Protein 1+ H (Negative) Hyaline Casts 8 H (0-2) /lpf Urine Mucus Many H (None) /hpf 12/15/21 12/15/21 12/16/21 Range/Units 15:50 21:03 07:43 Plt Count (150-450) k/uL Lymphocytes # (1.0-4.8) k/uL BUN (9-20) mg/dL Glucose (74-99) mg/dL Troponin I 0.039 H* 0.037 H* 0.039 H* (0.000-0.034) ng/mL Urine Protein (Negative) Hyaline Casts (0-2) /lpf Urine Mucus (None) /hpf Assessment and Plan Time with Patient: Less than 30
[2021-12-16] MEDS: QUEtiapine 25 MG TAB PO SCH ×2 (16:22→20:58)
[2021-12-16] MEDS: METOPROLOL TARTRATE 12.5 MG TAB PO SCH (20:58)
[2021-12-16] MEDS: MEMANTINE 10 MG TAB PO SCH (20:58)
[2021-12-16] MEDS ORDERED: ATORVASTATIN 80 MG TAB PO SCH (21:00)
[2021-12-16] MEDS ORDERED: DONEPEZIL 10 MG TAB PO SCH (21:00)
[2021-12-17 02:41] VITALS: RESP 18
[2021-12-17 05:35] LABS: African American GFR (CKD) >90 (>60 ml/min/1.73 sqM); Anion Gap 4 mmol/L; Blood Urea Nitrogen 17 mg/dL (9-20); Calcium 9.1 mg/dL (8.4-10.2); Carbon Dioxide 25 mmol/L (22-30); Chloride 110 mmol/L (98-107); Glucose 99 mg/dL (74-99); Non-African American GFR(CKD) 88 (>60 ml/min/1.73 sqM); Potassium 3.9 mmol/L (3.5-5.1); Sodium 139 mmol/L (137-145)
[2021-12-17] MEDS ORDERED: PANTOPRAZOLE 40 MG TABLET PO SCH (07:30)
[2021-12-17] MEDS ORDERED: TAMSULOSIN 0.4 MG CAP.ER.24H PO SCH (09:00)
[2021-12-17] MEDS ORDERED: FOLIC ACID 1 MG TAB PO SCH (09:00)
[2021-12-17] MEDS ORDERED: ASPIRIN 325 MG TAB PO SCH (09:00)
[2021-12-17] MEDS: METOPROLOL TARTRATE 12.5 MG TAB PO SCH (10:00)
[2021-12-17] MEDS: MEMANTINE 10 MG TAB PO SCH (10:01)
[2021-12-17] MEDS: QUEtiapine 25 MG TAB PO SCH ×2 (10:01→16:38)
[2021-12-17] MEDS ORDERED: RX INFO: IV CONTRAST WAS GIVEN 1 EACH MISC MISCELLANE PRN (11:21)
[2021-12-17 13:57] VITALS: BP 91/52; PULSE 68; TEMP 97.7
--- NOTE | 2021-12-17 14:09 | CT ---
EXAMINATION TYPE: CT ChestAbdPelvis w con CT DLP: 587 mGycm, Automated exposure control for dose reduction was used. DATE OF EXAM: 12/17/2021 12:05 PM COMPARISON: CTA chest 05/12/2021. CLINICAL INDICATION:Male, 71 years old with history of weight loss prostate cancer; PHH, prostate ca Technique: Multiple axial images of the chest, abdomen, and pelvis were obtained following the intrav enous administration of 100 mL Isovue-300. Two-dimensional coronal and sagittal reconstructions were obtained. Findings: CHEST: LUNGS/ PLEURA: No pneumothorax or pleural effusion. Bilateral posterior lower lobe and upper lobe ret icular groundglass scarring demonstrated. No focal consolidation. No suspicious pulmonary nodule. Mil d centrilobular emphysematous changes. AIRWAY: Patent and unremarkable.. HEART: Size within normal limits. No pericardial effusion. Coronary artery calcifications. MEDIASTINUM: No gross evidence of adenopathy. VASCULATURE: No aortic aneurysm. Atherosclerotic calcification of the aortic arch. MUSCULOSKELETAL: No acute osseous abnormalities. Partially visualized reversed right shoulder arthrop lasty. Mild superior endplate deformity of T8 again demonstrated. No suspicious osseous lesions. SOFT TISSUES/LYMPH NODES: Unremarkable. LOWER NECK: No significant findings. ABDOMEN: ABDOMEN LIVER: Approximately 6 subcentimeter hypodense lesions within the liver which are too small to charac terize but may represent cysts. GALLBLADDER AND BILE DUCTS: Cholelithiasis without evidence for acute cholecystitis. No biliary ducta l dilatation. PANCREAS: Unremarkable. SPLEEN: Unremarkable. ADRENAL GLANDS: Unremarkable. KIDNEYS AND URETERS: No hydronephrosis or renal calculi. Bilateral renal atrophy. PELVIS BLADDER: Under distended with wall thickening possibly related to prior prostate treatment. REPRODUCTIVE: Posttreatment changes the prostate with metallic brachytherapy seeds/fiducial markers i dentified. ABDOMEN & PELVIS STOMACH AND BOWEL: Stomach and duodenum are unremarkable. Colonic diverticulosis without evidence for acute diverticulitis. The appendix is within normal limits. No evidence of bowel obstruction. PERITONEUM: No evidence of pneumoperitoneum or free fluid. VASCULATURE: Infrarenal fusiform abdominal aortic aneurysm measuring up to 3.5 cm. There is significa nt mural thrombus identified within the aneurysm. Moderate atherosclerotic calcification of the aorta and its branches. MUSCULOSKELETAL: No acute osseous abnormalities. No suspicious osseous lesions. Anterior wedging defo rmity of the L4 vertebral body with approximately 30% height loss and 3 mm of retropulsion. No parasp inal edema. LYMPH NODES: No gross evidence for lymphadenopathy. SOFT TISSUE/ABDOMINAL WALL: Unremarkable IMPRESSION: 1. No evidence for metastatic disease. 2. Infrarenal abdominal aortic aneurysm measuring up to 3.5 cm. 3. Anterior wedge deformity of the L4 vertebral body appears remote. Correlate with point tenderness. 4. Colonic diverticulosis without evidence for acute diverticulitis. 5. COPD changes with bilateral reticular ground glass opacities likely representing scarring and/or r esolving Covid infection. 6. Cholelithiasis.
[2021-12-17] MEDS: SODIUM CHLORIDE 0.9% 1,000 ML IV SCH (16:39)
--- NOTE | 2021-12-17 20:37 | P.CONS ---
History of Present Illness - Reason for Consult Consult date: 12/17/21 Weight loss, concern for malignancy - History of Present Illness Mr. Simmons is a 71 year old gentleman with a PMHx significant for prostate cancer previously treated with surgery and radiation therapy who initially presented with dizziness. He was noted to have hypotension secondary to blood pressure medications. He was given 1 L bolus of NS upon presentation, with resolution of his hypotension. He & his family did note 20-25 Ibs weight loss over the past 3 weeks. Given his history of malignancy, oncology was consulted for additional management recommendations. He notes having increased fatigue over the past 3 weeks. He does note anorexia during this time as well. He doesn't note lymphadenopathy, night sweats, fevers, or chills. He denies any cough, dyspnea, or hemoptysis. He denies any melena, hematochezia, BRBPR, constipation, or small-caliber stools. Most recent PSA on 08/14/21 was noted to be zero. He and his daughter recall having had colonoscopy in the past, but cannot remember when exactly. Review of Systems 14 point review of systems conducted with pertinent positives and negatives per HPI. Past Medical History Past Medical History: Atrial Fibrillation, Cancer, Dementia, Hearing Disorder / Deafness, Hyperlipidemia, Hypertension, Memory Impairment, Myocardial Infarction (IN), Osteoarthritis (OA), Prostate Disorder Additional Past Medical History / Comment(s): Pt tested covid + by home test and here at [facility] on 05/10/21, 10/21/16 [place]/cardiac arrest/vfib, prostate cancer tx with radiation/seed implants/chemo, chronic back pain, spinal stenosis, benign colon polyp/diverticular disease, Left ear hearing loss Last Myocardial Infarction Date:: SEPTEMBER 2016 History of Any Multi-Drug Resistant Organisms: None Reported Past Surgical History: Heart Catheterization With Stent, Orthopedic Surgery, Prostate Surgery Additional Past Surgical History / Comment(s): 09/2016 PCI with stent to LAD, prostate biopsy/seed implants, R rotator cuff repair, reverse R total shoulder, L acoustic neuroma removed, colonoscopy. Past Anesthesia/Blood Transfusion Reactions: No Reported Reaction, Postoperative Nausea & Vomiting (PONV) Additional Past Anesthesia/Blood Transfusion Reaction / Comm: has used scopolamine patch in past Date of Last Stent Placement:: 10/21/16 Past Psychological History: No Psychological Hx Reported Smoking Status: Former smoker Past Alcohol Use History: None Reported Past Drug Use History: None Reported - Past Family History Father Family Medical History: Dementia Additional Family Medical History / Comment(s): PARKINSONS Mother Additional Family Medical History / Comment(s): MOM ,NO HX KNOWN Sister(s) Family Medical History: Cancer Additional Family Medical History / Comment(s): SISTER #1 BREAST CANCER. SISTER #2 LUNG CANCER Daughter(s) Family Medical History: Blood Disorder Additional Family Medical History / Comment(s): ITP Medications and Allergies Home Medications Medication Instructions Recorded Confirmed Type Tamsulosin [Flomax] 0.4 mg PO DAILY 10/21/16 12/15/21 History Atorvastatin [Lipitor] 80 mg PO HS #90 tab 10/24/16 12/15/21 Rx Nitroglycerin Sl Tabs [Nitrostat] 0.4 mg SUBLINGUAL Q5M PRN #25 tab 10/24/16 12/15/21 Rx Aspirin 325 mg PO DAILY #20 tab 05/08/20 12/15/21 Rx Memantine [Namenda] 10 mg PO BID 05/12/21 12/15/21 History Omeprazole 20 mg PO DAILY 06/03/21 12/15/21 History Donepezil [Aricept] 10 mg PO HS tab 06/05/21 12/15/21 Rx Folic Acid 1 mg PO DAILY tab 06/05/21 12/15/21 Rx Metoprolol Tartrate [Lopressor] 12.5 mg PO BID 12/15/21 12/15/21 History QUEtiapine [SEROquel] 12.5 mg PO TID 12/15/21 12/15/21 History Allergies Allergy/AdvReac Type Severity Reaction Status Date / Time No Known Allergies Allergy Verified 12/15/21 18:23 Physical Exam Vitals: Vital Signs Temp Pulse Resp BP Pulse Ox 12/17/21 14:00 68 18 12/17/21 13:56 97.7 F 68 18 91/52 99 12/17/21 09:59 97.4 F L 93 18 154/77 98 12/17/21 08:00 93 18 12/17/21 00:38 98.3 F 82 18 124/73 99 Intake and Output 12/17/21 12/17/21 12/17/21 06:59 14:59 22:59 Intake Total 118 Balance 118 Intake: Oral 118 Other: Voiding Method Toilet Toilet # Voids 1 - Constitutional General appearance: cooperative, no acute distress, thin - EENT Eyes: EOMI - Neck Neck: no lymphadenopathy - Respiratory Respiratory: bilateral: CTA - Cardiovascular Rhythm: regular Heart sounds: normal: S1, S2 Abnormal Heart Sounds: no systolic murmur, no diastolic murmur - Gastrointestinal General gastrointestinal: no distended, normal bowel sounds, soft - Genitourinary Bilateral inguinal lymphadenopathy - Neurologic Neurologic: CNII-XII intact - Psychiatric Psychiatric: appropriate affect Results CBC & Chem 7: 12/15/21 15:50 12/17/21 04:50 Labs: Abnormal Lab Results - Last 24 Hours (Table) 12/17/21 Range/Units 04:50 Chloride 110 H (98-107) mmol/L Assessment and Plan Assessment: Mr. Simmons is a 71 year old gentleman with a PMHx significant for localized prostate cancer s/p surgery & radiation therapy who oncology is consulted regard ing weight loss. Weight Loss - He & daughter notes 20-25 Ibs weight loss over 3 weeks with anorexia - There was palpable right inguinal lymphadenopathy on exam - Recommend obtaining CT c/a/p with contrast given his history of prostate cancer - If no lesions are identified, EGD/colonoscopy would be warranted given his weight loss - Patient and daughter can follow up in clinic if he is otherwise he modynamically stable
--- NOTE | 2021-12-24 16:26 | P.DS ---
Providers Date of admission: 12/15/21 18:09 Attending physician: Jaspal Chaves Consults: 12/16/21 15:36 Consult Physician Routine Consulting Provider: Tea Madsen Consult Reason/Comments: history prostate cancer, recent weight loss 25 lbs Do you want consulting provider notified?: Yes Primary care physician: Kassandra Gillette Hospital Course: Diagnosis Dizziness and hypotension most likely secondary to vascular depletion from poor oral intake Presyncope secondary to hypotension Mild acute renal injury secondary to poor oral intake Troponin elevation, not suggestive of ACS, most likely from dehydration, hypotension History of prostate cancer with chemoradiation History of paroxysmal atrial fibrillation not on any anticoagulation History of hypertension next and history of hyperlipidemia History chronic back pain with spinal stenosis History of coronary artery disease status post stenting to the LAD Vascular dementia early onset History diverticulosis Discharge Disposition Patient is stable for discharge home. He has been hydrated and monitored overnight. Blood pressure has stabilized, orthostatics are negative and he has been resumed on beta saad. PT/OT evaluation has been completed and patient cleared for DC home. He has also been evaluated by oncology regarding weight loss and they will follow up with patient in the office. Hospital course This is a 71-year-old male with history significant for atrial fibrillation, vascular dementia, hypertension, hyperlipidemia, chronic back pain, coronary artery disease status post PCI, hypoxic respiratory failure requiring oxygen after having Covid but is now currently on room air. Patient is a history also prostate cancer status post chemotherapy radiation and follows with urology outpatient. Most recent PSA was 0. Patient presented to the emergency room with complaints of dizziness ongoing for last couple days. He does have flushing and his daughter took his blood pressure which was found to be in the 80s systolic. Patient lives by himself and has 2 daughters check up on him all day long. Patient doesn't poor oral intake and also has decreased appetite and significant weight loss of 25 pounds within the last 3 weeks. He denies any chest pain, no shortness of breath, no nausea or vomiting. He has not had any fever or chills. On admission he does a platelet count of 133, is of mild dehydration with creatinine 1.03. He does have troponin elevation at 0.039, 0.037, 0.039. Patient received a fluid bolus and was monitored overnight and blood pressure has normalized into the 1 teens over 70s, he is resumed on his beta saad. Oncology was consulted regarding weight loss and they ordered chest abdominal pelvis CT which was completed showing no evidence for metastatic disease, there is infrarenal abdominal aortic aneurysm measuring up to 3.5 cm there is an anterior wedge deformity of L4 vertebral body which we use remote there is chronic diverticulosis without acute diverticulitis. There is COPD changes with bilateral reticular ground last obesity is likely representing scarring and/or resolving Covid infection which is consistent with medical history. There is cholelithiasis there is no evidence for acute cholecystitis. Patient is recommended to follow-up with oncology outpatient. creatinine has normalized to 0.86. 12/17/2021 Patient evaluated today sitting up at the bedside. No acute events overnight. He has been evaluated by oncology will follow-up with him in the office. His blood pressure has remained stable and he is tolerating resuming his beta saad. Orthostatics are negative. Patient is recommended to continue with oral protein supplementation between meals. Follow-up with oncology office and he will also follow up with vascular regarding abdominal aneurysm. Oncology is recommending bone scan outpatient. Patient denies chest pain, denies shortness of breath, denies nausea denies vomiting denies diarrhea. He is at baseline mentation. He'll be discharged home today. Lungs are clear, S1-S2 auscultated, focal neurological exam is negative. Patient is afebrile, heart rate 86, blood pressure 131/83, 99% room air. Please see medication reconciliation for list of current medication. Thank you for allowing us to participate in the care of this patient. Total time taken in discharge planning greater than 35 minutes The impression and plan of care has been dictated by Shereen Morel, Nurse Practitioner as directed. Dr. Mickey MD I have performed a history and physical examination and medical decision making of this patient, discussed the same with the dictator, and agree with the dictators assessment and plan as written, documented as a scribe. Based on total visit time, I have performed more than 50% of this visit. Patient Condition at Discharge: Stable Plan - Discharge Summary Discharge Rx Participant: Yes New Discharge Prescriptions: Continue Tamsulosin [Flomax] 0.4 mg PO DAILY Atorvastatin [Lipitor] 80 mg PO HS #90 tab Nitroglycerin Sl Tabs [Nitrostat] 0.4 mg SUBLINGUAL Q5M PRN #25 tab PRN Reason: Chest Pain Aspirin 325 mg PO DAILY #20 tab Memantine [Namenda] 10 mg PO BID Omeprazole 20 mg PO DAILY Folic Acid 1 mg PO DAILY tab Donepezil [Aricept] 10 mg PO HS tab QUEtiapine [SEROquel] 12.5 mg PO TID Metoprolol Tartrate [Lopressor] 12.5 mg PO BID Discharge Medication List Tamsulosin [Flomax] 0.4 mg PO DAILY 10/21/16 [History] Atorvastatin [Lipitor] 80 mg PO HS #90 tab 10/24/16 [Rx] Nitroglycerin Sl Tabs [Nitrostat] 0.4 mg SUBLINGUAL Q5M PRN #25 tab 10/24/16 [Rx] Aspirin 325 mg PO DAILY #20 tab 05/08/20 [Rx] Memantine [Namenda] 10 mg PO BID 05/12/21 [History] Omeprazole 20 mg PO DAILY 06/03/21 [History] Donepezil [Aricept] 10 mg PO HS tab 06/05/21 [Rx] Folic Acid 1 mg PO DAILY tab 06/05/21 [Rx] Metoprolol Tartrate [Lopressor] 12.5 mg PO BID 12/15/21 [History] QUEtiapine [SEROquel] 12.5 mg PO TID 12/15/21 [History] Follow up Appointment(s)/Referral(s): Kassandra Gillette MD [Primary Care Provider] - 1-2 days Tea Madsen MD [STAFF PHYSICIAN] - 1 Week Wisam Oreilly MD [STAFF PHYSICIAN] - 2 Weeks (Follow up with vascular ) Patient Instructions/Handouts: Dehydration (GEN), Dementia (GEN), Altered Mental Status (GEN), Dizziness (GEN) Activity/Diet/Wound Care/Special Instructions: Recommend to follow up with oncology outpatient for bone scan as recommended Follow up with PCP in 1-2 days Follow up with vascular services regarding 3.5 cm abdominal aortic aneurysm Encourage oral intake Recommend monitoring of meal time to encourage and ensure adequate oral intake Can continue oral protein supplementation 2 to 3 times per day. Recommend supervision for medications Monitor blood pressure around the same time daily when patient is relaxed and sitting. Keep log for follow up. Discharge Disposition: HOME SELF-CARE
== END 2021-12-17 16:43 | disposition home or self-care (01) ==
LOC: EC 14:00 → 6NMEDSUR 18:09 → 3SCARD 19:47 → 6NMEDSUR 12-16 08:46
PROVIDERS: ADMIT Hospitalist; ATTEND Hospitalist
DX: I95.9 Hypotension, unspecified (principal); N17.9 Acute kidney failure, unspecified; J96.11 Chronic respiratory failure with hypoxia; E86.0 Dehydration; R79.89 Other specified abnormal findings of blood chemistry; F01.50 Vascular dementia, unspecified severity, without behavioral disturbance, psychotic disturbance, mood disturbance, and anxiety; R63.4 Abnormal weight loss; I48.0 Paroxysmal atrial fibrillation; I10 Essential (primary) hypertension; I25.10 Atherosclerotic heart disease of native coronary artery without angina pectoris; R80.9 Proteinuria, unspecified; E86.9 Volume depletion, unspecified; R63.8 Other symptoms and signs concerning food and fluid intake; I71.4 Abdominal aortic aneurysm, without rupture; K80.20 Calculus of gallbladder without cholecystitis without obstruction; J44.9 Chronic obstructive pulmonary disease, unspecified; E78.5 Hyperlipidemia, unspecified; G89.29 Other chronic pain; M54.9 Dorsalgia, unspecified; M19.90 Unspecified osteoarthritis, unspecified site; K57.90 Diverticulosis of intestine, part unspecified, without perforation or abscess without bleeding; H91.92 Unspecified hearing loss, left ear; I25.2 Old myocardial infarction; D69.6 Thrombocytopenia, unspecified; M43.8X6 Other specified deforming dorsopathies, lumbar region; M48.00 Spinal stenosis, site unspecified; Z99.81 Dependence on supplemental oxygen; Z79.82 Long term (current) use of aspirin; Z79.899 Other long term (current) drug therapy; Z86.74 Personal history of sudden cardiac arrest; Z85.46 Personal history of malignant neoplasm of prostate; Z92.3 Personal history of irradiation; Z86.010 Personal history of colon polyps; Z95.5 Presence of coronary angioplasty implant and graft; Z96.611 Presence of right artificial shoulder joint; Z92.21 Personal history of antineoplastic chemotherapy; Z87.891 Personal history of nicotine dependence; Z86.16 Personal history of COVID-19; Z87.01 Personal history of pneumonia (recurrent); Z98.890 Other specified postprocedural states; Z82.0 Family history of epilepsy and other diseases of the nervous system; Z80.3 Family history of malignant neoplasm of breast; Z80.1 Family history of malignant neoplasm of trachea, bronchus and lung
CPT/HCPCS: 96360; 96361; 99285; 36415; 93005; 97161; 84153; 80053; 80048; 83605; 84484 ×2; 85025; 81001; 71260; 74177; G0378 ×5; Q9967

== ENCOUNTER → 2022-01-01 | Outpatient (CLI) | payer MEDICARE, OTHER ==
[2022-01-01 14:43] LABS: Basophils # (A) 0.02 X 10*3/uL (0.00-0.10); Basophils % (A) 0.5 %; Eosinophils # (A) 0.04 X 10*3/uL (0.04-0.35); Eosinophils % (A) 0.9 %; HCT 43.3 % (39.6-50.0); HGB 14.1 g/dL (13.0-17.0); Immature Grans, Automated 0.2 %; Lymphocytes # (A) 0.49 X 10*3/uL (0.90-5.00); Lymphocytes % (A) 11.3 %; MCH 28.8 pg (27.0-32.0); MCHC 32.6 g/dL (32.0-37.0); MCV 88.5 fL (80.0-97.0); Mean Platelet Volume 11.9 fL (9.5-12.2); Monocytes # (A) 0.36 X 10*3/uL (0.20-1.00); Monocytes % (A) 8.3 %; NRBC Per 100 WBC 0 /100 WBCS (0.0-0.0); Neutrophils # (A) 3.41 X 10*3/uL (1.80-7.70); Neutrophils % (A) 78.8 %; Platelet Count 172 X 10*3/uL (140-440); RBC 4.89 X 10*6/uL (4.40-5.60); RDW 13.6 % (11.5-14.5); WBC 4.33 X 10*3/uL (4.50-10.00)
[2022-01-01 14:45] LABS: ALT 11 U/L (10-49); AST 24 U/L (14-35); African American GFR (CKD) 70.6 (60.0-200.0); Albumin 4.1 g/dL (3.8-4.9); Albumin/Globulin Ratio 1.37 (1.60-3.17); Alkaline Phosphatase 74 U/L (41-126); BUN/Creat Ratio 14.25 Ratio (12.00-20.00); Blood Urea Nitrogen 17.1 mg/dL (9.0-27.0); Calcium 10.3 mg/dL (8.7-10.3); Carbon Dioxide 25.5 mmol/L (20.0-27.5); Chloride 101 mmol/L (96-109); Glucose 121 mg/dL (70-110); Non-African American GFR(CKD) 60.9 (60.0-200.0); Potassium 4.1 mmol/L (3.5-5.5); Sodium 142 mmol/L (135-145); Total Protein 7.1 g/dL (6.2-8.2)
== END | disposition home or self-care (01) ==
LOC: LABWHC1 10:11
PROVIDERS: ATTEND Internal Medicine
DX: E07.9 Disorder of thyroid, unspecified (principal)
CPT/HCPCS: 36415; 80053; 84439; 84443; 84481; 85025

== ENCOUNTER → 2022-01-19 | Outpatient (CLI) | payer MEDICARE, OTHER ==
--- NOTE | 2022-01-19 09:33 | US ---
EXAMINATION TYPE: US thyroid st tissue head/neck DATE OF EXAM: 01/19/2022 COMPARISON: NONE CLINICAL HISTORY: E05.90 HYPOTHYROIDISM. Hyperthyroidism. Hx prostate cancer. Chemo and radiation in 2011. GLAND SIZE: Right Lobe: 5.0 x 1.6 x 2.2 cm Overall Parenchyma: heterogenous Left Lobe: 5.4 x 1.5 x 1.8 cm Overall Parenchyma: heterogeneous Isthmus Thickness: 0.34 cm NODULES RIGHT: # of nodules measured on right: 1 1. 1.2 X 0.8 x 0.8 cm, lower mid, Prior size: no prior TIRADS Score: 4 TIRADS Category 4: Moderately Suspicious Composition: Solid or almost completely solid (2 points). Echogenicity: Hypoechoic (2 points). Shape: Wider than tall (0 points). Margin: Smooth (0 points). Echogenic foci: None or large comet-tail artifacts (0 points) Recommendation: If >1.5cm: FNA; If >1cm: Follow up at 1,3,5 years' LEFT: # of nodules measured on left: 0 ISTHMUS: # of nodules measured in the isthmus: 0 Bilateral neck scanned, no evidence of lymphadenopathy. IMPRESSION: Right thyroid nodule which is a TIRADS Score: 4 and meets criteria for one-year follow-up thyroid ult rasound.
== END | disposition home or self-care (01) ==
LOC: RADUSWWP 08:47
PROVIDERS: ATTEND Internal Medicine
DX: E05.90 Thyrotoxicosis, unspecified without thyrotoxic crisis or storm (principal)
CPT/HCPCS: 76536

== ENCOUNTER → 2022-01-21 | Outpatient (CLI) | payer MEDICARE, OTHER ==
--- NOTE | 2022-01-22 09:39 | NM ---
EXAMINATION TYPE: NM thyroid image w uptake DATE OF EXAM: 01/22/2022 COMPARISON: Ultrasound thyroid January 19, 2022 HISTORY: Hyperthyroidism TECHNIQUE: Thyroid iodine uptake is calculated and images performed after the oral administration of 305 uCi 1-123 Capsule. FINDINGS: There is normal distribution of activity throughout the gland. The 4 hour iodine uptake is calculated at 33% (normal range 8-14%). The 24-hour iodine uptake is calculated at 73% (normal range 15-35%). IMPRESSION: Increased uptake correlates with history of hyperthyroidism. Normal scan images.
== END | disposition home or self-care (01) ==
LOC: RADNMMAIN 08:49
PROVIDERS: ATTEND Internal Medicine
DX: E05.90 Thyrotoxicosis, unspecified without thyrotoxic crisis or storm (principal)
CPT/HCPCS: 78014; A9516

== ENCOUNTER 2022-05-25 12:21 | Emergency (ER) | payer MEDICARE, OTHER ==
--- NOTE | 2022-05-25 12:45 | ED ---
General Adult HPI - General Stated complaint: COVID+, chest pain, sob Time Seen by Provider: 05/25/22 12:45 Source: patient, RN notes reviewed Mode of arrival: ambulatory Limitations: no limitations - History of Present Illness Initial comments: 71-year-old male presents emergency Department chief complaint of COVID-19, chest pain. Patient states that she was sick last few days to suppository for COVID-19 was started on antivirals took his first dose today the patient started developing chest increasing weakness. Patient states essentially is chest pain. Patient has prior cardiac disease including cardiac stent. Patient states he is congested, short of breath. Family states that he has been more weak than usual. - Related Data Home Medications Medication Instructions Recorded Confirmed Tamsulosin [Flomax] 0.4 mg PO DAILY 10/21/16 12/15/21 Memantine [Namenda] 10 mg PO BID 05/12/21 12/15/21 Omeprazole 20 mg PO DAILY 06/03/21 12/15/21 Metoprolol Tartrate [Lopressor] 12.5 mg PO BID 12/15/21 12/15/21 QUEtiapine [SEROquel] 12.5 mg PO TID 12/15/21 12/15/21 Previous Rx's Medication Instructions Recorded Atorvastatin [Lipitor] 80 mg PO HS #90 tab 10/24/16 Nitroglycerin Sl Tabs [Nitrostat] 0.4 mg SUBLINGUAL Q5M PRN #25 tab 10/24/16 Aspirin 325 mg PO DAILY #20 tab 05/08/20 Donepezil [Aricept] 10 mg PO HS tab 06/05/21 Folic Acid 1 mg PO DAILY tab 06/05/21 Allergies Allergy/AdvReac Type Severity Reaction Status Date / Time No Known Allergies Allergy Verified 05/25/22 13:12 Review of Systems ROS Statement: Those systems with pertinent positive or pertinent negative responses have been documented in the HPI. ROS Other: All systems not noted in ROS Statement are negative. Past Medical History Past Medical History: Atrial Fibrillation, Cancer, Dementia, Hearing Disorder / Deafness, Hyperlipidemia, Hypertension, Memory Impairment, Myocardial Infarction (ID), Osteoarthritis (OA), Prostate Disorder Additional Past Medical History / Comment(s): Pt tested covid + by home test and here at [facility] on 05/10/21, 10/21/16 [place]/cardiac arrest/vfib, prostate cancer tx with radiation/seed implants/chemo, chronic back pain, spinal stenosis, benign colon polyp/diverticular disease, Left ear hearing loss Last Myocardial Infarction Date:: SEPTEMBER 2016 History of Any Multi-Drug Resistant Organisms: None Reported Past Surgical History: Heart Catheterization With Stent, Orthopedic Surgery, Prostate Surgery Additional Past Surgical History / Comment(s): 09/2016 PCI with stent to LAD, prostate biopsy/seed implants, R rotator cuff repair, reverse R total shoulder, L acoustic neuroma removed, colonoscopy. Past Anesthesia/Blood Transfusion Reactions: No Reported Reaction, Postoperative Nausea & Vomiting (PONV) Additional Past Anesthesia/Blood Transfusion Reaction / Comment(s): has used scopolamine patch in past Date of Last Stent Placement:: 10/21/16 Past Psychological History: No Psychological Hx Reported Smoking Status: Former smoker Past Alcohol Use History: None Reported Past Drug Use History: None Reported - Past Family History Father Family Medical History: Dementia Additional Family Medical History / Comment(s): PARKINSONS Mother Additional Family Medical History / Comment(s): MOM ,NO HX KNOWN Sister(s) Family Medical History: Cancer Additional Family Medical History / Comment(s): SISTER #1 BREAST CANCER. SISTER #2 LUNG CANCER Daughter(s) Family Medical History: Blood Disorder Additional Family Medical History / Comment(s): ITP General Exam Limitations: no limitations General appearance: alert, in no apparent distress Head exam: Present: atraumatic, normocephalic, normal inspection Eye exam: Present: normal appearance, PERRL, EOMI. Absent: scleral icterus, conjunctival injection, periorbital swelling ENT exam: Present: normal exam, normal oropharynx, mucous membranes moist Neck exam: Present: normal inspection, full ROM. Absent: tenderness, meningismus, lymphadenopathy Respiratory exam: Present: normal lung sounds bilaterally. Absent: respiratory distress, wheezes, rales, rhonchi, stridor Cardiovascular Exam: Present: regular rate, normal rhythm, normal heart sounds. Absent: systolic murmur, diastolic murmur, rubs, gallop, clicks GI/Abdominal exam: Present: soft, normal bowel sounds. Absent: distended, tenderness, guarding, rebound, rigid Course Vital Signs 05/25/22 13:10 Temperature 98.8 F Pulse Rate 72 Respiratory 22 Rate Blood Pressure 103/72 O2 Sat by Pulse 96 Oximetry Medical Decision Making - Medical Decision Making Was pt. sent in by a medical professional or institution? @ -no Did you speak to anyone other than the patient for history? @ -Family parotid past medical history, pertinent history as patient has underlying dementia Did you review nursing and triage notes? @ -agree abnd reviewed Were old charts reviewed? @ -no Differential Diagnosis? @ -Coivd 19 RSV, influenza, pneumonia, ACS, URI, denies weakness, this list is not meant to be all-inclusive EKG interpreted by me (3pts min.)? @ -EKG interpreted by me sinus tachycardia with a rate of 109 MD 129/82 QT/QTC 339/403 X-rays interpreted by me (1pt min.)? @ -Chest x-ray interpreted by me no acute pulmonary abnormality CT interpreted by me (1pt min.)? @ -none U/S interpreted by me (1pt. min.)? @ -[none] What testing was considered but not performed? (CT, X-rays, U/S, labs)? Why? @ no What meds were considered but not given? Why? @ -Antivirals oh patient is currently on them. Did you discuss the management of the patient with other professionals? @ -no Did you reconcile home meds? @ -no Was smoking cessation discussed for >3mins.? @ -no Was critical care preformed (if so, how long)? @ -no Were there social determinants of health that impacted care today? How? (Homelessness, low income, unemployed, alcoholism, drug addiction, transportation, low edu. Level, literacy, decrease access to med. care, longterm, rehab)? @ -no Was there de-escalation of care discussed even if they declined? (Discuss DNR or withdrawal of care, Hospice)? @ -no What co-morbidities impacted this encounter? (DM, HTN, Smoking, COPD, CAD, Cancer, CVA, Hep., AIDS, mental health diagnosis, sleep apnea, morbid obesity)? @ -no Was patient admitted / discharged? @ -Discharged Undiagnosed new problem with uncertain prognosis? @ -no Drug Therapy requiring intensive monitoring for toxicity (Heparin, Nitro, Insulin, Cardizem)? @ -no Were any procedures done? @ -no Diagnosis/symptom? @ -covid 19 Acute, or Chronic, or Acute on Chronic? @ -acute Uncomplicated (without systemic symptoms) or Complicated (systemic symptoms)? @ -uncomplicated Side effects of treatment? @ -none Exacerbation, Progression, or Severe Exacerbation] @ -no Poses a threat to life or bodily function? @ -yes 71-year-old male presents from for generalized weakness with covid 19. Patient had negative workup. Family is requesting patient be discharged and felt comfortable with discharge. Chest pain is reproducible and more consistent with chest wall pain fro - Lab Data Result diagrams: 05/25/22 13:27 05/25/22 13:27 Lab Results 05/25/22 05/25/22 05/25/22 Range/Units 13:27 13:27 13:27 WBC 6.9 (3.8-10.6) k/uL RBC 4.56 (4.30-5.90) m/uL Hgb 14.3 (13.0-17.5) gm/dL Hct 41.0 (39.0-53.0) % MCV 89.9 (80.0-100.0) fL MCH 31.3 (25.0-35.0) pg MCHC 34.8 (31.0-37.0) g/dL RDW 14.3 (11.5-15.5) % Plt Count 107 L (150-450) k/uL MPV 9.2 Neutrophils % 86 % Lymphocytes % 5 % Monocytes % 7 % Eosinophils % 0 % Basophils % 0 % Neutrophils # 5.9 (1.3-7.7) k/uL Lymphocytes # 0.4 L (1.0-4.8) k/uL Monocytes # 0.5 (0-1.0) k/uL Eosinophils # 0.0 (0-0.7) k/uL Basophils # 0.0 (0-0.2) k/uL PT 10.8 (9.0-12.0) sec INR 1.0 (<1.2) APTT 28.6 (22.0-30.0) sec Sodium 138 (137-145) mmol/L Potassium 3.8 (3.5-5.1) mmol/L Chloride 103 (98-107) mmol/L Carbon Dioxide 26 (22-30) mmol/L Anion Gap 9 mmol/L BUN 15 (9-20) mg/dL Creatinine 1.23 (0.66-1.25) mg/dL Est GFR (CKD-EPI)AfAm 69 (>60 ml/min/1.73 sqM) Est GFR (CKD-EPI)NonAf 59 (>60 ml/min/1.73 sqM) Glucose 97 (74-99) mg/dL Calcium 8.9 (8.4-10.2) mg/dL Magnesium 1.9 (1.6-2.3) mg/dL Total Bilirubin 0.6 (0.2-1.3) mg/dL AST 33 (17-59) U/L ALT 21 (4-49) U/L Alkaline Phosphatase 85 (38-126) U/L Troponin I (0.000-0.034) ng/mL Total Protein 7.3 (6.3-8.2) g/dL Albumin 4.2 (3.5-5.0) g/dL 05/25/22 Range/Units 13:27 WBC (3.8-10.6) k/uL RBC (4.30-5.90) m/uL Hgb (13.0-17.5) gm/dL Hct (39.0-53.0) % MCV (80.0-100.0) fL MCH (25.0-35.0) pg MCHC (31.0-37.0) g/dL RDW (11.5-15.5) % Plt Count (150-450) k/uL MPV Neutrophils % % Lymphocytes % % Monocytes % % Eosinophils % % Basophils % % Neutrophils # (1.3-7.7) k/uL Lymphocytes # (1.0-4.8) k/uL Monocytes # (0-1.0) k/uL Eosinophils # (0-0.7) k/uL Basophils # (0-0.2) k/uL PT (9.0-12.0) sec INR (<1.2) APTT (22.0-30.0) sec Sodium (137-145) mmol/L Potassium (3.5-5.1) mmol/L Chloride (98-107) mmol/L Carbon Dioxide (22-30) mmol/L Anion Gap mmol/L BUN (9-20) mg/dL Creatinine (0.66-1.25) mg/dL Est GFR (CKD-EPI)AfAm (>60 ml/min/1.73 sqM) Est GFR (CKD-EPI)NonAf (>60 ml/min/1.73 sqM) Glucose (74-99) mg/dL Calcium (8.4-10.2) mg/dL Magnesium (1.6-2.3) mg/dL Total Bilirubin (0.2-1.3) mg/dL AST (17-59) U/L ALT (4-49) U/L Alkaline Phosphatase (38-126) U/L Troponin I <0.012 (0.000-0.034) ng/mL Total Protein (6.3-8.2) g/dL Albumin (3.5-5.0) g/dL Disposition Clinical Impression: COVID-19 Disposition: HOME SELF-CARE Condition: Stable Instructions (If sedation given, give patient instructions): COVID-19 (Coronavirus Disease 2019) (ED) Additional Instructions: Please return to the Emergency Department if symptoms worsen or any other concerns. Is patient prescribed a controlled substance at d/c from ED?: No Referrals: Kassandra Gillette MD [Primary Care Provider] - 1-2 days Time of Disposition: 15:18
--- NOTE | 2022-05-25 13:34 | XR ---
EXAMINATION TYPE: XR chest 2V DATE OF EXAM: 05/25/2022 COMPARISON: 06/03/2021 TECHNIQUE: PA and lateral views submitted. HISTORY: Shortness of breath FINDINGS: The lungs are clear and there is no pneumothorax, pleural effusion, or focal pneumonia. Postsurgica l change right shoulder. Hypertrophic degenerative changes spine. Atherosclerotic change aorta. Hyper inflation suggests COPD. Chronic catheter mild compression fracture midthoracic spine elevated right hemidiaphragm stable from prior exam. IMPRESSION: 1. No acute process. Correlate for COPD.
[2022-05-25 14:28] LABS: Basophils % (A) 0 %; Eosinophils % (A) 0 %; HGB 14.3 gm/dL (13.0-17.5); Lymphocytes # (A) 0.4 k/uL (1.0-4.8); Lymphocytes % (A) 5 %; MCH 31.3 pg (25.0-35.0); MCHC 34.8 g/dL (31.0-37.0); MCV 89.9 fL (80.0-100.0); Mean Platelet Volume 9.2; Monocytes # (A) 0.5 k/uL (0-1.0); Monocytes % (A) 7 %; Neutrophils # (A) 5.9 k/uL (1.3-7.7); Neutrophils % (A) 86 %; Platelet Count 107 k/uL (150-450); RBC 4.56 m/uL (4.30-5.90); RDW 14.3 % (11.5-15.5); WBC 6.9 k/uL (3.8-10.6)
[2022-05-25 14:39] LABS: Partial Thromboplastin Time 28.6 sec (22.0-30.0); Prothrombin Time 10.8 sec (9.0-12.0)
[2022-05-25 14:45] LABS: Albumin 4.2 g/dL (3.5-5.0); Calcium 8.9 mg/dL (8.4-10.2); Magnesium 1.9 mg/dL (1.6-2.3); Potassium 3.8 mmol/L (3.5-5.1); Total Bilirubin 0.6 mg/dL (0.2-1.3); Total Protein 7.3 g/dL (6.3-8.2)
[2022-05-25 15:26] VITALS: BP 103/66; PULSE 97; RESP 20; TEMP 98.9
== END 2022-05-25 15:23 | disposition home or self-care (01) ==
LOC: EC 12:21
DX: U07.1 COVID-19 (principal); I48.91 Unspecified atrial fibrillation; I10 Essential (primary) hypertension; I25.2 Old myocardial infarction; Z87.891 Personal history of nicotine dependence; Z79.899 Other long term (current) drug therapy
CPT/HCPCS: 36415; 71046; 80053; 83735; 84484; 85025; 85610; 85730; 93005; 99284

== ENCOUNTER → 2023-02-09 | Outpatient (CLI) | payer MEDICARE, OTHER ==
[~2023-02-09] MED LIST changes: -ACETAMINOPHEN TAB 500 MG TAB PO PRN; -DEXAMETHASONE SOD PHOSPHATE 4 MG/ML 1 ML VIAL IV ONE; -LIDOCAINE 1% (10MG/ML) FOR IV START INTRADERMA PRN; -MELOXICAM 7.5 MG TAB PO PRN; -MIDAZOLAM 2 MG/2 ML VIAL IV PRN; -ONDANSETRON 4 MG/2 ML VIAL IVP ONE; +REGADENOSON 0.4 MG/5 ML SYRINGE IV PRN; -TRANEXAMIC ACID 1,000 MG in SODIUM CHLORIDE 0.9% 100 ML IVPB PRN
--- NOTE | 2023-02-09 12:10 | CA ---
Lexiscan Nuclear Stress Test Report Name: Cal Simmons Exam Date: 02/09/2023 09:44 Exam Location: [place] [facility] Ht (in): 66 Wt (lb): 138 BSA: 1.71 Ordering Phys: Kassandra Gillette MD Referring Phys: Kassandra Gillette MD Technologist: Calvin Llanes Age: 72 Gender: M : 1950 Procedure CPT: Indications: I25.10 ATHSCL HEART DISEA, I65.23 carotid stenosis ICD-10 Codes: Patient History: PRIOR SMOKER, PRIOR [place] Medications: NONE,,,,, Meds past 24 hrs: Pretest Chest Pain: STRESS TEST Lexiscan Protocol Exercise Duration (min:sec): 01:[address] Depressions (mm): Angina Score: Valdivia Score: Resting HR (bpm): 73 Peak HR (bpm): 114 Resting BP (mmHg): 141 / 86 Peak BP (mmHg): 141 / 86 MPHR: 149 Target HR: 127 % MPHR: 77 METS: 1.0 Total Dose: Peak Dose: Atropine: Double Product: 11336 BP Response: Stress Termination: INFUSION COMPLETE Stress Symptoms: NO SYMPTOMS Stress Summary: ECG ANALYSIS Resting ECG: Stress ECG: CONCLUSIONS At baseline EKG showed normal sinus rhythm, normal axis, no significant ST or T wave abnormalities. Patient recieved IV infusion of Lexiscan 0.4mg and at peak infusion EKG showed no significant change from baseline. Conclusions: 1. Normal EKG response to Lexiscan infusion 2. Nuclear imaging to be reported separately. Dr. Silas Dunlap DO (Electronically Signed) Final Date: 09 February 2023 12:09
--- NOTE | 2023-02-09 12:30 | US ---
EXAMINATION TYPE: US carotid duplex BILAT DATE OF EXAM: 02/09/2023 COMPARISON: CLINICAL INDICATION: Male, 72 years old with history of I25.10 ATHSCL HEART DISEA, I65.23 carotid flower nosis; Hx CAD with ID in 2017. No HTN. TECHNIQUE: Carotid duplex ultrasound examination. Indirect Doppler criteria was utilized. FINDINGS: EXAM MEASUREMENTS: RIGHT: Peak Systolic Velocity (PSV) cm/sec ----- Right CCA: 59.4 ----- Right ICA: 72.0 ----- Right ECA: 92.2 ICA/CCA ratio: 1.2 RIGHT: End Diastole cm/sec ----- Right CCA: 12.0 ----- Right ICA: 21.9 ----- Right ECA: 9.6 LEFT: Peak Systolic Velocity (PSV) cm/sec ----- Left CCA: 64.5 ----- Left ICA: 92.2 ----- Left ECA: 78.3 ICA/CCA ratio: 1.4 LEFT: End Diastole cm/sec ----- Left CCA: 15.6 ----- Left ICA: 25.9 ----- Left ECA: 6.7 VERTEBRALS (direction of flow): Right Vertebral: Antegrade Left Vertebral: Antegrade Rhythm: Normal TOY ASSEMBLER NOTES: No elevated velocities or significant stenosis. Plaque visualized bilaterally with wall thickening. IMPRESSION: 1. Intimal thickening with some mild plaquing. No significant flow-limiting stenosis based on velocit ies is evident. Criteria for Assigning % of Stenosis / Diameter reduction (Estimation based on the indirect measurements of the internal carotid artery velocities (ICA PSV). 1. Normal (no stenosis)=ICA PSV < 125 cm/s: ratio < 2.0: ICA EDV<40 cm/s. 2. Less than 50% stenosis=ICA PSV < 125 cm/s: ratio < 2.0: ICA EDV<40 cm/s. 3. 50 to 69% stenosis=ICA PSV of 125 to 230 cm/s: ration 2.0 ? 4.0: ICA EDV 40-100 cm/s. 4. Greater than 70% stenosis to near occlusion= ICA PSV > 230 cm/s: ratio > 4.0: ICA EDV > 100 cm/s. 5. Near occlusion= ICA PSV velocities may be low or undetectable: variable ratio and ICA EDV. 6. Total occlusion=unable to detect flow.
--- NOTE | 2023-02-09 15:33 | CA ---
Transthoracic Echo Report Name: Cal Simmons Age: 72 Gender: M : 1950 Exam Date: 02/09/2023 08:36 Exam Location: [facility] Ht (in): 65 Wt (lb): 138 Ordering Physician: Kassandra Gillette MD Attending/Referring Phys: Kassandra Gillette MD Nib Finisher Melisa Hartmann, KAN Procedure CPT: Indications: I25.10 ATHSCL HEART DISEA, I65.23 carotid stenosis Cardiac Hx: Technical Quality: Good Contrast 1: Total Dose (mL): Contrast 2: Total Dose (mL): MEASUREMENTS (Male / Female) Normal Values 2D ECHO LV Diastolic Diameter PLAX 3.9 cm 4.2 - 5.9 / 3.9 - 5.3 cm LV Systolic Diameter PLAX 3.2 cm IVS Diastolic Thickness 1.2 cm 0.6 - 1.0 / 0.6 - 0.9 cm LVPW Diastolic Thickness 1.0 cm 0.6 - 1.0 / 0.6 - 0.9 cm LV Relative Wall Thickness 0.6 RV Internal Dim ED PLAX 3.2 cm LA Systolic Diameter LX 3.4 cm 3.0 - 4.0 / 2.7 - 3.8 cm LV Diastolic Volume MOD 4C 98.7 cm??? LV Systolic Volume MOD 4C 34.8 cm??? LV Ejection Fraction MOD 4C 64.8 % LV Cardiac Index MOD 4C 3498.1 cm???/min???m??? LV Diastolic Length 4C 8.4 cm LV Systolic Length 4C 7.0 cm LV Diastolic Volume MOD 2C 70.7 cm??? LV Systolic Volume MOD 2C 27.7 cm??? LV Ejection Fraction MOD 2C 60.8 % LV Cardiac Index MOD 2C 2353.4 cm???/min???m??? LV Diastolic Length 2C 6.9 cm LV Systolic Length 2C 5.0 cm LA Volume 36.8 cm??? 18 - 58 / 22 - 52 cm??? M-MODE Aortic Root Diameter MM 3.1 cm MV E Point Septal Separation 1.2 cm AV Cusp Separation MM 2.2 cm DOPPLER AV Peak Velocity 141.6 cm/s AV Peak Gradient 8.0 mmHg MV Area PHT 2.1 cm??? Mitral E Point Velocity 63.7 cm/s Mitral A Point Velocity 90.1 cm/s Mitral E to A Ratio 0.7 MV Deceleration Time 353.1 ms MV E' Velocity 8.5 cm/s Mitral E to MV E' Ratio 7.5 TR Peak Velocity 203.5 cm/s TR Peak Gradient 16.6 mmHg Right Ventricular Systolic Press 21.6 mmHg FINDINGS Left Ventricle Left ventricular ejection fraction is estimated at 55-60 %. Small left ventricular cavity. Mildly increased septal wall thickness. Right Ventricle Normal right ventricular size and function. Right ventricular systolic pressure within normal limits. Right Atrium Normal right atrial size. Left Atrium Normal left atrial size. Mitral Valve Structurally normal mitral valve. Mitral annular calcification. Aortic Valve Trileaflet aortic valve. No aortic valve stenosis or regurgitation. Tricuspid Valve Structurally normal tricuspid valve. Trace to mild tricuspid regurgitation. Pulmonic Valve Structurally normal pulmonic valve. Trace pulmonic regurgitation. Pericardium No pericardial effusion. Aorta Normal size aortic root and proximal ascending aorta. CONCLUSIONS Left ventricular ejection fraction 55-60% Mildly increased left ventricular wall thickness Mild mitral calcification Trace to mild tricuspid regurgitation No pericardial effusion Previewed by: Dr. Silas Dunlap DO (Electronically Signed) Final Date: 09 February 2023 15:32
== END | disposition home or self-care (01) ==
LOC: RADUSWWP 07:52
PROVIDERS: ATTEND Internal Medicine
DX: I08.1 Rheumatic disorders of both mitral and tricuspid valves (principal); I25.10 Atherosclerotic heart disease of native coronary artery without angina pectoris; I65.23 Occlusion and stenosis of bilateral carotid arteries
CPT/HCPCS: 93017; 93306; 93880; 78452; A9500; J2785

== ENCOUNTER → 2023-03-23 | Outpatient (CLI) | payer MEDICARE, OTHER ==
--- NOTE | 2023-03-23 19:05 | MR ---
EXAMINATION TYPE: MR brain wo/w con DATE OF EXAM: 03/23/2023 6:04 PM CLINICAL INDICATION:Male, 72 years old with history of D33.3 BENIGN NEOPLASM OF CRANIAL NERVES;, Left acoustic neuroma. Vascular dementia without behavioral disturbance COMPARISON: 03/08/2021 and dating back to 04/13/2014 TECHNIQUE: Multi planar, multi sequence imaging was performed through the brain including: T1, T2, In version recovery, susceptibility weighted imaging and gradient echo imaging and Diffusion weighted im aging. The patient was then given intravenous contrast and multi planar, T1 fat-saturation images wer e obtained. 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 No additional abnormal postcontrast enhance ment. Mild cerebral atrophy with proportional dilation of ventricular system. Diffusion-weighted marco antonio ging shows no evidence of restricted diffusion to suggest acute/subacute infarct. Intracranial arteri al flow voids are maintained. Midline structures show no abnormality. Similar scattered foci of high T2 signal intensity are seen within the periventricular white matter. The susceptibility weighted marco antonio ges do not reveal any evidence for micro-hemorrhage. Scattered postsurgical susceptibility artifact n oted in the left posterior cranial fossa The bone marrow signal is within normal limits. Paranasal sinuses and mastoid air cells: No significant paranasal sinus disease. Visualized orbits: Orbital contents are intact. IMPRESSION: 1. Posttreatment changes with stable in size left cerebellar pontine/internal auditory canal schwanno ma. No evidence of additional intracranial mass, acute/subacute infarct, or additional abnormal enhan cement. 2. Similar Nonspecific white matter changes, likely related to small vessel ischemic disease
== END | disposition home or self-care (01) ==
LOC: RADMRIMAIN 16:26
PROVIDERS: ATTEND Internal Medicine
DX: D33.3 Benign neoplasm of cranial nerves (principal); F01.50 Vascular dementia, unspecified severity, without behavioral disturbance, psychotic disturbance, mood disturbance, and anxiety; R90.82 White matter disease, unspecified; Z98.890 Other specified postprocedural states
CPT/HCPCS: 70553; A9585